=== PATIENT | female | born 1935 | race Caucasian/White ===

== ENCOUNTER → 2017-07-04 13:09 | Outpatient (CLI) | payer MEDICARE, SELFPAY ==
--- NOTE | 2017-07-04 13:13 | MR_ITS ---
MR cervical spine wo con HISTORY: Neck pain with bilateral hand numbness ITS.REASON: CERVICAL NEURALGIA ORDERING PHYSICIAN: Edilberto Montoya MD PATIENT AGE: 82 years COMPARISON: CT scan of the C-spine of 11/01/2016 TECHNIQUE: Standard multiplanar multiecho sequences are performed without contrast. 3-D MIP and myelographic images are also rendered and reviewed FINDINGS: There is normal alignment. The craniocervical junction has an unremarkable appearance. Small cystic area is present along the dorsal aspect of the base of the odontoid measuring approximate 5 mm and may be due to a subarticular cyst of the odontoid. Not significant change from the CT scan. C2-C3: Mild facet hypertrophic change with mild right-sided foraminal narrowing. C3-C4: Degenerative disc disease with bulging disc/broad-based disc osteophyte complex with narrowing of the canal at 10 mm along with bilateral lateral recess narrowing and bilateral foraminal narrowing. C4-C5: Mild anterolisthesis of C4 of 2 mm with minimal bulging disc eccentric to the right and right-sided uncovertebral hypertrophy with moderate right-sided foraminal narrowing and right lateral recess narrowing. C5-C6: Prominent broad-based bulging disc with disc osteophyte complex along with ossification along the deep aspect of the lamina on both sides resulting in severe canal stenosis at 5 mm with compression upon the cord. Increased T2 signal involves the cord at this area and could be due to underlying gliotic change. There is moderate flattening of the cord. In addition, there is degenerative disc disease with facet and uncovertebral hypertrophy with bilateral lateral recess and foraminal narrowing. C6-C7 minimal bulging disc with mild degenerative disc disease. C7-T1: 2 mm anterolisthesis of C7. IMPRESSION: Cervical spondylosis with degenerative disc disease with bulging discs/disc osteophyte complexes and with facet and uncovertebral hypertrophic change resulting in canal stenosis and foraminal and lateral recess narrowing as described above. Please see above for detailed description at each level. Most extensive findings are at C5-C6 with prominent broad-based bulging disc with disc osteophyte complex along with hypertrophic change along the deep aspect of the lamina on both sides resulting in severe canal stenosis at 5 mm with compression upon the cord. Increased T2 signal involves the cord at this area and could be due to underlying gliotic change or edema. There is moderate flattening of the cord. In addition, there is degenerative disc disease with facet and uncovertebral hypertrophy with bilateral lateral recess and foraminal narrowing.. IMPRESSION: . She is this
== END ==
PROVIDERS: PCP Internal Medicine Adolescent Medicine; Visit Provider Internal Medicine Adolescent Medicine
DX: M54.12 Radiculopathy, cervical region (principal)
CPT/HCPCS: 72141; 76376

== ENCOUNTER → 2017-08-02 10:36 | Outpatient (CLI) | payer MEDICARE, SELFPAY ==
--- NOTE | 2017-08-02 10:47 | XR_ITS ---
EXAM: XR cervical spine 4V HISTORY: ITS.REASON: CERVICAL STENOSIS C3-C7 ORDERING PHYSICIAN: Anatoly Mcconnell MD PATIENT AGE: 82 years COMPARISON: MRI of 07/04/2017 FINDINGS: AP and lateral as well as flexion and extension views are obtained of the cervical spine. There is severe degenerative disc disease at C5-6 with moderate degenerative disc disease at C6-C7. Severe facet hypertrophic changes are present from C3 to C7. This is greater on the left E45 and C5-C6. Flexion and extension views are obtained. No abnormal subluxation in flexion or extension. IMPRESSION: 1. Severe cervical spondylosis as described above with degenerative disc disease and facet arthritic change. 2. No abnormal subluxation in flexion or extension
== END ==
PROVIDERS: PCP Internal Medicine Adolescent Medicine; Visit Provider Neurological Surgery
DX: M54.2 Cervicalgia (principal)
CPT/HCPCS: 72050

== ENCOUNTER 2018-04-04 10:00 | Outpatient (RCR) | payer MEDICARE, SELFPAY ==
--- NOTE | 2018-02-22 14:59 | HMH.PTOPWND ---
Rehab Outpt Wound Evaluation Rehab OP Wound Evaluation Start: 02/22/18 13:57 Freq: Status: Active Protocol: Document 02/22/18 14:45 PHOJONO (Rec: 02/22/18 14:59 PHORNE [id number]) Electronically Signed By Ozzy Mckinney, PT 02/22/18 14:45 Subjective/History History History Pt is 82 yowf who presents with ~ 1 yr hx of ky LE edema with insidious onset. She also reports she fell into her [place]oven[place] tub ~ 6-7 wks ago with multiple skin tears to ky lower legs. She reports severe tenderness to palpation throughout ky lower legs and has hx of insidious peripheral neuropathy. SHe has hx of multiple falls, partial hysterectomy, and HTN also. Subjective Subjective Pain in ky lower legs, especially around left post calf wound. Wound Eval Wound Left Posterior Calf Wound Type Stasis Ulcer Wound Length (cm) 1.6 Wound Width (cm) 3.0 Wound Bed Appearance Beefy Red Percentage Granulated (%) 100 Wound Margins Description Well Defined Surrounding Tissue Appearance [employer] Edema Type Pitting Edema Degree 1+ Query Text:1+ Trace, Barely Detectable, Rebound 15-30 seconds 2+ Moderate, Slight Indentation, Rebound 10-20 seconds 3+ Deep, Deeper Indentation, Rebound > 30 seconds 4+ Very Deep, Rebound > 60 seconds Edema Appearance Shiny Open Sores Drainage Description Serous Drainage Amount Moderate Drainage Odor No Odor Primary Dressing Silver Dressing Comment Tegaderm Ag mesh Wound Secondary Dressing Type Gauze Roll/Wrap Adhering Gauze Roll Unna Boot Dressing Change Patient Tolerance Tolerated Well Lymphedema Eval Classification of Lymphedema Secondary Lymphedema Yes: likely CVI Stage of Lymphedema Lymphedema stages Stage 0 (subjective c/o heaviness and aching) Skin Changes Dry Skin Yes Redness Yes Wounds Yes Discoloration of Skin Yes Pain Scale Pain Scale (0-10) 8 Affected Extremities Areas Affected by Lymphedema/Edema Right Lower E
== END 2018-04-04 10:01 | disposition home or self-care (01) ==
LOC: PT 10:00
PROVIDERS: PCP Internal Medicine Adolescent Medicine; Visit Provider Internal Medicine Adolescent Medicine
DX: L03.116 Cellulitis of left lower limb (principal); L03.115 Cellulitis of right lower limb
CPT/HCPCS: 97140; 97162; 97760

== ENCOUNTER 2018-05-11 10:00 | Outpatient (RCR) | payer MEDICARE, SELFPAY ==
--- NOTE | 2018-04-10 14:56 | HMH.PTOPWND ---
Rehab Outpt Wound Evaluation Rehab OP Wound Evaluation Start: 04/10/18 14:43 Freq: Status: Active Protocol: Document 04/10/18 14:43 PHOJONO (Rec: 04/10/18 14:56 PHORNE [id number]) Electronically Signed By Ozzy Mckinney, PT 04/10/18 14:43 Subjective/History History History Pt is 83 yowf who presents with c/o edema in ky breasts and abdomen, I just feel bloated. She has hx od ky mastectomy due to breast cancer ~ 18 yrs ago with muscle flaps. She has had no problems with edema until ~ 3- 4 mos ago when she noticed it gradually increasing. No current c/o pain in either UE, but some discomfort in ky axillary region and abdomen. 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 Subjective Subjective Currently no c/o pain or discomfort. Lymphedema Eval Classification of Lymphedema Secondary Lymphedema Yes Stage of Lymphedema Lymphedema stages Stage I (Pitting edema, reduces w/ elevation, no fibrosis) Skin Changes Dry Skin Yes Redness Yes Other Changes Yes Pain Scale Pain Scale (0-10) 0 Affected Extremities Areas Affected by Lymphedema/Edema Right Upper Extremity Left Upper Extremity Abdomen Right Breast Left Breast Right Axilla Left Axilla Upper Extremity Measurements Left MCP Measurement (cm) 19.6 Web Space Measurement (cm) 21.2 Ulnar Styloid Process Measurement (cm) 17.4 10 cm Proximal to Ulnar Styloid 18.6 Measurement (cm) 20 cm Proximal to Ulnar Styloid 25.3 Measurement (cm) 30 cm Proximal to Ulnar Styloid 27.6 Measurement (cm) 40 cm Proximal to Ulnar Styloid 33.0 Measurement (cm) 50 cm Proximal to Ulnar Styloid 40.0 Measurement (cm) Right MCP Measurement (cm) 20.8 Web Space Measurement (cm) 20.2 Ulnar Styloid Process Measurement (cm) 17.4 10 cm Proximal to Ulnar Styloid 19.7 Measurement (cm) 20 cm Proximal to Ulnar Styloid 25.3 Measurement (cm) 30 cm
--- NOTE | 2018-05-08 11:10 | SW/DCPLANNER ---
I have provided this patient with [employer] information along with my card per [employer] request (Nadja Fuller).
== END 2018-05-11 10:05 | disposition home or self-care (01) ==
LOC: PT 10:00
PROVIDERS: Visit Provider Internal Medicine Adolescent Medicine
DX: I89.0 Lymphedema, not elsewhere classified (principal)
CPT/HCPCS: 97110; 97112; 97140; 97162; 97760

== ENCOUNTER → 2018-12-18 13:07 | Outpatient (POV) | payer MEDICARE, SELFPAY | PROVIDERS: Visit Provider Dermatology | DX: Z00.00 Encounter for general adult medical examination without abnormal findings (principal) ==

== ENCOUNTER → 2018-12-24 11:54 | Outpatient (CLI) | payer MEDICARE, SELFPAY ==
--- NOTE | 2018-12-24 11:59 | XR_ITS ---
XR ankle LT min 3V HISTORY: ITS.REASON: left ankle pain ORDERING PHYSICIAN: Candace Matrin MD PATIENT AGE: 83 years Comparison: None FINDINGS: No fracture or dislocation. No lytic or blastic change. There is normal mineralization.. The joint spaces are well-preserved. No significant degenerative/arthritic changes. No erosive changes evident. There is some mild calcification along the plantar aponeurosis near the calcaneal insertion which may be seen with calcific tendinitis. There is minimal hypertrophic change of the distal tibia and at the talonavicular joint. IMPRESSION: Degenerative changes, no acute finding. Mild plantar calcification which could be seen with plantar fasciitis
== END ==
PROVIDERS: PCP Internal Medicine Adolescent Medicine; Visit Provider Orthopaedic Surgery
DX: M25.572 Pain in left ankle and joints of left foot (principal)
CPT/HCPCS: 73610

== ENCOUNTER → 2019-01-31 12:36 | Observation (INO) ==
[2019-01-30 13:23] LABS: Basophils % 0.3 % (0.1-2.0); Eosinophils % 0.4 % (0.1-12.0); Hematocrit 37.7 % (37.0-47.0); Lymphocytes # 1.2 K/mm3 (0.7-4.5); Lymphocytes % 11.1 % (10-50); Mean Corpuscular HGB Conc 31.9 g/dL (31.8-35.4); Mean Corpuscular Volume 87.4 fl (81-99); Mean Platelet Volume 7.1 fl (7.4-10.4); Monocytes # 0.8 K/mm3 (0.1-1.0); Monocytes % 7.1 % (1.7-9.3); Neutrophils # 8.9 K/mm3 (1.8-7.8); Neutrophils % 81.1 % (37.0-80.0); Platelet Count 335 K/mm3 (142-424); Red Blood Count 4.32 M/mm3 (4.20-5.40); Red Cell Distribution Width 12.5 % (11.5-17.5)
--- NOTE | 2019-01-30 13:34 | History & Physical Report ---
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 Gabapentin has been tried, Lyrica has been tried, with minimal results. She struggles with ataxia and multiple falls at a baseline, but her daughter brought her to the office today with complaints of worsening balance, increasing falls, including a severe fall that required ER attention with shoulder pain and recent fall with head laceration and right wrist laceration. In the office she was found to be significantly unstable, and also complained of generalized weakness. She is admitted for imaging, further metabolic testing, evaluation for infectious etiologies of her problem and decision about possible placement. She lives at home with good assistance of her family but they are unable to provide 24/7 ambulatory assistance and bathroom assistance. [facility] History I have reviewed the patient's past medical history: Yes Medical History: Reports:: Cancer, Gastroesophageal Reflux Disease(GERD), Hypertension *Have you ever received a pneumonia vaccine?: Yes *Have you received a flu vaccine this season?: No Other Medical History: Reports: Arthritis Comment:: Severe sensory neuropathy as noted above. Chronic abdominal lymphedema Amputation: No Comment: Anterior spinal fusion and discectomy, [facility], January 2018 - *Social History Educational Level: Completed College Smoking Status: Never smoker Alcohol Intake: never Alcohol Intake Frequency:: holidays/special occasions only Substance Use Type: denies use *Occupational Status:: other *Travel in the last 8 weeks: None Family Hx:: No significant family history Review of Systems - Review of Systems Review of systems:: pertinent systems reviewed and negative unless documented below - Constitutional Reports fatigue, Denies anorexia, Denies fever(s), Denies headache(s), Denies increased appetite - Eyes Denies blind spots, Denies blurry vision, Denies bulging eyes - ENT Reports poor balance, Reports dizziness, Denies abnormal hearing, Denies dry mouth, Denies nosebleed, Denies facial pain, Denies lip swelling - *Cardiovascular Denies chest pain, Denies excessive sweating, Denies generalized swelling, Denies irregular heart rhythm, Denies shortness of breath when lying down - *Respiratory Denies change in phlegm color, Denies shortness of breath with activity, Denies excessive phlegm production - *Gastrointestinal Denies abdominal pain, Denies change in stools, Denies coffee ground vomit - *Musculoskeletal Reports abnormal walking, Reports joint swelling, Reports limited joint movement, Reports muscle weakness - Integumentary/Breasts Denies acne, Denies change in skin color, Denies excessive hair growth - *Neurologic Reports abnormal walking, Reports dizziness, Reports frequent falls, Reports headache(s), Reports lack of coordination, Reports tingling/numbness/burning sensations, Denies other visual disturbances, Denies seizure-like activity, Denies sensory deficit - Psychiatric Denies abnormal sleep pattern - Endocrine Denies cold intolerance, Denies excessive sweating Meds Home Medications Medication Instructions Recorded Confirmed Type duloxetine 20 mg capsule,delayed 20 mg PO BID 05/31/18 12/24/18 History release gabapentin 800 mg tablet 800 mg PO BID 05/31/18 12/24/18 History lisinopril 10 mg tablet 10 mg PO DAILY 05/31/18 12/24/18 History Meloxicam 15 mg PO DAILY 10/26/18 12/24/18 History Mupirocin [Bactroban 2% Ointment 1 applicatio TP TID 7 Days #1 tube 12/18/18 12/24/18 Rx 22gm tube] cephALEXin [Keflex 500mg Cap] 500 mg PO QID 10 Days #40 cap 12/18/18 12/24/18 Rx Allergies Allergy/AdvReac Type Severity Reaction Status Date / Time hydromorphone [From DILAUDID] Allergy Unknown PARALYSIS Verified 12/24/18 11:22 metronidazole [METRONIDAZOLE] Allergy Unknown NA-NAUSEA/V Verified 12/24/18 11:22 OMITING morphine [MORPHINE] Allergy Unknown Verified 12/24/18 11:22 pentazocine [PENTAZOCINE] Allergy Unknown Verified 12/24/18 11:22 Exam Vital signs and Labs for Last 24 Hours: Temp Pulse Resp BP Pulse Ox 98.6 F 84 17 152/78 H 98 01/30/19 11:39 01/30/19 11:39 01/30/19 11:39 01/30/19 11:39 01/30/19 11:39 Laboratory Results - last 24 hr 01/30/19 13:00: WBC 11.0 H, RBC 4.32, Hgb 12.0 L, Hct 37.7, MCV 87.4, MCH 27.9, MCHC 31.9, RDW 12.5, Plt Count 335, MPV 7.1 L, Neut % (Auto) 81.1 H, Lymph % (Auto) 11.1, [place] % (Auto) 7.1, Eos % (Auto) 0.4, Baso % (Auto) 0.3, Neut # (Auto) 8.9 H, Lymph # (Auto) 1.2, [place] # (Auto) 0.8, Eos # (Auto) 0.0, Baso # (Auto) 0.0 I & O for Last 24 hours: Intake & Output 01/28/19 01/29/19 01/30/19 01/31/19 11:59 11:59 11:59 11:59 Intake Total 360 / 360 Balance 360 / 360 Weight 183 lb 2 oz Narrative: Patient is pleasant, talkative, no memory loss. Alert, oriented x3. Oropharynx clear. No JVD. Left carotid bruit as previously noted. Has well-healing laceration and bruising in the left quaker area from a fall 3 or 4 days ago. Dentures are in good repair. Heart rate regular without murmurs. Lung flores are clear. Abdomen soft, somewhat swollen in the anterior area as previously noted. No organomegaly. No edema or clubbing. 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 Has a laceration of the dorsum of the right hand from a recent fall. Has significant pain in the left hip with any kind of internal or external rotation. Leg length is not shortened or internally rotated. Unable to get up to a stand without maximal assistance. Very ataxic when walking. Significant instability. Neurologic exam shows preserved muscle strength on gross testing, but significant sensory loss up to the knees bilaterally. Assessment and Plan (1) Ataxia Current visit: Yes Status: Acute Category: Medical Code(s): R27.0 - Ataxia, unspecified Significant problem for this patient and significant safety issue. Admit to observation. Imaging, labs, PT evaluation (2) Peripheral neuropathy Current visit: Yes Status: Acute Category: Medical Code(s): G62.9 - Polyneuropathy, unspecified Recheck labs. Significant ongoing problem, previous work-up has been unrevealing about source of neuropathy (3) Frequent falls Current visit: Yes Status: Acute Category: Medical Code(s): R29.6 - Repeated falls (4) Hypertension Current visit: Yes Status: Acute Category: Medical Code(s): I10 - Essent ial (primary) hypertension (5) Dysuria Current visit: Yes Status: Acute Category: Medical Code(s): R30.0 - Dysuria Patient is really unable to give a clean-catch specimen. We will order in and out catheterization
[2019-01-30 13:42] LABS: Albumin Level 3.2 gm/dL (3.4-5.0); Albumin/Globulin Ratio 0.7 (1.1-1.8); Anion Gap 14.2 mEq/L (5-15); Bilirubin,Total 0.4 mg/dL (0.2-1.0); Calcium 10.2 mg/dL (8.5-10.1); Globulin 4.7 gm/dl (1.3-3.2); Total Protein,Serum 7.9 gm/dL (6.4-8.2)
[2019-01-30 13:51] LABS: Thyroid Stimulating Hormone 1.26 uIU/ml (0.358-3.740)
[2019-01-30 14:16] LABS: Microscopic, Urine URINE MICROSCOPIC (MICROSCOPIC)
[2019-01-30 14:17] LABS: Appearance,Urine CLOUDY (Clear); Bilirubin,Urine Negative (Negative); Blood, Urine TRACE-I (Negative); Color,Urine YELLOW (Yellow); Glucose,Urine (UA) Negative (Negative); Ketones,Urine Negative (Negative); Leukocyte Esterase,Urine 1+ (Negative); PH,Urine 5.5 (5.0-8.5); Protein,Urine 1+ (Negative); Specific Gravity, Urine 1.015 (1.005-1.030); Urobilinogen,Urine 0.2 EU/dl (0.2)
[2019-01-30 14:24] LABS: Bacteria,Urine 4+ /lpf; WBC,Urine 20-50 #/hpf (0-3)
--- NOTE | 2019-01-30 14:58 | Pharmacy Consult Notes ---
[facility] Pharmacy VTE Monitoring - Patient Demographics Admission date: 01/30/19 Report Date: 01/30/19 Time: 14:58 Allergies/Adverse Reactions: Patient Allergies hydromorphone [From DILAUDID] Allergy (Unknown, Verified 12/24/18 11:22) PARALYSIS metronidazole [METRONIDAZOLE] Allergy (Unknown, Verified 12/24/18 11:22) NA-NAUSEA/VOMITING morphine [MORPHINE] Allergy (Unknown, Verified 12/24/18 11:22) pentazocine [PENTAZOCINE] Allergy (Unknown, Verified 12/24/18 11:22) Height: 1.65 m Weight: 83.064 kg Patient Problems: Current Active Problems Ataxia (Acute) Peripheral neuropathy (Acute) Frequent falls (Acute) Hypertension (Acute) Dysuria (Acute) - VTE Risk Labs: VTE Related Lab Results Hgb 12.0 g/dL (12.2-16.2) L 01/30/19 13:00 Hct 37.7 % (37.0-47.0) 01/30/19 13:00 Plt Count 335 K/mm3 (142-424) 01/30/19 13:00 BUN 23 mg/dL (7-18) H 01/30/19 13:00 Creatinine 1.31 mg/dL (0.55-1.02) H 01/30/19 13:00 Estimated Creat Clear 44 mL/min (50-200) 01/30/19 13:00 Clinical Trial Participant: No - Prophylaxis VTE Prophylaxis Ordered?: Yes Types of VTE Prophylaxis: TEDS Knee High
--- NOTE | 2019-01-30 17:09 | Consult Report ---
*Admission Date: 01/30/19 *Reason for consult:: Right shoulder pain Review of Systems - Review of Systems Review of systems:: pertinent systems reviewed and negative unless documented below - *Neurologic Reports abnormal walking, Reports unsteadiness, Reports dizziness, Reports frequent falls, Reports headache(s), Reports lack of coordination, Reports tingling/numbness/burning sensations, Denies abnormal hearing, Denies other visual disturbances, Denies seizure-like activity, Denies sensory deficit [facility] History I have reviewed the patient's past medical history: Yes Medical History: Reports:: Cancer, Gastroesophageal Reflux Disease(GERD), Hypertension Denies:: Diabetes Mellitus Type 1, Diabetes Mellitus Type 2, MRSA *Have you ever received a pneumonia vaccine?: Yes *Have you received a flu vaccine this season?: No Other Medical History: Reports: Arthritis, Cataracts Other Surgeries: Yes: Colonoscopy, Dilation and Curettage, Hysterectomy-Partial, Plastic Surgery, Skin Cancer Excision Amputation: No Fractures: No - *Social History Educational Level: Completed College Smoking Status: Former smoker Tobacco Type: cigarettes Alcohol Intake: current Alcohol Intake Frequency:: holidays/special occasions only Substance Use Type: denies use *Occupational Status:: retired Household Members: children *Travel in the last 8 weeks: None Family Hx:: No significant family history Meds Home Medications Medication Instructions Recorded Confirmed Type lisinopril 10 mg tablet 10 mg PO DAILY 05/31/18 01/30/19 History Meloxicam 15 mg PO DAILY 10/26/18 01/30/19 History Duloxetine HCl 30 mg PO BID 01/30/19 01/30/19 History Gabapentin [Gabapentin 300mg Cap] 300 mg PO DIRECTED 01/30/19 01/30/19 History Allergies Allergy/AdvReac Type Severity Reaction Status Date / Time hydromorphone [From DILAUDID] Allergy Intermediate Agitated Verified 01/30/19 15:46 metronidazole [METRONIDAZOLE] Allergy Unknown NA-NAUSEA/V Verified 12/24/18 11:22 OMITING morphine [MORPHINE] Allergy Unknown Agitated Verified 01/30/19 15:46 pentazocine [PENTAZOCINE] Allergy Unknown Agitated Verified 01/30/19 15:46 Exam Vital signs and Labs for Last 24 Hours: Temp Pulse Resp BP Pulse Ox 98.7 F 83 18 165/65 H 97 01/30/19 16:00 01/30/19 16:00 01/30/19 16:00 01/30/19 16:00 01/30/19 16:00 Laboratory Results - last 24 hr 01/30/19 13:00: WBC 11.0 H, RBC 4.32, Hgb 12.0 L, Hct 37.7, MCV 87.4, MCH 27.9, MCHC 31.9, RDW 12.5, Plt Count 335, MPV 7.1 L, Neut % (Auto) 81.1 H, Lymph % (Auto) 11.1, [place] % (Auto) 7.1, Eos % (Auto) 0.4, Baso % (Auto) 0.3, Neut # (Auto) 8.9 H, Lymph # (Auto) 1.2, [place] # (Auto) 0.8, Eos # (Auto) 0.0, Baso # (Auto) 0.0 01/30/19 13:00: Sodium 135 L, Potassium 4.2, Chloride 98, Carbon Dioxide 27, Anion Gap 14.2, BUN 23 H, Creatinine 1.31 H, Estimated Creat Clear 44, Estimated GFR 39 L, Est GFR ( Amer) 47 L, Glucose 210 H, Calcium 10.2 H, Phosphorus 3.0, Magnesium 1.8, Total Bilirubin 0.4, AST 14 L, ALT 40, Alkaline Phosphatase 125 H, Total Protein 7.9, Albumin 3.2 L, Globulin 4.7 H, Albumin/Globulin Ratio 0.7 L 01/30/19 13:00: Hemoglobin A1c 7.3 H 01/30/19 13:00: TSH 1.26, Free T4 Index 4.0 L, Thyroxine (T4) 10.7, T3 Uptake 37 01/30/19 13:28: Ammonia < 10 L 01/30/19 14:02: Urine Color Yellow, Urine Appearance Cloudy, Urine pH 5.5, Ur Specific [place] 1.015, Urine Protein 1+, Urine Glucose (UA) Negative, Urine Ketones Negative, Urine Blood Trace-i, Urine Nitrate Positive, Urine Bilirubin Negative, Urine Urobilinogen 0.2, Ur Leukocyte Esterase 1+ A, Urine WBC 20-50, Ur Squamous Epith Cells 3-5, Urine Bacteria 4+ I & O for Last 24 hours: Intake & Output 01/28/19 01/29/19 01/30/1901/31/19 11:59 11:59 11:59 11:59 Intake Total 360 / 360 Balance 360 / 360 Weight 183 lb 2 oz Results - Labs Result Diagrams: 01/30/19 13:00 01/30/19 13:00 Labs: Abnormal lab results 01/30/19 01/30/19 01/30/19 Range/Units 13:00 13:00 13:00 WBC 11.0 H (4.8-10.8) K/mm3 Hgb 12.0 L (12.2-16.2) g/dL MPV 7.1 L (7.4-10.4) fl Neut % (Auto) 81.1 H (37.0-80.0) % Neut # (Auto) 8.9 H (1.8-7.8) K/mm3 Sodium 135 L (136-145) mmol/L BUN 23 H (7-18) mg/dL Creatinine 1.31 H (0.55-1.02) mg/dL Estimated GFR 39 L (>60) ml/min Est GFR ( Amer) 47 L (>60) ML/MIN Glucose 210 H (74-106) mg/dL Hemoglobin A1c 7.3 H (0.0-7.0) % Calcium 10.2 H (8.5-10.1) mg/dL AST 14 L (15-37) U/L Alkaline Phosphatase 125 H (46-116) U/L Ammonia (19-54) umol/L Albumin 3.2 L (3.4-5.0) gm/dL Globulin 4.7 H (1.3-3.2) gm/dl Albumin/Globulin Ratio 0.7 L (1.1-1.8) Free T4 Index (5.93-13.13) ug/dL Ur Leukocyte Esterase (Negative) 01/30/19 01/30/19 01/30/19 Range/Units 13:00 13:28 14:02 WBC (4.8-10.8) K/mm3 Hgb (12.2-16.2) g/dL MPV (7.4-10.4) fl Neut % (Auto) (37.0-80.0) % Neut # (Auto) (1.8-7.8) K/mm3 Sodium (136-145) mmol/L BUN (7-18) mg/dL Creatinine (0.55-1.02) mg/dL Estimated GFR (>60) ml/min Est GFR ( Amer) (>60) ML/MIN Glucose (74-106) mg/dL Hemoglobin A1c (0.0-7.0) % Calcium (8.5-10.1) mg/dL AST (15-37) U/L Alkaline Phosphatase (46-116) U/L Ammonia < 10 L (19-54) umol/L Albumin (3.4-5.0) gm/dL Globulin (1.3-3.2) gm/dl Albumin/Globulin Ratio (1.1-1.8) Free T4 Index 4.0 L (5.93-13.13) ug/dL Ur Leukocyte Esterase 1+ A (Negative) H & H 01/30/19 Range/Units 13:00 Hgb 12.0 L (12.2-16.2) g/dL Hct 37.7 (37.0-47.0) % All other labs normal. Assessment and Plan (1) Ataxia Current visit: Yes Status: Acute Category: Medical Code(s): R27.0 - Ataxia, unspecified (2) Peripheral neuropathy Current visit: Yes Status: Acute Category: Medical Code(s): G62.9 - Polyneuropathy, unspecified (3) Frequent falls Current visit: Yes Status: Acute Category: Medical Code(s): R29.6 - Repeated falls (4) Hypertension Current visit: Yes Status: Acute Category: Medical Code(s): I10 - Essential (primary) hypertension (5) Dysuria Current visit: Yes Status: Acute Category: Medical Code(s): R30.0 - Dysuria (6) Chronic right shoulder pain Current visit: Yes Status: Chronic Category: Medical Code(s): M25.511 - Pain in right shoulder; G89.29 - Other chronic pain (7) Arthritis of shoulder region, right, degenerative Current visit: Yes Status: Chronic Category: Medical Code(s): M19.011 - Primary osteoarthritis, right shoulder (8) Rotator cuff tear arthropathy of right shoulder Current visit: Yes Status: Chronic Category: Medical Code(s): M75.101 - Unspecified rotator cuff tear or rupture of right shoulder, not specified as traumatic; M12.811 - Other specific arthropathies, not elsewhere classified, right shoulder - Assessment and plan all Dx Assessment and Plan for all problems:: I have reviewed the clinical and imaging findings with the patient and her daughter. I have discussed the diagnosis, natural history and management options in detail including both nonsurgical and surgical. Patient is under care of Dr. Martin for this problem and was seen by her couple of times in the office. Patient had an intra-articular/subacromial injection to her right shoulder couple of months ago with very good some dramatic improvement. I think the effect of the injection is wearing off and she may be due for another injection. However, ideally I would recommend waiting for 3 months from the previous injection before the next steroid injection. Advised patient to call Dr. Martin's office after discharge and make an appointment to be seen in the next 2 to 3 weeks. Given her age, medical comorbidities and history of recurrent falls, surgical intervention in the form of a reverse total shoulder arthroplasty may not be appropriate. I therefore recommend continuation of conservative management including rest, activity modification, simple analgesics and NSAIDs, physical/occupational therapy. All the questions were answered and patient verbalized a good understanding. Follow-up in the office as needed with Dr. Martin.
--- NOTE | 2019-01-31 08:57 | Electrocardiograph Report ---
APPROVED REPORT Exam: Resting ECG HR:81 bpm ECG Measurements Heart Rate 81 AXES [place] 166 P 60 QRSd 66 QRS 53 QT 366 T42 QTc 425 <Conclusion> Normal sinus rhythm Normal ECG Electronically signed by : Edilberto Montoya, 01/31/2019 08:57:12
--- NOTE | 2019-01-31 10:20 | Discharge Summary ---
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 Gabapentin has been tried, Lyrica has been tried, with minimal results. She struggles with ataxia and multiple falls at a baseline, but her daughter brought her to the office today with complaints of worsening balance, increasing falls, including a severe fall that required ER attention with shoulder pain and recent fall with head laceration and right wrist laceration. In the office she was found to be significantly unstable, and also complained of generalized weakness. She is admitted for imaging, further metabolic testing, evaluation for infectious etiologies of her problem and decision about possible placement. She lives at home with good assistance of her family but they are unable to provide 24/7 ambulatory assistance and bathroom assistance. Hospital Course Hospital Course: Patient was admitted. CT scan of head showed no acute changes. X-rays of hips and shoulder showed no fracture. She was found to have a urinary tract [id number] rods so far in the culture, final culture identification pending. Ceftriaxone was started and she did well with this. Physical therapy evaluated her and felt that she would benefit from intensive rehabilitation at intermediate care facility. Family agreed that this would be a reasonable placement for her at this point. In addition, A1c was elevated over her baseline, she will be started on appropriate dose Januvia therapy. Otherwise her medications will remain the same including her gabapentin, which I will prescribe for her at the assisted. She will be transferred there today with short-term follow-up. Please note she will need PT/OT evaluation. Please note she will need BMP in 2 weeks. Objective Vital signs: Temp Pulse Resp BP Pulse Ox 98.2 F 80 18 149/78 H 95 01/31/19 08:00 01/31/19 08:00 01/31/19 08:00 01/31/19 08:00 01/31/19 08:00 Narrative: Pleasant, alert. Previously noted abrasions and laceration on left side of her forehead and right dorsum of the hand. Shoulder AC joints very tender. Mobility is diminished but no guide changer admission exam. No edema or clubbing in her hands or feet. Heart rate regular. Lungs are clear. Abdomen soft and benign. Please see PT notes for detailed gait evaluation. Results Labs on day of discharge: Labs from last 24 hours 01/30/19 01/30/19 01/30/19 14:02 13:28 13:00 WBC RBC Hgb Hct MCV MCH MCHC RDW Plt Count MPV Neut % (Auto) Lymph % (Auto) [place] % (Auto) Eos % (Auto) Baso % (Auto) Neut # (Auto) Lymph # (Auto) [place] # (Auto) Eos # (Auto) Baso # (Auto) Sodium Potassium Chloride Carbon Dioxide Anion Gap BUN Creatinine Estimated Creat Clear Estimated GFR Est GFR ( Amer) Glucose Hemoglobin A1c Calcium Phosphorus Magnesium Total Bilirubin AST ALT Alkaline Phosphatase Ammonia < 10 L Total Protein Albumin Globulin Albumin/Globulin Ratio TSH 1.26 Free T4 Index 4.0 L Thyroxine (T4) 10.7 T3 Uptake 37 Urine Color Yellow Urine Appearance Cloudy Urine pH 5.5 Ur Specific [place] 1.015 Urine Protein 1+ Urine Glucose (UA) Negative Urine Ketones Negative Urine Blood Trace-i Urine Nitrate Positive Urine Bilirubin Negative Urine Urobilinogen 0.2 Ur Leukocyte Esterase 1+ A Urine WBC 20-50 Ur Squamous Epith Cells 3-5 Urine Bacteria 4+ 01/30/19 01/30/19 01/30/19 13:00 13:00 13:00 WBC 11.0 H RBC 4.32 Hgb 12.0 L Hct 37.7 MCV 87.4 MCH 27.9 MCHC 31.9 RDW 12.5 Plt Count 335 MPV 7.1 L Neut % (Auto) 81.1 H Lymph % (Auto) 11.1 [place] % (Auto) 7.1 Eos % (Auto) 0.4 Baso % (Auto) 0.3 Neut # (Auto) 8.9 H Lymph # (Auto) 1.2 [place] # (Auto) 0.8 Eos # (Auto) 0.0 Baso # (Auto) 0.0 Sodium 135 L Potassium 4.2 Chloride 98 Carbon Dioxide 27 Anion Gap 14.2 BUN 23 H Creatinine 1.31 H Estimated Creat Clear 44 Estimated GFR 39 L Est GFR ( Amer) 47 L Glucose 210 H Hemoglobin A1c 7.3 H Calcium 10.2 H Phosphorus 3.0 Magnesium 1.8 Total Bilirubin 0.4 AST 14 L ALT 40 Alkaline Phosphatase 125 H Ammonia Total Protein 7.9 Albumin 3.2 L Globulin 4.7 H Albumin/Globulin Ratio 0.7 L TSH Free T4 Index Thyroxine (T4) T3 Uptake Urine Color Urine Appearance Urine pH Ur Specific [place] Urine Protein Urine Glucose (UA) Urine Ketones Urine Blood Urine Nitrate Urine Bilirubin Urine Urobilinogen Ur Leukocyte Esterase Urine WBC Ur Squamous Epith Cells Urine Bacteria Preliminary micro results at discharge 01/30/19 14:02 Urine Culture - Preliminary Urine,Catheterized Gram Negative Rods DS: Diagnosis - Discharge Diagnosis (1) Ataxia Status: Chronic (2) Peripheral neuropathy Status: Chronic (3) Frequent falls Status: Chronic (4) Hypertension Status: Chronic (5) Dysuria Status: Resolved (6) Chronic right shoulder pain Status: Chronic (7) Arthritis of shoulder region, right, degenerative Status: Chronic (8) 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 (9) UTI (urinary tract infection) Status: Acute Discharge Plan - Patient Discharge Instructions ACTIVITY: Continue current activity DIET: continue same diet Patient Instructions: DI for Urinary Tract Infection (UTI), How to Prevent Falls - Follow up Plan Follow up with: Velia Valencia APRN [Nurse Practitioner] - Disposition: er Intermediate Care Fac Home Medications: Home Medications Medication Instructions Recorded Confirmed Type lisinopril 10 mg tablet 10 mg PO DAILY 05/31/18 01/30/19 History Meloxicam 15 mg PO DAILY 10/26/18 01/30/19 History Duloxetine HCl 30 mg PO BID 01/30/19 01/30/19 History Cefdinir [Omnicef 300mg Capsule] 300 mg PO BID #10 cap 01/31/19 Rx Gabapentin [Gabapentin 300mg Cap] 300 mg PO BID #90 cap 01/31/19 Rx Prescriptions/Medication Reconciliation: New Sitagliptin Phosphate [Januvia 50mg Tablet] 50 mg PO DAILYDM tablet Cefdinir [Omnicef 300mg Capsule] 300 mg PO BID #10 cap Continued lisinopril 10 mg tablet 10 mg PO DAILY Meloxicam 15 mg PO DAILY Duloxetine HCl 30 mg PO BID Changed Gabapentin [Gabapentin 300mg Cap] 300 mg PO BID #90 cap - Problem Reconciliation Problems Reviewed?: Yes
== END ==
LOC: 2ND
PROVIDERS: ADMIT Internal Medicine Adolescent Medicine; ATTEND Internal Medicine Adolescent Medicine
DX: M75.101 Unspecified rotator cuff tear or rupture of right shoulder, not specified as traumatic; R30.0 Dysuria; N39.0 Urinary tract infection, site not specified; Z90.710 Acquired absence of both cervix and uterus; B96.89 Other specified bacterial agents as the cause of diseases classified elsewhere; R73.9 Hyperglycemia, unspecified; M19.011 Primary osteoarthritis, right shoulder; Z87.891 Personal history of nicotine dependence; Z88.5 Allergy status to narcotic agent; G60.9 Hereditary and idiopathic neuropathy, unspecified; I10 Essential (primary) hypertension; Z88.8 Allergy status to other drugs, medicaments and biological substances; R29.6 Repeated falls; Z85.828 Personal history of other malignant neoplasm of skin; R27.0 Ataxia, unspecified; Z79.899 Other long term (current) drug therapy
CPT/HCPCS: 70470; 73030; 73502; 80053; 81001; 82140; 82175; 82607; 82652; 83036; 83655; 83735; 83825; 84100; 84436; 84443; 84479; 85025; 87086; 87088; 87186; 93005; 97162; 97166; G0378; Q9967

== ENCOUNTER → 2019-02-26 07:56 | Outpatient (CLI) | payer MEDICARE, SELFPAY ==
--- NOTE | 2019-02-26 08:03 | CT_ITS ---
PROCEDURE: CT ABDOMEN PELVIS WO CON CLINICAL HISTORY: RECURRING UTI Recurring UTIs COMPARISON: No exams were available for comparison TECHNIQUE: Axial images obtained with sagittal and coronal reformats. All CT scans at the facility use one or more dose reduction, viz: automated exposure control, ma/kV adjustment per patient size (including targeted exams where dose is matched to indication, i.e. head), or iterative reconstruction technique. FINDINGS: No acute finding of the lung bases. There is a small hiatal hernia and there are coronary artery calcifications. The liver, gallbladder, spleen, adrenal glands, and pancreas have an unremarkable unenhanced appearance. No renal or ureteral calculi. There is a small area of decreased attenuation within the posterior aspect of the right kidney at approximately 10 mm which may be due to a renal cyst and could be confirmed with ultrasound if clinically warranted. There are atherosclerotic changes of the aortoiliac vessels. No evidence of appendicitis. There is diverticulosis of the descending and sigmoid colon but no evidence of diverticulitis. The there are degenerative changes in the lumbar spine and the lower thoracic spine. Post hysterectomy changes. No pelvic mass abnormal fluid collection or focal inflammatory change of the pelvis. Urinary bladder has an unremarkable appearance. No bladder stones IMPRESSION: 1. No acute abdominal or pelvic findings. No renal or ureteral calculi. 2. 1 cm hypodensity of the right kidney which may represent a renal cyst and may be confirmed with ultrasound. 3. Colonic diverticulosis. No evidence of diverticulitis Dictated by: Rubén Baker MD 02/27/2019 06:29 Electronically signed by Rubén Baker MD in [facility] 02/27/2019 06:29
== END ==
PROVIDERS: PCP Internal Medicine Adolescent Medicine; Visit Provider Nurse Practitioner Family
DX: N30.00 Acute cystitis without hematuria (principal)
CPT/HCPCS: 74176

== ENCOUNTER → 2019-04-08 14:21 | Outpatient (CLI) | payer MEDICARE, SELFPAY ==
--- NOTE | 2019-04-08 14:23 | US_ITS ---
PROCEDURE: US KIDNEY CLINICAL INDICATION: RENAL CYST The the COMPARISON: CT ABDOMEN PELVIS WO CON from 02/26/2019 FINDINGS: The right kidney is 10 x 6 x 6 cm. Left kidney is 9 x 5 x 4 cm. No hydronephrosis. There is a 15 mm cyst involving the mid aspect of the right kidney corresponding to the CT abnormality. No suspicious solid lesions are evident. The left kidney has an unremarkable appearance. There is some mild cortical thinning on both sides. No perinephric fluid collection. IMPRESSION: 15 mm right renal cyst corresponding to the CT abnormality. No suspicious lesions or hydronephrosis evident Dictated by: Rubén Baker MD 04/08/2019 16:14 Electronically signed by Rubén Baker MD in [facility] 04/08/2019 16:14
== END ==
PROVIDERS: PCP Internal Medicine Adolescent Medicine; Visit Provider Internal Medicine Adolescent Medicine
DX: N28.1 Cyst of kidney, acquired (principal)
CPT/HCPCS: 76770

== ENCOUNTER → 2019-05-13 16:03 | Outpatient (CLI) | payer MEDICARE, SELFPAY ==
[2019-05-13 17:22] LABS: Alanine Aminotransferase 18 U/L (12-78); Albumin Level 3.8 gm/dL (3.4-5.0); Albumin/Globulin Ratio 1.3 (1.1-1.8); Alkaline Phosphatase 97 U/L (46-116); Anion Gap 12.7 mEq/L (5-15); Aspartate Amino Transferase 14 U/L (15-37); Bilirubin,Total 0.3 mg/dL (0.2-1.0); Blood Urea Nitrogen 19 mg/dL (7-18); Calcium 9.1 mg/dL (8.5-10.1); Carbon Dioxide 30 mmol/L (21.0-32.0); Chloride 106 mmol/L (98-107); Creatinine,Serum 1.24 mg/dL (0.55-1.02); Estimated Glomerular Filt Rate 41 ml/min (>60); GFR (African American) 50 ML/MIN (>60); Globulin 2.9 gm/dl (1.3-3.2); Glucose 109 mg/dL (74-106); Potassium 4.7 mmoL/L (3.5-5.1); Sodium 144 mmol/L (136-145); Total Protein,Serum 6.7 gm/dL (6.4-8.2)
[2019-05-13 17:27] LABS: Hemoglobin A1C 6.7 % (0.0-7.0)
== END ==
PROVIDERS: Visit Provider Internal Medicine Adolescent Medicine
DX: G60.9 Hereditary and idiopathic neuropathy, unspecified (principal); E11.9 Type 2 diabetes mellitus without complications
CPT/HCPCS: 36415; 80053; 83036

== ENCOUNTER → 2019-08-05 08:26 | Outpatient (CLI) | payer MEDICARE, SELFPAY ==
[2019-08-05 10:10] LABS: Anion Gap 14.6 mEq/L (5-15); Blood Urea Nitrogen 28 mg/dl (7-17); Calcium 10.6 mg/dl (8.4-10.2); Carbon Dioxide 26 mmol/L (22.0-30.0); Chloride 106 mmol/L (98-107); Estimated Glomerular Filt Rate 48 ml/min (>60); GFR (African American) 58 ML/MIN (>60); Glucose 187 mg/dl (74-100); Potassium 5.6 mmoL/L (3.5-5.1); Sodium 141 mmol/L (136-145)
== END ==
PROVIDERS: Visit Provider Internal Medicine Adolescent Medicine
DX: N18.1 Chronic kidney disease, stage 1 (principal)
CPT/HCPCS: 36415; 80048

== ENCOUNTER → 2019-10-15 08:56 | Outpatient (POV) | payer MEDICARE, SELFPAY | PROVIDERS: PCP Internal Medicine Adolescent Medicine; Visit Provider Physician Assistant | DX: Z00.00 Encounter for general adult medical examination without abnormal findings (principal) ==

== ENCOUNTER 2020-04-02 18:07 | Emergency (ER) | payer MEDICARE, SELFPAY ==
[2020-04-02 18:07] VITALS: BP 132/87; PULSE 62; RESP 17; TEMP 36.7; O2SAT 97; BMI 29.9
--- NOTE | 2020-04-02 18:22 | CT_ITS ---
PROCEDURE: CT HEAD/BRAIN WO CON CLINICAL INDICATION: fall Head injury with headache/pain, contusion, abrasion or hematoma, headache the COMPARISON: CT CT HEAD/BRAIN WO/W CON from 01/30/2019 TECHNIQUE: Axial images obtained. All CT scans at the facility use one or more dose reduction, viz: automated exposure control, ma/kV adjustment per patient size (including targeted exams where dose is matched to indication, i.e. head), or iterative reconstruction technique. FINDINGS: No midline shift, mass effect, intracranial hemorrhage, hydrocephalus, or extra-axial fluid collection is evident. There is generalized atrophy with hypoattenuation of the periventricular white matter consistent with microangiopathic changes.. There is an old small lacunar infarction of the left basal ganglia. This has developed since 01/30/2019. The calvarium has an unremarkable appearance. No mastoid effusion. No sinus air-fluid level. IMPRESSION: No acute intracranial finding Dictated by: Rubén Baker MD 04/03/2020 06:34 Rubén Baker MD in [facility] 04/03/2020 06:34
--- NOTE | 2020-04-02 18:22 | CT_ITS ---
PROCEDURE: CT CERVICAL SPINE WO CON CLINICAL INDICATION: fall Neck injury with pain, contusion/abrasion or hematoma, cervical sprain/strain the COMPARISON: CT CSWO CT CERVICAL SPINE W/O CONT from 11/01/2016 TECHNIQUE: Axial images obtained with sagittal and coronal reformats. All CT scans at the facility use one or more dose reduction, viz: automated exposure control, ma/kV adjustment per patient size (including targeted exams where dose is matched to indication, i.e. head), or iterative reconstruction technique. Axial spiral CT scanning performed of the cervical spine beginning at the base of the skull and continuing to the upper T-spine. 3-D multiplanar reconstruction with 3-D manipulation of volumetric data set in image rendering was completed by the radiologist and/or technologist with the supervision of the radiologist on independent workstation. FINDINGS: There is normal alignment. No acute fracture or dislocation. 5 mm retrolisthesis the right C1 lateral mass on C2. Mild anterolisthesis of C4 on C5 and C6 on C7 of 2 and 3 mm respectively. Prior anterior cervical disc fusion C5-C6. Bilateral C5 laminectomy defects. Subchondral cystic lesion at the base of the odontoid process posteriorly which may be due to arthropathy. C2-C3: Degenerative disc disease with facet hypertrophic change and right foraminal narrowing. C3-C4: Degenerate disc disease with canal stenosis bulging disc and bilateral foraminal narrowing. C4-C5: 2 mm anterolisthesis of C4 with degenerative disc disease and bilateral foraminal narrowing left greater than right from facet arthropathy. C5-C6: Prior C5 laminectomy with inter pedicular screws at C5 and C6 with good alignment. Bilateral foraminal narrowing. Anterior cervical disc fusion at C5-C6. The right pedicular screw at C6 appears to extend partially into the posterior aspect of the C5-C6 neural foramen. C6-C7: Degenerative disc disease with canal stenosis and bilateral foraminal narrowing. C7-T1: Degenerative disc disease. Right lobe of the thyroid gland is enlarged with thyroid nodules noted. 1.5 cm isodense right thyroid nodule. Calcified right thyroid nodule also present at 9 mm There is patchy ground-glass density in the left apex IMPRESSION: 1. No acute fracture. 2. Multilevel cervical spondylosis with postsurgical changes. Please see above for detailed description at each level. 3. 5 mm retrolisthesis of the right lateral arch of C1 on C2 with mild anterolisthesis of C6 on C7 and C4 on C5. 4. Right-sided thyroid nodules. Consider ultrasound for follow-up. 5. Patchy ground-glass density left upper lobe nonspecific Dictated by: Rubén Baker MD 04/03/2020 06:41 Rubén Baker MD in [facility] 04/03/2020 06:41
--- NOTE | 2020-04-02 18:23 | XR_ITS ---
PROCEDURE: XR KNEE LT 3V CLINICAL INDICATION: injury Pain COMPARISON: No exams were available for comparison FINDINGS: Status post medial hemiarthroplasty with good alignment. Mild osteoarthritic changes are present involving the lateral compartment and patellofemoral joint. There is increased density in the suprapatellar region consistent with knee joint effusion. There is question of a fat fluid level. This may be seen with occult fractures. CT may provide further evaluation. Curvilinear calcification is present in the popliteal fossa. There is chondrocalcinosis of the lateral meniscus. Other findings:None. IMPRESSION: Status post medial hemiarthroplasty with osteoarthritic change. There is a knee joint effusion with possible fat fluid level which can be seen with an occult fracture. CT may provide further evaluation if pain persists. Dictated by: Rubén Baker MD 04/02/2020 20:59 Rubén Baker MD in [facility] 04/02/2020 20:59
--- NOTE | 2020-04-02 18:23 | XR_ITS ---
PROCEDURE: XR CHEST AP CLINICAL HISTORY: fall Pain COMPARISON: CR CXR CHEST(2 VIEWS-NOT PORTABLE) from 07/09/2013 CR CXR1 CHEST-PORTABLE from 04/03/2014 CR CXR CHEST(2 VIEWS-NOT PORTABLE) from 07/14/2015 CT CTAC CTA-CHEST from 07/15/2015 FINDINGS: The cardiomediastinal silhouette and pulmonary vascularity are within normal limits. Surgical clips are present over the mid lower chest. The right hilum somewhat prominent which may be vascular and may be confirmed with follow-up. There are chronic changes in the left lung base. No acute bony abnormalities. IMPRESSION: No acute finding. Please see above for detail. Mild prominence of the right suprahilar region. Follow-up may confirm stability Dictated by: Rubén Baker MD 04/02/2020 20:57 Rubén Baker MD in [facility] 04/02/2020 20:57
--- NOTE | 2020-04-02 18:23 | XR_ITS ---
PROCEDURE: XR FOOT LT MIN 3V CLINICAL INDICATION: injury This COMPARISON: No exams were available for comparison FINDINGS: No fracture or dislocation. No lytic or blastic change. There is normal mineralization. Osteoarthritic change 1st interphalangeal joint. Plantar fascia calcification posteriorly Other findings:None. IMPRESSION: As above, no acute finding Dictated by: Rubén Baker MD 04/02/2020 20:56 Rubén Baker MD in [facility] 04/02/2020 20:56
--- NOTE | 2020-04-02 18:23 | XR_ITS ---
PROCEDURE: XR PELVIS 1-2V CLINICAL INDICATION: fall Injury with pain COMPARISON: CR XR HIP RT 2-3V W/PELVIS from 01/30/2019 FINDINGS: No fracture or dislocation. Osteoarthritic changes of the hips with chondrocalcinosis of the labrum. Degenerative changes of the symphysis pubis. Surgical clips are present in the lower pelvis and lower abdominal region. IMPRESSION: Mild osteoarthritis, no acute finding Dictated by: Rubén Baker MD 04/02/2020 20:55 Rubén Baker MD in [facility] 04/02/2020 20:55
--- NOTE | 2020-04-02 18:50 | XR_ITS ---
PROCEDURE: XR KNEE RT 3V CLINICAL INDICATION: trauma Posttraumatic pain COMPARISON: No exams were available for comparison FINDINGS: No fracture or dislocation. Osteoarthritic changes are present at the medial compartment. There is chondrocalcinosis medially and laterally. Popliteal fossa calcification noted which may be due combination of fabella and vascular calcification. IMPRESSION: Osteoarthritis, no acute fracture Chondrocalcinosis Dictated by: Rubén Baker MD 04/02/2020 20:54 Rubén Baker MD in [place] 04/02/2020 20:54
--- NOTE | 2020-04-02 19:05 | HMH.EDFALL ---
ED Disposition Clinical Impression: Accidental fall Qualifiers: Encounter type: initial encounter Qualified Code(s): W19.XXXA - Unspecified fall, initial encounter Concussion without loss of consciousness Qualifiers: Encounter type: initial encounter Qualified Code(s): S06.0X0A - Concussion without loss of consciousness, initial encounter Right knee sprain Qualifiers: Encounter type: initial encounter Involved ligament of knee: unspecified ligament Qualified Code(s): S83.91XA - Sprain of unspecified site of right knee, initial encounter Disposition: Home, Self-Care Condition on Discharge: Good Instructions: How to Prevent Falls Referrals: Edilberto Montoya MD [Primary Care Provider] - - Critical Care Critical Care Time: No Attestation: On 04/02/20, the high probability of a clinically significant, sudden or life threatening deterioration of the following system(s) required my full and direct attention, intervention and personal management. The time I documented below is in addition to time spent performing reported procedures but includes the following listed in this critical care notation. Medical Decision Making - Medical Records Medical records reviewed: Yes: I reviewed the patient's medical records. - Wiley Inquiry Pt receiving controlled substance: Yes Wiley was queried for this patient: No Reason not queried -: Emergent pt cond-no time Risks and benefits of using a controlled substance: were discussed with pt by me Vital Signs: 04/02/20 18:07 Temperature 98.1 F Temperature Source Temporal Artery Scan Pulse Rate [Right] 62 Respiratory Rate 17 Blood Pressure [Right Arm] 132/87 Blood Pressure Mean [Right Arm] 102 02 Sat by Pulse Oximetry 97 Orders (Tests/Meds): ORDERS Category Date Time Status CT cervical spine wo con Stat Cat Scan 04/02/20 18:[address] head/brain wo con Stat Cat Scan 04/02/20 18:22 Taken CXR AP view [XR chest AP] Stat Exams 04/02/20 18:23 Taken Foot XR left minimum 3 views [XR foot LT min 3V] Stat Exams 04/02/20 18:23 Taken Pelvis XR 1-2 views [XR pelvis 1-2V] Stat Exams 04/02/20 18:23 Taken XR knee LT 3V Stat Exams 04/02/20 18:23 Taken XR knee RT 3V Stat Exams 04/02/20 18:50 Taken - Radiology Data #1 Image(s): Chest, Pelvis, Knee, Foot/Toes Image Reviewed: Yes I reviewed the patient's radiology results Patient does not have any acute fracture of the chest, pelvis, knees bilaterally or foot - CT Data CT Scan: Head, C-Spine Time Received: 20:[address] Reviewed: Yes: I have reviewed the patient's CT results, I have viewed the radiologist's interpretation Findings Narrative: CT of the head does not show any acute intracranial hemorrhage or mass-effect. Small chronic lacunar infarct. Small vessel ischemic disease. Moderate stable atrophy. CT of the cervical spine did not show any acute spinal fracture. Patient does have postoperative changes. Retrolisthesis. She has some degenerative changes at multiple cervical levels. Mild patchy nonspecific groundglass opacity in the left upper lobe. Thyroid nodules. Patient was notified of these findings. - Reevaluation(s) Time: 20:28 Reevaluation #1: On reevaluation, patient is feeling better. No acute fracture. I did notify her about the nonspecific findings on her CT of the cervical spine. She will follow up with her PCP. Patient was given strict return precautions. Verbalized understanding. Medical Decision Narrative: This 84-year-old female presented to the emergency department after an accidental fall. Complaining of right knee pain foot pain as well as headache. Patient meets imaging criteria for the head and cervical spine. Imaging will be obtained. Fall HPI - General Chief Complaint: Fall Stated Complaint: AO 04/02/20 1200 Fell, injured r knee Time Seen by Provider: 04/02/20 18:10 Mode of Arrival: Ambulatory Limitations: No Limitations Description of Symptoms (Recalled from ER T
[2020-04-02 20:44] VITALS: BP 184/90; PULSE 63; RESP 16; TEMP 36.8; O2SAT 98
== END 2020-04-02 20:48 | disposition home or self-care (01) ==
PROVIDERS: Emergency Provider Emergency Medicine; PCP Internal Medicine Adolescent Medicine
DX: S06.0X0A Concussion without loss of consciousness, initial encounter (principal); S83.91XA Sprain of unspecified site of right knee, initial encounter; W18.00XA Striking against unspecified object with subsequent fall, initial encounter; Y92.019 Unspecified place in single-family (private) house as the place of occurrence of the external cause; I10 Essential (primary) hypertension; K21.9 Gastro-esophageal reflux disease without esophagitis; Z87.891 Personal history of nicotine dependence; Z88.5 Allergy status to narcotic agent; G62.9 Polyneuropathy, unspecified
CPT/HCPCS: 70450; 71045; 72125; 72170; 73562; 73630; 99282

== ENCOUNTER → 2020-04-06 15:01 | Outpatient (CLI) | payer MEDICARE, SELFPAY ==
[2020-04-06 16:07] LABS: Basophils # 0.1 K/mm3 (0-0.2); Basophils % 0.7 % (0.1-2.0); Eosinophils # 0.1 K/mm3 (0.0-0.4); Hematocrit 42.4 % (37.0-47.0); Hemoglobin 13.8 g/dL (12.2-16.2); Lymphocytes # 1.7 K/mm3 (0.7-4.5); Mean Corpuscular HGB Conc 32.5 g/dL (31.8-35.4); Mean Corpuscular Hemoglobin 28.4 pg (27.0-31.2); Mean Corpuscular Volume 87.4 fl (81-99); Mean Platelet Volume 11.1 fl (7.4-10.4); Monocytes # 0.5 K/mm3 (0.1-1.0); Monocytes % 6.5 % (1.7-9.3); Neutrophils # 5.5 K/mm3 (1.8-7.8); Neutrophils % 69.9 % (37.0-80.0); Platelet Count 215 K/mm3 (142-424); Red Blood Count 4.85 M/mm3 (4.20-5.40); Red Cell Distribution Width 13.1 % (11.5-17.5); White Blood Count 7.8 K/mm3 (4.8-10.8)
[2020-04-06 16:27] LABS: Alanine Aminotransferase 20 U/L (12-78); Albumin Level 4.4 g/dl (3.5-5.0); Albumin/Globulin Ratio 1.7 (1.1-1.8); Alkaline Phosphatase 94 U/L (38-126); Anion Gap 15.1 mEq/L (5-15); Aspartate Amino Transferase 18 U/L (14-36); Bilirubin,Total 0.3 mg/dl (0.2-1.3); Blood Urea Nitrogen 26 mg/dl (7-17); Calcium 10.5 mg/dl (8.4-10.2); Carbon Dioxide 27 mmol/L (22.0-30.0); Chloride 106 mmol/L (98-107); Estimated Glomerular Filt Rate 43 ml/min (>60); GFR (African American) 52 ML/MIN (>60); Globulin 2.6 g/dL (1.3-3.2); Glucose 189 mg/dl (74-100); Potassium 5.1 mmoL/L (3.5-5.1); Sodium 143 mmol/L (136-145)
[2020-04-06 17:16] LABS: Vitamin B12 509 pg/mL (239-931)
[2020-04-06 18:02] LABS: Hemoglobin A1C 6.2 % (4.0-6.0)
== END ==
PROVIDERS: Visit Provider Internal Medicine Adolescent Medicine
DX: E11.9 Type 2 diabetes mellitus without complications (principal); G60.9 Hereditary and idiopathic neuropathy, unspecified
CPT/HCPCS: 36415; 80053; 82607; 83036; 85025

== ENCOUNTER → 2020-05-19 15:15 | Outpatient (CLI) | payer MEDICARE, SELFPAY ==
--- NOTE | 2020-05-19 15:17 | CT_ITS ---
PROCEDURE: CT KNEE RT WO CON CLINICAL HISTORY: RT ANTERIOR KNEE PAIN Persistent right knee pain COMPARISON: CR XR KNEE RT 3V from 04/02/2020 TECHNIQUE: Axial images obtained with sagittal and coronal reformats. All CT scans at the facility use one or more dose reduction, viz: automated exposure control, ma/kV adjustment per patient size (including targeted exams where dose is matched to indication, i.e. head), or iterative reconstruction technique. FINDINGS: There are moderate to severe osteoarthritic changes involving all 3 compartments most severe at the medial compartment. There is a small knee joint effusion present. Chondrocalcinosis is present in both medial and lateral meniscus. It appears that the medial meniscus is somewhat displaced medially with resultant decrease in the medial compartment space and osteosclerosis the articular surface of the medial femoral condyle and medial tibial plateau. No fracture or dislocation. No lytic or blastic change. There is dystrophic calcification within the soft tissues posterior to the medial femoral condyle/pericapsular region. No lytic or blastic change. The ligamentous structures are not well demonstrated by CT and may be better evaluated with MRI. No obvious soft tissue mass. IMPRESSION: Moderate to severe osteoarthritic changes with knee joint effusion and chondrocalcinosis. Irregular dystrophic calcification noted along the posterior aspect of the medial femoral condyle within the soft tissues Dictated by: Rubén Baker MD 05/20/2020 06:05 Rubén Baker MD in [place] 05/20/2020 06:05
== END ==
PROVIDERS: PCP Internal Medicine Adolescent Medicine; Visit Provider Internal Medicine Adolescent Medicine
DX: M25.561 Pain in right knee (principal)
CPT/HCPCS: 73700

== ENCOUNTER → 2020-06-15 14:26 | Outpatient (CLI) | payer MEDICARE, SELFPAY ==
--- NOTE | 2020-06-15 14:30 | XR_ITS ---
PROCEDURE: XR KNEE RT 4V CLINICAL INDICATION: RT knee pain COMPARISON: CR XR KNEE RT 3V from 04/02/2020 CR XR KNEE LT 3V from 04/02/2020 FINDINGS: There are moderate osteoarthritic changes of the medial compartment with mild osteoarthritic changes of the patellofemoral joint. Small knee joint effusion is present. There is chondrocalcinosis the lateral meniscus. Faint calcification is present along the posterior aspect of the knee joint some of which may be due to capsular calcification. Other findings:None. IMPRESSION: No change in the moderate osteoarthritic changes of the medial compartment with chondrocalcinosis and periarticular calcification with knee joint effusion. Dictated by: Rubén Baker MD 06/15/2020 15:04 Rubén Baker MD in [facility] 06/15/2020 15:04
== END ==
PROVIDERS: PCP Internal Medicine Adolescent Medicine; Visit Provider Orthopaedic Surgery
DX: M25.561 Pain in right knee (principal)
CPT/HCPCS: 73564

== ENCOUNTER 2020-09-02 13:33 | Outpatient (RCR) | payer MEDICARE, SELFPAY | END 2020-09-02 14:25 | disposition home or self-care (01) | LOC: PT 13:33 | PROVIDERS: Visit Provider Orthopaedic Surgery | DX: M17.11 Unilateral primary osteoarthritis, right knee (principal); M11.20 Other chondrocalcinosis, unspecified site | CPT/HCPCS: 97760 ==

== ENCOUNTER 2020-10-22 16:00 | Outpatient (RCR) | payer MEDICARE, SELFPAY ==
--- NOTE | 2020-10-05 10:42 | HMH.PTOPWND ---
Rehab Outpt Wound Evaluation Rehab OP Wound Evaluation Start: 10/05/20 09:42 Freq: Status: Active Protocol: Document 10/05/20 10:31 LIZZIE (Rec: 10/05/20 10:41 PHOJONO [id number]) Electronically Signed By Ozzy Mckinney, PT 10/05/20 10:31 Subjective/History History History Pt is 85 yowf who presents with R medial foot wound x ~ 2 wks S/P ground level fall at home with resulting skin tear. 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 She has hx of B mastectomy, AISHWARYA, L Partial knee arthroplasty, DM. Subjective Subjective Pain in the robert-wound skin with palpation ~ 3 cm surrounding the wound borders. Wound Eval Wound Right Medial Foot Wound Type Skin Tear Is This a Chronic Wound No Wound Length (cm) 1.8 Wound Width (cm) 1.7 Wound Bed Appearance Beefy Red Percentage Granulated (%) 95 Wound Margins Description Well Defined Surrounding Tissue Appearance [place],Purple Edema Type Non-Pitting Drainage Description Serous Drainage Amount Small Wound Topical Solution/Irrigant Saline Irrigant Primary Dressing Composite Comment optifoam gentle border lite Wound Secondary Dressing Type Adhering Gauze Roll Wound Debridement Method Sharps,Forceps,Gauze Wound Debridement Amount of Tissue Minimal Removed Dressing Change Patient Tolerance Tolerated Well Wound Problems/Impairments Impairments Problems/Impairmments Palpation Tenderness,Increased Edema,Wound Care Needs, Subjective C/O Pain,Impaired Self Care/Self Management Prognosis Rehab Potential Good Clinical Impression Consistent with Diagnosis Yes Short Term Goals Number of Weeks 4 Decreased Palpation Tenderness Yes: 1/4 Decrease Wound Area Yes: by 50% Retirement Goals Number of Weeks 8 Decreased Palpation Tenderness Yes: 0/4 Decrease Edema Yes Decrease Wound Area Yes: by 100% Patient to be Ind w/ HEP Yes Outpatient Therapy Plan of Care Treatment Plan May Include Therapeutic Exercise Including Home Yes Exercise Program Manual Therapy Techniques Yes Neuromuscular Re-education Yes Ther
== END 2020-10-22 16:05 | disposition home or self-care (01) ==
LOC: PT 16:00
PROVIDERS: PCP Internal Medicine Adolescent Medicine; Visit Provider Internal Medicine Adolescent Medicine
DX: L03.115 Cellulitis of right lower limb (principal)
CPT/HCPCS: 97140; 97162; 97597

== ENCOUNTER 2020-10-25 16:44 | Emergency (ER) | payer MEDICARE, SELFPAY ==
[2020-10-25 16:46] VITALS: BP 177/90; PULSE 64; RESP 16; TEMP 36.7; O2SAT 97; BMI 30.9
--- NOTE | 2020-10-25 17:07 | CT_ITS ---
PROCEDURE INFORMATION: Exam: CT Maxillofacial Without Contrast Exam date and time: 10/25/2020 5:07 PM Age: 85 years old Clinical indication: Injury or trauma; Fall; Bleeding/hemorrhage and blunt trauma (contusions or hematomas); Other: Entire face; Forehead; Patient HX: PT fell through plexiglass door. TECHNIQUE: Imaging protocol: Computed tomography images of the face without contrast. Radiation optimization: All CT scans at this facility use at least one of these dose optimization techniques: automated exposure control; mA and/or kV adjustment per patient size (includes targeted exams where dose is matched to clinical indication); or iterative reconstruction. COMPARISON: CT HEAD/BRAIN WO CON 04/02/2020 6:58 PM FINDINGS: Orbital cavity: Orbits are normal. Globes are unremarkable. Bones/joints: Comminuted bilateral nasal fractures and fracture of the nasal septum. Paranasal sinuses: Normal. No air-fluid levels. Soft tissues: Right frontal soft tissue swelling. IMPRESSION: 1. Right frontal soft tissue swelling. 2. Comminuted bilateral nasal fractures and fracture of the nasal septum.
--- NOTE | 2020-10-25 17:07 | XR_ITS ---
PROCEDURE INFORMATION: Exam: XR Right Shoulder Exam date and time: 10/25/2020 5:07 PM Age: 85 years old Clinical indication: Injury or trauma; Fall; Blunt trauma (contusions or hematomas); Shoulder; Right; Prior surgery; Surgery type: Rotator cuff; Additional info: Fell TECHNIQUE: Imaging protocol: XR Right shoulder. Views: 2 or more views. COMPARISON: CR XR SHOULDER RT MIN 2V 01/30/2019 2:36 PM FINDINGS: Bones/joints: There are severe degenerative changes of the right acromioclavicular joint. Mild superior displacement of the humeral head in relation to the acromion. Partially visualized lower cervical spine fixation hardware. There is no evidence of acutely displaced fractures. There is no evidence of dislocation. No aggressive osseous lesions. Soft tissues: There is no significant soft tissue swelling. Visualized chest is unremarkable. IMPRESSION: 1. Severe degenerative changes of the right acromioclavicular joint. 2. Findings highly concerning for chronic rotator cuff injury. 3. Negative for acute skeletal pathology.
--- NOTE | 2020-10-25 17:07 | CT_ITS ---
PROCEDURE INFORMATION: Exam: CT Head Without Contrast Exam date and time: 10/25/2020 5:07 PM Age: 85 years old Clinical indication: Injury or trauma; Fall; Blunt trauma (contusions or hematomas); Patient HX: PT fell into plexiglass door. TECHNIQUE: Imaging protocol: Computed tomography of the head without contrast. Radiation optimization: All CT scans at this facility use at least one of these dose optimization techniques: automated exposure control; mA and/or kV adjustment per patient size (includes targeted exams where dose is matched to clinical indication); or iterative reconstruction. COMPARISON: CT HEAD/BRAIN WO CON 04/02/2020 6:58 PM FINDINGS: Brain: Prominent sulci. Patchy hypodensity of the cerebral white matter which are nonspecific but likely secondary to microangiopathic changes. Cerebral ventricles: The ventricles are prominent secondary to diffuse volume loss/atrophy. Bones/joints: Comminuted bilateral nasal fractures and fracture of the nasal septum. Paranasal sinuses: Visualized sinuses are unremarkable. No fluid levels. Mastoid air cells: Visualized mastoid air cells are well aerated. Soft tissues: Right frontal soft tissue swelling. IMPRESSION: 1. Right frontal soft tissue swelling and age related changes but no evidence of acute intracranial pathology. 2. Comminuted bilateral nasal fractures and fracture of the nasal septum.
--- NOTE | 2020-10-25 17:11 | CT_ITS ---
PROCEDURE INFORMATION: Exam: CT Cervical Spine Without Contrast Exam date and time: 10/25/2020 5:11 PM Age: 85 years old Clinical indication: Injury or trauma; Fall; Bleeding/hemorrhage and blunt trauma; Injury details: Patient fell into a plexiglass door. TECHNIQUE: Imaging protocol: Computed tomography images of the cervical spine without contrast. Radiation optimization: All CT scans at this facility use at least one of these dose optimization techniques: automated exposure control; mA and/or kV adjustment per patient size (includes targeted exams where dose is matched to clinical indication); or iterative reconstruction. COMPARISON: CT CERVICAL SPINE WO CON 04/02/2020 7:04 PM FINDINGS: Bones/joints: Hypertrophic changes are present involving the dens and anterior arch of C1. Discs/Spinal canal/Neural foramina: Mild bilateral neuroforaminal narrowing C3-C7. Hardware C5-C6. Mild disc space narrowing C3-C4 and-C7. Lungs: Lung apices are normal. Soft tissues: Unremarkable. IMPRESSION: No evidence of cervical spine fracture. No significant change since previous exam. Remainder of findings as described above.
[2020-10-25 17:15] VITALS: BP 184/85; PULSE 62; O2SAT 96
--- NOTE | 2020-10-25 17:34 | PC.NURSE ---
Pt with rad.
[2020-10-25 18:01] VITALS: BP 194/74; PULSE 54; O2SAT 95
--- NOTE | 2020-10-25 18:01 | PC.NURSE ---
Pt returned from rad.
--- NOTE | 2020-10-25 18:09 | HMH.EDGENADL ---
ED Disposition Clinical Impression: Nasal bone fracture Qualifiers: Encounter type: initial encounter Fracture type: open Qualified Code(s): S02.2XXB - Fracture of nasal bones, initial encounter for open fracture Nasal septum fracture Qualifiers: Encounter type: initial encounter Fracture type: open Qualified Code(s): S02.2XXB - Fracture of nasal bones, initial encounter for open fracture Fall Qualifiers: Encounter type: initial encounter Qualified Code(s): W19.XXXA - Unspecified fall, initial encounter Injury of right rotator cuff Qualifiers: Encounter type: initial encounter Qualified Code(s): S46.001A - Unspecified injury of muscle(s) and tendon(s) of the rotator cuff of right shoulder, initial encounter Disposition: Home, Self-Care Condition on Discharge: Fair Instructions: How to Prevent Falls, DI for Nose Fracture, DI for Closed Head Injury, DI for Rotator Cuff Injury Additional Instructions: Keflex as prescribed. Mather as needed for pain. Afrin nasal spray in each nostril twice a day for 3 days for congestion or bleeding. Ice pack to nose to reduce swelling, 20 minutes 4-5 times a day. Sleep with head of bed elevated tonight to reduce swelling. Follow-up with ear nose throat, Dr. Orona, call tomorrow to make appointment, for nasal fracture. Follow-up with Dr. Martin for right rotator cuff injury. Additional instructions for HEAD INJURY: See your physician as soon as possible for further evaluation. Return immediately if severe headache, vomiting, problems with vision or speech, numbness or weakness of the extremities, or severe neck pain. Additional instructions for CONTROLLED SUBSTANCES: You have been prescribed a medication that is a controlled substance. Controlled substances include pain medications known as opiates and sedative nerve medications known as benzodiazepines. Tramadol, fioricet, and gabapentin are also controlled substances. Some common opiates include: Codeine (such as Tylenol #3) Hydrocodone (Vicodin, Lortab, Lorcet, Mather) Oxycodone (Percocet, Percodan, Oxycodone, Oxy IR) Some common benzodiazepines include: Diazepam (Valium) Lorazepam (Ativan) Alprazolam (Xanax) Clonazepam (Klonopin) Oxazepam (Serax) All of these controlled substances are highly addictive and frequently abused. Misuse can and frequently does lead to addiction as well as overdose and . Medication should be stored in a locked cabinet or other secure storage unit. Do not store the medication in a motor vehicle. Short term supplies, 3 days or less, are prescribed because of the highly addictive nature of the medication. Any of the controlled substance medication NOT taken should be disposed of properly and NOT SAVED. The recommended method of disposing of unused medications is: Place the medicines in a sealable plastic bag. If the medicine is a solid, crush it or add water to dissolve it. Add something undesirable (cat litter, coffee grounds, etc.) Dispose of sealed bag in household trash Do not flush or pour unused medicines down a sink or drain. Controlled substances should not be shared, given away or sold. Because of the addictive nature and frequent abuse, these medications are sometimes stolen. These medications should be kept in a safe place where they cannot be stolen. Do not keep them in your car or purse. Lost or stolen prescriptions for controlled substances WILL NOT BE REFILLED in this emergency department, regardless of whether a police report was filed. Prescriptions: Hydrocod/Acet 5/325 mg [Mather 5/325mg tablet] 1 tab PO Q6HP PRN #10 tab PRN Reason: Pain Transmission Status: Sent to [facility] cephALEXin [cephALEXin 500mg capsule*] 500 mg PO Q6H #20 cap Transmission Status: Pending to [facility] Referrals: Edilberto Montoya MD [Primary Care Provider] - Martin Orona MD [Staff Physician] - Candace Martin MD [Physician] - - Critical Care
[2020-10-25 19:07] VITALS: BP 140/82; PULSE 59; RESP 17; TEMP 36.7; O2SAT 99
== END 2020-10-25 19:08 | disposition home or self-care (01) ==
PROVIDERS: Emergency Provider Emergency Medicine; PCP Internal Medicine Adolescent Medicine
DX: S02.2XXB Fracture of nasal bones, initial encounter for open fracture (principal); S01.21XA Laceration without foreign body of nose, initial encounter; S46.001A Unspecified injury of muscle(s) and tendon(s) of the rotator cuff of right shoulder, initial encounter; W01.198A Fall on same level from slipping, tripping and stumbling with subsequent striking against other object, initial encounter; Y92.019 Unspecified place in single-family (private) house as the place of occurrence of the external cause; G60.9 Hereditary and idiopathic neuropathy, unspecified; I10 Essential (primary) hypertension; K21.9 Gastro-esophageal reflux disease without esophagitis; Z88.5 Allergy status to narcotic agent
CPT/HCPCS: 12011; 70450; 70486; 72125; 73030; 99282

== ENCOUNTER → 2020-11-11 12:48 | Outpatient (CLI) | payer MEDICARE, SELFPAY ==
--- NOTE | 2020-11-11 | CA_ITS ---
APPROVED REPORT EXAM: Comprehensive 2D, Doppler, and color-flow Echocardiogram Internet Sales Representative: Medina Travis RT(R) Ht: 5 ft 4 in Wt: 187lbs BSA: 1.90 BP: 123/48 mmHg Indications: HTN, ABN EKG, preop clearance for knee surgery 2D Dimensions LVOT 1.83 cm (M/F) 1.5-2.5 LVEF ([facility]) 58.20 % F: 54 - 74 LV Volume 81.90 mL F: 46 - 106 LV Volume Index 43.10 mL/m2 F: 29 - 61 LA Volume 33.50 mL LA Volume Index 17.63 mL/m2 (M/F) 16-34 M-Mode Dimensions RVDd 2.86 cm (0.9-2.6) LA Diam 3.51 cm (1.9-4.0) LVDd 4.43 cm (3.5-5.7) Ao Diam 3.07 cm (2.0-3.7) LVDs 3.30 cm (3.5-5.7) IVSd 1.05 cm (0.6-1.1) PWd 0.89 cm (0.6-1.1) EF (Teich) 50.50% FS 25.50% EDV (Teich) 89.10 mL TAPSE 1.90 (<1.7) ESV (Teich) 44.10 mL LV Diastology E Decel Time 283.00 (160-240 msec) E/A Ratio 0.7 MED E' 5.70 (< 7 cm/sec) E'/MED E' Ratio 16.05 (>14) LAT E' 6.40 (<10 cm/sec) E/LAT E' Ratio 14.30 (>14) Mitral Valve MV E Max Emanuel. 92.00 (40-130 cm/s) MV A Velocity 136.00 (40-130 cm/s) E/A Ratio 0.67 MV Decel. Time 283.00 (160-240 ms) MV PHT 83.00 ms Tricuspid Valve TR P. Velocity 207.00 cm/s RAP Estimate 10.00 mmHg RVSP 27.10 mmHg Left Ventricle Left atrium is mildly enlarged, left ventricle is normal size, mild concentric left ventricular hypertrophy, visually estimated ejection fraction 55% with no regional wall motion abnormality, grade 1 diastolic dysfunction seen with tissue Doppler evidence of raise left atrial pressure. Right Ventricle Right atrium and right ventricle mildly enlarged with normal contractility. Aortic Valve Aortic valve minimally thickened and calcified, there is no aortic stenosis or aortic insufficiency. Mitral Valve Mitral valve grossly normal, there is trace mitral regurgitation. Tricuspid Valve Tricuspid grossly normal, there is trace tricuspid regurgitation, tricuspid regurgitation jet velocity is inadequate for calculation of the right ventricular systolic pressure. Pulmonic Valve Pulmonic valve is poorly visualized. Great Vessels Aortic root is normal size. Pericardium No significant pericardial effusion noted. Conclusion 1. Mildly enlarged left atrium, normal left ventricular size, mild concentric left ventricular hypertrophy, visually estimated ejection fraction 55% with no regional wall motion abnormality, grade 1 diastolic dysfunction seen with tissue Doppler evidence of raise left atrial pressure. 2. Trace mitral and tricuspid regurgitation. 3. No significant pericardial effusion noted. Electronically signed by : Alphonso Hitchcock, 11/12/2020 15:20:56
[2020-11-11 14:05] LABS: Basophils % 0.6 % (0.1-2.0); Eosinophils # 0.1 K/mm3 (0.0-0.4); Eosinophils % 0.9 % (0.1-12.0); Hematocrit 39.3 % (37.0-47.0); Hemoglobin 12.6 g/dL (12.2-16.2); Lymphocytes # 1.9 K/mm3 (0.7-4.5); Lymphocytes % 28.5 % (10-50); Mean Corpuscular Hemoglobin 28.4 pg (27.0-31.2); Mean Corpuscular Volume 88.6 fl (81-99); Mean Platelet Volume 8.1 fl (7.4-10.4); Monocytes # 0.4 K/mm3 (0.1-1.0); Monocytes % 6.8 % (1.7-9.3); Neutrophils # 4.1 K/mm3 (1.8-7.8); Neutrophils % 63.2 % (37.0-80.0); Platelet Count 259 K/mm3 (142-424); Red Blood Count 4.44 M/mm3 (4.20-5.40); White Blood Count 6.5 K/mm3 (4.8-10.8)
[2020-11-11 15:43] LABS: Alanine Aminotransferase 15 U/L (12-78); Albumin Level 4.4 g/dl (3.5-5.0); Albumin/Globulin Ratio 1.8 (1.1-1.8); Alkaline Phosphatase 75 U/L (38-126); Anion Gap 13.8 mEq/L (5-15); Aspartate Amino Transferase 20 U/L (14-36); Bilirubin,Total 0.4 mg/dl (0.2-1.3); Blood Urea Nitrogen 30 mg/dl (7-17); Calcium 9.9 mg/dl (8.4-10.2); Carbon Dioxide 27 mmol/L (22.0-30.0); Chloride 108 mmol/L (98-107); Estimated Glomerular Filt Rate 60 ml/min (>60); GFR (African American) 72 ML/MIN (>60); Globulin 2.5 g/dL (1.3-3.2); Glucose 81 mg/dl (74-100); Potassium 5.8 mmoL/L (3.5-5.1); Sodium 143 mmol/L (136-145); Total Protein,Serum 6.9 g/dl (6.3-8.2)
== END ==
PROVIDERS: PCP Internal Medicine Adolescent Medicine; Visit Provider Internal Medicine Adolescent Medicine
DX: Z01.810 Encounter for preprocedural cardiovascular examination (principal); R94.31 Abnormal electrocardiogram [ECG] [EKG]
CPT/HCPCS: 36415; 80053; 83735; 85025; 93306

== ENCOUNTER → 2020-12-01 10:41 | Outpatient (CLI) | payer MEDICARE, SELFPAY ==
[2020-12-01 10:45] LABS: Microscopic, Urine URINE MICROSCOPIC (MICROSCOPIC)
--- NOTE | 2020-12-01 10:46 | XR_ITS ---
PROCEDURE: XR CHEST 2V CLINICAL HISTORY: Hypertension; TKA preop COMPARISON: CR CXR1 CHEST-PORTABLE from 04/03/2014 CR CXR CHEST(2 VIEWS-NOT PORTABLE) from 07/14/2015 CT CTAC CTA-CHEST from 07/15/2015 CR XR CHEST AP from 04/02/2020 FINDINGS: The cardiomediastinal silhouette and pulmonary vascularity are within normal limits. Surgical clips overlie the lower emir thoraces on both sides. Chronic changes in the left lung base. Calcified granuloma left lower lobe. No lobar consolidation or collapse. Degenerative changes with endplate sclerosis is present at T8-T9. Mild wedge compression changes are present at T8 and T9 and may be slightly increased at T9. Bone plate is present along the lower cervical spine. Degenerative changes with subacromial stenosis noted in the right shoulder. IMPRESSION: No acute findings. Please see above for detail Dictated by: Rubén Baker MD 12/01/2020 11:40 Rubén Baker MD in [place] 12/01/2020 11:40
[2020-12-01 11:41] LABS: Appearance,Urine CLEAR (Clear); Bilirubin,Urine Negative (Negative); Blood, Urine Negative (Negative); Color,Urine YELLOW (Yellow); Glucose,Urine (UA) Negative (Negative); Ketones,Urine Negative (Negative); Leukocyte Esterase,Urine TRACE (Negative); Nitrate,Urine Negative (Negative); PH,Urine 5.5 (5.0-8.5); Protein,Urine Negative (Negative); Specific Gravity, Urine 1.025 (1.005-1.030); Urobilinogen,Urine 0.2 EU/dl (0.2)
[2020-12-01 12:23] LABS: Squamous Epithelial Cell,Urine Occasional #/hpf (0-5); WBC,Urine Occasional #/hpf (0-3)
== END ==
PROVIDERS: Visit Provider Orthopaedic Surgery
DX: Z01.818 Encounter for other preprocedural examination (principal); M25.561 Pain in right knee
CPT/HCPCS: 71046; 81001

== ENCOUNTER → 2020-12-05 10:26 | Outpatient (CLI) | payer MEDICARE, SELFPAY | PROVIDERS: Visit Provider Orthopaedic Surgery | DX: Z01.818 Encounter for other preprocedural examination (principal); Z20.822 Contact with and (suspected) exposure to COVID-19 | CPT/HCPCS: 36415; 86850; U0003 ==

== ENCOUNTER 2020-12-07 06:13 | Observation (INO) | payer MEDICARE, SELFPAY ==
[2020-11-30 13:49] VITALS: BMI 33.1
--- NOTE | 2020-12-01 13:16 | SW/DCPLANNER ---
CALLED THIS PATIENT AND LEFT A VOICE MESSAGE FOR THIS PATIENTS UPCOMING SURGERY.. TOLD HER I WOULD BE AVAILABLE TO ASSIST WITH ANY NEEDS SHE MAY HAVE.. ALSO TOLD HER THAT THIS IS TYPICALLY AN OUT PATIENT SURGERY AND WILL GO HOME THE NEXT DAY PENDING NO SETBACKS... WAITING TO HEAR BACK TO WHETHER SHE HAS ANY QUESTIONS FOR ME....
[2020-12-07] VITALS (24 sets, daily range): BP systolic 110–181; BP diastolic 54–91; PULSE 53–73; RESP 16–18; TEMP 36.2–42.7; O2SAT 92–100; BMI 33.1
[2020-12-07 06:53] LABS: POC Glucose,Bedside 149 (70-110)
--- NOTE | 2020-12-07 08:18 | HMH.ANESCL ---
[facility] Anesthesia Checklist - Patient Identification Patient Identification: Arm Band - Structural Data Admitted From: Home Planned Operative Procedure/s: Right Total Knee Arthroplasty Consent for Planned Operative Procedure(s) Verified: Yes Verified Documents: Surgical Consent, History and Physical - NPO Status Verified Time NPO: 00:00 - Additional verifications Anesthesia Reactions: No Hx Blood Transfusions: No Blood Transfusion Reaction: No - Airway Assessment C-Spine Mobility Assessed: Yes (mp2) TMJ Mobility Assessed: Yes Dentition: Good Dentition - Neurological Assessment Level of Consciousness: Awake, Alert - Anesthesia Plan Anesthesia Risk discussed: Yes Anesthesia Plan: Verified ASA Class: II Anesthesia Type: MAC w/Spinal [facility] History I have reviewed the patient's past medical history: Yes Medical History: Reports:: Cancer, Diabetes Mellitus Type 2, Gastroesophageal Reflux Disease(GERD), Hypertension Denies:: Diabetes Mellitus Type 1, Internal Pacemaker, MRSA, Seizures *Have you ever received a pneumonia vaccine?: Yes *Have you received a flu vaccine this season?: No Other Medical History: Reports: Arthritis, Cataracts. Denies: Blood Transfusion Reaction Anesthesia experience/problems:: nac Laterality Cases: Right: Arthroscopy Shoulder, Bilateral: Mastectomy Other Surgeries: Yes: Colonoscopy, Dilation and Curettage, Hysterectomy-Partial, Plastic Surgery, Skin Cancer Excision. No: Pacemaker Amputation: No Fractures: No - *Social History Last grade of school completed: Some college Smoking Status: Former smoker Tobacco Type: cigarettes # Packs/Day (cigarettes): 1 #Yrs smoked (if former smoker): 15 Alcohol Intake: current Alcohol Intake Frequency:: holidays/special occasions only Substance Use Type: denies use *Occupational Status:: retired Housing: house Household Members: family *Travel in the last 8 weeks: Inside the [facility] Family Hx:: Coronary Artery Disease, Heart Attack, Hypertension
--- NOTE | 2020-12-07 10:36 | HMH.PHAINT ---
COMPLETED MEDICATION RECONCILIATION ON PATIENT USING EXTERNAL PHARMACY FILL HISTORY AND LIST FROM DOCTOR'S OFFICE.
--- NOTE | 2020-12-07 11:41 | HMH.OPNOTE ---
Date of procedure: 12/07/20 Pre-op Diagnosis:: 1. Degenerative arthritis, right knee 2. Chondrocalcinosis, right knee Post-op Diagnosis:: Same Procedure performed:: Uncemented total knee arthroplasty, right Surgeon:: Sergey Velazquez MD Associate Trainer(s):: Nadja Corcoran RIDE ATTENDANT:: Celso Sargent Anesthesia: regional (Adductor canal block), spinal Estimated blood loss (mL): 30 Clinical Note:: Patient is an 85-year-old female with advanced osteoarthritis and [id number] changes over the medial compartment with chondrocalcinosis of her right knee presented with unremitting severe pain not relieved by conservative management. The arthritic process and pain are advanced to the point that it is interfering with her activities of daily living, sleep and quality of life. It is also becoming a hazard for the patient with risk of falling and injuring herself. A total knee arthroplasty is indicated to relieve the pain, improve function, reduce the risk of falls and improve quality of life. Please refer to my office note for full details. Operative findings:: As noted on the preoperative evaluation, the knee joint has a fixed flexion of 5? with 5 degrees of fixed varus deformity. As seen on the x-rays, the medial and patellofemoral compartments are showing advanced degenerative changes with [id number] appearance. The menisci and cruciate ligaments are degenerate. There is osteophyte formation over all 3 compartments. Bone quality is excellent. Operative note:: On the day of the surgery the patient her daughter seen in the preoperative area. I have again reviewed the clinical and x-ray findings and again discussed the diagnosis, natural history and management options in detail including both nonsurgical and surgical. Patient has e advanced degenerative arthritis of the right knee and has failed to respond satisfactorily to appropriate conservative management so far and has opted for a total knee arthroplasty. The right knee joint is stiff and painful, and is limiting mobility, ADLs and quality of life. Also the knee gives out and patient is at risk of falls resulting in fractures. I have again discussed the details of the procedure, risks and benefits and alternatives in detail. The complications discussed include but are not limited to infection, injury to nerves and blood vessels including injury to popliteal artery, injury to tendons and ligaments, DVT and PE, fat embolism, intraoperative fracture, limb length inequality, patella fracture, patellofemoral instability, patellar clunk syndrome, quadriceps and patellar tendon rupture, implant failure, component loosening, periprosthetic femur and tibia fractures, stiffness /arthrofibrosis, limp, incomplete relief of pain, incomplete functional recovery, likely need for further surgery in future including revision and anesthetic complications including heart attack, stroke and even . We also discussed about the likely need for blood transfusion and transfusion reactions. We discussed how any of these events can be devastating. We have discussed nonsurgical alternatives as well. Patient understands and wishes to proceed with a right total knee arthroplasty as planned and I believe that he is fully informed as to the risks, benefits, and alternatives including nonsurgical alternatives. We also discussed the postoperative course including the rehab and physical therapy required. A physical examination was performed and documented. Patient understood the risks, agreed to proceed with surgery, signed the consent form and no guarantees or assurances were given or implied. The limb was appropriately marked and initialed by me. The patient was then brought to the operating room and a spinal anesthesia was administered by the parish nurse. After the procedure patient also had an adductor canal nerve block administered by the parish nurse. The patient was then positioned supine on the operating table. All the bony prominences we
--- NOTE | 2020-12-07 11:48 | XR_ITS ---
PROCEDURE: XR KNEE RT 3V CLINICAL INDICATION: total knee arthroplasty COMPARISON: CR XR KNEE RT 3V from 04/02/2020 CR XR KNEE LT 3V from 04/02/2020 CR XR KNEE RT 4V from 06/15/2020 FINDINGS: Status post total knee arthroplasty. There is good alignment. Postsurgical gas is noted with air-fluid level in the suprapatellar region.. No obvious orthopedic complication. Other findings:None. IMPRESSION: Good alignment status post total knee arthroplasty Dictated by: Rubén Baker MD 12/07/2020 12:20 Rubén Baker MD in OV 12/07/2020 12:20
--- NOTE | 2020-12-07 11:48 | HMH.ANESI ---
[facility] [place] Anesthesia Record Part I Intake, IV Amount: 1,600 Estimated blood loss (mL): 30 Urine output (mL): 700 Blood Pressure: 148/61 SaO2: 92 Pulse Rate: 53 Respiratory Rate: 16 Temperature: 97.1 F Patient is:: Drowsy, Stable Stable to PACU at:: 11:30
--- NOTE | 2020-12-07 12:49 | HMH.ANESII ---
[facility] [place] Anesthesia Record Part II Discharge Time: 12:30 Destination: Medical Surgical Department PACU nurse assessment reviewed?: Yes Patient Condition:: Good Anesthesia Complications:: None Swallowing reflex intact?: Yes Cyanosis?: No Blood Pressure: 154/70 Pulse Rate: 59 Temperature: 97.1 F Mental Status: Alert & Oriented Pain level:: 6 Nausea and/or vomitting:: None Intake, IV Amount: 0
[2020-12-07 14:32] LABS: Microscopic,Cath URINE MICROSCOPIC (MICROSCOPIC)
[2020-12-07 14:48] LABS: Appearance,Urine/Cath CLEAR (Clear); Bilirubin,Cath Negative (Negative); Blood, Urine/Cath Negative (Negative); Color,Urine/Cath YELLOW (Yellow); Glucose,Urine/Cath (UA) Negative (Negative); Ketones,Urine/Cath Negative (Negative); Leukocyte Esterase,Cath Negative (Negative); Nitrate,Cath Negative (Negative); PH,Urine/Cath 5.5 (5.0-8.5); Protein,Urine/Cath Negative (Negative); Specific Gravity, Urine/Cath 1.025 (1.005-1.030); Urobilinogen,Cath 0.2 EU/dl (0.2)
[2020-12-07 15:11] LABS: Bacteria,Urine/Cath TRACE /lpf; WBC,Urine/Cath Occasional #/hpf (0-3)
--- NOTE | 2020-12-07 16:20 | P.CONPHA_ITS ---
[facility] [place] Pharmacy VTE Monitoring - Patient Demographics Admission date: 12/07/20 Report Date: 12/07/20 Time: 16:20 Allergies/Adverse Reactions: Patient Allergies hydromorphone [From DILAUDID] Allergy (Intermediate, Verified 12/07/20 06:30) Agitated metronidazole [METRONIDAZOLE] Allergy (Unknown, Verified 12/07/20 06:30) NA-NAUSEA/VOMITING morphine [MORPHINE] Allergy (Unknown, Verified 12/07/20 06:30) Agitated pentazocine [PENTAZOCINE] Allergy (Unknown, Verified 12/07/20 06:30) Agitated Height: 1.6 m Weight: 84.822 kg - VTE Risk Was VTE Risk Assessment Performed: Yes VTE Risk Level: Low Risk Clinical Trial Participant: No - Prophylaxis VTE Prophylaxis Ordered?: Yes Types of VTE Prophylaxis: IPCS Knee High, Pharmacological (XARELTO) Location of Applied Device: Bilateral Lower Extremeties Pharmacologic Type: Other (XARELTO)
--- NOTE | 2020-12-07 16:45 | HMH.ORTHHP ---
*Admission Date: 12/07/20 *Reason for consult:: S/p total knee arthroplasty, right *History of present illness: Patient is an 85 year old female admitted to hospital after an uneventful right total knee arthroplasty earlier today. She has had chronic knee pain which has failed to respond satisfactorily to nonsurgical management including ice, NSAIDs, physical therapy and intra-articular steroid injection. Following evaluation in the office, patient elected to proceed with a total knee arthroplasty. X-rays and MRI scan of her knee joint showed significant degenerative changes with superimposed chondrocalcinosis. Patient states that weightbearing, walking, standing and sitting for too long.'s aggravates her pain. She reports intermittent knee swelling and sensation of knee giving out. No history of any systemic symptoms like fevers, chills or rigors. No history of any local redness or increased warmth. Patient says she is finding it difficult to walk any distance without support. She uses a cane or walker for mobilization. She says she is finding it difficult with activities of daily living because of her knee pain. She also reports night pain and sleep disturbance because of the knee pain on a daily basis. No history of any hip pain. No history of any distal tingling or numbness. She is a non smoker and is retired. Her medical history includes hypertension, diabetes mellitus, peripheral neuropathy and arthritis. She had a partial knee replacement on the left side many years ago and reports some occasional knee pain. Total knee arthroplasty is indicated to reduce the risk of falls, improve her pain and mobility and quality of life. The surgical and nonsurgical alternatives were discussed in detail with the patient as well as the risks and benefits of the surgery. [facility] History I have reviewed the patient's past medical history: Yes Medical History: Reports:: Diabetes Mellitus Type 2, Gastroesophageal Reflux Disease(GERD), Hypertension Denies:: Cancer, Diabetes Mellitus Type 1, Internal Pacemaker, MRSA, Seizures *Have you ever received a pneumonia vaccine?: Yes *Have you received a flu vaccine this season?: Yes Other Medical History: Reports: Arthritis, Cataracts. Denies: Blood Transfusion Reaction Anesthesia experience/problems:: nac Laterality Cases: Right: Arthroscopy Shoulder, Bilateral: Mastectomy Other Surgeries: Yes: Colonoscopy, Dilation and Curettage, Hysterectomy-Total, Hysterectomy-Partial, Plastic Surgery, Skin Cancer Excision. No: Pacemaker Amputation: No Fractures: No - *Social History Last grade of school completed: Some college Smoking Status: Former smoker Tobacco Type: cigarettes # Packs/Day (cigarettes): 1 #Yrs smoked (if former smoker): 15 Smoking End Date: 20+ Alcohol Intake: never Alcohol Intake Frequency:: holidays/special occasions only Substance Use Type: denies use *Occupational Status:: retired Housing: house Household Members: family *Travel in the last 8 weeks: None Family Hx:: Coronary Artery Disease, Heart Attack, Hyperlipidemia, Hypertension Review of Systems - Review of Systems Review of systems:: pertinent systems reviewed and negative unless documented below - Constitutional Denies chills, Denies fever(s), Denies malaise - Eyes Denies change in vision - ENT Denies abnormal hearing, Denies difficulty swallowing - *Cardiovascular Denies chest pain, Denies shortness of breath - *Respiratory Denies chest congestion, Denies cough - *Gastrointestinal Denies abdominal pain, Denies change in bowel habits - *Musculoskeletal Reports abnormal walking, Reports joint pain, Reports joint swelling, Reports limited joint movement - *Neurologic Reports abnormal walking, Denies seizure-like activity, Denies tingling/numbness/burning sensations - Endocrine Denies cold intolerance, Denies heat intolerance - Hematologic/Lymphatic Denies easy bleeding, Denies easy bruising Meds Home Medications Me
--- NOTE | 2020-12-07 19:20 | PC.NURSE ---
patient has done okay this shift. some pain noted but stated it felt more muscular at times. ice pack in place. xarelto for vte. incentive spirometer given. some complaints of itching. md gave the okay for benadryl to be given order read back. also asked md about home metformin and he stated okay to order that as well. 500mg po. no other issues noted. on room air. vitals stable
[2020-12-08] VITALS: BP 142/64; PULSE 84; RESP 18; TEMP 36.9; O2SAT 94
[2020-12-08 04:00] VITALS: BP 154/71; PULSE 70; RESP 16; TEMP 36.7; O2SAT 94
--- NOTE | 2020-12-08 04:25 | PC.NURSE ---
pt AxOX4, has rested intermittently t/o shift, has complained of pain one time and was treated per AUG, ice and elevation remain in place, IS at bedside and pt has self administered, remains on room air, romero remains in place with 500 mL of output noted so far
[2020-12-08 07:01] LABS: Basophils % 0.2 % (0.1-2.0); Eosinophils # 0.1 K/mm3 (0.0-0.4); Eosinophils % 0.9 % (0.1-12.0); Hemoglobin 11.4 g/dL (12.2-16.2); Lymphocytes # 1.1 K/mm3 (0.7-4.5); Lymphocytes % 13.5 % (10-50); Mean Corpuscular HGB Conc 32.6 g/dL (31.8-35.4); Mean Corpuscular Hemoglobin 28.4 pg (27.0-31.2); Mean Corpuscular Volume 87.1 fl (81-99); Mean Platelet Volume 11.6 fl (7.4-10.4); Monocytes # 0.7 K/mm3 (0.1-1.0); Monocytes % 8.3 % (1.7-9.3); Neutrophils # 6.4 K/mm3 (1.8-7.8); Neutrophils % 77.1 % (37.0-80.0); Platelet Count 140 K/mm3 (142-424); Red Blood Count 4.01 M/mm3 (4.20-5.40); White Blood Count 8.3 K/mm3 (4.8-10.8)
[2020-12-08 07:05] LABS: Chloride 110 mmol/L (98-107); Sodium 141 mmol/L (136-145)
[2020-12-08 07:06] LABS: Potassium 4.7 mmoL/L (3.5-5.1)
[2020-12-08 07:08] LABS: Anion Gap 13.7 mEq/L (5-15); Blood Urea Nitrogen 24 mg/dl (7-17); Carbon Dioxide 22 mmol/L (22.0-30.0); Creatinine Clearance Estimated 57 mL/min (50-200); Estimated Glomerular Filt Rate 53 ml/min (>60); GFR (African American) 64 ML/MIN (>60)
[2020-12-08 07:09] LABS: Calcium 8.7 mg/dl (8.4-10.2); Glucose 170 mg/dl (74-100)
[2020-12-08 08:00] VITALS: BP 158/61; PULSE 67; RESP 17; TEMP 36.8; O2SAT 92
--- NOTE | 2020-12-08 10:17 | HMH.PTEV ---
Physical Therapy Evaluation Rehab PT IP Evaluation Start: 12/07/20 12:10 Freq: ONCE Status: Active Protocol: Document 12/08/20 10:13 YURIY (Rec: 12/08/20 10:17 YURIY [id number]) Subjective/History History History This is the initial IP PT evaluation for Zoila Pedro. Pt is an 85 y/o female admitted to [facility] for medical management s/p R TKA. Pt lives in single story home w/ family, and has appropriate AD at home. Subjective Subjective Pt rpeorts c/o pain in R knee, posterior and quad Mm Rehab PT IP Eval Objective Appearance Patient Behavior Appropriate,Cooperative Patient Orientation Person,Place,Time,Situation Difficulty following instructions none Speech Pattern Clear,Appropriate Ambulation Patient Able to Ambulate Yes Ambulation Observation IP General Gait Pattern Observation Antalgic Gait Ambulation Distance (feet) 10 Ambulation Assistive Device Rolling Walker Ambulation Ability Supervision/Stand by,Contact Guard/Hand Hold Balance Ability to Arise Able, uses arms to help Sitting Balance Steady, safe Standing Balance Steady, wide stance Dynamic Sitting Balance Ability Good Dynamic Standing Balance Ability Fair Transfers Bed Transfer Ability Supervision/Stand by,Contact Guard/Hand Hold Chair Transfer Ability Supervision/Stand by Sit to Stand Bed Transfer Ability Contact Guard/Hand Hold Sit to Stand Chair Transfer Ability Contact Guard/Hand Hold ROM RLE PT ROM Status ABN Abnormal ROM Comment edith bandage, cryo cuff MMT RLE PT MMT ABN Abnormal MMT Grade 3-/5 Rehab PT IP prob,goals,plan Problems Date of Evaluation: 12/08/20 PT IP Problems Transfers,Gait,Balance Rehab Potential Rehab Potential Fair Equipment Needs Assistive Devices Rolling / Wheeled Walker Plan PT Intervention Plan Transfers,Gait,Self care, Safety,Therapeutic Exercise PT Plan Frequency BID Duration LOS Discharge Goals Bed Transfer Ability Supervision/Stand by,Contact Guard/Hand Hold Sit to Stand Chair Transfer Ability Supervision/Stand by,Contact Guard/Hand Hold Ambulation Assistive Device Rolling Walker Ambulation Distance (feet) 50 Discharge Plan
--- NOTE | 2020-12-08 10:41 | HMH.OTEV ---
OT Inpatient Evaluation Rehab OT IP Evaluation Start: 12/07/20 12:10 Freq: ONCE Status: Complete Protocol: Document 12/08/20 10:36 [facility] (Rec: 12/08/20 10:41 [facility] [id number]) Rehab OT IP Assessment Subjective History Pt oriented x 3 on arrival. Pt agreeable to engage in therapy evaluation. Pt was admitted on 12/07/20 following Right total knee arthroplasty. Pt has a past medical history of DM type 2, GERD, and HTN. Pt reports prior to surgery she lived with her daughter, son in law, and grandchild. Pt claims she was independent with all ADLs. She did use a walker during ambulation. Family completed all IADLs. Subjective I could do more. Objective Patient Orientation Person,Place,Birthday Upper Extremity Gross ROM WFL Transfer Training Sit/Stand Transfer Assist Level Contact Guard/Hand Hold Chair Transfer Ability Contact Guard/Hand Hold Chair Transfer Technique Sit to/from Ambulatory Chair Transfer Assistive Devices Rolling Walker Rehab OT IP prob,goals,plan Problems Date of Evaluation: 12/08/20 OT IP Problems Bed Mobility,Transfers,Gait, Balance,Self care,Safety Rehab Potential Rehab Potential Good Equipment Needs Assistive Devices Rolling / Wheeled Walker Plan OT intervention Plan Bed Mobility,Transfers,Gait, Balance,Self care,Safety, Therapeutic Exercise OT Plan Frequency BID Duration LOS Discharge Goals Bed Mobility Ability Standby Assistance Sit to Stand Chair Transfer Ability Supervision/Stand by Chair Transfer Ability Supervision/Stand by Chair Transfer Technique Sit to/from Ambulatory Chair Transfer Assistive Devices Rolling Walker Feeding Ability Independent Lower Body Dressing Ability Assistance X1 Upper Body Dressing Ability Standby Assistance Bathing Ability Assistance x1 Performing Toilet Hygiene Ability Standby Assistance Overall Commode/Toilet Transfer Ability Standby Assistance Commode/Toilet Transfer Technique Sit to/from Ambulatory Discharge Plan OT Discharge Plan Pt can return home once medically stable with family assist. Pt would benefit from
--- NOTE | 2020-12-08 11:38 | PC.NURSE ---
Lilli card d/c'd @ this time
[2020-12-08 12:00] VITALS: BP 130/60; PULSE 64; RESP 16; TEMP 36.8; O2SAT 91
--- NOTE | 2020-12-08 13:21 | SW/DCPLANNER ---
RECEIVED REFERRAL FOR DISCHARGE PLANNING FOR THIS PATIENT: MS RAMEY WAS ADMITTED TO OBSERVATION FOR A TOTAL KNEE... PATIENT RESIDES AT HOME WITH A GRANDDAUGHTER AND HER DAUGHTER WAS PRESENT DURING MY VISIT ALONG WITH DR CERVANTES...PATIENT HAS ELECTED TO COME BACK TO [facility] OUT PATIENT FOR HER PHYSICAL THERAPY... SHE STATED SHE HAS EVERYTHING AT HOME SHE NEEDS SHE HAS A WALKER AND FEELS SHE WILL BE ABLE TO GET IN AND OUT OF THE CAR TO TRANSPORT FOR HER THERAPY... THE PLAN IS FOR HER TO DISCHARGE HOME [facility]) AND HER THERAPY WILL START THERE AFTER... ANY OTHER NEEDS SHE MAY FEEL IS NECESSARY WILL BE SET UP AT TIME OF DISPOSITION BUT AT THIS TIME SHE DOESN'T FEEL SHE NEEDS ANYTHING...
--- NOTE | 2020-12-08 15:51 | P.PN_ITS ---
Subjective Date: 12/08/20 Time: 12:45 Principal diagnosis: Status post total knee arthroplasty, right Interval history: Patient is status post right total knee arthroplasty, postoperative day 1. Patient is sitting out in a chair and says she is doing very well. She reports very little pain and says is well controlled with as needed pain medication. No history of any nausea or vomiting. No history of any cough, chest pain, shortness of breath or palpitations. Patient says she is eating and drinking well. She started physical therapy and says she is walking well using a walker. PN: Obj Ex Vital signs: Temp Pulse Resp BP Pulse Ox 98.2 F 64 16 130/60 91 L 12/08/20 12:00 12/08/20 12:00 12/08/20 12:00 12/08/20 12:00 12/08/20 12:00 Narrative: Laboratory Results - last 24 hr 12/08/20 05:54: WBC 8.3, RBC 4.01 L, Hgb 11.4 L, Hct 35.0 L, MCV 87.1, MCH 28.4, MCHC 32.6, RDW 13.0, Plt Count 140 L, MPV 11.6 H, Neut % (Auto) 77.1, Lymph % (Auto) 13.5, [place] % (Auto) 8.3, Eos % (Auto) 0.9, Baso % (Auto) 0.2, Neut # (Auto) 6.4, Lymph # (Auto) 1.1, [place] # (Auto) 0.7, Eos # (Auto) 0.1, Baso # (Auto) 0.0 12/08/20 05:54: Sodium 141, Potassium 4.7, Chloride 110 H, Carbon Dioxide 22, Anion Gap 13.7, BUN 24 H, Creatinine 1.00, Estimated Creat Clear 57, Estimated GFR 53 L, Est GFR ( Amer) 64, Glucose 170 H, Calcium 8.7 Intake & Output 12/06/20 12/07/20 12/08/20 12/09/20 11:59 11:59 11:59 11:59 Intake Total 1600 / 1600 1909 / 1909 120 / 120 Output Total 1000 / 1000 Balance 1600 / 1600 909 / 909 120 / 120 Weight 187 lb Exam: General appearance: alert, active, awake Cardiovascular: regular rate & rhythm, normal peripheral pulses Respiratory: No respiratory distress noted, speaks in full sentences ABD: soft and non tender Neuro: alert, awake, oriented x 3 On examination of the lower extremities the limb lengths are equal. On examination of the right knee the dressings are clean, dry and intact. Calf is soft and nontender. Distal pulses are 1+. Capillary refill is brisk. Sensation is intact to light touch throughout. She is actively moving the ankle, foot and the toes. - Urinary Catheter Management Reeder Cath placed during this visit: no Progress Note: A&P (1) Osteoarthritis of right knee Status: Acute (2) S/P total knee arthroplasty Status: Acute (3) Diabetes mellitus Status: Acute (4) Hypertension Status: Chronic (5) Peripheral neuropathy Status: Chronic Assessment and Plan for All Diagnoses:: I have reviewed the clinical findings and progress with the patient. Advised her to avoid placing pillow behind the knee; use knee immobilizer when weightbearing and walking until she regains full quadriceps control and is able to actively straight leg raise. To be seen by PT today and start standard protocol for a primary knee replacement. Continue DVT prophylaxis and as needed pain medication. Care management consult regarding discharge planning.
[2020-12-08 16:00] VITALS: BP 154/55; PULSE 70; RESP 16; TEMP 37.3; O2SAT 91
[2020-12-08 20:00] VITALS: BP 179/79; PULSE 72; RESP 17; TEMP 36.9; O2SAT 96
[2020-12-09 08:00] VITALS: BP 188/92; PULSE 71; RESP 17; TEMP 36.8; O2SAT 91
--- NOTE | 2020-12-09 10:47 | HMH.DCSUM ---
General - General Admission date:: 12/07/20 Discharge date: 12/09/20 HPI HPI: Patient is an 85-year-old female with chondrocalcinosis and fairly advanced degenerative joint disease of the right knee who is admitted to the hospital electively following an uncomplicated primary total knee arthroplasty on 12/08/2019. Prior to surgery patient had long-standing pain, stiffness and disability secondary to advanced degenerative arthritis in her right knee. She has not responded well to conservative management including NSAID, Tylenol, and intra-articular injections in the past. She is using assistive walking devices. Total knee arthroplasty is indicated to reduce the risk of falls, improve her pain and mobility and quality of life. Her walking distance and ADLs are adversely affected; she also has history of night pain and sleep disturbance. The knee feels unstable and patient is at risk of falling and injuring herself. A total knee arthroplasty is indicated to reduce the risk of falls, improve the pain, mobility and quality of life. The surgical and nonsurgical alternatives were discussed in detail with the patient as well as the risks and benefits of the surgery. She is a non smoker and is retired. Her medical history includes hypertension, diabetes mellitus, peripheral neuropathy and arthritis. She had a partial knee replacement on the left side many years ago and reports some occasional knee pain. Refer to my office note for full details. Hospital Course Hospital Course: Patient underwent an uncomplicated straightforward primary right total knee arthroplasty on 12/07/2020. Following surgery patient was admitted to hospital and progressed well without any complications. The postoperative check x-ray was satisfactory with good alignment and fixation of the components. Patient progressed rapidly with physical therapy and was able to mobilize using a walker. After 2 days of hospital stay for observation, patient was discharged to home with self-care on 12/09/2020. Patient is planning to do outpatient physical therapy at [facility]. At the time of discharge patient has regained good quadriceps control and is able to actively straight leg raise. Patient has minimal pain and it is well controlled with as needed oral medication. The incision is healthy and healing well. No signs of any erythema, induration or discharge noted. Patient was started on Xarelto 10 mg daily for DVT prophylaxis after surgery. The neurovascular status in both lower extremities is intact. Pedal pulses 2+ bilaterally and fully sensate distally. No clinical evidence of DVT noted. Patient was cleared for discharge by physical therapy. On the day of discharge, the patient has been stable. Patient's vital signs have been stable throughout and patient is afebrile at the time of discharge. She is being discharged home with family/self-care. She has outpatient physical therapy scheduled. Condition at discharge: improved and stable. Treatments and Procedures: Total knee arthroplasty, right knee; date of surgery 12/07/2020. Objective Vital signs: Temp Pulse Resp BP Pulse Ox 98.3 F 71 17 188/92 H 91 L 12/09/20 08:00 12/09/20 08:00 12/09/20 08:00 12/09/20 08:00 12/09/20 08:00 no acute distress, obese - *Routine HEENT Exam Head: Present: normocephalic Eye: Present: EOMI, PERRL ENT: Present: mucous membranes moist - *Routine Neck Exam Present: supple - *Routine Respiratory Exam Present: CTA bilaterally - *Routine Cardiovascular Exam Present: RRR - *Routine Abdominal Exam Present: soft, normoactive bowel sounds. Absent: tenderness - *Routine Rectal Exam Patient deferred: digital exam - *Routine Extremities Exam Comments: On examination of the lower extremities the limb lengths are equal. On examination of the right knee the incision is clean, dry and healthy. I have changed the dressings today. No signs of infection or ot
== END 2020-12-09 11:42 | disposition home or self-care (01) ==
LOC: 2ND 06:14
PROVIDERS: Admitting Provider Orthopaedic Surgery; PCP Internal Medicine Adolescent Medicine; Visit Provider Orthopaedic Surgery
PROC: (CPT 27447; principal; 2020-12-07 07:30)
DX: M17.11 Unilateral primary osteoarthritis, right knee (principal); I10 Essential (primary) hypertension; K21.9 Gastro-esophageal reflux disease without esophagitis; E11.9 Type 2 diabetes mellitus without complications; Z79.84 Long term (current) use of oral hypoglycemic drugs; Z79.899 Other long term (current) drug therapy; M11.261 Other chondrocalcinosis, right knee
CPT/HCPCS: 27447; 36415; 73562; 80048; 81001; 82962; 85025; 96374; 97116; 97161; 97166; 97535; C1776; G0378; J2405; J2704; J3370

== ENCOUNTER → 2020-12-12 16:47 | Outpatient (CLI) | payer MEDICARE, SELFPAY | PROVIDERS: PCP Nurse Practitioner Family; Visit Provider Nurse Practitioner Family | DX: R35.0 Frequency of micturition (principal) | CPT/HCPCS: 87086; 87088; 87186 ==

== ENCOUNTER → 2020-12-22 13:07 | Outpatient (CLI) | payer MEDICARE, SELFPAY ==
--- NOTE | 2020-12-22 13:11 | XR_ITS ---
PROCEDURE: XR KNEE RT 2V CLINICAL INDICATION: right TKA, sx 12/07/20 COMPARISON: CR XR KNEE RT 3V from 04/02/2020 CR XR KNEE LT 3V from 04/02/2020 CR XR KNEE RT 4V from 06/15/2020 CR XR KNEE RT 3V from 12/07/2020 FINDINGS: Status post total knee arthroplasty. There is good alignment There is some soft tissue swelling in the suprapatellar region. Previously noted soft tissue gas no longer apparent. Other findings:None. IMPRESSION: Good alignment status post total knee arthroplasty Dictated by: Rubén Baker MD 12/22/2020 14:38 Rubén Baker MD in [place] 12/22/2020 14:38
== END ==
PROVIDERS: PCP Internal Medicine Adolescent Medicine; Visit Provider Orthopaedic Surgery
DX: M25.561 Pain in right knee; Z96.651 Presence of right artificial knee joint
CPT/HCPCS: 73560

== ENCOUNTER 2021-02-03 16:30 | Outpatient (RCR) | payer MEDICARE, SELFPAY ==
--- NOTE | 2020-12-10 15:17 | HMH.PTOPEV ---
PT Outpatient Evaluation Rehab PT Outpatient Evaluation Start: 12/10/20 15:08 Freq: Status: Active Protocol: Document 12/10/20 15:09 IMERROMAN (Rec: 12/10/20 15:16 LANIMARSHA [id number]) Electronically Signed By Evans Fernandez PT 12/10/20 15:09 Outpatient Therapy Subjective History Subjective History This is the initial Physical THerapy evaluation for Zoila Pedro. Pt is an 85 y/o female referred to PT for s/p R TKA. Pt had R TKA 12/07/20. Pt now reports to PT for increased ROM, strength and pain control. Chief Complaint Pain,Spasms,Stiff Symptom Type Ache,Throb,Sharp,Stabbing Symptoms Relieved By Rest/Positioning,Prescription Meds Symptoms Aggravated By Sitting,Standing,Physical Activity Prior Functional Limitations None Current Functional Limitations Standing,Squatting,Recreation Activity,Walking,Stairs Symptom Description Constant but Variable Level of pain today (0-10) 8 Pain scale - at its best (0-10) 5 Pain scale - at its worst (0-10) 10 Hip/Knee Eval Gait Observation General Gait Pattern Observation Antalgic Gait Assistive Device Assistive Devices Rolling / Wheeled Walker MMT right Knee Extension Strength Grade 3- Fair- Knee Flexion Strength Grade 3- Fair- ROM left Knee Extension Active Range of Motion ( 0 degrees) Knee Flexion Active Range of Motion ( 115 degrees) right Knee Extension Active Range of Motion ( 10 degrees) Knee Flexion Active Range of Motion ( 90 degrees) Outpatient Therapy Assessment Impairments Problems/Impairmments Impaired Range of Motion, Impaired Strength,Impaired Gait Pattern,Impaired Walking, Impaired Standing,Impaired Household Care,Impaired Stair Climbing,Impaired Stepping on Uneven Surface,Impaired Squatting,Impaired Recreational Activities Prognosis Rehab Potential Fair Clinical Impression Consistent with Diagnosis Yes Short Term Goals Number of Weeks 4 Increase Range of Motion Yes: 5-100 Increase Strength Yes: 4/5 in available ROM Improve Gait Pattern with Assistive Yes: SPC Device Increase Ability to Walk
== END 2021-02-03 17:20 | disposition home or self-care (01) ==
LOC: PT 16:30
PROVIDERS: PCP Internal Medicine Adolescent Medicine; Visit Provider Orthopaedic Surgery
DX: M25.561 Pain in right knee (principal); Z96.651 Presence of right artificial knee joint
CPT/HCPCS: 97110; 97116; 97140; 97163; 97164; 97530

== ENCOUNTER → 2021-03-02 14:44 | Outpatient (CLI) | payer MEDICARE, SELFPAY ==
--- NOTE | 2021-03-02 14:49 | XR_ITS ---
PROCEDURE: XR KNEE RT 2V CLINICAL INDICATION: sp RT TKA, sx 12/07/20 COMPARISON: CR XR KNEE LT 3V from 04/02/2020 CR XR KNEE RT 4V from 06/15/2020 CR XR KNEE RT 3V from 12/07/2020 CR XR KNEE RT 2V from 12/22/2020 FINDINGS: No fracture or dislocation. No lytic or blastic change. There is normal mineralization. Good alignment status post total knee replacement. No evidence of orthopedic complication. No acute fracture or dislocation. No lytic or blastic change. The Other findings:None. IMPRESSION: Good alignment status post total knee replacement. No evidence of orthopedic complication. Dictated by: Rubén Baker MD 03/02/2021 17:08 Rubén Baker MD in [place] 03/02/2021 17:08
== END ==
PROVIDERS: PCP Internal Medicine Adolescent Medicine; Visit Provider Orthopaedic Surgery
DX: Z09 Encounter for follow-up examination after completed treatment for conditions other than malignant neoplasm (principal); M25.561 Pain in right knee; Z96.651 Presence of right artificial knee joint
CPT/HCPCS: 73560

== ENCOUNTER → 2021-06-30 15:40 | Outpatient (CLI) | payer MEDICARE, SELFPAY ==
[2021-06-30 16:18] LABS: Basophils # 0.1 K/mm3 (0-0.2); Basophils % 1.2 % (0.1-2.0); Eosinophils # 0.1 K/mm3 (0.0-0.4); Eosinophils % 1.5 % (0.1-12.0); Hematocrit 40.7 % (37.0-47.0); Hemoglobin 13.3 g/dL (12.2-16.2); Lymphocytes # 2.1 K/mm3 (0.7-4.5); Lymphocytes % 23.5 % (10-50); Mean Corpuscular HGB Conc 32.6 g/dL (31.8-35.4); Mean Corpuscular Hemoglobin 28.9 pg (27.0-31.2); Mean Corpuscular Volume 88.5 fl (81-99); Mean Platelet Volume 8.2 fl (7.4-10.4); Monocytes # 0.5 K/mm3 (0.1-1.0); Monocytes % 5.9 % (1.7-9.3); Neutrophils % 67.9 % (37.0-80.0); Platelet Count 256 K/mm3 (142-424); White Blood Count 8.8 K/mm3 (4.8-10.8)
[2021-06-30 16:44] LABS: Hemoglobin A1C 6.1 % (4.0-6.0)
[2021-06-30 17:00] LABS: Alanine Aminotransferase 15 U/L (12-78); Albumin Level 4.6 g/dl (3.5-5.0); Albumin/Globulin Ratio 1.8 (1.1-1.8); Alkaline Phosphatase 85 U/L (38-126); Anion Gap 12.1 mEq/L (5-15); Aspartate Amino Transferase 22 U/L (14-36); Bilirubin,Total 0.4 mg/dl (0.2-1.3); Blood Urea Nitrogen 30 mg/dl (7-17); Calcium 10.7 mg/dl (8.4-10.2); Carbon Dioxide 30 mmol/L (22.0-30.0); Chloride 101 mmol/L (98-107); Chol/HDL Ratio 4.7 (1-3.5); Cholesterol 231 mg/dl (140-200); Estimated Glomerular Filt Rate 47 ml/min (>60); GFR (African American) 57 ML/MIN (>60); Globulin 2.5 g/dL (1.3-3.2); Glucose 77 mg/dl (74-100); HDL Cholesterol 49 mg/dl (40-60); Potassium 5.1 mmoL/L (3.5-5.1); Sodium 138 mmol/L (136-145); Total Protein,Serum 7.1 g/dl (6.3-8.2); Triglycerides 237 mg/dl (30-150); VLDL Cholesterol 47 mg/dL (0-40)
[2021-06-30 17:11] LABS: Direct LDL Cholesterol 147.16 mg/dL (100-129)
[2021-06-30 20:03] LABS: Free Thyroxine Index 2.5 ug/dL (5.93-13.13); Triiodothryronine (T3) Uptake 31 % (23.5-40.5)
[2021-06-30 20:17] LABS: Thyroid Stimulating Hormone 1.53 uIU/mL (0.465-4.68)
== END ==
PROVIDERS: PCP Internal Medicine Adolescent Medicine; Visit Provider Internal Medicine Adolescent Medicine
DX: E11.9 Type 2 diabetes mellitus without complications (principal); R27.0 Ataxia, unspecified; G60.9 Hereditary and idiopathic neuropathy, unspecified; Z79.84 Long term (current) use of oral hypoglycemic drugs
CPT/HCPCS: 36415; 80053; 80061; 83036; 84436; 84443; 84479; 85025

== ENCOUNTER 2021-12-16 16:34 | Emergency (ER) | payer MEDICARE, SELFPAY ==
[2021-12-16 16:58] VITALS: BP 160/89; PULSE 66; RESP 17; TEMP 36.8; O2SAT 98; BMI 30.2
--- NOTE | 2021-12-16 17:48 | HMH.EDUTC ---
[facility] [place] Clinical Impression: Fall Qualifiers: Encounter type: initial encounter Qualified Code(s): W19.XXXA - Unspecified fall, initial encounter Skin tear of forearm without complication Qualifiers: Encounter type: initial encounter Laterality: left Qualified Code(s): S51.812A - Laceration without foreign body of left forearm, initial encounter Skin tear of elbow without complication Qualifiers: Encounter type: initial encounter Laterality: left Qualified Code(s): S51.012A - Laceration without foreign body of left elbow, initial encounter Disposition: Home, Self-Care Condition on Discharge: Good Instructions: DI for Avulsion Laceration (Not Requiring Sutures) Additional Instructions: Keep the wound clean and dry. Watch the wound for signs of infection, such as redness, swelling, drainage, fever. etc. Take tylenol or ibuprofen for pain. Follow up with your regular doctor. GO TO THE ER FOR ANY WORSENING SYMPTOMS OR CONCERNS. Prescriptions: Mupirocin [Bactroban 2% Ointment 22gm tube] 1 applicatio TP TID 7 Days #1 gm Transmission Status: Received by [facility] cephALEXin [cephALEXin 500mg capsule] 500 mg PO Q6H 10 Days #40 cap Transmission Status: Received by [facility] Referrals: Edilberto Montoya MD [Primary Care Provider] - Time of Disposition: 17:51 Medical Decision Making - Medical Records Medical records reviewed: No: I reviewed the patient's medical records. - Wiley Inquiry Pt receiving controlled substance: No Vital Signs: 12/16/21 16:58 12/16/21 18:08 Temperature 98.3 F 98.3 F Temperature Source Oral Pulse Rate 66 Pulse Rate [Right] 66 Respiratory Rate 17 17 Blood Pressure 160/89 H Blood Pressure [Right Arm] 160/89 H Blood Pressure Mean [Right Arm] 112 Blood Pressure Source [Right Arm] Automatic Cuff Blood Pressure Position [Right Arm] Sitting 02 Sat by Pulse Oximetry 98 Oxygen Delivery Method Room Air [facility] [place] - General Stated complaint: AO 12/16@1500 Fell Lac to L arm Time Seen by Provider: 12/16/21 17:00 Mode of Arrival: Wheelchair Source of Information: Patient Description of Symptoms (Recalled from Triage Doc. by RN): pt reports she fell approximately 3 hours ago and has a laceration to her left arm. She was brought in by family HEENT Symptoms (Recalled from RN notes): No Resp Symptoms (Recalled from RN notes): No Skin Symptoms (Recalled from RN notes): Yes MS Symptoms (Recalled from RN notes): No Functional Status (Recalled from RN notes): NA - History of Present Illness Provider Complaint: She fell at home around 3 hours ago. She states that she just lost her balance and fell. She came down on her left arm. She has 2 skin tears on her left forearm. Her tetanus immunization is up to date. - Related Data Home Medications Medication Instructions Recorded Confirmed lisinopril 10 mg tablet 10 mg PO BID 05/31/18 03/02/21 Duloxetine HCl 30 mg PO BID 01/30/19 03/02/21 carvedilol 6.25 mg tablet 6.25 mg PO BID 11/02/20 12/16/21 Metformin HCl 500 mg PO DAILY 12/07/20 12/16/21 Ferrous Sulfate [Ferrous Sulfate 325 mg PO DAILY 12/16/21 325mg Tab] Rivaroxaban [Xarelto 10mg tablet] 10 mg PO QPMWM 12/16/21 12/16/21 Previous Rx's Medication Instructions Recorded Docusate Sodium [Docusate Sodium 100 mg PO BIDP PRN #20 cap 12/09/20 100mg Cap] Hydrocod/Acet 5/325 mg [[place] 1 - 2 tab PO Q6HP PRN #60 tab 12/09/20 5/325mg tablet] Mupirocin [Bactroban 2% Ointment 1 applicatio TP TID 7 Days #1 gm 12/16/21 22gm tube] cephALEXin [cephALEXin 500mg 500 mg PO Q6H 10 Days #40 cap 12/16/21 capsule] Allergies Allergy/AdvReac Type Severity Reaction Status Date / Time hydromorphone [From DILAUDID] Allergy Intermediate Agitated Verified 03/02/21 16:19 metronidazole [METRONIDAZOLE] Allergy Unknown NA-NAUSEA/V Verified 03/02/21 16:19 OMITING morphine [MORPHINE] Allergy Unknown Agitated Verified 03/02/21 16
[2021-12-16 18:08] VITALS: BP 160/89; PULSE 66; RESP 17; TEMP 36.8
== END 2021-12-16 18:09 | disposition home or self-care (01) ==
PROVIDERS: Emergency Provider Nurse Practitioner Family; PCP Internal Medicine Adolescent Medicine
DX: S51.812A Laceration without foreign body of left forearm, initial encounter (principal); S51.012A Laceration without foreign body of left elbow, initial encounter; W19.XXXA Unspecified fall, initial encounter
CPT/HCPCS: 99212; G0463

== ENCOUNTER 2022-02-18 17:16 | Inpatient (IN) | payer MEDICARE, SELFPAY ==
[2022-02-18] VITALS (17 sets, daily range): BP systolic 133–172; BP diastolic 67–84; PULSE 56–88; RESP 16–24; TEMP 36.6; O2SAT 93–100; BMI 31.6; BMI 30.2
--- NOTE | 2022-02-18 | IR_ITS ---
APPROVED REPORT Patient Location: Emergent Extension Course Coordinator: HALEIGH Jang RT (R) PROCEDURES Left heart catheterization Left ventriculogram Selective coronary angiogram Drug-eluting stent deployment to the ostial proximal and mid dominant right coronary in a contiguous manner Intravascular ultrasound to the dominant right coronary INDICATION Acute inferior ST elevation myocardial infarction, Coronary artery disease Informed consent was obtained prior to the procedure. COMPLICATIONS NONE Estimated Blood Loss: LESS THAN 10 ML TECHNIQUE One percent lidocaine used to anesthetize the right anterior aspect of the wrist. The right radial artery was accessed via the Seldinger technique. A 6 Frisian sheath was placed in the right radial artery. 2.5 mg of verapamil, 800 mcg of nitroglycerin, 1mg Lidocaine and 7500 U Heparin were given through the arterial sheath. The papa catheter was used to perform selective coronary angiography. Therapeutic heparin was administered intra-arterially. The right coronary artery started with YUE II flow and upon engaging the ostium there was a critical ostial stenosis. A Choice PT extra-support wire was placed into the distal vessel. Because of the anterior takeoff of the vessel there was difficulty in maintaining access therefore a guide liner was advanced for better guide support. A 3 mm balloon was used to predilate the stenosis. A 4 mm x 22 mm resolute [place] stent was deployed in the ostium at 20 dewey. There continued to be slow flow. Angiography did demonstrate there was significant wire bias in the proximal segment however there was at least moderate coronary disease within the right coronary artery on the first diagnostic angiogram. Because of the anterior takeoff and the poor access I was unwilling to pull the wire without completely revascularizing the vessel. It was my opinion that there was significant disease in the midportion and the persistent YUE II flow likely stems from ongoing atherosclerotic disease. An additional 3.5 x 30 mm resolute [place] stent was placed distal to the first stent yet still overlapping it and deployed at 20 dewey followed by an additional 3.5 x 38 mm resolute [place] stent. The guide liner was used to assist in stent delivery. Multiple aliquots of nitroglycerin 800 mcg were administered intra-arterially. At the end of the procedure YUE II flow was improved to YUE-3 flow with wide patency of the right coronary artery. An additional 4 mm x 12 mm noncompliant balloon was placed in the ostium of the stent and deployed at 24 dewey further post dilating. During the procedure there was poor visualization of the ostium due to the anterior takeoff. I was concerned the stent did not adequately cover the ostium therefore intravascular ultrasound probe was advanced to make sure the ostial segment of the dominant right coronary artery was appropriately covered with a drug-eluting stent. Intravascular ultrasound did verify the stent was excellently placed did cover the ostium and was appropriately delivered with appropriate sizing. IVUS did demonstrate the stent was slightly under deployed at a heavily calcified area which was addressed at the end of the procedure with a 4 x 12 noncompliant balloon at 24 dewey. At the end of the procedure the apparatus was removed the sheath was removed and hemostasis was achieved using TR banding patient was transferred to the postop putting in stable condition ANGIOGRAPHIC RESULTS The left main artery Normal The left anterior descending artery Has proximal concentric 30 to 40% stenosis. Mid to distal portion of the LAD is small severely diseased and is less than 1 mm in diameter. The vessel is highly t
[2022-02-18 16:17] LABS: Chloride 106 mmol/L (98-107); Potassium 5.6 mmoL/L (3.5-5.1); Sodium 141 mmol/L (136-145)
[2022-02-18 16:19] LABS: Basophils # 0.1 K/mm3 (0-0.2); Basophils % 0.6 % (0.1-2.0); Eosinophils # 0.1 K/mm3 (0.0-0.4); Eosinophils % 1.4 % (0.1-12.0); Hematocrit 39.6 % (37.0-47.0); Hemoglobin 12.3 g/dL (12.2-16.2); Lymphocytes % 26.6 % (10-50); Mean Corpuscular HGB Conc 31.1 g/dL (31.8-35.4); Mean Corpuscular Hemoglobin 27.7 pg (27.0-31.2); Mean Corpuscular Volume 89.1 fl (81-99); Mean Platelet Volume 7.4 fl (7.4-10.4); Monocytes # 0.5 K/mm3 (0.1-1.0); Neutrophils # 4.9 K/mm3 (1.8-7.8); Neutrophils % 64.5 % (37.0-80.0); Platelet Count 251 K/mm3 (142-424); Red Blood Count 4.45 M/mm3 (4.20-5.40); Red Cell Distribution Width 12.8 % (11.5-17.5); White Blood Count 7.5 K/mm3 (4.8-10.8)
[2022-02-18 16:20] LABS: Anion Gap 13.6 mEq/L (5-15); Blood Urea Nitrogen 33 mg/dl (7-17); Carbon Dioxide 27 mmol/L (22.0-30.0); Creatinine Clearance Estimated 40 mL/min (50-200); Estimated Glomerular Filt Rate 39 ml/min (>60); GFR (African American) 47 ML/MIN (>60)
[2022-02-18 16:21] LABS: Calcium 9.4 mg/dl (8.4-10.2); Glucose 90 mg/dl (74-100)
[2022-02-18 16:24] LABS: Coronavirus 19, PCR Not Detected (NotDetected); Influenza A, PCR Not Detected (NotDetected); Influenza B, PCR Not Detected (NotDetected)
[2022-02-18 16:34] LABS: Troponin I 1.57 ng/ml (0.00-0.034)
[2022-02-18 17:22] LABS: CATHL Activated Clotting Time 301 SEC (74-125)
--- NOTE | 2022-02-18 18:36 | PC.NURSE ---
Family MD and Family member aware of patient admission, family present in room at this time.
--- NOTE | 2022-02-18 21:00 | PC.NURSE ---
pt c/o increased chest pressure, increased nitro drip to 20mcg/min (from 10mcg/min)
--- NOTE | 2022-02-18 21:52 | PC.NURSE ---
pt's family giving pt bath and changing pt into hospital gown
[2022-02-19] VITALS (16 sets, daily range): BP systolic 103–172; BP diastolic 59–81; PULSE 55–80; RESP 15–22; TEMP 36–37.1; O2SAT 93–99; BMI 29.9
--- NOTE | 2022-02-19 08:51 | EXP.HP ---
History of Present Illness *Admission Date: 02/18/22 *Reason for visit:: STEMI *History of present illness: 86-year-old female with history of hypertension and severe idiopathic peripheral neuropathy with no prior history of cardiac disease came to the emergency department with STEMI diagnosed in the field by EMS per significantly abnormal EKG. She had been in her normal state of health until a couple of days ago when she began to experience what she thought was epigastric pain and pressure, especially when she was outside working in her yard. She began to have significant diaphoresis yesterday and called EMS and the STEMI was diagnosed. Transition straight to [facility] and has undergone catheterization and mid admitted to the floor. Stents placed. Please see cardiology notes for details of procedure and stent placement. PFSH PFS Medical History Hypertension Shingles Surgical History History of hysterectomy History of knee replacement History of mastectomy Hx of cervical spine surgery Social History Smoking Status: Former smoker pack-years: 15 second hand exposure: No alcohol intake: never substance use type: denies use current occupational status: retired Travel in the last 8 weeks: None adopted: No caregiver/support person: Yes foster care: No household members: family housing: house marital status: education level: college current occupational exposures/hazards: No caffeine: Yes (coffee) tia/holiness: Advent Review of Systems Review of Systems Review of systems:: pertinent systems reviewed and negative unless documented below Meds Home Medications and Allergies Home Medications Medication Instructions Recorded Confirmed Type lisinopril 10 mg tablet 10 mg PO BID Hypertension 05/31/18 03/02/21 History duloxetine 30 mg capsule,delayed 30 mg PO BID Depression 01/30/19 03/02/21 History release carvedilol 6.25 mg tablet 6.25 mg PO BID bp 11/02/20 12/16/21 History metformin 500 mg tablet 500 mg PO DAILY Diabetes 12/07/20 12/16/21 History docusate sodium 100 mg capsule 100 mg PO BIDP PRN Constipation 12/09/20 03/02/21 Rx #20 caps hydrocodone 5 mg-acetaminophen 325 1 - 2 tab PO Q6HP PRN Moderate To 12/09/20 12/16/21 Rx mg tablet Severe Pain #60 tabs cephalexin 500 mg capsule 500 mg PO Q6H 10 days #40 caps 12/16/21 Rx ferrous sulfate 325 mg (65 mg 325 mg PO DAILY anemia 12/16/21 History iron) tablet mupirocin 2 % topical ointment 1 applicatio topical TID 7 days ##1 12/16/21 Rx rivaroxaban 10 mg tablet 10 mg PO QPMWM High blood pressure 12/16/21 12/16/21 History New Prescriptions to Start Prescriptions: Allergies Allergy/AdvReac Type Severity Reaction Status Date / Time hydromorphone [From DILAUDID] Allergy Intermediate Agitated Verified 03/02/21 16:19 metronidazole [METRONIDAZOLE] Allergy Unknown NA-NAUSEA/V Verified 03/02/21 16:19 OMITING morphine [MORPHINE] Allergy Unknown Agitated Verified 03/02/21 16:19 pentazocine [PENTAZOCINE] Allergy Unknown Agitated Verified 03/02/21 16:19 Exam Data for Last 24 hours Vital signs and Labs for Last 24 Hours: Temp Pulse Resp BP Pulse Ox 96.8 F L 57 L 20 155/80 H 97 02/19/22 00:00 02/19/22 08:00 02/19/22 08:00 02/19/22 08:00 02/19/22 08:00 Laboratory Results - last 24 hr 02/18/22 15:45: WBC 7.5, RBC 4.45, Hgb 12.3, Hct 39.6, MCV 89.1, MCH 27.7, MCHC 31.1 L, RDW 12.8, Plt Count 251, MPV 7.4, Neut % (Auto) 64.5, Lymph % (Auto) 26.6, [place] % (Auto) 7.0, Eos % (Auto) 1.4, Baso % (Auto) 0.6, Neut # (Auto) 4.9, Lymph # (Auto) 2.0, [place] # (Auto) 0.5, Eos # (Auto) 0.1, Baso # (Auto) 0.1 02/18/22 15:45: Sodium 141, Potassium 5.6 H, Chloride 106, Carbon Dioxide 27, Anion Gap 13.6, BUN 33 H, Creatinine 1.30 H, Estimated Creat Clear 40, Estimated
--- NOTE | 2022-02-19 09:18 | EXP.PHA.VTE ---
[facility] Pharmacy VTE Monitoring Patient Demographics Admission date: 02/18/22 Report Date: 02/19/22 Time: 09:18 Patient Allergies hydromorphone [From DILAUDID] Allergy (Intermediate, Verified 03/02/21 16:19) Agitated metronidazole [METRONIDAZOLE] Allergy (Unknown, Verified 03/02/21 16:19) NA-NAUSEA/VOMITING morphine [MORPHINE] Allergy (Unknown, Verified 03/02/21 16:19) Agitated pentazocine [PENTAZOCINE] Allergy (Unknown, Verified 03/02/21 16:19) Agitated Height: 1.63 m Weight: 79.577 kg Current Active Problems (Updated 02/19/22 @ 08:54 by Edilberto Montoya MD) Diabetes type 2, controlled (Acute) Hypertension, essential (Acute) Coronary atherosclerosis of [place] coronary artery (Acute) STEMI (ST elevation myocardial infarction) (Acute) Peripheral neuropathy (Chronic) VTE Risk Labs: VTE Related Lab Results Hgb 12.3 g/dL (12.2-16.2) 02/18/22 15:45 Hct 39.6 % (37.0-47.0) 02/18/22 15:45 Plt Count 251 K/mm3 (142-424) 02/18/22 15:45 BUN 33 mg/dl (7-17) H 02/18/22 15:45 Creatinine 1.30 mg/dl (0.52-1.04) H 02/18/22 15:45 Estimated Creat Clear 40 mL/min (50-200) 02/18/22 15:45 Was VTE Risk Assessment Performed: Yes VTE Score: 2 VTE Risk Level: Very Low Risk Prophylaxis VTE Prophylaxis Ordered?: Yes Types of VTE Prophylaxis: TEDS Knee High Location of Applied Device: Bilateral Lower Extremeties
--- NOTE | 2022-02-19 09:18 | HMH.PHAINT1 ---
Pharmacy Intervention Comments: MEDICATION RECONCILIATION COMPLETED ON PATIENT USING EXTERNAL FILL HISTORY FROM PHARMACY. -MARCO GUEVARA, HARINID
--- NOTE | 2022-02-19 10:23 | PC.NURSE ---
Nitro gtt decreased to 10 mcg/min at this time. Pt c/o's of headache. Prn tylenol given.
--- NOTE | 2022-02-19 11:02 | PC.NURSE ---
courtesy tech note: Pt is up to chair and asked for a pt belonging bag. Call light is within reach.
--- NOTE | 2022-02-19 18:29 | PC.NURSE ---
Pt a/o x 4. RR even and unlabored. Pts BP at 1830 was 147/71. Nitro gtt turned off today @ approx 1245. Pt has no c/o at this time. VSS. Has been nsr- sb this shift. Meds given per aug. Lungs cta. NAD.
--- NOTE | 2022-02-19 19:50 | PC.NURSE ---
got pt up to bathroom and then back to chair, call cavazos within reach
[2022-02-20] VITALS (8 sets, daily range): BP systolic 134–163; BP diastolic 54–76; PULSE 55–76; RESP 16–20; TEMP 36.5–37; O2SAT 92–99; BMI 30.1
[2022-02-20 07:51] LABS: Anion Gap 9.9 mEq/L (5-15); Basophils # 0.1 K/mm3 (0-0.2); Basophils % 0.7 % (0.1-2.0); Blood Urea Nitrogen 25 mg/dl (7-17); Calcium 9.3 mg/dl (8.4-10.2); Carbon Dioxide 25 mmol/L (22.0-30.0); Chloride 110 mmol/L (98-107); Creatinine Clearance Estimated 53 mL/min (50-200); Eosinophils # 0.1 K/mm3 (0.0-0.4); Eosinophils % 1.6 % (0.1-12.0); Estimated Glomerular Filt Rate 53 ml/min (>60); GFR (African American) 64 ML/MIN (>60); Glucose 140 mg/dl (74-100); Hematocrit 37.4 % (37.0-47.0); Hemoglobin 11.9 g/dL (12.2-16.2); Lymphocytes # 1.5 K/mm3 (0.7-4.5); Mean Corpuscular HGB Conc 31.8 g/dL (31.8-35.4); Mean Corpuscular Hemoglobin 27.8 pg (27.0-31.2); Mean Corpuscular Volume 87.3 fl (81-99); Mean Platelet Volume 8.1 fl (7.4-10.4); Monocytes # 0.6 K/mm3 (0.1-1.0); Monocytes % 7.1 % (1.7-9.3); Neutrophils # 5.9 K/mm3 (1.8-7.8); Neutrophils % 72.6 % (37.0-80.0); Platelet Count 236 K/mm3 (142-424); Potassium 4.9 mmoL/L (3.5-5.1); Red Blood Count 4.28 M/mm3 (4.20-5.40); Red Cell Distribution Width 13.5 % (11.5-17.5); Sodium 140 mmol/L (136-145); White Blood Count 8.1 K/mm3 (4.8-10.8)
--- NOTE | 2022-02-20 08:39 | EXP.ACUTE.PN ---
Subjective *Date: 02/20/22 *Time: 08:39 Interval history: Overall patient did very well yesterday. Able to be weaned off nitro drip, lisinopril 20 mg started yesterday morning. Blood pressures been in the 130 range systolic. Pulse rates in the mid 60s on low-dose carvedilol. No chest pain or dyspnea or ankle swelling today. Has eating well. Medical Exam Vital signs and Labs for Last 24 Hours: Temp Pulse Resp BP Pulse Ox 97.9 F 65 20 134/54 L 96 02/20/22 04:00 02/20/22 08:00 02/20/22 08:00 02/20/22 08:00 02/20/22 08:00 Laboratory Results - last 24 hr 02/20/22 06:55: WBC 8.1, RBC 4.28, Hgb 11.9 L, Hct 37.4, MCV 87.3, MCH 27.8, MCHC 31.8, RDW 13.5, Plt Count 236, MPV 8.1, Neut % (Auto) 72.6, Lymph % (Auto) 18.0, [place] % (Auto) 7.1, Eos % (Auto) 1.6, Baso % (Auto) 0.7, Neut # (Auto) 5.9, Lymph # (Auto) 1.5, [place] # (Auto) 0.6, Eos # (Auto) 0.1, Baso # (Auto) 0.1 02/20/22 06:55: Sodium 140, Potassium 4.9, Chloride 110 H, Carbon Dioxide 25, Anion Gap 9.9, BUN 25 H, Creatinine 1.00 D, Estimated Creat Clear 53, Estimated GFR 53 L, Est GFR ( Amer) 64 D, Glucose 140 H, Calcium 9.3 I & O for Labs for Last 24 Hours: Intake & Output 02/17/22 02/18/22 02/19/22 02/20/22 11:59 11:59 11:59 11:59 Intake Total 360 / 360 720 / 720 Output Total 0 / 0 400 / 400 Balance 360 / 360 320 / 320 Weight 175 lb 7 oz 176 lb 5.917 oz Comment:: Patient is pleasant, talkative. Heart rate regular. Lungs clear. Abdomen soft, no edema, neurologically intact except for previously noted neuropathy Assessment and Plan *Assessment and plan (1) STEMI (ST elevation myocardial infarction): Status: Acute Category: Medical Code(s): I21.3 - ST elevation (STEMI) myocardial infarction of unspecified site (2) Coronary atherosclerosis of [place] coronary artery: Status: Acute Category: Medical Code(s): I25.10 - Atherosclerotic heart disease of [place] coronary artery without angina pectoris (3) Diabetes type 2, controlled: Status: Acute Category: Medical Code(s): E11.9 - Type 2 diabetes mellitus without complications Assessment and plan all Dx Assessment and Plan All Dx:: Continue current medications. Blood pressure under better control. Probable discharge tomorrow with DAPT, blood pressure control and close follow-up. Check fingersticks today. Continue to hold metformin.
[2022-02-20 11:29] LABS: POC Glucose,Bedside 90 (70-110)
[2022-02-20 16:44] LABS: POC Glucose,Bedside 113 (70-110)
--- NOTE | 2022-02-20 18:30 | PC.NURSE ---
shift summary: Pt has done well this shift. GCS 15. VSS. On RA. Ambulates around room and to bathroom without assistance. Denies CP, diaphoresis, and dyspnea. NSR on tele with occasional PVC. Tolerates a cardiac diet. Blood sugars WNL not requiring SSI.
[2022-02-21] VITALS: BP 141/101; PULSE 50; PULSE 58; RESP 17; TEMP 36.9; O2SAT 96
[2022-02-21 03:57] VITALS: BMI 30.1
[2022-02-21 04:00] VITALS: BP 138/73; PULSE 54; PULSE 59; RESP 16; TEMP 37.1; O2SAT 95
[2022-02-21 06:16] LABS: Basophils # 0.1 K/mm3 (0-0.2); Basophils % 0.9 % (0.1-2.0); Eosinophils # 0.1 K/mm3 (0.0-0.4); Hemoglobin 11.4 g/dL (12.2-16.2); Lymphocytes # 1.6 K/mm3 (0.7-4.5); Lymphocytes % 25.2 % (10-50); Mean Corpuscular HGB Conc 31.7 g/dL (31.8-35.4); Mean Corpuscular Hemoglobin 28.2 pg (27.0-31.2); Mean Platelet Volume 7.9 fl (7.4-10.4); Monocytes # 0.6 K/mm3 (0.1-1.0); Neutrophils # 3.9 K/mm3 (1.8-7.8); Neutrophils % 61.9 % (37.0-80.0); Platelet Count 227 K/mm3 (142-424); Red Blood Count 4.04 M/mm3 (4.20-5.40); Red Cell Distribution Width 13.6 % (11.5-17.5); White Blood Count 6.3 K/mm3 (4.8-10.8)
--- NOTE | 2022-02-21 06:22 | PC.NURSE ---
shift summary: pt rested well this shift, pt's VSS, bp more controlled versus last shift, pt c/o pain once this shift relieved with prn pain medication, pt denied any CP this shift, pt ambulating to and from bathroom, pt getting up to chair throughout the day, pt's family at bedside, call light within reach
[2022-02-21 06:23] LABS: Anion Gap 8.6 mEq/L (5-15); Blood Urea Nitrogen 27 mg/dl (7-17); Calcium 9.2 mg/dl (8.4-10.2); Carbon Dioxide 26 mmol/L (22.0-30.0); Chloride 110 mmol/L (98-107); Creatinine Clearance Estimated 53 mL/min (50-200); Estimated Glomerular Filt Rate 53 ml/min (>60); GFR (African American) 64 ML/MIN (>60); Glucose 134 mg/dl (74-100); Potassium 4.6 mmoL/L (3.5-5.1); Sodium 140 mmol/L (136-145)
[2022-02-21 06:41] LABS: POC Glucose,Bedside 140 (70-110)
[2022-02-21 08:00] VITALS: BP 107/47; PULSE 57; PULSE 58; PULSE 60; RESP 17; TEMP 36.6; O2SAT 98
--- NOTE | 2022-02-21 08:40 | EXP.DC.SUM ---
General Admission date:: 02/18/22 Discharge date: 02/21/22 HPI HPI HPI: 86-year-old female with history of hypertension and severe idiopathic peripheral neuropathy with no prior history of cardiac disease came to the emergency department with STEMI diagnosed in the field by EMS per significantly abnormal EKG. She had been in her normal state of health until a couple of days ago when she began to experience what she thought was epigastric pain and pressure, especially when she was outside working in her yard. She began to have significant diaphoresis yesterday and called EMS and the STEMI was diagnosed. Transition straight to [facility] and has undergone catheterization and mid admitted to the floor. Stents placed. Please see cardiology notes for details of procedure and stent placement. Hospital Course Hospital Course Hospital Course: Patient was admitted with a STEMI. Had been taken directly to [facility] and had successful stenting. Please see cardiology notes for results. She was placed on nitro drip after the procedure because of significant hypertension, this resolved overnight and she was transitioned over to JI inhibitor's which did well. Tolerated this well. Was a bit bradycardic with her regular dose of carvedilol through the next couple of days. She also began to develop dyspnea and pressure but totally different than her anginal presentation. This morning she felt great. Eating and drinking well. No anginal pain. Still with some dyspnea. Plan to be discharged home. We will put her on DAPT therapy with Plavix instead of Brilinta because of the shortness of air. High-dose statin, I will reduce her carvedilol to 3.125 given bradycardia. She went to stay with her daughter in [place], [place] and her daughter has a internal combustion engine inspector whom she is acquainted with name Dr. Seb Santacruz who will be caring for her. We will try to make an appointment before she leaves. I will see her in a couple weeks and she is back in the [facility]. Exam Data for Last 24 hours Vital signs and Labs for Last 24 Hours: Temp Pulse Resp BP Pulse Ox 97.8 F 57 L 17 107/47 L 98 02/21/22 08:00 02/21/22 08:00 02/21/22 08:00 02/21/22 08:00 02/21/22 08:00 Laboratory Results - last 24 hr 02/20/22 11:16: POC Glucose 90 02/20/22 16:37: POC Glucose 113 H 02/21/22 05:41: WBC 6.3, RBC 4.04 L, Hgb 11.4 L, Hct 36.0 L, MCV 89.0, MCH 28.2, MCHC 31.7 L, RDW 13.6, Plt Count 227, MPV 7.9, Neut % (Auto) 61.9, Lymph % (Auto) 25.2, [place] % (Auto) 10.0 H, Eos % (Auto) 2.0, Baso % (Auto) 0.9, Neut # (Auto) 3.9, Lymph # (Auto) 1.6, [place] # (Auto) 0.6, Eos # (Auto) 0.1, Baso # (Auto) 0.1 02/21/22 05:41: Sodium 140, Potassium 4.6, Chloride 110 H, Carbon Dioxide 26, Anion Gap 8.6, BUN 27 H, Creatinine 1.00, Estimated Creat Clear 53, Estimated GFR 53 L, Est GFR ( Amer) 64, Glucose 134 H, Calcium 9.2 02/21/22 06:08: POC Glucose 140 H I & O for Last 24 hours: Intake & Output 02/18/22 02/19/22 02/20/22 02/21/22 11:59 11:59 11:59 11:59 Intake Total 360 / 360 960 / 960 720 / 720 Output Total 0 / 0 400 / 400 0 / 0 Balance 360 / 360 560 / 560 720 / 720 Weight 175 lb 7 oz 176 lb 5.917 oz 176 lb 10.15 oz Constitutional Constitutional: no acute distress *Routine HEENT Exam Head: Present normocephalic Eye: Present EOMI and PERRL ENT: Present mucous membranes moist *Routine Neck Exam Neck: Present supple; Absent lymphadenopathy *Routine Respiratory Exam Respiratory: Present CTA bilaterally *Routine Cardiovascular Exam Cardiovascular: Present RRR and murmur *Routine Abdominal Exam Abdominal: Present soft and normoactive bowel sounds; Absent tenderness *Routine Extremities Exam Extremities: Absent cyanosis, clubbing or edema *Routine Skin Exam Skin: Present warm; Absent rash *Routine Neurological Exam Neurological: Present alert and oriented X3 Comments: Remains afflicted with sensory loss of feet up to the midshin. Results Data Completed and Pe
--- NOTE | 2022-02-21 09:26 | HMH.PHACL ---
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
[2022-02-21 11:27] VITALS: BP 137/61; PULSE 58; RESP 17; TEMP 36.4; O2SAT 94
--- NOTE | 2022-02-21 11:37 | CA_ITS ---
APPROVED REPORT EXAM: Comprehensive 2D, Doppler, and color-flow Echocardiogram Live Out Nanny: Christine Benjamin, RCS, RVS Ht: 5 ft 4 in Wt: 176lbs BSA: 1.85 BP: 107/47 mmHg Indications: STEMI, S?P cardiac cath 02/18/22 with 3 coronary stents, HTN, DM 2D Dimensions Aortic Root 2.74 cm Left Atrium 2.98 cm LVOT 1.81 cm (M/F) 1.5-2.5 M-Mode Dimensions RVDd 2.65 cm (0.9-2.6) LA Diam 3.51 cm (1.9-4.0) LVDd 4.38 cm (3.5-5.7) Ao Diam 2.99 cm (2.0-3.7) LVDs 2.69 cm (3.5-5.7) IVSd 1.00 cm (0.6-1.1) PWd 1.13 cm (0.6-1.1) EF (Teich) 69.10% EPSs 0.40 cm FS 38.60% EDV (Teich) 86.80 mL ESV (Teich) 26.80 mL LV Diastology E Decel Time 357.00 (160-240 msec) E/A Ratio 0.81 MED E' 5.70 (< 7 cm/sec) MED A' 8.90 cm/s E'/MED E' Ratio 14.32 (>14) LAT E' 5.80 (<10 cm/sec) LAT A' 8.20 cm/s E/LAT E' Ratio 14.07 (>14) Aortic Valve LVOT Max 128.00 (70-110 cm/s) LVOT VTI 31.35 cm AoV Peak Emanuel. 146.00 (50-130 cm/s) AO Peak GR. 8.50 mmHg AO Mean GR. 4.40 (<5 mmHg) AO VTI 31.34 (18-25 cm) TORIN (VTI) 2.57 (2.5-4.5 cm2) Mitral Valve MV A Velocity 101.00 (40-130 cm/s) E/A Ratio 0.81 MV Decel. Time 357.00 (160-240 ms) Pulmonary Valve PV Peak Velocity 74.00 (50-150 cm/s) Tricuspid Valve TR P. Velocity 213.00 cm/s Left Ventricle Left atrium is mildly enlarged, left ventricle is normal size mild concentric left ventricular hypertrophy, estimated ejection fraction 55% with no regional wall motion abnormality, grade 1 diastolic dysfunction seen without tissue Doppler evidence of raise left atrial pressure. Right Ventricle Right atrium and right ventricle are normal size and contractility. Aortic Valve Aortic valve is minimally thickened and fibrosed there is no aortic stenosis or aortic insufficiency. Mitral Valve Mitral valve is grossly normal, there is mild mitral regurgitation. Tricuspid Valve Tricuspid valve grossly normal, there is mild tricuspid regurgitation, tricuspid regurgitation jet velocity is inadequate for calculation of the right ventricular systolic pressure. Pulmonic Valve Pulmonic valve is poorly visualized. Great Vessels Aortic root is normal size. Inferior vena cava is poorly visualized. Pericardium No significant pericardial effusion noted. Conclusion 1. Mildly enlarged left atrium, normal left ventricular size, mild concentric left ventricular hypertrophy, estimated ejection fraction 55% with no regional wall motion abnormality, grade 1 diastolic dysfunction seen without tissue Doppler evidence of raise left atrial pressure. 2. Mild mitral and tricuspid regurgitation. 3. No significant pericardial effusion. 4. Inferior vena cava is poorly visualized. Electronically signed by : Alphonso Hitchcock MD 02/21/2022 21:51:06
[2022-02-21 11:47] LABS: Chol/HDL Ratio 4.5 (1-3.5); Cholesterol 183 mg/dl (140-200); HDL Cholesterol 41 mg/dl (40-60); Triglycerides 80 mg/dl (30-150); VLDL Cholesterol 16 mg/dL (0-40)
[2022-02-21 11:57] LABS: Direct LDL Cholesterol 97.83 mg/dL (100-129)
--- NOTE | 2022-02-21 11:58 | EXP.CARD.CON ---
History of Present Illness History of Present Illness Consult date: 02/21/22 Requesting physician: Edilberto Montoya Consult reason: chest pain Chief complaint: chest pain History of present illness: This is an 86-year-old female who presented to the emergency department with chest pain. The patient states that she had been fine until a few days prior to her admission when she started having what she thought was heartburn. The patient states that she had some epigastric burning in her chest. On the day of admission the patient states that she became extremely diaphoretic which is not unusual but she had a heaviness in the substernal aspect of her chest. She states that this was a severe heaviness and then started have the epigastric burning as well. The patient also had shortness of breath with her chest heaviness. She had been working outside in her yard when this happened. She states that she just did not feel well. She called her daughter and her daughter told her that she felt like she was having a heart attack and needed to call EMS. The patient was transported here to [facility] via EMS and was found to have a STEMI. The patient underwent left cardiac catheterization and had 3 stents placed to her right coronary artery for a critical stenosis. Since her left cardiac catheterization the patient states that she has been chest pain-free. She denies any shortness of breath or edema. She denies any fever, chills, nausea, vomiting, diarrhea, PND or orthopnea. [facility] shows: The left main artery Normal The left anterior descending artery Has proximal concentric 30 to 40% stenosis.? Mid to distal portion of the LAD is small severely diseased and is less than 1 mm in diameter.? 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 The first obtuse marginal artery has a proximal concentric 80% stenosis however the vessel is slightly less than 2 mm in diameter The right coronary artery Is a massively large dominant vessel with a anomalous anterior takeoff.? The ostium has a heavily calcified eccentric greater than 90% stenosis followed by poststenotic dilatation.? The midportion has diffuse 40 to 50% stenoses.? Distally a large posterior descending artery and posterior lateral branch are patent yet highly tortuous The SILVA ventriculogram reveals Normal ejection fraction of 65%.? The inferior wall is mildly hypokinetic The left ventricular end-diastolic pressure 20 mm IMPRESSION Critical ostial stenosis involving a large dominant right coronary Successful percutaneous reconstruction of the ostial proximal and mid dominant right coronary critical disease reduced to 0% with 3 contiguous drug-eluting stents Normal ejection fraction with regional wall motion abnormality Mildly elevated LVEDP Persistent severe to malignant hypertension PLAN 1. Dual antiplatelet therapy 2. LDL less than 55 to be achieved with high intensity statin 3. Control of hypertension 4. Nitroglycerin drip will be started due to patient's severe hypertension.? Concerned this may not control her blood pressure therefore night pride may be a more reasonable drug. 5. Start carvedilol 6. Supportive care on telemetry for at least 48 hours [facility] Medical History (Updated 02/21/22 @ 12:04 by Hawa Faustin APRN) Coronary atherosclerosis of [place] coronary artery Diabetes mellitus, type 2 History of heart attack Hyperlipidemia Hypertension Neuropathy Peripheral neuropathy Shingles STEMI (ST elevation myocardial infarction) Surgical History (Updated 02/19/22 @ 14:56 by Rahel Hayes RN) History of cardiac catheterization History of heart artery stent History of hysterectomy History of knee replacement History of mastectomy Hx of cervical spine surgery Social History Smoking Status: For
--- NOTE | 2022-02-21 13:26 | PC.NURSE ---
Preliminary results of echo given to meche sanders at 1305. ok for discharge per cardiology.
--- NOTE | 2022-02-21 13:30 | EXP.DC.SUM ---
General Admission date:: 02/18/22 Discharge date: 02/21/22 HPI HPI HPI: 86-year-old female with history of hypertension and severe idiopathic peripheral neuropathy with no prior history of cardiac disease came to the emergency department with STEMI diagnosed in the field by EMS per significantly abnormal EKG. She had been in her normal state of health until a couple of days ago when she began to experience what she thought was epigastric pain and pressure, especially when she was outside working in her yard. She began to have significant diaphoresis yesterday and called EMS and the STEMI was diagnosed. Transition straight to Consultant and has undergone catheterization and mid admitted to the floor. Stents placed. Please see cardiology notes for details of procedure and stent placement. Exam Data for Last 24 hours Vital signs and Labs for Last 24 Hours: Temp Pulse Resp BP Pulse Ox 97.6 F 58 L 17 137/61 94 L 02/21/22 11:27 02/21/22 11:27 02/21/22 11:27 02/21/22 11:27 02/21/22 11:27 Laboratory Results - last 24 hr 02/20/22 16:37: POC Glucose 113 H 02/21/22 05:41: WBC 6.3, RBC 4.04 L, Hgb 11.4 L, Hct 36.0 L, MCV 89.0, MCH 28.2, MCHC 31.7 L, RDW 13.6, Plt Count 227, MPV 7.9, Neut % (Auto) 61.9, Lymph % (Auto) 25.2, [place] % (Auto) 10.0 H, Eos % (Auto) 2.0, Baso % (Auto) 0.9, Neut # (Auto) 3.9, Lymph # (Auto) 1.6, Bee # (Auto) 0.6, Eos # (Auto) 0.1, Baso # (Auto) 0.1 02/21/22 05:41: Sodium 140, Potassium 4.6, Chloride 110 H, Carbon Dioxide 26, Anion Gap 8.6, BUN 27 H, Creatinine 1.00, Estimated Creat Clear 53, Estimated GFR 53 L, Est GFR ( Amer) 64, Glucose 134 H, Calcium 9.2 02/21/22 05:41: Triglycerides 80, Cholesterol 183, LDL Cholesterol Direct 97.83 L, VLDL Cholesterol 16, HDL Cholesterol 41, Cholesterol/HDL Ratio 4.5 H 02/21/22 06:08: POC Glucose 140 H I & O for Last 24 hours: Intake & Output 02/19/22 02/20/22 02/21/22 02/22/22 11:59 11:59 11:59 11:59 Intake Total 360 / 360 960 / 960 720 / 720 240 / 240 Output Total 0 / 0 400 / 400 0 / 0 Balance 360 / 360 560 / 560 720 / 720 240 / 240 Weight 175 lb 7 oz 176 lb 5.917 oz 176 lb 10.15 oz Results Data Completed and Pending Labs on day of discharge: Labs from last 24 hours 02/21/22 02/21/22 02/21/22 06:08 05:41 05:41 WBC RBC Hgb Hct MCV MCH MCHC RDW Plt Count MPV Neut % (Auto) Lymph % (Auto) Bee % (Auto) Eos % (Auto) Baso % (Auto) Neut # (Auto) Lymph # (Auto) Bee # (Auto) Eos # (Auto) Baso # (Auto) Sodium 140 Potassium 4.6 Chloride 110 H Carbon Dioxide 26 Anion Gap 8.6 BUN 27 H Creatinine 1.00 Estimated Creat Clear 53 Estimated GFR 53 L Est GFR ( Amer) 64 Glucose 134 H POC Glucose 140 H Calcium 9.2 Triglycerides 80 Cholesterol 183 LDL Cholesterol Direct 97.83 L VLDL Cholesterol 16 HDL Cholesterol 41 Cholesterol/HDL Ratio 4.5 H 02/21/22 02/20/22 05:41 16:37 WBC 6.3 RBC 4.04 L Hgb 11.4 L Hct 36.0 L MCV 89.0 MCH 28.2 MCHC 31.7 L RDW 13.6 Plt Count 227 MPV 7.9 Neut % (Auto) 61.9 Lymph % (Auto) 25.2 Bee % (Auto) 10.0 H Eos % (Auto) 2.0 Baso % (Auto) 0.9 Neut # (Auto) 3.9 Lymph # (Auto) 1.6 Bee # (Auto) 0.6 Eos # (Auto) 0.1 Baso # (Auto) 0.1 Sodium Potassium Chloride Carbon Dioxide Anion Gap BUN Creatinine Estimated Creat Clear Estimated GFR Est GFR ( Amer) Glucose POC Glucose 113 H Calcium Triglycerides Cholesterol LDL Cholesterol Direct VLDL Cholesterol HDL Cholesterol Cholesterol/HDL Ratio DS: Diagnosis Discharge Diagnosis (1) STEMI (ST elevation myocardial infarction): Status: Acute (2) Coronary atherosclerosis of [place] coronary artery: Status: Acute (3) Hypertension, essential: Status: Acute (4) Diabetes type 2, controlled: Status: Acute
[2022-02-21 17:01] LABS: POC Glucose,Bedside 81 (70-110)
--- NOTE | 2022-02-22 11:21 | CARE MANAGER ---
Contacted patient's daughter. She states patient is doing well. She is staying with sister in [place]. They deny any questions or concerns at this time. MERY Adkins
== END 2022-02-21 13:18 | disposition home or self-care (01) | DRG 247 ==
LOC: 2ND 17:20
PROVIDERS: Nurse Practitioner Family; Admitting Provider Internal Medicine Adolescent Medicine; Referring Provider Internal Medicine; Visit Provider Internal Medicine Adolescent Medicine
PROC: 027035Z Dilation of Coronary Artery, One Artery with Two Drug-eluting Intraluminal Devices, Percutaneous Approach (ICD-10-PCS; principal; 2022-02-18 15:45)
DX: I21.3 ST elevation (STEMI) myocardial infarction of unspecified site (principal); I10 Essential (primary) hypertension; G60.9 Hereditary and idiopathic neuropathy, unspecified; Z87.891 Personal history of nicotine dependence; E11.42 Type 2 diabetes mellitus with diabetic polyneuropathy; Z79.84 Long term (current) use of oral hypoglycemic drugs; Z66 Do not resuscitate; I25.2 Old myocardial infarction; Z95.5 Presence of coronary angioplasty implant and graft; Z96.659 Presence of unspecified artificial knee joint
CPT/HCPCS: 36415; 80048; 80061; 82962; 84484; 85025; 85347; 92941; 92979; 93306; 93458; 99152; 99153; C1725; C1769; C1876; C9606; C9803; J1644; Q9967; U0003; U0005

== ENCOUNTER → 2022-07-15 09:54 | Outpatient (CLI) | payer MEDICARE, SELFPAY ==
--- NOTE | 2022-07-15 10:14 | CT_ITS ---
FINAL REPORT TECHNIQUE: Postcontrast images of the pelvis and extremities were performed by computed tomography. Extensive 3-D reconstruction images were performed. A CTA was performed. This study was performed with techniques to keep radiation doses as low as reasonably achievable (ALARA). Individualized dose reduction techniques using automated exposure control or adjustment of mA and/or kV according to the patient''s size were employed. CLINICAL HISTORY: CLAUDICATION, PERIPHERAL VASCULAR DISEASE FINDINGS: CTA: The abdominal aorta is normal in caliber. The SMA, celiac axis, and FLACA are patent. There is moderate vascular calcification. There is no evidence of right renal artery stenosis. The left renal artery is suboptimally visualized. There appears to be moderate to high-grade stenosis at its origin. Right lower extremity: The iliac vessels are unremarkable. The femoral vessels are unremarkable. The SFA is without significant stenosis. The popliteal artery is unremarkable. There is poor visualization of the lower leg branches, likely due to timing of contrast bolus. LEFT lower extremity: The iliac vessels are unremarkable. The common femoral artery is unremarkable. There is moderate to high-grade stenosis of the distal SFA up to 50%. The popliteal artery is unremarkable. There is poor visualization of the lower leg branches, likely due to timing of contrast bolus. There is left renal atrophy with cortical thinning. There is decreased contrast opacification of the left kidney. There is diffuse sigmoid diverticulosis without evidence of diverticulitis. IMPRESSION: Significant left renal artery stenosis proximally with decreased perfusion of the left kidney. Moderate stenosis of the distal left superficial femoral artery. Lower leg vessels are not well visualized bilaterally, likely due to timing of contrast bolus. Reviewed, Interpreted and Dictated by Stevie Anderson III, MD Transcribed by Luana Shepherd Authenticated and [facility]
[2022-07-15 10:22] LABS: Blood Urea Nitrogen 40 mg/dl (7-17); Estimated Glomerular Filt Rate 36 ml/min (>60); GFR (African American) 43 ML/MIN (>60)
== END ==
PROVIDERS: PCP Internal Medicine Adolescent Medicine; Visit Provider Internal Medicine Adolescent Medicine
DX: I70.213 Atherosclerosis of native arteries of extremities with intermittent claudication, bilateral legs (principal)
CPT/HCPCS: 36415; 73701; 82565; 84520; Q9967

== ENCOUNTER → 2023-03-07 08:47 | Outpatient (CLI) | payer MEDICARE, SELFPAY ==
--- NOTE | 2023-03-07 08:49 | CA_ITS ---
FINAL REPORT CLINICAL HISTORY: HTN,DM FINDINGS: Aorta velocity: 101 cm/sec Right kidney: 9.0 cm. There is no evidence of hydronephrosis. There is a right renal cyst measuring 3.2 cm. Right intrarenal RI: .75 Right renal artery velocity: 177 cm/sec. Right RAR (Renal artery-Aortic Ratio): 1.80 Left Kidney: 9.0 cm. No evidence of hydronephrosis or mass. Left intrarenal RI: .72 Left renal artery velocity: 182 cm/sec. Left RAR (Renal Artery-Aortic Ratio): 1.8 IMPRESSION: No evidence of renal artery stenosis on the right. Less than 60% renal artery stenosis on the left. Right renal cyst. CT angiogram or postcontrast MR angiogram would be more sensitive for evaluation of possible renal artery stenosis. Reviewed, Interpreted and Dictated by Aysha Cooper MD Transcribed by Luana Shepherd Authenticated and [facility]
== END ==
PROVIDERS: PCP Internal Medicine Adolescent Medicine; Visit Provider Nurse Practitioner Family
DX: I10 Essential (primary) hypertension (principal); I70.1 Atherosclerosis of renal artery
CPT/HCPCS: 93976

== ENCOUNTER 2023-03-26 16:52 | Inpatient (IN) | payer MEDICARE, SELFPAY ==
[2023-03-26 16:53] VITALS: BP 147/68; PULSE 57; RESP 18; TEMP 36.4; O2SAT 94; BMI 27.4
--- NOTE | 2023-03-26 16:55 | ECG_ITS ---
APPROVED REPORT Exam: Resting ECG HR:52 bpm ECG Measurements Heart Rate 52 AXES WA 186 P 54 QRSd 88 QRS 24 QT 445 T 56 QTc 425 Conclusion SINUS BRADYCARDIA WITH SINUS ARRHYTHMIA LOW QRS VOLTAGE IN PRECORDIAL LEADS [QRS DEFLECTION < 1.0 mV IN CHEST LEADS] BORDERLINE ECG UNCONFIRMED REPORT Electronically signed by : Edilberto Montoya MD 03/27/2023 17:23:17
--- NOTE | 2023-03-26 17:06 | XR_ITS ---
PROCEDURE INFORMATION: Exam: XR Chest Exam date and time: 03/26/2023 5:30 PM Age: 87 years old Clinical indication: Pain; Angina pectoris; Additional info: Cp TECHNIQUE: Imaging protocol: Radiologic exam of the chest. Views: 1 view. COMPARISON: CR XR CHEST 2V 12/01/2020 10:59 AM FINDINGS: Limitations: The patient is wearing a bra which minimally limits the study. Lungs: No evidence of acute pulmonary disease or infiltrates; lung flores appear clear. Pleural spaces: No evidence of pleural effusion, pneumothorax, or pleural thickening in the visualized pleural spaces. Heart/Mediastinum: There are surgical clips in the region of the mediastinum. Bones/joints: There is partially visualized cervical spine surgical hardware. IMPRESSION: No dense parenchymal consolidation, pleural effusion, or pneumothorax.
[2023-03-26 17:08] VITALS: PULSE 57
--- NOTE | 2023-03-26 17:09 | HMH.EDGENADL ---
Discharge Plan Disposition Patient Disposition: Admitted Clinical Impressions Clinical Impression: Chest pain Discharge ED Provider: Joshua Craven General Adult HPI General Chief complaint: Chest Pain Stated complaint: Chest pain Time Seen by Provider: 03/26/23 16:58 Mode of Arrival: EMS Source of Information: Patient and EMS Limitations: No Limitations Description of Symptoms (Recalled from ER Triage Doc. by RN): pt was at home doing nothing out of her usual routine and then all of a sudden experienced midsternal chest pressure without radiation, with sweating and weakness. pt denies any n/v or fever. pt is alox4 with family at bedside. per ems fbs was 92 and 20g placed in left ac, pt has hx of SC with one stent 1 year ago. pt has taken all daily meds including 325 mg ASA. History of Present Illness HPI narrative: Patient is a 87-year-old female with past medical history of ACS status post stenting who presents emergency department for evaluation of chest pain. Onset was acute, 1 hour prior to arrival. Patient had an episode of diaphoresis after taking the trash out with substernal chest pain that was moderate to severe in intensity. Aspirin administered prior to arrival. Upon arrival patient is complaining of persistent pain. No other acute complaints at this time. Related Data Home Medications Medication Instructions Recorded Confirmed metformin 500 mg tablet 500 mg PO DAILY Diabetes 12/07/20 03/26/23 duloxetine 60 mg capsule,delayed 60 mg PO BID MOOD 02/19/22 03/26/23 release carvedilol 6.25 mg tablet 6.25 mg PO BID 03/15/23 03/26/23 lisinopril 5 mg tablet 5 mg PO DAILY 03/15/23 03/26/23 Previous Rx's Medication Instructions Recorded aspirin 81 mg tablet,delayed 81 mg PO DAILY #90 tabs 02/21/22 release atorvastatin 40 mg tablet 40 mg PO DAILY #90 tabs 02/21/22 clopidogrel 75 mg tablet 75 mg PO DAILY #90 tabs 02/21/22 Allergies Allergy/AdvReac Type Severity Reaction Status Date / Time hydromorphone [From DILAUDID] Allergy Intermediate Agitated Verified 03/15/23 10:25 metronidazole [METRONIDAZOLE] Allergy Unknown NA-NAUSEA/V Verified 03/15/23 10:25 OMITING morphine [MORPHINE] Allergy Unknown Agitated Verified 03/15/23 10:25 pentazocine [PENTAZOCINE] Allergy Unknown Agitated Verified 03/15/23 10:25 [facility] Disclaimer: The information contained in this section may have been updated after the patient was seen, as this information can be updated by other users. Medical History (Updated 03/26/23 @ 22:18 by Zaina Galindo RN) Coronary atherosclerosis of [place] coronary artery Diabetes mellitus, type 2 History of heart attack Hyperlipidemia Hypertension Neuropathy Peripheral neuropathy Rotator cuff (capsule) sprain Rotator cuff tear, right Shingles STEMI (ST elevation myocardial infarction) Surgical History (Updated 03/26/23 @ 22:18 by Zaina Galindo RN) H/O laminectomy H/O total mastectomy History of cardiac catheterization History of heart artery stent History of hysterectomy History of knee replacement History of mastectomy Hx of cervical spine surgery Family History (Updated 03/26/23 @ 22:19 by Zaina Galindo RN) Mother Dementia Father Family history of myocardial infarction Social History (Updated 03/26/23 @ 22:16 by Zaina Galindo RN) Smoking Status: Former smoker tobacco type: cigarettes packs per day: 1 years smoked: 40 second hand exposure: No alcohol intake: never substance use type: denies use current occupational status: retired Travel in the last 8 weeks: None adopted: No caregiver/support person: Yes foster care: No household members: family housing: house marital status: education level: college current occupational exposures/hazards: No caffeine: Yes (coffee) tia/rastafarian: Faith ROS Obtained: Yes Systems reviewed as appropriate & no additional complaints except as documen
[2023-03-26 17:14] LABS: Basophils # 0.1 K/mm3 (0-0.2); Basophils % 0.6 % (0.1-2.0); Eosinophils # 0.2 K/mm3 (0.0-0.4); Eosinophils % 2.2 % (0.1-12.0); Hematocrit 38.8 % (37.0-47.0); Lymphocytes # 2.2 K/mm3 (0.7-4.5); Mean Corpuscular HGB Conc 33.5 g/dL (31.8-35.4); Mean Corpuscular Hemoglobin 29.8 pg (27.0-31.2); Monocytes # 0.6 K/mm3 (0.1-1.0); Monocytes % 7.6 % (1.7-9.3); Neutrophils # 5.2 K/mm3 (1.8-7.8); Neutrophils % 62.7 % (37.0-80.0); Platelet Count 252 K/mm3 (142-424); Red Blood Count 4.36 M/mm3 (4.20-5.40); Red Cell Distribution Width 13.6 % (11.5-17.5); White Blood Count 8.3 K/mm3 (4.8-10.8)
[2023-03-26 17:19] LABS: Alanine Aminotransferase 28 U/L (12-78); Albumin Level 4.6 g/dl (3.5-5.0); Albumin/Globulin Ratio 1.4 (1.1-1.8); Alkaline Phosphatase 99 U/L (38-126); Anion Gap 13.8 mEq/L (5-15); Aspartate Amino Transferase 31 U/L (14-36); Bilirubin,Total 0.4 mg/dl (0.2-1.3); Blood Urea Nitrogen 28 mg/dl (7-17); Calcium 10.1 mg/dl (8.4-10.2); Carbon Dioxide 28 mmol/L (22.0-30.0); Chloride 103 mmol/L (98-107); Creatinine Clearance Estimated 42 mL/min (50-200); Estimated Glomerular Filt Rate 43 ml/min (>60); GFR (African American) 52 ML/MIN (>60); Globulin 3.2 g/dL (1.3-3.2); Glucose 77 mg/dl (74-100); Potassium 4.8 mmoL/L (3.5-5.1); Sodium 140 mmol/L (136-145); Total Protein,Serum 7.8 g/dl (6.3-8.2)
[2023-03-26 17:32] LABS: Troponin I < 0.01 ng/ml (0.00-0.034)
--- NOTE | 2023-03-26 19:39 | PC.NURSE ---
Dr. Nelson paged for ED doctor
--- NOTE | 2023-03-26 19:51 | PC.NURSE ---
patient being admitted
--- NOTE | 2023-03-26 19:55 | PC.NURSE ---
DTA placed and spoke with warehouse shipping receiving clerk for bed assignment
--- NOTE | 2023-03-26 20:02 | PC.NURSE ---
patient given sandwich, chips and drink before being transferred to floor
--- NOTE | 2023-03-26 20:17 | PC.NURSE ---
PATIENT ADMITTED TO [address] OBSERVATION TO SERVICE OF DR. REA TO DR. DENNIS DX OF CHEST PAIN.
--- NOTE | 2023-03-26 20:29 | PC.NURSE ---
Called report to Kenyatta ORDONEZ, answered all questions
[2023-03-26 20:31] VITALS: BP 160/65; PULSE 86; RESP 18; TEMP 36.7; O2SAT 97
[2023-03-26 21:20] LABS: Troponin I < 0.01 ng/ml (0.00-0.034)
[2023-03-26 21:24] VITALS: PULSE 100
--- NOTE | 2023-03-26 21:38 | PC.NURSE ---
audit clerks supervisor talked to Dr. Nelson who is reservations specialist for Dr. Montoya and received verbal orders for admission and medications- [place] sent orders to pharmacy. Pharmacy inserted medication orders. Morphine was discontinued per pharmacy due to patient having an allergy listed to morphine.
--- NOTE | 2023-03-26 21:47 | PC.NURSE ---
pt arrived to floor via wheelchair @21:05
[2023-03-26 21:48] VITALS: BP 131/61; PULSE 78; RESP 18; TEMP 36.8; O2SAT 95; BMI 28.4
--- NOTE | 2023-03-26 22:00 | PC.NURSE ---
Patient admitted for chest pain. Patient states she was at home this afternoon, had taken the trash out and started having a horrible sweating episode, then she started having some mid-chest pressure. States she has never experienced this before. Stated she had taken her morning medications, and the episode occurred in the afternoon. Daughter states she goes several hours without eating anything but in the morning all she had was toast and jelly . It is uncertain if patients glucose was checked on EMS arrival, on hospital labs glucose was 77. Blood pressures have been elevated in ER.Patient has been NSR on tele. Requested to take a shower at this time. Alert and Oriented, needs stand by assist. Oriented to room.
[2023-03-26 23:48] LABS: Troponin I < 0.01 ng/ml (0.00-0.034)
[2023-03-27] VITALS (25 sets, daily range): BP systolic 116–191; BP diastolic 62–96; PULSE 54–81; RESP 16–18; TEMP 36.5–36.7; O2SAT 94–100; BMI 28.4
[2023-03-27 05:51] LABS: POC Glucose,Bedside 106 (70-110)
--- NOTE | 2023-03-27 06:11 | PC.NURSE ---
Patient has been stable this shift no complaints of chest pressure or any more episodes of diaphoresis. Has been awake most of the night, some complaints of pain with urination and cloudy appearance, has been called for orders for an urinalysis. Vitals have been stable, hypertension has been present but ordered nitropaste has been applied.
[2023-03-27 06:53] LABS: Microscopic, Urine URINE MICROSCOPIC (MICROSCOPIC)
[2023-03-27 06:54] LABS: Appearance,Urine CLOUDY (Clear); Bilirubin,Urine Negative (Negative); Blood, Urine 1+ (Negative); Color,Urine YELLOW (Yellow); Glucose,Urine (UA) Negative (Negative); Ketones,Urine Negative (Negative); Leukocyte Esterase,Urine 3+ (Negative); Nitrate,Urine Negative (Negative); Protein,Urine Negative (Negative); Urobilinogen,Urine 0.2 EU/dl (0.2)
[2023-03-27 07:06] LABS: Bacteria,Urine 3+ /lpf; Squamous Epithelial Cell,Urine Occasional #/hpf (0-5); WBC,Urine TNTC #/hpf (0-3)
--- NOTE | 2023-03-27 07:20 | HMH.PHAINT1 ---
Pharmacy Intervention Comments: MEDICATION RECONCILIATION COMPLETED ON PATIENT USING EXTERNAL FILL HISTORY FROM PHARMACY. -MARCO GUEVARA, HARINID
--- NOTE | 2023-03-27 08:33 | CA_ITS ---
APPROVED REPORT EXAM: Comprehensive 2D, Doppler, and color-flow Echocardiogram Deicer Inspector Electric: Monse Martino RDCS Ht: 5 ft 6 in Wt: 177lbs BSA: 1.90 BP: 160/65 mmHg Indications: CP,CAD,HTN,DM,HLP M-Mode Dimensions RVDd 2.73 cm (0.9-2.6) LA Diam 3.12 cm (1.9-4.0) LVDd 3.98 cm (3.5-5.7) Ao Diam 2.28 cm (2.0-3.7) LVDs 2.30 cm (3.5-5.7) IVSd 1.00 cm (0.6-1.1) PWd 1.18 cm (0.6-1.1) EF (Teich) 73.80% FS 42.20% EDV (Teich) 69.20 mL ESV (Teich) 18.10 mL LV Diastology E Decel Time 430.00 (160-240 msec) E/A Ratio 0.6 MED E' 5.40 (< 7 cm/sec) E'/MED E' Ratio 12.78 (>14) LAT E' 4.70 (<10 cm/sec) E/LAT E' Ratio 14.68 (>14) Mitral Valve MV E Max Emanuel. 69.00 (40-130 cm/s) MV A Velocity 107.00 (40-130 cm/s) E/A Ratio 0.64 MV Decel. Time 430.00 (160-240 ms) MV PHT 126.00 ms Left Ventricle The left ventricle is normal size. The left ventricular systolic function is normal. The left ventricular ejection fraction is within the normal range. There is markedly increased LV wall thickness (IVSd 1.4 cm). Severe concentric LVH is present. There is normal LV segmental wall motion. Diastolic function is indeterminate due to severe LVH. LVEF is 65-70%. Right Ventricle Right ventricle is mildly dilated. The right ventricular systolic function is normal. Atria The left atrium size is normal. There is no Doppler evidence of interatrial shunt. Aortic Valve The aortic valve is mildly thickened. There is no aortic valvular stenosis. Trace aortic regurgitation. Mitral Valve The mitral valve leaflets are mildly thickened. No evidence of mitral valve stenosis. Trace mitral regurgitation. Tricuspid Valve The tricuspid valve leaflets are thin and pliable. Trace tricuspid regurgitation. TR spectral Doppler not evaluated, and therefore RVSP cannot be estimated. Pulmonic Valve The pulmonary valve is normal in structure. Trace pulmonic regurgitation. Great Vessels The aortic root is normal in size. The ascending aorta is not well visualized. IVC is normal in size and collapses >50% with inspiration. Pericardium There is no pericardial effusion. Other Information Study Quality: Fair Conclusion Normal biventricular systolic function. Severe concentric LVH. Mildly dilated RV. No significant valvular stenosis or regurgitation. Electronically signed by : Jennifer Pappas MD 03/28/2023 18:03:03
--- NOTE | 2023-03-27 08:44 | EXP.HP ---
History of Present Illness *Admission Date: 03/26/23 *Reason for visit:: Chest pressure *History of present illness: 87-year-old female with type 2 diabetes, severe peripheral neuropathy and history of peripheral vascular disease and cardiac vascular disease, status post stenting last year, who was watching football yesterday and began to have chest pressure. The pressure was located in her left chest, some arm radiation, some anginal type sweating and dyspnea. Brought to the ER last night. Initial testing was unremarkable but given her history and presentation was admitted for observation and serial enzymes. This morning she feels much better. Does note that she might have a UTI, feels like she has some dysuria and her urine has been cloudy [facility] Disclaimer: The information contained in this section may have been updated after the patient was seen, as this information can be updated by other users. Medical History (Updated 03/26/23 @ 22:18 by Zaina Galindo RN) Coronary atherosclerosis of [place] coronary artery Diabetes mellitus, type 2 History of heart attack Hyperlipidemia Hypertension Neuropathy Peripheral neuropathy Rotator cuff (capsule) sprain Rotator cuff tear, right Shingles STEMI (ST elevation myocardial infarction) Surgical History (Updated 03/26/23 @ 22:18 by Zaina Galindo RN) H/O laminectomy H/O total mastectomy History of cardiac catheterization History of heart artery stent History of hysterectomy History of knee replacement History of mastectomy Hx of cervical spine surgery Family History (Updated 03/26/23 @ 22:19 by Zaina Galindo RN) Dementia Mother Family history of myocardial infarction Father Social History (Updated 03/26/23 @ 22:16 by Zaina Galindo RN) Smoking Status: Former smoker tobacco type: cigarettes packs per day: 1 years smoked: 40 second hand exposure: No alcohol intake: never substance use type: denies use current occupational status: retired Travel in the last 8 weeks: None adopted: No caregiver/support person: Yes foster care: No household members: family housing: house marital status: education level: college current occupational exposures/hazards: No caffeine: Yes (coffee) tia/buddhism: Anabaptism Meds Home Medications and Allergies Home Medications Medication Instructions Recorded Confirmed Type metformin 500 mg tablet 500 mg PO DAILY Diabetes 12/07/20 03/27/23 History duloxetine 60 mg capsule,delayed 60 mg PO BID Mood 02/19/22 03/27/23 History release aspirin 81 mg tablet,delayed 81 mg PO DAILY #90 tabs 02/21/22 03/27/23 Rx release atorvastatin 40 mg tablet 40 mg PO DAILY #90 tabs 02/21/22 03/27/23 Rx clopidogrel 75 mg tablet 75 mg PO DAILY #90 tabs 02/21/22 03/27/23 Rx carvedilol 6.25 mg tablet 6.25 mg PO BID High Blood Pressure 03/15/23 03/27/23 History lisinopril 5 mg tablet 5 mg PO DAILY High Blood Pressure 03/15/23 03/27/23 History New Prescriptions to Start Prescriptions: Allergies Allergy/AdvReac Type Severity Reaction Status Date / Time hydromorphone [From DILAUDID] Allergy Intermediate Agitated Verified 03/15/23 10:25 metronidazole [METRONIDAZOLE] Allergy Unknown NA-NAUSEA/V Verified 03/15/23 10:25 OMITING morphine [MORPHINE] Allergy Unknown Agitated Verified 03/15/23 10:25 pentazocine [PENTAZOCINE] Allergy Unknown Agitated Verified 03/15/23 10:25 Exam Data for Last 24 hours Vital signs and Labs for Last 24 Hours: Temp Pulse Resp BP Pulse Ox O2 Del Method 98.0 F 65 18 141/68 H 97 Room Air 03/27/23 07:23 03/27/23 07:23 03/27/23 07:23 03/27/23 07:23 03/27/23 07:23 03/27/23 07:23 Laboratory Results - last 24 hr 03/26/23 16:57: WBC 8.3, RBC 4.36, Hgb 13.0, Hct 38.8, MCV 89.0, MCH 29.8, MCHC 33.5, RDW 13.6, Plt Count 252, MPV 8.0, Neut % (Auto) 62.7, Lymph % (Auto) 27.0, [place] % (Auto) 7.6, Eos % (Auto) 2.2, Baso % (Auto) 0.6, Neut
--- NOTE | 2023-03-27 10:46 | EXP.CARD.CON ---
History of Present Illness History of Present Illness Consult date: 03/27/23 Requesting physician: Edilberto Montoya Consult reason: chest pain Chief complaint: chest pain History of present illness: This is an 87-year-old white female who presented to the emergency department with complaints of chest pressure. She has a known history of coronary artery disease status post stenting, peripheral arterial disease, renal artery stenosis, and type 2 diabetes. The patient states that she was sitting watching the [place] game yesterday when she had sudden onset of pressure in the left side of her chest. She states that the pain did not radiate. She describes it as a pressure sensation that was associated with shortness of breath, diaphoresis and clamminess. The patient denies any nausea or vomiting. The patient states that the episodes of chest pain would last for approximately 10 to 15 minutes and then resolved. This kept occurring several times and she called her daughter to report that she was having the chest pain and pressure. EMS was sent to her house and the patient was brought here to the hospital. She did rule out for an MS. However the patient is felt to have unstable angina. Her blood pressure remains elevated and is malignantly elevated at times. Of note, she did have a UTI on admission. [facility] Disclaimer: The information contained in this section may have been updated after the patient was seen, as this information can be updated by other users. Medical History (Updated 03/27/23 @ 10:57 by Hawa Faustin APRN) Coronary atherosclerosis of [place] coronary artery Diabetes mellitus, type 2 History of heart attack Hyperlipidemia Hypertension Hypertension Neuropathy Peripheral arterial disease Peripheral neuropathy Renal artery stenosis Rotator cuff (capsule) sprain Rotator cuff tear, right Shingles STEMI (ST elevation myocardial infarction) Unstable angina Surgical History (Updated 03/26/23 @ 22:18 by Zaina Galindo RN) H/O laminectomy H/O total mastectomy History of cardiac catheterization History of heart artery stent History of hysterectomy History of knee replacement History of mastectomy Hx of cervical spine surgery Family History (Updated 03/26/23 @ 22:19 by Zaina Galindo RN) Mother Dementia Father Family history of myocardial infarction Social History (Updated 03/26/23 @ 22:16 by Zaina Galindo RN) Smoking Status: Former smoker tobacco type: cigarettes packs per day: 1 years smoked: 40 second hand exposure: No alcohol intake: never substance use type: denies use current occupational status: retired Travel in the last 8 weeks: None adopted: No caregiver/support person: Yes foster care: No household members: family housing: house marital status: education level: college current occupational exposures/hazards: No caffeine: Yes (coffee) 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 Review of Systems Review of Systems Review of systems:: pertinent systems reviewed and negative unless documented below Constitutional Constitutional: Reports system reviewed and no additional complaints, except as documented Eyes Eyes: Reports system reviewed and no additional complaints, except as documented ENT Ears, Nose, Mouth, and Throat: Reports system reviewed and no additional complaints, except as documented *Cardiovascular Cardiovascular: Reports system reviewed and no additional complaints, except as documented, Reports chest pain, Reports chest pain at rest, Reports chest pain with activity, Reports diaphoresis, Reports dyspnea, Reports dyspnea on exertion and Denies radiating jaw, neck or arm pain *Respiratory Respiratory: Reports system reviewed and no additional complaints, except as documented, Reports dyspnea and Reports dyspnea on exertion *Gastrointestinal Gastrointestinal: Reports system reviewed and no additional complaints, except as documented *Genitourinary
--- NOTE | 2023-03-27 10:52 | PC.NURSE ---
Home Medications Kaleb Pedro Medication Instructions Recorded Confirmed metformin 500 mg tablet 500 mg PO DAILY Diabetes 12/07/20 03/27/23 duloxetine 60 mg capsule,delayed 60 mg PO BID Mood 02/19/22 03/27/23 release carvedilol 6.25 mg tablet 6.25 mg PO BID High Blood Pressure 03/15/23 03/27/23 lisinopril 5 mg tablet 5 mg PO DAILY High Blood Pressure 03/15/23 03/27/23 Previous Rx's Medication Instructions Recorded aspirin 81 mg tablet,delayed 81 mg PO DAILY #90 tabs 02/21/22 release atorvastatin 40 mg tablet 40 mg PO DAILY #90 tabs 02/21/22 clopidogrel 75 mg tablet 75 mg PO DAILY #90 tabs 02/21/22
--- NOTE | 2023-03-27 11:12 | IR_ITS ---
APPROVED REPORT Patient Location: Inpatient PROCEDURES Left heart catheterization Left ventriculogram Selective coronary angiogram Drug-eluting stent deployment to the proximal LAD Bilateral selective renal angiography Bare-metal stent deployment to the left ostial proximal renal artery INDICATION Coronary artery disease, Angina pectoris, Unstable angina, Renovascular hypertension, Renal artery stenosis Informed consent was obtained prior to the procedure. COMPLICATIONS None Estimated Blood Loss: Less than 10 ML TECHNIQUE One percent lidocaine was used to anesthetize the right groin. The right femoral artery was accessed via the Seldinger technique. A 4-Lithuanian sheath was placed in the right femoral artery. The JL-4 and JR-4 catheter was also used to perform left heart catheterization left ventriculogram and selective coronary angiogram. A JR4 guide catheter was used to intubate each renal artery. At the end of the diagnostic angiogram the 4 Lithuanian sheath was exchanged for a 6 Lithuanian sheath and therapeutic heparin was administered given therapeutic ACT. A JL 4 guide catheter was placed in left main artery followed by Choice PT extra-support wire placed down the LAD. A 3 mm x 18 mm Malden frontier stent was deployed at 14 dewey reducing the stenosis. A 3.5 x 12 mm noncompliant balloon was deployed at 20 and then 24 dewey in the ostial proximal segment to further post dilate. YUE-3 flow was present before and after the procedure. At the end of the procedure a short PRIEST guide catheter was placed in the left main artery followed by Choice PT extra-support wire. A 5.5 x 18 mm Herculink bare-metal stent was deployed at 14 dewey reducing the stenosis. The balloon was brought back into the aorta with only half of the balloon inside the proximal portion of the stent and then deployed at 20 dewey to post dilate. Excellent angiograph results were obtained. At the end the procedure the apparatus was removed the groin was reprepped gloves were changed sheath was removed and hemostasis was achieved using Perclose device patient was transferred to the postop holding in stable condition. ANGIOGRAPHIC RESULTS The left main artery Normal The left anterior descending artery Has a proximal calcified concentric 70% stenosis followed by mid vessel 30 to 40% stenoses The circumflex artery Is a large codominant vessel and has proximal 40% stenoses. The right coronary artery Is a large codominant with an anterior takeoff and has a stent in the ostial proximal segment which is widely patent free of in-stent restenosis with excellent proximal distal transitioning. There is an additional 40 to 50% mid right coronary artery stenosis The SILVA ventriculogram reveals Hyperdynamic at 75% The left ventricular end-diastolic pressure 10 mmHg Left kidney has a dual arterial supply. The superior branch which supplies 80% of the kidney has an ostial proximal 70% stenosis while the inferior branch supplying 20% of the left kidney is widely patent Right kidney has a dual arterial supply with both arteries widely patent IMPRESSION Severe proximal LAD disease as described above Successful stenting the proximal LAD severe disease reduced to 0% with 1 drug-eluting stent Severe left renal artery stenosis Successful stenting left renal artery severe disease reduced to 0% with 1 bare-metal balloon mounted stent PLAN 1. Dual antiplatelet therapy 2. LDL less than 55 to be achieved with high intensity statin 3. Avoidance of tobacco products 4. Risk factor modification 5. Cardiac rehabilitation Electronically signed by : Cody Salguero MD 03/27/2023 14:57:53
[2023-03-27 11:47] LABS: POC Glucose,Bedside 120 (70-110)
--- NOTE | 2023-03-27 13:13 | PC.NURSE ---
Pt to vp lab.
--- NOTE | 2023-03-27 14:02 | PC.NURSE ---
Report given to Riky Rhoades. Josue ORDONEZ
[2023-03-27 15:13] LABS: CATHL Activated Clotting Time 379 SEC (74-125)
--- NOTE | 2023-03-27 15:15 | PC.NURSE ---
received report from Nav Mejia RN on L heart cath
[2023-03-27 16:13] LABS: POC Glucose,Bedside 106 (70-110)
--- NOTE | 2023-03-27 17:38 | PC.NURSE ---
A&OX4. PT HAS TOLERATED RA WELL THROUGHOUT SHIFT. RESPIRATIONS REGULAR AND UNLABORED. LUNG SOUNDS BILATERALLY CLEAR. NO COUGH NOTED. ACTIVE BOWEL SOUNDS HEARD IN ALL4 QUADRANTS. SOFT AND NONTENDER ABDOMEN. NO BM THUS FAR. PT HAS VOIDED ON BEDPAN WITH 1 PERSON ASSIST SINCE RECEIVING HEART CATH THIS AFTERNOON. R FEMORAL CATH SITE NOTED. DRESSING CDI. DRESSING NOTED TO R RADIAL WRIST WELL. CDI. URINE IS CLEAR AND YELLOW. NO PAIN REPORTED THUS FAR WHILE UNDER MY CARE. +2 PULSES NOTED THROUGHOUT. NO EDEMA NOTED. 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 FAMILY HAS REMAINED AT BEDSIDE. PLAN TO DISCHARGE PT TOMORROW PER DR DENNIS. FAMILY AWARE. NO QUESTIONS OR CONCERNS VOICED. CALL LIGHT WITHIN REACH. BED IN LOWEST POSITION. VSS.
[2023-03-28] VITALS: BP 155/79; PULSE 64; PULSE 70; RESP 18; TEMP 36.6; O2SAT 96
[2023-03-28 04:00] VITALS: BP 141/69; PULSE 62; PULSE 70; RESP 20; TEMP 36.8; O2SAT 94; BMI 29.5
[2023-03-28 04:42] LABS: POC Glucose,Bedside 166 (70-110)
--- NOTE | 2023-03-28 05:15 | PC.NURSE ---
Patient has had a decent night. Has been up to the bathroom multiple times. She has also had a couple of accidents where she didnt make it to the toilet. Cath site on the right right is clean dry and intact. The dressing on the right groin is outlined with serious drainage to david the outlines. Patient has been somewhat unsteady on her feet tonight. had required assistance to and from bathroom and required a bed alarm. No other issues noted
[2023-03-28 05:49] LABS: POC Glucose,Bedside 129 (70-110)
[2023-03-28 05:59] LABS: Basophils # 0.1 K/mm3 (0-0.2); Basophils % 0.6 % (0.1-2.0); Eosinophils # 0.1 K/mm3 (0.0-0.4); Eosinophils % 1.4 % (0.1-12.0); Hemoglobin 11.9 g/dL (12.2-16.2); Lymphocytes # 1.3 K/mm3 (0.7-4.5); Lymphocytes % 17.5 % (10-50); Mean Corpuscular Hemoglobin 29.7 pg (27.0-31.2); Mean Corpuscular Volume 87.6 fl (81-99); Monocytes # 0.6 K/mm3 (0.1-1.0); Monocytes % 8.6 % (1.7-9.3); Neutrophils # 5.3 K/mm3 (1.8-7.8); Neutrophils % 71.9 % (37.0-80.0); Platelet Count 207 K/mm3 (142-424); Red Cell Distribution Width 13.8 % (11.5-17.5); White Blood Count 7.4 K/mm3 (4.8-10.8)
[2023-03-28 06:02] LABS: Chloride 108 mmol/L (98-107); Sodium 138 mmol/L (136-145)
[2023-03-28 06:03] LABS: Potassium 4.3 mmoL/L (3.5-5.1)
[2023-03-28 06:05] LABS: Blood Urea Nitrogen 20 mg/dl (7-17); Creatinine Clearance Estimated 49 mL/min (50-200); Estimated Glomerular Filt Rate 47 ml/min (>60); GFR (African American) 57 ML/MIN (>60)
[2023-03-28 06:06] LABS: Anion Gap 10.3 mEq/L (5-15); Calcium 9.4 mg/dl (8.4-10.2); Carbon Dioxide 24 mmol/L (22.0-30.0); Chol/HDL Ratio 3.5 (1-3.5); Cholesterol 132 mg/dl (140-200); Glucose 136 mg/dl (74-100); HDL Cholesterol 38 mg/dl (40-60); Triglycerides 106 mg/dl (30-150); VLDL Cholesterol 21 mg/dL (0-40)
[2023-03-28 06:17] LABS: Direct LDL Cholesterol 66.19 mg/dL (100-129)
[2023-03-28 07:54] VITALS: BP 139/59; PULSE 68; RESP 18; TEMP 36.7; O2SAT 96
[2023-03-28 08:00] VITALS: PULSE 70; O2SAT 97
--- NOTE | 2023-03-28 08:17 | EXP.DC.SUM ---
General Admission date:: 03/26/23 Discharge date: 03/28/23 HPI HPI HPI: 87-year-old female with type 2 diabetes, severe peripheral neuropathy and history of peripheral vascular disease and cardiac vascular disease, status post stenting last year, who was watching football yesterday and began to have chest pressure. The pressure was located in her left chest, some arm radiation, some anginal type sweating and dyspnea. Brought to the ER last night. Initial testing was unremarkable but given her history and presentation was admitted for observation and serial enzymes. This morning she feels much better. Does note that she might have a UTI, feels like she has some dysuria and her urine has been cloudy Hospital Course Hospital Course Hospital Course: Patient was admitted, given her angina symptoms and history she was subjected to left heart cath. This revealed lesions as noted and a stent was placed with good outcome. Patient was noted to have dual arterial supplies to both kidneys and had a lesion in one of the arteries and a stent was also placed. Please see cardiology notes for details. Patient tolerated procedure well. Last night she was fairly sleepy on evening rounds and so we kept her overnight to make sure anesthesia was wearing off and she would be more safe this morning. This morning she back to her normal self, no pain, no pressure and wished to be discharged Exam Data for Last 24 hours Vital signs and Labs for Last 24 Hours: Temp Pulse Resp BP Pulse Ox O2 Del Method 98.0 F 68 18 139/59 L 96 Room Air 03/28/23 07:54 03/28/23 07:54 03/28/23 07:54 03/28/23 07:54 03/28/23 07:54 03/28/23 07:54 Laboratory Results - last 24 hr 03/27/23 11:27: POC Glucose 120 H 03/27/23 14:12: Activated Clotting Time 379 H* 03/27/23 16:00: POC Glucose 106 03/27/23 20:14: POC Glucose 166 H 03/28/23 05:20: WBC 7.4, RBC 4.00 L, Hgb 11.9 L, Hct 35.0 L, MCV 87.6, MCH 29.7, MCHC 34.0, RDW 13.8, Plt Count 207, MPV 8.0, Neut % (Auto) 71.9, Lymph % (Auto) 17.5, [place] % (Auto) 8.6, Eos % (Auto) 1.4, Baso % (Auto) 0.6, Neut # (Auto) 5.3, Lymph # (Auto) 1.3, [place] # (Auto) 0.6, Eos # (Auto) 0.1, Baso # (Auto) 0.1, Sodium 138, Potassium 4.3, Chloride 108 H, Carbon Dioxide 24, Anion Gap 10.3, BUN 20 H D, Creatinine 1.10 H, Estimated Creat Clear 49, Estimated GFR 47 L, Est GFR ( Amer) 57 L, Glucose 136 H, Calcium 9.4, Triglycerides 106, Cholesterol 132 L, LDL Cholesterol Direct 66.19 L, VLDL Cholesterol 21, HDL Cholesterol 38 L, Cholesterol/HDL Ratio 3.5 03/28/23 05:36: POC Glucose 129 H I & O for Last 24 hours: Intake & Output 03/25/23 03/26/23 03/27/23 03/28/23 11:59 11:59 11:59 11:59 Intake Total 880 / 880 Output Total 775 / 775 300 / 300 Balance -773 / -773 580 / 580 Weight 177 lb 2.016 oz 183 lb 8 oz Narrative: EKG is sinus rhythm with a rate of 52 bpm and low voltage. Constitutional Constitutional: no acute distress and average body habitus *Routine HEENT Exam Head: Present normocephalic and atraumatic ENT: Present mucous membranes moist *Routine Neck Exam Neck: Present supple, full ROM and normal carotid upstroke; Absent JVD, carotid bruit or lymphadenopathy *Routine Respiratory Exam Respiratory: Present CTA bilaterally, normal respiratory effort, able to speak in complete sentences and symmetric chest movement *Routine Cardiovascular Exam Cardiovascular: Present RRR, Normal S1 and Normal S2; Absent murmur or gallop *Routine Abdominal Exam Abdominal: Present soft and normoactive bowel sounds; Absent tenderness, distended or organomegaly *Routine Extremities Exam Extremities: Present full ROM, pulses intact and normal capillary refill; Absent cyanosis, clubbing or edema *Routine Skin Exam Skin: Present intact and warm; Absent erythema *Routine Neurological Exam Neurological: Present alert, oriented X3 and CN II-XII intact; Absent sensory deficit or motor deficit Routine Psychiatric Exam Psychiatric: Pre
--- NOTE | 2023-03-28 10:39 | EXP.CARD.PN ---
Subjective Subjective Date: 03/28/23 Time: 08:30 Principal diagnosis: CAD, HTN Interval history: This is an 87-year-old female who presented to the emergency department complaints of chest pressure. She underwent left cardiac catheterization yesterday for unstable angina and renal angiogram secondary to malignant hypertension and renal artery stenosis. The patient had 1 stent placed to her proximal LAD and 1 stent placed to her left renal artery. The patient tolerated the procedure well. This morning she denies any chest pain or pressure. She denies any shortness of breath or edema. She denies any fever, chills, nausea, vomiting, diarrhea, PND orthopnea. Left cardiac catheterization and renal angiogram shows: The left main artery Normal The left anterior descending artery Has a proximal calcified concentric 70% stenosis followed by mid vessel 30 to 40% stenoses The circumflex artery Is a large codominant vessel and has proximal 40% stenoses. The right coronary artery Is a large codominant with an anterior takeoff and has a stent in the ostial proximal segment which is widely patent free of in-stent restenosis with excellent proximal distal transitioning. There is an additional 40 to 50% mid right coronary artery stenosis The SILVA ventriculogram reveals Hyperdynamic at 75% The left ventricular end-diastolic pressure 10 mmHg Left kidney has a dual arterial supply. The superior branch which supplies 80% of the kidney has an ostial proximal 70% stenosis while the inferior branch supplying 20% of the left kidney is widely patent Right kidney has a dual arterial supply with both arteries widely patent IMPRESSION Severe proximal LAD disease as described above Successful stenting the proximal LAD severe disease reduced to 0% with 1 drug-eluting stent Severe left renal artery stenosis Successful stenting left renal artery severe disease reduced to 0% with 1 bare-metal balloon mounted stent PLAN 1. Dual antiplatelet therapy 2. LDL less than 55 to be achieved with high intensity statin 3. Avoidance of tobacco products 4. Risk factor modification 5. Cardiac rehabilitation Exam Data for Last 24 hours Vital signs and Labs for Last 24 Hours: Temp Pulse Resp BP Pulse Ox O2 Del Method 98.0 F 70 18 139/59 L 97 Room Air 03/28/23 07:54 03/28/23 08:00 03/28/23 07:54 03/28/23 07:54 03/28/23 08:00 03/28/23 08:41 Laboratory Results - last 24 hr 03/27/23 11:27: POC Glucose 120 H 10/16/23 14:12: Activated Clotting Time 379 H* 03/27/23 16:00: POC Glucose 106 03/27/23 20:14: POC Glucose 166 H 03/28/23 05:20: WBC 7.4, RBC 4.00 L, Hgb 11.9 L, Hct 35.0 L, MCV 87.6, MCH 29.7, MCHC 34.0, RDW 13.8, Plt Count 207, MPV 8.0, Neut % (Auto) 71.9, Lymph % (Auto) 17.5, [place] % (Auto) 8.6, Eos % (Auto) 1.4, Baso % (Auto) 0.6, Neut # (Auto) 5.3, Lymph # (Auto) 1.3, [place] # (Auto) 0.6, Eos # (Auto) 0.1, Baso # (Auto) 0.1, Sodium 138, Potassium 4.3, Chloride 108 H, Carbon Dioxide 24, Anion Gap 10.3, BUN 20 H D, Creatinine 1.10 H, Estimated Creat Clear 49, Estimated GFR 47 L, Est GFR ( Amer) 57 L, Glucose 136 H, Calcium 9.4, Triglycerides 106, Cholesterol 132 L, LDL Cholesterol Direct 66.19 L, VLDL Cholesterol 21, HDL Cholesterol 38 L, Cholesterol/HDL Ratio 3.5 03/28/23 05:36: POC Glucose 129 H I & O for Last 24 hours: Intake & Output 03/25/23 03/26/23 03/27/23 03/28/23 23:59 23:59 23:59 23:59 Intake Total 242 / 342 640 / 640 Output Total 225 / 325 850 / 850 0 / 0 Balance -225 / -325 -608 / -508 640 / 640 Weight 177 lb 2 oz 177 lb 2.016 oz 183 lb 8 oz Narrative: Telemetry strip is sinus rhythm. Constitutional Constitutional: no acute distress and average body habitus *Routine HEENT Exam Head: Present normocephalic and atraumatic ENT: Present mucous membranes moist *Routine Neck Exam Neck: Present supple, full ROM and normal carotid upstroke; Absent JVD, carotid bruit or lymphadenopathy *Routine Respiratory Exam Respiratory:
--- NOTE | 2023-03-30 13:57 | CARE MANAGER ---
Contacted patient related to hospital discharge. She picked up antibiotic. Denies any questions or concerns. MERY Adkins
== END 2023-03-28 10:32 | disposition home or self-care (01) | DRG 322 ==
LOC: ER 16:59 → 2ND 22:25
PROVIDERS: Internal Medicine; Nurse Practitioner Family; Admitting Provider Family Medicine; Emergency Provider Emergency Medicine; PCP Internal Medicine Adolescent Medicine; Visit Provider Internal Medicine Adolescent Medicine
PROC: 027034Z Dilation of Coronary Artery, One Artery with Drug-eluting Intraluminal Device, Percutaneous Approach (ICD-10-PCS; principal; 2023-03-27 13:00)
DX: I25.110 Atherosclerotic heart disease of native coronary artery with unstable angina pectoris (principal); N39.0 Urinary tract infection, site not specified; I70.1 Atherosclerosis of renal artery; I15.0 Renovascular hypertension; I73.9 Peripheral vascular disease, unspecified; E78.2 Mixed hyperlipidemia; E11.51 Type 2 diabetes mellitus with diabetic peripheral angiopathy without gangrene; Z95.5 Presence of coronary angioplasty implant and graft; E11.42 Type 2 diabetes mellitus with diabetic polyneuropathy; I25.2 Old myocardial infarction; Z87.891 Personal history of nicotine dependence; I10 Essential (primary) hypertension
CPT/HCPCS: 36415; 37236; 71045; 80048; 80053; 80061; 81001; 82962; 84484; 85025; 85347; 87086; 92928; 93005; 93306; 93458; 99152; 99153; 99285; C1725; C1760; C1769; C1876; C1887; C9600; J0131; J1644; Q9967

== ENCOUNTER → 2023-04-03 12:46 | Outpatient (CLI) | payer MEDICARE, SELFPAY ==
[2023-04-03 12:55] LABS: MANUAL DIFFERENTIAL MANUAL DIFFERENTIAL (MANUAL DIFF)
[2023-04-03 13:13] LABS: Basophils % 0.5 % (0.1-2.0); Eosinophils # 0.1 K/mm3 (0.0-0.4); Eosinophils % 1.7 % (0.1-12.0); Hematocrit 35.9 % (37.0-47.0); Lymphocytes # 1.5 K/mm3 (0.7-4.5); Lymphocytes % 20.9 % (10-50); Mean Corpuscular HGB Conc 33.4 g/dL (31.8-35.4); Mean Corpuscular Hemoglobin 29.6 pg (27.0-31.2); Mean Corpuscular Volume 88.5 fl (81-99); Mean Platelet Volume 8.8 fl (7.4-10.4); Monocytes # 0.5 K/mm3 (0.1-1.0); Monocytes % 6.3 % (1.7-9.3); Neutrophils # 5.1 K/mm3 (1.8-7.8); Neutrophils % 70.6 % (37.0-80.0); Platelet Count 265 K/mm3 (142-424); Red Blood Count 4.05 M/mm3 (4.20-5.40); Red Cell Distribution Width 13.4 % (11.5-17.5); White Blood Count 7.2 K/mm3 (4.8-10.8)
[2023-04-03 13:31] LABS: Eosinophils % 1 % (0-3); Lymphocytes % 27 % (10-50); Monocytes % 1 % (2-9); Neutrophils % 70 % (42-76); RBC Morphology Normal; Total Cells Counted 100
[2023-04-03 13:32] LABS: Hypochromasia 1+; Platelet Estimate Normal
[2023-04-03 14:04] LABS: Chloride 108 mmol/L (98-107)
[2023-04-03 14:05] LABS: Potassium 5.5 mmoL/L (3.5-5.1); Sodium 141 mmol/L (136-145)
[2023-04-03 14:07] LABS: Alanine Aminotransferase 25 U/L (12-78); Alkaline Phosphatase 95 U/L (38-126); Anion Gap 11.5 mEq/L (5-15); Aspartate Amino Transferase 24 U/L (14-36); Bilirubin,Total 0.3 mg/dl (0.2-1.3); Blood Urea Nitrogen 29 mg/dl (7-17); Carbon Dioxide 27 mmol/L (22.0-30.0); Cholesterol 178 mg/dl (140-200); Estimated Glomerular Filt Rate 43 ml/min (>60); GFR (African American) 52 ML/MIN (>60); Triglycerides 181 mg/dl (30-150); VLDL Cholesterol 36 mg/dL (0-40)
[2023-04-03 14:08] LABS: Albumin Level 4.4 g/dl (3.5-5.0); Albumin/Globulin Ratio 1.8 (1.1-1.8); Calcium 9.9 mg/dl (8.4-10.2); Chol/HDL Ratio 4.1 (1-3.5); Globulin 2.4 g/dL (1.3-3.2); Glucose 119 mg/dl (74-100); HDL Cholesterol 43 mg/dl (40-60); Total Protein,Serum 6.8 g/dl (6.3-8.2)
[2023-04-03 14:19] LABS: Direct LDL Cholesterol 95.61 mg/dL (100-129)
== END ==
PROVIDERS: PCP Internal Medicine Adolescent Medicine; Visit Provider Nurse Practitioner Family
DX: E13.69 Other specified diabetes mellitus with other specified complication (principal); I70.1 Atherosclerosis of renal artery; I73.89 Other specified peripheral vascular diseases; Z79.84 Long term (current) use of oral hypoglycemic drugs
CPT/HCPCS: 36415; 80053; 80061; 85007; 85014; 85018; 85048; 85049

== ENCOUNTER → 2023-05-01 15:50 | Outpatient (CLI) | payer MEDICARE, SELFPAY ==
[2023-05-01 18:22] LABS: Blood Urea Nitrogen 25 mg/dl (7-17); Calcium 9.9 mg/dl (8.4-10.2); Carbon Dioxide 26 mmol/L (22.0-30.0); Chloride 105 mmol/L (98-107); Estimated Glomerular Filt Rate 47 ml/min (>60); GFR (African American) 57 ML/MIN (>60); Glucose 95 mg/dl (74-100); Sodium 140 mmol/L (136-145)
== END ==
PROVIDERS: PCP Internal Medicine Adolescent Medicine; Visit Provider Nurse Practitioner Family
DX: E87.5 Hyperkalemia (principal)
CPT/HCPCS: 80048

== ENCOUNTER 2023-07-05 10:53 | Emergency (ER) | payer MEDICARE, SELFPAY ==
--- NOTE | 2023-07-05 10:56 | XR_ITS ---
FINAL REPORT CLINICAL HISTORY: FALL FINDINGS: Right hip Three views were obtained. There is no acute fracture or dislocation. There is mild right hip joint space narrowing. No soft tissue abnormality is identified. IMPRESSION: No acute process. Reviewed, Interpreted and Dictated by Hi Garcia MD Transcribed by Luana Shepherd Authenticated and [facility][1]
[2023-07-05 11:20] VITALS: BP 124/73; PULSE 73; RESP 18; TEMP 36.6; O2SAT 99; BMI 29.5
--- NOTE | 2023-07-05 11:38 | EXP.UTC ---
Discharge Plan Disposition Patient Disposition: Home, Self-Care Condition: Good Prescriptions Prescriptions: No Action carvedilol 6.25 mg tablet 6.25 mg PO BID lisinopril 10 mg tablet 10 mg PO DAILY Qty: 90 1RF nitroglycerin 0.4 mg tablet, sublingual 0.4 mg sublingual Q5M PRN (Reason: chest pain) Qty: 25 3RF Rx Instructions: do not exceed 3 doses per episode clopidogrel 75 mg tablet 75 mg PO DAILY Qty: 90 3RF atorvastatin 80 mg tablet 80 mg PO DAILY Qty: 90 3RF aspirin 81 mg tablet,delayed release (DR/EC) 81 mg PO DAILY Qty: 90 3RF duloxetine 60 mg capsule,delayed release(DR/EC) 60 mg PO BID Patient Comments: TAKE 1 CAPSULE BY MOUTH TWICE DAILY FOR 90 DAYS metformin 500 MG tablet 500 mg PO DAILY Referrals Follow up/Referrals: Edilberto Montoya MD [Primary Care Provider] - See instructions Activity Restrictions/Add. Instructions Additional Instructions/Restrictions: *weight bearing as tolerated *RICE, Rest the extremity, Ice 15-20 minutes 3-4 times daily, Compress- wear the edith wrap as discussed as much as possible to help reduce swelling and pain, Elevate the extremity when at rest *Ibuprofen as directed on package if you can take it every 6-8 hours as needed for pain an inflammation. If need something more or cannot take Motrin you can take Tylenol in between doses of Ibuprofen to help Immediately follow up with your family doctor for new or worsening of symptoms, or no noticeable improvement over the next 3-5 days Clinical Impressions Clinical Impression: Contusion of hip Qualifiers: Encounter type: initial encounter Laterality: right Qualified Code(s): S70.01XA - Contusion of right hip, initial encounter Instructions Patient Instructions: DI for Contusion, DI for Hip Pain Discharge ED Provider: Marija Arechiga [facility] General Stated complaint: ao 07/02 fell on right hip pain Mode of Arrival: Ambulatory Source of Information: Patient and Relative Limitations: No Limitations Time Seen by Provider: 07/05/23 11:38 Description of Symptoms (Recalled from Triage Doc. by RN): PATIENT C/O RIGHT HIP AND SHOULDER PAIN AFTER FALLING ON MONDAY HEENT Symptoms (Recalled from RN notes): No Resp Symptoms (Recalled from RN notes): No Skin Symptoms (Recalled from RN notes): No MS Symptoms (Recalled from RN notes): Yes Functional Status (Recalled from RN notes): WNL History of Present Illness Provider Complaint: Patient states that she stubbed her toe a few days ago and it made her fall and she landed on her right side states that she has bruising to her right shoulder but that shoulder is bad and not worried about getting it checked but she is still sore in her right hip States that she has been up walking around on it but family wanted her to come in and get it checked and xray of her hip Denies LOC denies hitting her head Related Data Home Medications Medication Instructions Recorded Confirmed metformin 500 mg tablet 500 mg PO DAILY Diabetes 12/07/20 05/01/23 duloxetine 60 mg capsule,delayed 60 mg PO BID Mood 02/19/22 05/01/23 release carvedilol 6.25 mg tablet 6.25 mg PO BID High Blood Pressure 03/15/23 05/01/23 Previous Rx's Medication Instructions Recorded aspirin 81 mg tablet,delayed 81 mg PO DAILY Blood Thinner #90 03/28/23 release tabs atorvastatin 80 mg tablet 80 mg PO DAILY Cholesterol #90 tabs 03/28/23 clopidogrel 75 mg tablet 75 mg PO DAILY Blood Thinner #90 03/28/23 tabs lisinopril 10 mg tablet 10 mg PO DAILY High Blood Pressure 03/28/23 #90 tabs nitroglycerin 0.4 mg sublingual 0.4 mg sublingual Q5M PRN chest 03/28/23 tablet pain #25 tabs Allergies Allergy/AdvReac Type Severity Reaction Status Date / Time hydromorphone [From DILAUDID] Allergy Intermediate Agitated Verified 05/01/23 15:19 metronidazole [METRONIDAZOLE] Allergy Unknown NA-NAUSEA/V Verified 05/01/23 15:19 OMITING morphine [MORPHINE] Allergy Unknown Agitated Verified 05/01/23 15:19 pentazocine [PENTAZOCINE] Allergy Unknown Agitated Verified 05/01/23 15:19 Worker's Comp Is this a Worker's Comp case?: No [facility] Disclaimer: The information contained in this section may have been updated after the patient was seen, as this information can be updated by other users. Medical History Coronary atherosclerosis of [place] coronary artery Diabetes mellitus, type 2 Fatigue History of heart attack Hyperkalemia Hyperlipidemia Hypertension Hypertension Neuropathy Peripheral arterial disease Peripheral neuropathy Renal artery stenosis Rotator cuff (capsule) sprain Rotator cuff tear, right Shingles STEMI (ST elevation myocardial infarction) Unstable angina Surgical History H/O laminectomy H/O total mastectomy History of cardiac catheterization History of heart artery stent History of hysterectomy History of knee replacement History of mastectomy Hx of cervical spine surgery Family History Mother Dementia Father Family history of myocardial infarction Social History Smoking Status: Former smoker tobacco type: cigarettes packs per day: 1 years smoked: 40 second hand exposure: No alcohol intake: never substance use type: denies use current occupational status: retired Travel in the last 8 weeks: None adopted: No caregiver/support person: Yes foster care: No household members: family housing: house marital status: education level: college current occupational exposures/hazards: No caffeine: Yes (coffee) tia/christianity: Tenriism ROS Obtained: Yes All systems reviewed & no additional complaints except as documented and Yes Systems reviewed as appropriate & no additional complaints except as documented Constitutional Constitutional: Reports system reviewed and no additional complaints, except as documented and Reports as per HPI ENT Ears, Nose, Mouth, and Throat: Reports system reviewed and no additional complaints, except as documented and Reports as per HPI Cardiovascular Cardiovascular: Reports system reviewed and no additional complaints, except as documented and Reports as per HPI Respiratory Respiratory: Reports system reviewed and no additional complaints, except as documented and Reports as per HPI Gastrointestinal Gastrointestingal: Reports system reviewed and no additional complaints, except as documented and as per HPI Musculoskeletal Musculoskeletal: Reports system reviewed and no additional complaints, except as documented, Reports as per HPI and Reports other (pain in right hip after falling and bruising to right shoulder/arm) Physical Exam General General appearance: alert and in no apparent distress ENT ENT exam: Present mucous membranes moist Respiratory Respiratory exam: Present normal lung sounds bilaterally; Absent respiratory distress or wheezes Cardiovascular Cardiovascular exam: Present regular rate, normal rhythm and normal heart sounds Expanded Upper Extremity Exam Right: Shoulder exam: Present tenderness and ecchymosis; Absent swelling Arm exam: Present ecchymosis Comment: Reports she has a bad shoulder has some bruising but able to move it per her normal Expanded Lower Extremity Exam Right: Hip/Pelvis exam: Present tenderness, pelvis stable and ecchymosis (small bruise noted); Absent external rotation, internal rotation or shortening of leg Gait: not tested/not observed Neurological Exam Neurological exam: Present alert and oriented X3 Medical Decision Making Wiley Inquiry Pt receiving controlled substance: No Wiley was queried for this patient: No Vital Signs: 07/05/23 11:20 Temperature 97.8 F Temperature Source Oral Pulse Rate [Left Brachial] 73 Respiratory Rate 18 Blood Pressure [Left Arm] 124/73 Blood Pressure Mean [Left Arm] 90 Blood Pressure Source [Left Arm] Automatic Cuff Blood Pressure Position [Left Arm] Sitting 02 Sat by Pulse Oximetry 99 Oxygen Delivery Method Room Air Orders (Tests/Meds): ORDERS Category Date Time Status XR hip RT 2-3V w/pelvis Stat Exams 07/05/23 10:56 Taken Radiology Data #1: Image(s): Hip Image Reviewed: Yes I have reviewed radiologist's interpretation no acute process Medical Decision Narrative: Patien requesting xray of right hip, Has bruising to right shoulder/upper arm but denies pain with movement states that she doesnt want seen for arm just her xray of hip
[2023-07-05 12:47] VITALS: BP 124/73; PULSE 73; RESP 18; TEMP 36.6; O2SAT 99
== END 2023-07-05 12:48 | disposition home or self-care (01) ==
PROVIDERS: Emergency Provider Nurse Practitioner; PCP Internal Medicine Adolescent Medicine
DX: S70.01XA Contusion of right hip, initial encounter (principal); S40.011A Contusion of right shoulder, initial encounter; W18.39XA Other fall on same level, initial encounter; E11.40 Type 2 diabetes mellitus with diabetic neuropathy, unspecified; I11.9 Hypertensive heart disease without heart failure; E78.5 Hyperlipidemia, unspecified; I73.9 Peripheral vascular disease, unspecified; I25.110 Atherosclerotic heart disease of native coronary artery with unstable angina pectoris; Z95.5 Presence of coronary angioplasty implant and graft; Z79.84 Long term (current) use of oral hypoglycemic drugs; Z87.891 Personal history of nicotine dependence
CPT/HCPCS: 73502; 99212; 99214; G0463

== ENCOUNTER 2023-09-11 16:04 | Outpatient (CLI) | payer MEDICARE, SELFPAY ==
--- NOTE | 2023-09-11 16:07 | XR_ITS ---
FINAL REPORT CLINICAL HISTORY: CELLULITIS OF SECOND TOE ON RIGHT FOOT COMPARISON: None FINDINGS: RIGHT FOOT: Three views of the right foot were obtained. There is no acute fracture or dislocation. The joint spaces are intact. There is no soft tissue abnormality. There is a chronic calcification at the base of the fifth metatarsal. IMPRESSION: No acute bony abnormality. Reviewed, Interpreted and Dictated by Stevie Anderson III, MD Transcribed by Tiff Jennings Authenticated and [facility]
== END 2023-09-11 23:59 ==
PROVIDERS: PCP Internal Medicine Adolescent Medicine; Visit Provider Internal Medicine Adolescent Medicine
DX: L03.031 Cellulitis of right toe (principal)
CPT/HCPCS: 73630

== ENCOUNTER 2023-10-11 10:44 | Outpatient (CLI) | payer MEDICARE, SELFPAY ==
--- NOTE | 2023-10-11 10:48 | XR_ITS ---
FINAL REPORT CLINICAL HISTORY: right hip pain COMPARISON: None FINDINGS: 3 images of the right hip were obtained. There is no evidence of fracture or dislocation. Moderate degenerative change is present as well as chondrocalcinosis. There is no soft tissue abnormality identified. IMPRESSION: Moderate degenerative change as described without evidence of acute bony abnormality. Reviewed, Interpreted and Dictated by Debra Alarcon MD Transcribed by Tiff Jennings Authenticated and [facility]
== END 2023-10-11 23:59 | disposition home or self-care (01) ==
LOC: RAD 10:45
PROVIDERS: PCP Internal Medicine Adolescent Medicine; Visit Provider Orthopaedic Surgery
DX: S70.01XA Contusion of right hip, initial encounter (principal); M25.551 Pain in right hip
CPT/HCPCS: 73502

== ENCOUNTER 2023-11-16 10:00 | Outpatient (RCR) | payer MEDICARE, SELFPAY | END 2023-11-16 11:00 | disposition home or self-care (01) | LOC: PT 10:00 | PROVIDERS: Visit Provider Orthopaedic Surgery | DX: M25.551 Pain in right hip (principal) | CPT/HCPCS: 97110; 97112; 97163; 97530 ==

== ENCOUNTER 2023-12-02 11:31 | Emergency (ER) | payer MEDICARE, SELFPAY ==
[2023-12-02 11:32] VITALS: BP 166/72; PULSE 74; RESP 13; TEMP 36.8; O2SAT 98
--- NOTE | 2023-12-02 12:16 | HMH.EDGENADL ---
Discharge Plan Disposition Patient Disposition: Home, Self-Care Chief Complaint: Wound/Laceration Prescriptions Prescriptions: No Action lisinopril 10 mg tablet 10 mg PO DAILY Qty: 90 3RF carvedilol 6.25 mg tablet 6.25 mg PO BID Qty: 180 3RF clopidogrel 75 mg tablet 75 mg PO DAILY Qty: 90 3RF atorvastatin 80 mg tablet 80 mg PO DAILY Qty: 90 3RF aspirin 81 mg tablet,delayed release (DR/EC) 81 mg PO DAILY Qty: 90 3RF nitroglycerin 0.4 mg tablet, sublingual 0.4 mg sublingual Q5M PRN (Reason: chest pain) Qty: 25 3RF Rx Instructions: do not exceed 3 doses per episode duloxetine 60 mg capsule,delayed release(DR/EC) 60 mg PO BID Patient Comments: TAKE 1 CAPSULE BY MOUTH TWICE DAILY FOR 90 DAYS metformin 500 MG tablet 500 mg PO DAILY Referrals Follow up/Referrals: Edilberto Montoya MD [Primary Care Provider] - See instructions Activity Restrictions/Add. Instructions Additional Instructions/Restrictions: At this time it was felt you are safe to be discharged home. If new or worsening symptoms please do not hesitate to return the emergency department. Please apply bacitracin to the with dressing changes. Please change dressing twice daily over the next 48 hours then once daily as discussed at bedside. Fortunately you have a nurse who will take good care of it. Clinical Impressions Clinical Impression: Skin tear Instructions Patient Instructions: DI for Laceration Repair Discharge ED Provider: Joshua Craven General Adult HPI General Chief complaint: Wound/Laceration Stated complaint: AO fall 12/01, left leg lac Time Seen by Provider: 12/02/23 11:39 Mode of Arrival: Wheelchair Source of Information: Patient Limitations: No Limitations Description of Symptoms (Recalled from ER Triage Doc. by RN): pt presents to ED with laceration to left ragland. pt reports she tripped and slipped over her rollator and has a skin tear. pt did not have LOC, pt does take blood thinners for stents. History of Present Illness HPI narrative: Patient is a 88-year-old female who presents emergency department for evaluation of traumatic injury sustained in a fall. Patient was walking on her rollator when she fell causing a wound over her left ragland. She has had multiple skin tears before from similar mechanism. Denies other trauma, specifically did not hit her head. She is on anticoagulation. Tdap is not up-to-date. Related Data Home Medications Medication Instructions Recorded Confirmed metformin 500 mg tablet 500 mg PO DAILY Diabetes 12/07/20 10/16/23 duloxetine 60 mg capsule,delayed 60 mg PO BID Mood 02/19/22 10/16/23 release Previous Rx's Medication Instructions Recorded nitroglycerin 0.4 mg sublingual 0.4 mg sublingual Q5M PRN chest 03/28/23 tablet pain #25 tabs aspirin 81 mg tablet,delayed 81 mg PO DAILY Blood Thinner #90 10/16/23 release tabs atorvastatin 80 mg tablet 80 mg PO DAILY Cholesterol #90 tabs 10/16/23 carvedilol 6.25 mg tablet 6.25 mg PO BID High Blood Pressure 10/16/23 #180 tabs clopidogrel 75 mg tablet 75 mg PO DAILY Blood Thinner #90 10/16/23 tabs lisinopril 10 mg tablet 10 mg PO DAILY High Blood Pressure 10/16/23 #90 tabs Allergies Allergy/AdvReac Type Severity Reaction Status Date / Time hydromorphone [From DILAUDID] Allergy Intermediate Agitated Verified 10/16/23 09:58 metronidazole [METRONIDAZOLE] Allergy Unknown NA-NAUSEA/V Verified 10/16/23 09:58 OMITING morphine [MORPHINE] Allergy Unknown Agitated Verified 10/16/23 09:58 pentazocine [PENTAZOCINE] Allergy Unknown Agitated Verified 10/16/23 09:58 [facility] Disclaimer: The information contained in this section may have been updated after the patient was seen, as this information can be updated by other users. Medical History Fatigue Hyperkalemia Unstable angina Rotator cuff tear, right Rotator cuff (capsule) sprain Peripheral arterial disease Renal artery stenosis Peripheral neuropathy Hyperlipidemia Neuropathy History of heart attack Diabetes mellitus, type 2 Coronary atherosclerosis of [place] coronary artery STEMI (ST elevation myocardial infarction) Shingles Hypertension Hypertension Surgical History H/O laminectomy H/O total mastectomy History of heart artery stent History of cardiac catheterization History of mastectomy Hx of cervical spine surgery History of knee replacement History of hysterectomy Family History Mother Dementia Father Family history of myocardial infarction Social History Smoking Status: Former smoker tobacco type: cigarettes packs per day: 1 years smoked: 40 second hand exposure: No alcohol intake: never substance use type: denies use current occupational status: retired Travel in the last 8 weeks: None adopted: No caregiver/support person: Yes foster care: No household members: family housing: house marital status: education level: college current occupational exposures/hazards: No caffeine: Yes (coffee) 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: [employer] ROS Obtained: Yes Systems reviewed as appropriate & no additional complaints except as documented Physical Exam General General appearance: alert and in no apparent distress Head Head exam: atraumatic and normocephalic Eye Eye exam: Present PERRL and EOMI ENT ENT exam: Present mucous membranes moist Neck Neck exam: Present normal inspection Chest Chest inspection: Present normal inspection and symmetric chest wall rise Respiratory Respiratory exam: Absent respiratory distress Cardiovascular Cardiovascular exam: Present regular rate and normal rhythm Abdominal Exam Abdominal exam: Present soft Extremities Exam Extremities exam: Present other (Complex skin tear approximately 6 cm x 20 cm with devitalized flap along the lateral aspect of the wound oozing blood, no arterial hemorrhage.) Neurological Exam Neurological exam: Present alert Psychiatric Psychiatric exam: Present normal affect Skin Skin exam: Present warm and dry Medical Decision Making Wiley Inquiry Pt receiving controlled substance: No Vital Signs: 12/02/23 11:32 Temperature 98.3 F Temperature Source Oral Pulse Rate [Left Radial] 74 Respiratory Rate 13 Blood Pressure [Right Arm] 166/72 H Blood Pressure Mean [Right Arm] 103 02 Sat by Pulse Oximetry 98 Orders (Tests/Meds): ED MEDICATIONS Discontinued Medications Generic Name Dose Route Start Last Admin Trade Name Freq PRN Reason Stop Dose Admin Bacitracin/Polymyxin B Sulfate 3 gm 12/02/23 12:09 Bacitracin-Polymyxin B Oint 30gm Tube TP 12/02/23 12:10 ONCE ONE Tetanus/Reduced Diphtheria/Acell Pertussis 0.5 ml 12/02/23 12:07 Tet/Diphth/Pert-Adult 0.5ml Syringe IM 12/02/23 12:08 .ONCE ONE Medical Decision Narrative: In summary patient is an 88-year-old female with past medical history described above who presents emergency department for evaluation of traumatic injury sustained in a fall. Patient has an obvious complex skin tear with devitalized tissue upon arrival. No concern for fracture given no tenderness and 5 out of 5 strength, no concern for intracranial hemorrhage given no other trauma reported and did not strike her head. Tdap is not up-to-date and will be updated. Wound underwent revising and was wrapped with bacitracin. Patient is appropriate for discharge at this time Procedure: Procedure was wound revision. Procedure performed by Joshua Craven. Free flap along the wound on the left ragland 6 cm x 20 cm was cut using sterile iris scissors, no hemorrhage, wound was irrigated with 1 L of sterile water and Hibiclens, clot removed. Bacitracin applied and wrapped with nonadhesive dressing and [place]. Patient tolerated the procedure well. There were no immediate complications. Critical Care Critical Care Time Critical Care Time: No
[2023-12-02] MEDS: TET/DIPHTH/PERT-ADULT 0.5ML SYRINGE 0.5 ML IM (12:17)
[2023-12-02] MEDS: BACITRACIN ZINC OINT 30GM TUBE TP (12:20)
[2023-12-02 12:25] VITALS: BP 166/72; PULSE 74; RESP 13; TEMP 36.7
== END 2023-12-02 12:26 | disposition home or self-care (01) ==
PROVIDERS: Emergency Provider Emergency Medicine; PCP Internal Medicine Adolescent Medicine
DX: S81.802A Unspecified open wound, left lower leg, initial encounter (principal); Z23 Encounter for immunization; W22.8XXA Striking against or struck by other objects, initial encounter
CPT/HCPCS: 90471; 90715; 99283

== ENCOUNTER 2024-01-13 16:39 | Observation (INO) | payer MEDICARE, SELFPAY ==
[2024-01-13] VITALS (10 sets, daily range): BP systolic 108–163; BP diastolic 44–124; PULSE 53–68; RESP 16–18; TEMP 36.8–36.9; O2SAT 92–99; BMI 30.4; BMI 30.9
--- NOTE | 2024-01-13 16:57 | CT_ITS ---
PROCEDURE INFORMATION: Exam: CT Left Lower Extremity With Contrast; Lower Leg Exam date and time: 01/13/2024 5:32 PM Age: 88 years old Clinical indication: Swelling, leg or foot; Additional info: Purulent infection L ragland TECHNIQUE: Imaging protocol: CT of the left lower extremity with intravenous contrast was performed. Exam focused on the lower leg. Radiation optimization: All CT scans at this facility use at least one of these dose optimization techniques: automated exposure control; mA and/or kV adjustment per patient size (includes targeted exams where dose is matched to clinical indication); or iterative reconstruction. Contrast material: ISOVUE; Contrast volume: 100 ml; Contrast route: IV; COMPARISON: CR XR FOOT LT MIN 3V 04/02/2020 7:25 PM FINDINGS: Bones/joints: See Soft tissues finding. Soft tissues: Mild to moderate skin thickening over the anterior mid left lower leg region with mild underlying subcutaneous fat stranding. No evident abscess or soft tissue air. No underlying bony abnormality. Superficial soft tissue thickening and skin thickening anterior to the patellar tendon region. IMPRESSION: 1. Soft tissue thickening anterior to the tibia region in the mid lower leg presumably related to the infection. No evident abscess or bony abnormality. 2. Superficial soft tissue and skin thickening anterior to the patellar tendon also noted that is presumably inflammatory.
--- NOTE | 2024-01-13 17:05 | HMH.EDGENADL ---
Discharge Plan Disposition Patient Disposition: Admitted Chief Complaint: Wound/Laceration Prescriptions Prescriptions: No Action lisinopril 10 mg tablet 10 mg PO DAILY Qty: 90 3RF carvedilol 6.25 mg tablet 6.25 mg PO BID Qty: 180 3RF clopidogrel 75 mg tablet 75 mg PO DAILY Qty: 90 3RF atorvastatin 80 mg tablet 80 mg PO DAILY Qty: 90 3RF aspirin 81 mg tablet,delayed release (DR/EC) 81 mg PO DAILY Qty: 90 3RF nitroglycerin 0.4 mg tablet, sublingual 0.4 mg sublingual Q5M PRN (Reason: chest pain) Qty: 25 3RF Rx Instructions: do not exceed 3 doses per episode duloxetine 60 mg capsule,delayed release(DR/EC) 60 mg PO BID Patient Comments: TAKE 1 CAPSULE BY MOUTH TWICE DAILY FOR 90 DAYS metformin 500 MG tablet 500 mg PO DAILY Referrals Follow up/Referrals: Edilberto Montoya MD [Primary Care Provider] - See instructions Clinical Impressions Clinical Impression: Infected wound, Cellulitis Instructions Patient Instructions: DI for Laceration Repair Print Language Print Language: Prydeinig Discharge ED Provider: Joshua Craven General Adult HPI General Chief complaint: Wound/Laceration Stated complaint: Possible infected leg Time Seen by Provider: 01/13/24 16:45 Mode of Arrival: Ambulatory Source of Information: Patient Limitations: No Limitations Description of Symptoms (Recalled from ER Triage Doc. by RN): pt presents to ED with c/o left lower leg wound. pt had fall and skin repair on december 01. pt has been having wound care 1x a week with cindi from PT here at [facility]. pt reports last night she began to notice a foul smelling odor and redness appear on wound. History of Present Illness HPI narrative: Patient is a 88-year-old female with past medical history of [id number] diabetes, peripheral artery disease, peripheral neuropathy, hypertension, coronary artery disease who presents emergency department for evaluation of a suspected infected wound. I remember this patient well, she suffered a ground-level fall while walking on her rollator causing a significant skin tear over her left ragland. The skin tear was nonviable and was debrided at bedside and wound was left to heal by secondary intention after cleaning, bacitracin applied with nonadhesive dressing. Since then she has been following up with wound care with success and they were actually quite pleased with its progress with healthy granulation tissue up until the last 24 to 48 hours there is been noticing a foul smell with purulent discharge about the wound. Denies new trauma, no other acute complaints at this time. Related Data Home Medications ?Medication ?Instructions ?Recorded ?Confirmed metformin 500 mg tablet 500 mg PO DAILY Diabetes 12/07/20 12/07/23 duloxetine 60 mg capsule,delayed 60 mg PO BID Mood 02/19/22 12/07/23 release Previous Rx's ?Medication ?Instructions ?Recorded nitroglycerin 0.4 mg sublingual 0.4 mg sublingual Q5M PRN chest 03/28/23 tablet pain #25 tabs aspirin 81 mg tablet,delayed 81 mg PO DAILY Blood Thinner #90 10/16/23 release tabs atorvastatin 80 mg tablet 80 mg PO DAILY Cholesterol #90 tabs 10/16/23 carvedilol 6.25 mg tablet 6.25 mg PO BID High Blood Pressure 10/16/23 #180 tabs clopidogrel 75 mg tablet 75 mg PO DAILY Blood Thinner #90 10/16/23 tabs lisinopril 10 mg tablet 10 mg PO DAILY High Blood Pressure 10/16/23 #90 tabs Allergies Allergy/AdvReac Type Severity Reaction Status Date / Time hydromorphone [From DILAUDID] Allergy Intermediate Agitated Verified 12/07/23 13:52 metronidazole [METRONIDAZOLE] Allergy Unknown NA-NAUSEA/V Verified 12/07/23 13:52 OMITING morphine [MORPHINE] Allergy Unknown Agitated Verified 12/07/23 13:52 pentazocine [PENTAZOCINE] Allergy Unknown Agitated Verified 12/07/23 13:52 [facility] Disclaimer: The information contained in this section may have been updated after the patient was seen, as this information can be updated by other users. Medical History Fatigue Hyperkalemia Unstable angina Rotator cuff tear, right Rotator cuff (capsule) sprain Peripheral arterial disease Renal artery stenosis Peripheral neuropathy Hyperlipidemia Neuropathy History of heart attack Diabetes mellitus, type 2 Coronary atherosclerosis of [place] coronary artery STEMI (ST elevation myocardial infarction) Shingles Hypertension Hypertension Surgical History H/O laminectomy H/O total mastectomy History of heart artery stent History of cardiac catheterization History of mastectomy Hx of cervical spine surgery History of knee replacement History of hysterectomy Family History Mother Dementia Father Family history of myocardial infarction Social History Smoking Status: Never smoker years smoked: 40 second hand exposure: No alcohol intake: never substance use type: denies use current occupational status: retired Travel in the last 8 weeks: None adopted: No caregiver/support person: Yes foster care: No household members: family housing: house marital status: education level: college current occupational exposures/hazards: No caffeine: Yes (coffee) tia/synagogue: Zoroastrian ROS Obtained: Yes Systems reviewed as appropriate & no additional complaints except as documented Physical Exam General General appearance: alert and in no apparent distress Head Head exam: atraumatic and normocephalic Eye Eye exam: Present PERRL ENT ENT exam: Present mucous membranes moist Neck Neck exam: Present normal inspection Chest Chest inspection: Present normal inspection and symmetric chest wall rise Respiratory Respiratory exam: Present normal lung sounds bilaterally; Absent respiratory distress Cardiovascular Cardiovascular exam: Present regular rate and normal rhythm Abdominal Exam Abdominal exam: Present soft; Absent tenderness Extremities Exam Extremities exam: Present other (Large wound over the left ragland with areas of granulation tissue with scattered purulent discharge, satellite purulent lesion over the distal left ragland. Mild ankle swelling. No crepitus.) Neurological Exam Neurological exam: Present alert Psychiatric Psychiatric exam: Present normal affect Skin Skin exam: Present warm and dry Medical Decision Making Wiley Inquiry Pt receiving controlled substance: No Vital Signs: 01/13/24 16:41 01/13/24 16:47 01/13/24 16:49 Temperature 98.5 F Temperature Source Oral Pulse Rate 65 64 Pulse Rate [Left Radial] 68 Respiratory Rate 18 Blood Pressure 163/124 H 137/52 L Blood Pressure [Right Arm] 137/52 L Blood Pressure Mean Blood Pressure Mean [Right Arm] 80 02 Sat by Pulse Oximetry 96 96 94 L Oxygen Delivery Method Room Air 01/13/24 17:02 01/13/24 17:02 01/13/24 18:01 Temperature Temperature Source Pulse Rate 59 L 53 L Pulse Rate [Left Radial] Respiratory Rate Blood Pressure 110/44 L 110/44 L 127/50 L Blood Pressure [Right Arm] Blood Pressure Mean 66 Blood Pressure Mean [Right Arm] 02 Sat by Pulse Oximetry 97 97 Oxygen Delivery Method Room Air 01/13/24 18:32 01/13/24 19:01 Temperature Temperature Source Pulse Rate 55 L 54 L Pulse Rate [Left Radial] Respiratory Rate Blood Pressure 108/76 L 153/58 H Blood Pressure [Right Arm] Blood Pressure Mean Blood Pressure Mean [Right Arm] 02 Sat by Pulse Oximetry 99 94 L Oxygen Delivery Method Room Air Room Air Lab Data Lab Results 01/13/24 16:59: WBC 7.9, RBC 4.20, Hgb 11.9 L, Hct 38.5, MCV 91.6, MCH 28.3, MCHC 30.9 L, RDW 14.3, Plt Count 357, MPV 8.4, Neut % (Auto) 67.7, Lymph % (Auto) 22.5, [place] % (Auto) 7.7, Eos % (Auto) 1.3, Baso % (Auto) 0.9, Neut # (Auto) 5.3, Lymph # (Auto) 1.8, [place] # (Auto) 0.6, Eos # (Auto) 0.1, Baso # (Auto) 0.1, Sodium 142, Potassium 5.3 H, Chloride 108 H, Carbon Dioxide 28, Anion Gap 11.3, BUN 30 H, Creatinine 1.40 H, Estimated Creat Clear 36, Estimated GFR 36 L, Est GFR ( Amer) 43 L, Glucose 84, Calcium 10.0, Total Bilirubin 0.4, AST 21, ALT 22, Alkaline Phosphatase 103, C-Reactive Protein 1.5, Total Protein 7.3, Albumin 4.4, Globulin 2.9, Albumin/Globulin Ratio 1.5 01/13/24 16:59 01/13/24 16:59 Orders (Tests/Meds): ED MEDICATIONS Generic Name Dose Route Start Last Admin Trade Name Freq PRN Reason Stop Dose Admin Vancomycin/PEG/NADA/Lysine/Water 1.25 gm in 250 mls @ 125 mls/hr 01/13/24 17:30 01/13/24 18:19 Vancomycin 1.25gm/250ml (Peg) Premix IV 01/13/24 19:29 125 mls/hr ONCE ONE Administration Miscellaneous 1 each 01/13/24 17:00 01/13/24 17:24 Vancomycin Consult Request NOTAPPLIC 02/12/24 16:59 1 each CONSULT PHARMACY [facility] Administration Discontinued Medications Generic Name Dose Route Start Last Admin Trade Name Og PRN Reason Stop Dose Admin Acetaminophen 1,000 mg 01/13/24 17:00 01/13/24 17:07 Acetaminophen 1,000mg/100ml Vial IV 01/13/24 17:01 1,000 mg ONCE ONE Administration Piperacillin Sod/Tazobactam 50 mls @ 100 mls/hr 01/13/24 16:59 01/13/24 17:51 Sod 3.375 gm/ Sodium Chloride IV 01/13/24 17:28 100 mls/hr ONCE ONE Administration Lactated Ringer's 1,000 mls @ 999 mls/hr 01/13/24 16:57 01/13/24 17:07 Lactated Ringer's 1000 Ml Bag IV 01/13/24 17:57 999 mls/hr .Q1H1M ONE Administration Iopamidol 75 ml 01/13/24 17:31 01/13/24 17:33 Iopamidol-370 (76%);100ml Bottle IV 01/13/24 17:32 75 ml ONCE ONE Administration Sodium Chloride 10 ml 01/13/24 17:31 01/13/24 17:33 Sodium Chloride 0.9% 10ml Syr (Rad Only) IV 01/13/24 17:32 10 ml ONCE ONE Administration ORDERS Category Date Time Status CT lower leg LT w con Stat Cat Scan 01/13/24 16:57 Completed CBC w/Auto Diff [Complete Blood Count Auto Diff] Stat Lab 01/13/24 16:59 Completed CMP [Comprehensive Metabolic Panel] Stat Lab 01/13/24 16:59 Completed CRP [C-Reactive Protein] Stat Lab 01/13/24 16:59 Completed Blood Culture Stat Micro 01/13/24 17:01 Received Wound Culture and Gram Stain Stat Micro 01/13/24 17:05 Results Medical Decision Narrative: In summary patient is 88-year-old female with past medical history described above presents emergency department for evaluation of an infected wound. Patient is hemodynamically stable nontoxic-appearing upon arrival, afebrile. She is tender and does have purulence over the significant wound over her left ragland which is now chronic and being tended to by wound therapy. I suspect patient was having successful granulation tissue with healing and it has become acutely superinfected within the last 24 to 48 hours. Patient is a diabetic and is at high risk for serious bacterial illness. Workup will be conducted with hematologic labs, CT of the left lower extremity IV contrast will be obtained screening for deep tunneling infection. Wound will likely need debridement at some point. Clinically patient is well-appearing and does not appear significantly systemically ill. Broad-spectrum antibiotics will be initiated after blood cultures obtained with vancomycin and Zosyn. Patient appears largely euvolemic so crystalloid bolus 1 L will be administered however full sepsis fluids will be deferred. Initial workup reviewed by me, hematologic labs have no significant leukocytosis, no LYDIA or critical electrolyte abnormality although creatinine is mildly bumped, potassium 5.3 which does not require acute intervention at this time. Imaging of the lower extremity has soft tissue thickening along the anterior tibia region, no evidence of abscess or bony abnormality, superficial soft tissue and skin thickening anterior to the patella tendon. Given this patient does not have a deep space infection currently. The case was discussed with hospital medicine who graciously admitted patient to their service for continued evaluation at this time. Critical Care Critical Care Time Critical Care Time: No
[2024-01-13] MEDS: LACTATED RINGERS 1000ML 1,000 ML 999 ML IV (17:07)
[2024-01-13] MEDS: ACETAMINOPHEN 1,000MG/100ML VIAL 1000 MG IV (17:07)
[2024-01-13 17:15] LABS: Albumin Level 4.4 g/dl (3.5-5.0); Basophils # 0.1 K/mm3 (0-0.2); Basophils % 0.9 % (0.1-2.0); Chloride 108 mmol/L (98-107); Eosinophils # 0.1 K/mm3 (0.0-0.4); Eosinophils % 1.3 % (0.1-12.0); Hematocrit 38.5 % (37.0-47.0); Hemoglobin 11.9 g/dL (12.2-16.2); Lymphocytes # 1.8 K/mm3 (0.7-4.5); Lymphocytes % 22.5 % (10-50); Mean Corpuscular HGB Conc 30.9 g/dL (31.8-35.4); Mean Corpuscular Hemoglobin 28.3 pg (27.0-31.2); Mean Corpuscular Volume 91.6 fl (81-99); Mean Platelet Volume 8.4 fl (7.4-10.4); Monocytes # 0.6 K/mm3 (0.1-1.0); Monocytes % 7.7 % (1.7-9.3); Neutrophils # 5.3 K/mm3 (1.8-7.8); Neutrophils % 67.7 % (37.0-80.0); Platelet Count 357 K/mm3 (142-424); Red Cell Distribution Width 14.3 % (11.5-17.5); Sodium 142 mmol/L (136-145); White Blood Count 7.9 K/mm3 (4.8-10.8)
[2024-01-13 17:16] LABS: Potassium 5.3 mmoL/L (3.5-5.1)
[2024-01-13 17:18] LABS: Alanine Aminotransferase 22 U/L (12-78); Albumin/Globulin Ratio 1.5 (1.1-1.8); Alkaline Phosphatase 103 U/L (38-126); Anion Gap 11.3 mEq/L (5-15); Aspartate Amino Transferase 21 U/L (14-36); Bilirubin,Total 0.4 mg/dl (0.2-1.3); Blood Urea Nitrogen 30 mg/dl (7-17); Carbon Dioxide 28 mmol/L (22.0-30.0); Creatinine Clearance Estimated 36 mL/min (50-200); Estimated Glomerular Filt Rate 36 ml/min (>60); GFR (African American) 43 ML/MIN (>60); Globulin 2.9 g/dL (1.3-3.2); Glucose 84 mg/dl (74-100); Total Protein,Serum 7.3 g/dl (6.3-8.2)
[2024-01-13 17:24] LABS: C-Reactive Protein 1.5 mg/L (0-4)
[2024-01-13] MEDS: VANCOMYCIN CONSULT REQUEST 1 EACH NOTAPPLIC (17:24)
[2024-01-13] MEDS: IOPAMIDOL-370 (76%);100ML BOTTLE 75 ML IV (17:33)
[2024-01-13] MEDS: SODIUM CHLORIDE 0.9% 10ML SYR (RAD ONLY) 10 ML IV (17:33)
[2024-01-13] MEDS: PIPERACILLIN/TAZO 3.375 GM in 0.9 % SODIUM CHLORIDE 50 ML IV (17:51)
[2024-01-13] MEDS: VANCOMYCIN/WATER FOR INJ (PEG) 1.25 GM/250 ML PIGGYBACK IV (18:19)
--- NOTE | 2024-01-13 19:24 | PC.NURSE ---
house notified for admission
--- NOTE | 2024-01-13 19:39 | PC.NURSE ---
Report called to MERY Kauffman
--- NOTE | 2024-01-13 20:02 | PC.NURSE ---
Patient arrived to floor via stretcher from ED at 20:00.
--- NOTE | 2024-01-13 20:49 | EXP.HP ---
History of Present Illness *Admission Date: 01/13/24 *Reason for visit:: Cellulitis with abscess left lower extremity *History of present illness: This elderly lady that uses a walker to ambulate fell in November. Caused a skin tear to the anterior left lower extremity, this was debrided by the ER physician. She was doing well with wound care and things seem to be improving until the last 48 hours. [facility] Disclaimer: The information contained in this section may have been updated after the patient was seen, as this information can be updated by other users. Medical History Urinary tract infection Osteoarthritis Breast cancer Fatigue Hyperkalemia Unstable angina Rotator cuff tear, right Rotator cuff (capsule) sprain Peripheral arterial disease Renal artery stenosis Peripheral neuropathy Hyperlipidemia Neuropathy History of heart attack Diabetes mellitus, type 2 Coronary atherosclerosis of [place] coronary artery STEMI (ST elevation myocardial infarction) Shingles Hypertension Hypertension Surgical History H/O cervical discectomy H/O laminectomy H/O total mastectomy History of heart artery stent History of cardiac catheterization History of mastectomy Hx of cervical spine surgery History of knee replacement History of hysterectomy Family History Mother Dementia Father Family history of myocardial infarction Social History Smoking Status: Former smoker tobacco type: cigarettes packs per day: 1 years smoked: 40 second hand exposure: No alcohol intake: never substance use type: denies use current occupational status: retired Travel in the last 8 weeks: None adopted: No caregiver/support person: Yes foster care: No household members: family housing: house marital status: education level: college current occupational exposures/hazards: No caffeine: Yes (coffee) tia/yarsani: Protestant Review of Systems Review of Systems Review of systems:: pertinent systems reviewed and negative unless documented below Constitutional Constitutional: Reports weakness Eyes Eyes: Reports system reviewed and no additional complaints, except as documented ENT Ears, Nose, Mouth, and Throat: Reports system reviewed and no additional complaints, except as documented and Reports disequilibrium *Cardiovascular Cardiovascular: Reports system reviewed and no additional complaints, except as documented *Respiratory Respiratory: Reports system reviewed and no additional complaints, except as documented *Gastrointestinal Gastrointestinal: Reports system reviewed and no additional complaints, except as documented *Genitourinary Genitourinary: Reports system reviewed and no additional complaints, except as documented *Musculoskeletal Musculoskeletal: Reports as per HPI and Reports muscle weakness Integumentary/Breasts Skin/Breast: Reports system reviewed and no additional complaints, except as documented *Neurologic Neurologic: Reports system reviewed and no additional complaints, except as documented, Reports as per HPI, Reports disequilibrium and Reports weakness Psychiatric Psychiatric: Reports system reviewed and no additional complaints, except as documented Endocrine Endocrine: Reports system reviewed and no additional complaints, except as documented Hematologic/Lymphatic Hematologic/Lymphatic: Reports system reviewed and no additional complaints, except as documented Allergic/Immunologic Allergic/Immunologic: Reports system reviewed and no additional complaints, except as documented Meds Home Medications and Allergies Home Medications ?Medication ?Instructions ?Recorded ?Confirmed ?Type metformin 500 mg tablet 500 mg PO DAILY Diabetes 12/07/20 01/13/24 History duloxetine 60 mg capsule,delayed 60 mg PO BID Mood 02/19/22 01/13/24 History release nitroglycerin 0.4 mg sublingual 0.4 mg sublingual Q5M PRN chest 03/28/23 01/13/24 Rx tablet pain #25 tabs aspirin 81 mg tablet,delayed 81 mg PO DAILY Blood Thinner #90 10/16/23 01/13/24 Rx release tabs atorvastatin 80 mg tablet 80 mg PO DAILY Cholesterol #90 tabs 10/16/23 01/13/24 Rx carvedilol 6.25 mg tablet 6.25 mg PO BID High Blood Pressure 10/16/23 01/13/24 Rx #180 tabs clopidogrel 75 mg tablet 75 mg PO DAILY Blood Thinner #90 10/16/23 01/13/24 Rx tabs lisinopril 10 mg tablet 10 mg PO DAILY High Blood Pressure 10/16/23 01/13/24 Rx #90 tabs cholecalciferol (vitamin D3) 125 125 mcg PO DAILY 01/13/24 01/13/24 History mcg (5,000 unit) tablet (Vitamin D3) gabapentin 300 mg capsule 300 mg PO BID 01/13/24 01/13/24 History vit C 250 mg-vit E 90 mg-zinc 40 1 tab PO BID 01/13/24 01/13/24 History mg-copper 1 [id number] capsule (PreserVision AREDS-2) New Prescriptions to Start Prescriptions: Allergies Allergy/AdvReac Type Severity Reaction Status Date / Time hydromorphone [From DILAUDID] Allergy Intermediate Agitated Verified 12/07/23 13:52 metronidazole [METRONIDAZOLE] Allergy Unknown NA-NAUSEA/V Verified 12/07/23 13:52 OMITING morphine [MORPHINE] Allergy Unknown Agitated Verified 12/07/23 13:52 pentazocine [PENTAZOCINE] Allergy Unknown Agitated Verified 12/07/23 13:52 Exam Data for Last 24 hours Vital signs and Labs for Last 24 Hours: Temp Pulse Resp BP Pulse Ox O2 Del Method 98.5 F 65 18 143/86 H 98 Room Air 01/13/24 19:45 01/13/24 19:45 01/13/24 19:45 01/13/24 19:45 01/13/24 19:30 01/13/24 19:45 Laboratory Results - last 24 hr 01/13/24 16:59: WBC 7.9, RBC 4.20, Hgb 11.9 L, Hct 38.5, MCV 91.6, MCH 28.3, MCHC 30.9 L, RDW 14.3, Plt Count 357, MPV 8.4, Neut % (Auto) 67.7, Lymph % (Auto) 22.5, [place] % (Auto) 7.7, Eos % (Auto) 1.3, Baso % (Auto) 0.9, Neut # (Auto) 5.3, Lymph # (Auto) 1.8, [place] # (Auto) 0.6, Eos # (Auto) 0.1, Baso # (Auto) 0.1, Sodium 142, Potassium 5.3 H, Chloride 108 H, Carbon Dioxide 28, Anion Gap 11.3, BUN 30 H, Creatinine 1.40 H, Estimated Creat Clear 36, Estimated GFR 36 L, Est GFR ( Amer) 43 L, Glucose 84, Calcium 10.0, Total Bilirubin 0.4, AST 21, ALT 22, Alkaline Phosphatase 103, C-Reactive Protein 1.5, Total Protein 7.3, Albumin 4.4, Globulin 2.9, Albumin/Globulin Ratio 1.5 I & O for Last 24 hours: Intake & Output 01/10/24 01/11/24 01/12/24 01/13/24 23:59 23:59 23:59 23:59 Weight 78.018 kg Microbiology Reports for the Last 24 Hours: Microbiology 01/13/24 17:05 Leg,Left Gram Stain - Final Radiology Reports for the Last 24 Hours: CT of the lower extremity reviewed by myself. Showing there is thickening of the skin with some tendinitis to the patellar tendon Constitutional Constitutional: no acute distress *Routine HEENT Exam Head: Present normocephalic and atraumatic Eye: Present EOMI and PERRL ENT: Present mucous membranes moist *Routine Respiratory Exam Respiratory: Present normal respiratory effort Comments: Respiratory exam normal good equal expansion both sides no abnormal breath sounds *Routine Cardiovascular Exam Cardiovascular: Present Normal S1 and Normal S2 Comments: Lower extremity shows some peripheral vascular disease but brisk capillary refill pulses were palpable in the foot foot was warm to the touch *Routine Abdominal Exam Abdominal: Present soft *Routine Rectal Exam Rectal:: deferred *Routine Genitalia Exam Genitalia:: deferred *Routine Skin Exam Skin: Present dry, lesions (Approximately 10 cm x 5 cm area of previous injury now with several pustules noted, rest of the skin showing signs of peripheral vascular disease with some skin is slightly shiny) and normal turgor Comments: Infection still appears to be superficial in the dermis and limited to the anterior portion of the left [place] *Routine Neurological Exam Neurological: Present alert, oriented X3, CN II-XII intact and hearing grossly intact H&P: Result Impressions Lower extremity skin contusion from November, had to have a flap of skin removed after falling thinking she landed on part of her walker, had been in wound care and was improving until 48 hours ago now the area has swelling to the tissue with several areas that appear to have a significant amount of purulent material beneath the skin approximately 10 cm x 5 cm in shape to the anterior left lower extremity Assessment and Plan *Assessment and plan (1) Cellulitis: Status: Acute Category: Medical Code(s): L03.90 - Cellulitis, unspecified (2) Infected wound: Status: Acute Category: Medical Code(s): T14.8XXA - Other injury of unspecified body region, initial encounter; L08.9 - Local infection of the skin and subcutaneous tissue, unspecified (3) Skin tear: Status: Acute Category: Medical Plan 88-year-old female who presented with worsening wound left lower leg that occurred within the past week after falling and injuring her leg on her walker. Seen in the ER, concern for failure of outpatient therapy and progressive cellulitis. Discussed case with ER physician, request admission for management. Medicine agreed to admit for IV antibiotics and surgical eval for possible debridement. Continue IV antibiotics. Surgery to see her in the morning. Problems addressed as follows: Cellulitis/infected wound - Continue IV vancomycin and Zosyn 3.375 g every 8 hours for cellulitis. Continue topical mupirocin. Dressing changes daily. - Surgery consulted for evaluation. - White count normal at 7.9, CBC, CMP, magnesium ordered for the morning - Kidney function appears to be at patient's baseline with BUN 30, creatinine 1.4 Diabetes: A1c pending. Will resume metformin 500 mg daily. Sliding scale insulin with fingersticks ACHS. Morning glucose 101. Hypertension CAD Hyperlipidemia -Appears stable at this time. Continue aspirin 81 mg daily, Lipitor 80 mg daily, carvedilol 6.25 mg twice daily, lisinopril 10 mg daily, Plavix 75 mg daily. Neuropathy: Continue gabapentin 300 mg twice daily Mood and neuropathy: Continue Cymbalta 60 mg twice daily History of falling at home, gets around with a walker. Will have therapy evaluate. DNR Regular diet Extremities Extremities Right upper extremity: normal to inspection Left upper extremity: normal to inspection Right lower extremity: normal capillary refill Left lower extremity: full ROM, normal capillary refill, edema (Area of lesion swollen with 3 or 4 areas of pustules) Details: pitting and lower leg Details: non-pitting edema, penetrating wound and warmth
--- NOTE | 2024-01-13 20:52 | PC.NURSE ---
Talked with pharmacy juan will, stated vanc consult would be completed by local pharmacy in morning.
[2024-01-13] MEDS: MUPIROCIN 2% OINTMENT 22GM TUBE TP (21:17)
[2024-01-14] MEDS: PIPERACILLIN/TAZO 3.375 GM in 0.9 % SODIUM CHLORIDE 50 ML IV ×3 (01:18→17:31)
[2024-01-14] MEDS: ACETAMINOPHEN 325MG TAB 650 MG PO ×2 (01:24→15:59)
--- NOTE | 2024-01-14 02:21 | P.PN_ITS ---
Subjective *Date: 01/14/24 *Time: 11:01 Interval history: Reporting that she is having leg pain, she noted that there is different allergies to hydromorphone and morphine., She has received Tylenol is not time to be alert overnight caregiver another 1000 mg.. Have checked with the patient that she states she is able to take hydrocodone. That this does not bother her in the p.o. form Exam Data for Last 24 hours Vital signs and Labs for Last 24 Hours: Temp Pulse Resp BP Pulse Ox O2 Del Method 98.3 F 65 16 143/86 H 92 L Room Air 01/13/24 20:03 01/13/24 20:03 01/13/24 20:01/13/24 20:01/13/24 20:01/14/24 01:00 Laboratory Results - last 24 hr 01/13/24 16:59: WBC 7.9, RBC 4.20, Hgb 11.9 L, Hct 38.5, MCV 91.6, MCH 28.3, MCHC 30.9 L, RDW 14.3, Plt Count 357, MPV 8.4, Neut % (Auto) 67.7, Lymph % (Auto) 22.5, [place] % (Auto) 7.7, Eos % (Auto) 1.3, Baso % (Auto) 0.9, Neut # (Auto) 5.3, Lymph # (Auto) 1.8, [place] # (Auto) 0.6, Eos # (Auto) 0.1, Baso # (Auto) 0.1, Sodium 142, Potassium 5.3 H, Chloride 108 H, Carbon Dioxide 28, Anion Gap 11.3, BUN 30 H, Creatinine 1.40 H, Estimated Creat Clear 36, Estimated GFR 36 L, Est GFR ( Amer) 43 L, Glucose 84, Calcium 10.0, Total Bilirubin 0.4, AST 21, ALT 22, Alkaline Phosphatase 103, C-Reactive Protein 1.5, Total Protein 7.3, Albumin 4.4, Globulin 2.9, Albumin/Globulin Ratio 1.5 I & O for Last 24 hours: Intake & Output 01/11/24 01/12/24 01/13/24 01/14/24 23:59 23:59 23:59 23:59 Output Total 0 / 0 0 / 0 Balance 0 / 0 0 / 0 Weight 79.061 kg Microbiology Reports for the Last 24 Hours: Microbiology 01/13/24 17:05 Leg,Left Gram Stain - Final Constitutional Constitutional: moderate distress Comments: Having pain at wound site. *Routine Neurological Exam Neurological: Present alert and oriented X3 Assessment and Plan *Assessment and plan (1) Pain associated with wound: Status: Acute Category: Medical Code(s): T14.8XXA - Other injury of unspecified body region, initial encounter; R52 - Pain, unspecified Plan 1. Pain at wound site, patient states that she is able to take hydrocodone. It is listed that she has allergies to Dilaudid and morphine that they make her agitated. So more of a side effect to those medicine. She had received the IV Tylenol in the ER but then also got 650 on the floor approximately an hour ago by p.o.. Will try 1 hydrocodone with 325 of Tylenol so we do not exceed 1000 mg since the last doses so close. Will monitor the results and I have ordered it as a every 6 hours medication if needed. Have conferred with the floor nurse and she is aware of all of this. She will let me know if there is any adverse side effects to the hydrocodone
[2024-01-14] MEDS: HYDROCODONE/APAP 5/325 MG TABLET 1 TAB PO ×2 (02:23→21:39)
[2024-01-14 04:00] VITALS: BMI 31.4
[2024-01-14 05:04] VITALS: BP 131/60; PULSE 52; RESP 16; TEMP 36.7; O2SAT 98
--- NOTE | 2024-01-14 05:31 | PC.NURSE ---
Alert and oriented. Wound to Left chin, red, oozing drainage, ointment applied, ABD pad, kerlix on top. Pt ambulates with rolling walker, standby assist to the restroom. Medications locked in housing management representative room. Pt has complained of pain, unrelieved by tylenol, DATA CONTROL ASSISTANT notified, new PRN order given, pt has rested since and states her pain level has decreased. No other complaints from patient. Multiple falls at home. Bed alarm on. Call light in reach.
[2024-01-14 08:03] LABS: Basophils % 0.6 % (0.1-2.0); Eosinophils # 0.2 K/mm3 (0.0-0.4); Hematocrit 34.4 % (37.0-47.0); Hemoglobin 10.8 g/dL (12.2-16.2); Lymphocytes % 27.6 % (10-50); Mean Corpuscular HGB Conc 31.4 g/dL (31.8-35.4); Mean Corpuscular Hemoglobin 28.4 pg (27.0-31.2); Mean Corpuscular Volume 90.4 fl (81-99); Mean Platelet Volume 7.7 fl (7.4-10.4); Monocytes # 0.6 K/mm3 (0.1-1.0); Monocytes % 8.5 % (1.7-9.3); Neutrophils # 4.4 K/mm3 (1.8-7.8); Neutrophils % 61.3 % (37.0-80.0); Platelet Count 277 K/mm3 (142-424); Red Blood Count 3.81 M/mm3 (4.20-5.40); Red Cell Distribution Width 14.4 % (11.5-17.5); White Blood Count 7.3 K/mm3 (4.8-10.8)
[2024-01-14 08:14] LABS: Alanine Aminotransferase 18 U/L (12-78); Albumin Level 3.5 g/dl (3.5-5.0); Albumin/Globulin Ratio 1.3 (1.1-1.8); Alkaline Phosphatase 94 U/L (38-126); Anion Gap 11.2 mEq/L (5-15); Aspartate Amino Transferase 19 U/L (14-36); Bilirubin,Total 0.4 mg/dl (0.2-1.3); Blood Urea Nitrogen 30 mg/dl (7-17); Calcium 9.7 mg/dl (8.4-10.2); Carbon Dioxide 26 mmol/L (22.0-30.0); Chloride 110 mmol/L (98-107); Creatinine Clearance Estimated 43 mL/min (50-200); Estimated Glomerular Filt Rate 43 ml/min (>60); GFR (African American) 52 ML/MIN (>60); Globulin 2.6 g/dL (1.3-3.2); Glucose 101 mg/dl (74-100); Potassium 5.2 mmoL/L (3.5-5.1); Sodium 142 mmol/L (136-145); Total Protein,Serum 6.1 g/dl (6.3-8.2)
--- NOTE | 2024-01-14 08:45 | EXP.PHA.CONS ---
Pharmacy Consult Date: 01/14/24 Time: 08:45 Referring provider: DR. COUGHLIN Reason for Consult:: VANCOMYCIN DOSING Allergies Allergy/AdvReac Type Severity Reaction Status Date / Time hydromorphone [From DILAUDID] Allergy Intermediate Agitated Verified 12/07/23 13:52 metronidazole [METRONIDAZOLE] Allergy Unknown NA-NAUSEA/V Verified 12/07/23 13:52 OMITING morphine [MORPHINE] Allergy Unknown Agitated Verified 12/07/23 13:52 pentazocine [PENTAZOCINE] Allergy Unknown Agitated Verified 12/07/23 13:52 Home Medications ?Medication ?Instructions ?Recorded ?Confirmed ?Type metformin 500 mg tablet 500 mg PO DAILY Diabetes 12/07/20 01/13/24 History duloxetine 60 mg capsule,delayed 60 mg PO BID Mood 02/19/22 01/13/24 History release nitroglycerin 0.4 mg sublingual 0.4 mg sublingual Q5M PRN chest 03/28/23 01/13/24 Rx tablet pain #25 tabs aspirin 81 mg tablet,delayed 81 mg PO DAILY Blood Thinner #90 10/16/23 01/13/24 Rx release tabs atorvastatin 80 mg tablet 80 mg PO DAILY Cholesterol #90 tabs 10/16/23 01/13/24 Rx carvedilol 6.25 mg tablet 6.25 mg PO BID High Blood Pressure 10/16/23 01/13/24 Rx #180 tabs clopidogrel 75 mg tablet 75 mg PO DAILY Blood Thinner #90 10/16/23 01/13/24 Rx tabs lisinopril 10 mg tablet 10 mg PO DAILY High Blood Pressure 10/16/23 01/13/24 Rx #90 tabs cholecalciferol (vitamin D3) 125 125 mcg PO DAILY 01/13/24 01/13/24 History mcg (5,000 unit) tablet (Vitamin D3) gabapentin 300 mg capsule 300 mg PO BID 01/13/24 01/13/24 History vit C 250 mg-vit E 90 mg-zinc 40 1 tab PO BID 01/13/24 01/13/24 History mg-copper 1 [id number] capsule (PreserVision AREDS-2) New Prescriptions to Start Prescriptions: Height: 1.6 m Weight: 80.513 kg Laboratory Results:: Laboratory Results - last 24 hr 01/13/24 16:59: WBC 7.9, RBC 4.20, Hgb 11.9 L, Hct 38.5, MCV 91.6, MCH 28.3, MCHC 30.9 L, RDW 14.3, Plt Count 357, MPV 8.4, Neut % (Auto) 67.7, Lymph % (Auto) 22.5, [place] % (Auto) 7.7, Eos % (Auto) 1.3, Baso % (Auto) 0.9, Neut # (Auto) 5.3, Lymph # (Auto) 1.8, [place] # (Auto) 0.6, Eos # (Auto) 0.1, Baso # (Auto) 0.1, Sodium 142, Potassium 5.3 H, Chloride 108 H, Carbon Dioxide 28, Anion Gap 11.3, BUN 30 H, Creatinine 1.40 H, Estimated Creat Clear 36, Estimated GFR 36 L, Est GFR ( Amer) 43 L, Glucose 84, Calcium 10.0, Total Bilirubin 0.4, AST 21, ALT 22, Alkaline Phosphatase 103, C-Reactive Protein 1.5, Total Protein 7.3, Albumin 4.4, Globulin 2.9, Albumin/Globulin Ratio 1.5 01/14/24 06:29: WBC 7.3, RBC 3.81 L, Hgb 10.8 L, Hct 34.4 L, MCV 90.4, MCH 28.4, MCHC 31.4 L, RDW 14.4, Plt Count 277, MPV 7.7, Neut % (Auto) 61.3, Lymph % (Auto) 27.6, [place] % (Auto) 8.5, Eos % (Auto) 2.0, Baso % (Auto) 0.6, Neut # (Auto) 4.4, Lymph # (Auto) 2.0, [place] # (Auto) 0.6, Eos # (Auto) 0.2, Baso # (Auto) 0.0, Sodium 142, Potassium 5.2 H, Chloride 110 H, Carbon Dioxide 26, Anion Gap 11.2, BUN 30 H, Creatinine 1.20 H, Estimated Creat Clear 43, Estimated GFR 43 L, Est GFR ( Amer) 52 L D, Glucose 101 H D, Calcium 9.7, Total Bilirubin 0.4, AST 19, ALT 18, Alkaline Phosphatase 94, Total Protein 6.1 L, Albumin 3.5 D, Globulin 2.6, Albumin/Globulin Ratio 1.3 Medical History: Medical History (Updated 01/14/24 @ 02:22 by Alex Clark APRN) Urinary tract infection Osteoarthritis Breast cancer Fatigue Hyperkalemia Unstable angina Rotator cuff tear, right Rotator cuff (capsule) sprain Peripheral arterial disease Renal artery stenosis Peripheral neuropathy Hyperlipidemia Neuropathy History of heart attack Diabetes mellitus, type 2 Coronary atherosclerosis of [place] coronary artery STEMI (ST elevation myocardial infarction) Shingles Hypertension Hypertension Assessment and Plan Assessment and plan all Dx Assessment and Plan for all problems:: Pharmacokinetic dosing service Objective: Patient: Floor: Age: 88 yo Serum creatinine: 1.2 mg/dL Height: 63.0 Inches Weight (kg): 80.5 Assessment: IBW (kg): 52.40 Dosing wt(kg): 80.5 Estimated Creatinine clearance (ml/min): 27.8 CRCL method: Cockcroft and Gault using ibw(default). Drug selected: Vancomycin Loading dose (mg): 0 Vd (liters): 64.4 (factor used: 0.8 L/kg) Hubert (hr-1): 0.027 Half life (hrs): 25.67 Recommended dose: 1500 mg Interval: 36 hrs Infusion time (hrs): 2.0 Predicted peak (mcg/mL): 36.5 Predicted trough (mcg/mL): 14.58 Total body weight is being used for vancomycin dosing. Recommendations: Give Vancomycin 1500 mg q 36 hrs with an expected Cpeak of 36.5 mcg/ml and an expected Ctrough of 14.58 mcg/ml ----Vanco only - ignore for aminoglycosides----- CLvanco= 1.74 L/hr AUC 0-24 /BON Data: BON 0.5 mcg/mL: AUC/BON: 1149.4 BON 1.0 mcg/mL: AUC/BON: 574.7 --------- BON 1.5 mcg/mL: AUC/BON: 383.1 BON 2.0 mcg/mL: AUC/BON: 287.4
--- NOTE | 2024-01-14 08:57 | EXP.SURG.CON ---
History of Present Illness *Admission Date: 01/13/24 *Reason for visit:: Left lower extremity wound *History of present illness: This is an 88-year-old female seen in consultation from the primary service for evaluation regarding left lower extremity wound. She suffered soft tissue injury in November and underwent treatment in emergency department with subsequent wound care. She was progressing well until 2-3 days ago at which time she developed increased redness and purulent drainage. She has been started on antibiotics and states that it looks much better right now . Forwarded from admission H&P: This elderly lady that uses a walker to ambulate fell in November. Caused a skin tear to the anterior left lower extremity, this was debrided by the ER physician. She was doing well with wound care and things seem to be improving until the last 48 hours. [facility] Disclaimer: The information contained in this section may have been updated after the patient was seen, as this information can be updated by other users. Medical History Urinary tract infection Osteoarthritis Breast cancer Fatigue Hyperkalemia Unstable angina Rotator cuff tear, right Rotator cuff (capsule) sprain Peripheral arterial disease Renal artery stenosis Peripheral neuropathy Hyperlipidemia Neuropathy History of heart attack Diabetes mellitus, type 2 Coronary atherosclerosis of [place] coronary artery STEMI (ST elevation myocardial infarction) Shingles Hypertension Hypertension Surgical History H/O cervical discectomy H/O laminectomy H/O total mastectomy History of heart artery stent History of cardiac catheterization History of mastectomy Hx of cervical spine surgery History of knee replacement History of hysterectomy Family History Mother Dementia Father Family history of myocardial infarction Social History Smoking Status: Former smoker tobacco type: cigarettes packs per day: 1 years smoked: 40 second hand exposure: No alcohol intake: never substance use type: denies use current occupational status: retired Travel in the last 8 weeks: None adopted: No caregiver/support person: Yes foster care: No household members: family housing: house marital status: education level: college current occupational exposures/hazards: No caffeine: Yes (coffee) tia/quaker: Evangelical Review of Systems Constitutional Constitutional: Reports weakness ENT Ears, Nose, Mouth, and Throat: Reports disequilibrium *Neurologic Neurologic: Reports system reviewed and no additional complaints, except as documented, Reports as per HPI, Reports disequilibrium and Reports weakness Meds Home Medications and Allergies Home Medications ?Medication ?Instructions ?Recorded ?Confirmed ?Type metformin 500 mg tablet 500 mg PO DAILY Diabetes 12/07/20 01/13/24 History duloxetine 60 mg capsule,delayed 60 mg PO BID Mood 02/19/22 01/13/24 History release nitroglycerin 0.4 mg sublingual 0.4 mg sublingual Q5M PRN chest 03/28/23 01/13/24 Rx tablet pain #25 tabs aspirin 81 mg tablet,delayed 81 mg PO DAILY Blood Thinner #90 10/16/23 01/13/24 Rx release tabs atorvastatin 80 mg tablet 80 mg PO DAILY Cholesterol #90 tabs 10/16/23 01/13/24 Rx carvedilol 6.25 mg tablet 6.25 mg PO BID High Blood Pressure 10/16/23 01/13/24 Rx #180 tabs clopidogrel 75 mg tablet 75 mg PO DAILY Blood Thinner #90 10/16/23 01/13/24 Rx tabs lisinopril 10 mg tablet 10 mg PO DAILY High Blood Pressure 10/16/23 01/13/24 Rx #90 tabs cholecalciferol (vitamin D3) 125 125 mcg PO DAILY 01/13/24 01/13/24 History mcg (5,000 unit) tablet (Vitamin D3) gabapentin 300 mg capsule 300 mg PO BID 01/13/24 01/13/24 History vit C 250 mg-vit E 90 mg-zinc 40 1 tab PO BID 01/13/24 01/13/24 History mg-copper 1 [id number] capsule (PreserVision AREDS-2) New Prescriptions to Start Prescriptions: Allergies Allergy/AdvReac Type Severity Reaction Status Date / Time hydromorphone [From DILAUDID] Allergy Intermediate Agitated Verified 12/07/23 13:52 metronidazole [METRONIDAZOLE] Allergy Unknown NA-NAUSEA/V Verified 12/07/23 13:52 OMITING morphine [MORPHINE] Allergy Unknown Agitated Verified 12/07/23 13:52 pentazocine [PENTAZOCINE] Allergy Unknown Agitated Verified 12/07/23 13:52 Exam (Inpt) Vital signs and Labs for Last 24 Hours: Temp Pulse Resp BP Pulse Ox O2 Del Method 98.0 F 52 L 16 131/60 98 Room Air 01/14/24 05:04 01/14/24 05:04 01/14/24 05:04 01/14/24 05:04 01/14/24 05:04 01/14/24 07:00 Laboratory Results - last 24 hr 01/13/24 16:59: WBC 7.9, RBC 4.20, Hgb 11.9 L, Hct 38.5, MCV 91.6, MCH 28.3, MCHC 30.9 L, RDW 14.3, Plt Count 357, MPV 8.4, Neut % (Auto) 67.7, Lymph % (Auto) 22.5, Glenn % (Auto) 7.7, Eos % (Auto) 1.3, Baso % (Auto) 0.9, Neut # (Auto) 5.3, Lymph # (Auto) 1.8, Glenn # (Auto) 0.6, Eos # (Auto) 0.1, Baso # (Auto) 0.1, Sodium 142, Potassium 5.3 H, Chloride 108 H, Carbon Dioxide 28, Anion Gap 11.3, BUN 30 H, Creatinine 1.40 H, Estimated Creat Clear 36, Estimated GFR 36 L, Est GFR ( Amer) 43 L, Glucose 84, Calcium 10.0, Total Bilirubin 0.4, AST 21, ALT 22, Alkaline Phosphatase 103, C-Reactive Protein 1.5, Total Protein 7.3, Albumin 4.4, Globulin 2.9, Albumin/Globulin Ratio 1.5 01/14/24 06:29: WBC 7.3, RBC 3.81 L, Hgb 10.8 L, Hct 34.4 L, MCV 90.4, MCH 28.4, MCHC 31.4 L, RDW 14.4, Plt Count 277, MPV 7.7, Neut % (Auto) 61.3, Lymph % (Auto) 27.6, Glenn % (Auto) 8.5, Eos % (Auto) 2.0, Baso % (Auto) 0.6, Neut # (Auto) 4.4, Lymph # (Auto) 2.0, Glenn # (Auto) 0.6, Eos # (Auto) 0.2, Baso # (Auto) 0.0, Sodium 142, Potassium 5.2 H, Chloride 110 H, Carbon Dioxide 26, Anion Gap 11.2, BUN 30 H, Creatinine 1.20 H, Estimated Creat Clear 43, Estimated GFR 43 L, Est GFR ( Amer) 52 L D, Glucose 101 H D, Calcium 9.7, Total Bilirubin 0.4, AST 19, ALT 18, Alkaline Phosphatase 94, Total Protein 6.1 L, Albumin 3.5 D, Globulin 2.6, Albumin/Globulin Ratio 1.3 I & O for Labs for Last 24 Hours: Intake & Output 01/11/24 01/12/24 01/13/24 01/14/24 11:59 11:59 11:59 11:59 Intake Total 500 / 500 Output Total 0 / 0 Balance 500 / 500 Weight 177 lb 8 oz Microbiology Reports for the Last 24 Hours: Microbiology 01/13/24 17:05 Leg,Left Gram Stain - Final Constitutional: no acute distress Respiratory: Absent respiratory distress Cardiac: Absent Tachycardia Comment:: Left lower extremity wound with significant granulation tissue and patchy areas of serous weeping . Currently without definitive purulent drainage. Erythematous blush but no spreading cellulitis noted currently. Results Labs 01/14/24 06:29 01/14/24 06:29 Labs: Laboratory Results - last 24 hr 01/13/24 16:59: WBC 7.9, RBC 4.20, Hgb 11.9 L, Hct 38.5, MCV 91.6, MCH 28.3, MCHC 30.9 L, RDW 14.3, Plt Count 357, MPV 8.4, Neut % (Auto) 67.7, Lymph % (Auto) 22.5, Glenn % (Auto) 7.7, Eos % (Auto) 1.3, Baso % (Auto) 0.9, Neut # (Auto) 5.3, Lymph # (Auto) 1.8, Glenn # (Auto) 0.6, Eos # (Auto) 0.1, Baso # (Auto) 0.1, Sodium 142, Potassium 5.3 H, Chloride 108 H, Carbon Dioxide 28, Anion Gap 11.3, BUN 30 H, Creatinine 1.40 H, Estimated Creat Clear 36, Estimated GFR 36 L, Est GFR ( Amer) 43 L, Glucose 84, Calcium 10.0, Total Bilirubin 0.4, AST 21, ALT 22, Alkaline Phosphatase 103, C-Reactive Protein 1.5, Total Protein 7.3, Albumin 4.4, Globulin 2.9, Albumin/Globulin Ratio 1.5 01/14/24 06:29: WBC 7.3, RBC 3.81 L, Hgb 10.8 L, Hct 34.4 L, MCV 90.4, MCH 28.4, MCHC 31.4 L, RDW 14.4, Plt Count 277, MPV 7.7, Neut % (Auto) 61.3, Lymph % (Auto) 27.6, Glenn % (Auto) 8.5, Eos % (Auto) 2.0, Baso % (Auto) 0.6, Neut # (Auto) 4.4, Lymph # (Auto) 2.0, Glenn # (Auto) 0.6, Eos # (Auto) 0.2, Baso # (Auto) 0.0, Sodium 142, Potassium 5.2 H, Chloride 110 H, Carbon Dioxide 26, Anion Gap 11.2, BUN 30 H, Creatinine 1.20 H, Estimated Creat Clear 43, Estimated GFR 43 L, Est GFR ( Amer) 52 L D, Glucose 101 H D, Calcium 9.7, Total Bilirubin 0.4, AST 19, ALT 18, Alkaline Phosphatase 94, Total Protein 6.1 L, Albumin 3.5 D, Globulin 2.6, Albumin/Globulin Ratio 1.3 Assessment and Plan *Assessment and plan (1) Infected wound: Status: Acute Category: Medical Code(s): T14.8XXA - Other injury of unspecified body region, initial encounter; L08.9 - Local infection of the skin and subcutaneous tissue, unspecified Plan: Significant improvement noted with antibiotic therapy (2) Cellulitis: Status: Acute Qualifiers: Site of cellulitis: extremity Site of cellulitis of extremity: lower extremity Laterality: left Qualified Code(s): L03.116 - Cellulitis of left lower limb Category: Medical Code(s): L03.90 - Cellulitis, unspecified Plan: Erythematous blush remains; however, spreading cellulitis essentially resolved. Plan No need for additional debridement at this time Continue local wound care (keep area clean and dry to the degree possible) Complete course of antibiotics as per primary service
[2024-01-14] MEDS: PANTOPRAZOLE 40MG TABLET 40 MG PO (09:23)
[2024-01-14] MEDS: MUPIROCIN 2% OINTMENT 22GM TUBE TP ×3 (09:23→21:17)
--- NOTE | 2024-01-14 11:01 | P.PN_ITS ---
Subjective *Date: 01/14/24 *Time: 11:08 Interval history: Patient feeling better this morning with her wound. Stable on room air. No chest pain or shortness of breath. No nausea or vomiting. Wound looking better after removal of bandage. Denies any fever. Medical Exam Vital signs and Labs for Last 24 Hours: Vital Signs Temp Pulse Pulse Resp BP BP Pulse Ox 01/14/24 08:58 01/14/24 08:00 01/14/24 07:00 01/14/24 05:04 98.0 F 52 L 16 131/60 98 01/14/24 05:00 01/14/24 03:00 01/14/24 01:00 01/13/24 23:00 01/13/24 21:00 01/13/24 20:03 98.3 F 65 16 143/86 H 92 L 01/13/24 20:00 01/13/24 19:45 98.5 F 65 18 143/86 H 01/13/24 19:30 56 L 143/86 H 98 01/13/24 19:01 54 L 153/58 H 94 L 01/13/24 18:32 55 L 108/76 L 99 01/13/24 18:01 53 L 127/50 L 97 01/13/24 17:02 59 L 110/44 L 97 01/13/24 17:02 110/44 L 01/13/24 16:49 64 137/52 L 94 L 01/13/24 16:47 65 163/124 H 96 01/13/24 16:41 98.5 F 68 18 137/52 L 96 O2 Del Method 01/14/24 08:58 Room Air 01/14/24 08:00 Room Air 01/14/24 07:00 Room Air 01/14/24 05:04 Room Air 01/14/24 05:00 Room Air 01/14/24 03:00 Room Air 01/14/24 01:00 Room Air 01/13/24 23:00 Room Air 01/13/24 21:00 Room Air 01/13/24 20:03 Room Air 01/13/24 20:00 Room Air 01/13/24 19:45 Room Air 01/13/24 19:30 01/13/24 19:01 Room Air 01/13/24 18:32 Room Air 01/13/24 18:01 Room Air 01/13/24 17:02 01/13/24 17:02 01/13/24 16:49 01/13/24 16:47 01/13/24 16:41 Room Air Intake and Output 01/13/24 01/14/24 01/14/24 23:59 07:59 15:59 Intake Total 500 / 500 Output Total 0 / 0 0 / 0 0 / 0 Balance 0 / 0 0 / 500 500 / 500 Intake: Intake, Oral Amount 500 / 500 Output: Output, Urine Amount 0 / 0 0 / 0 0 / 0 Other: Number of Unmeasured Voids 1 1 Weight 79.061 kg 80.513 kg 80.513 kg Patient Weight 01/14/24 23:59 Weight 80.513 kg Laboratory Results - last 24 hr 01/13/24 16:59: WBC 7.9, RBC 4.20, Hgb 11.9 L, Hct 38.5, MCV 91.6, MCH 28.3, MCHC 30.9 L, RDW 14.3, Plt Count 357, MPV 8.4, Neut % (Auto) 67.7, Lymph % (Auto) 22.5, Dickson % (Auto) 7.7, Eos % (Auto) 1.3, Baso % (Auto) 0.9, Neut # (Auto) 5.3, Lymph # (Auto) 1.8, Dickson # (Auto) 0.6, Eos # (Auto) 0.1, Baso # (Auto) 0.1, Sodium 142, Potassium 5.3 H, Chloride 108 H, Carbon Dioxide 28, Anion Gap 11.3, BUN 30 H, Creatinine 1.40 H, Estimated Creat Clear 36, Estimated GFR 36 L, Est GFR ( Amer) 43 L, Glucose 84, Calcium 10.0, Total Bilirubin 0.4, AST 21, ALT 22, Alkaline Phosphatase 103, C-Reactive Protein 1.5, Total Protein 7.3, Albumin 4.4, Globulin 2.9, Albumin/Globulin Ratio 1.5 01/14/24 06:29: WBC 7.3, RBC 3.81 L, Hgb 10.8 L, Hct 34.4 L, MCV 90.4, MCH 28.4, MCHC 31.4 L, RDW 14.4, Plt Count 277, MPV 7.7, Neut % (Auto) 61.3, Lymph % (Auto) 27.6, Dickson % (Auto) 8.5, Eos % (Auto) 2.0, Baso % (Auto) 0.6, Neut # (Auto) 4.4, Lymph # (Auto) 2.0, Dickson # (Auto) 0.6, Eos # (Auto) 0.2, Baso # (Auto) 0.0, Sodium 142, Potassium 5.2 H, Chloride 110 H, Carbon Dioxide 26, Anion Gap 11.2, BUN 30 H, Creatinine 1.20 H, Estimated Creat Clear 43, Estimated GFR 43 L, Est GFR ( Amer) 52 L D, Glucose 101 H D, Calcium 9.7, Total Bilirubin 0.4, AST 19, ALT 18, Alkaline Phosphatase 94, Total Protein 6.1 L, Albumin 3.5 D, Globulin 2.6, Albumin/Globulin Ratio 1.3 I & O for Labs for Last 24 Hours: Intake & Output 01/11/24 01/12/24 01/13/24 01/14/24 23:59 23:59 23:59 23:59 Intake Total 500 / 500 Output Total 0 / 0 0 / 0 Balance 0 / 0 500 / 500 Weight 79.061 kg 80.513 kg Microbiology Reports for the Last 24 Hours: Microbiology 01/13/24 17:05 Leg,Left Gram Stain - Final Constitutional: Present no acute distress, obese, chronically ill appearing and cooperative Head: Present atraumatic and normocephalic ENT: Present normal exam Respiratory: Present normal respiratory effort; Absent rhonchi, wheezes or crackles Cardiac: Present Reg Rate and Rhythm GI: Present soft and normal bowel sounds; Absent distention or tenderness Extremities: Present full ROM; Absent tenderness Comment:: Wound left ragland, healthy granulation tissue. No active purulent drainage Skin: Present intact and wounds (Left lower ragland, minimal drainage on bandage serosanguineous. No robin purulence. No foul smell after removal of bandage.); Absent erythema Neuro: Present Grossly Intact and moves all extremities Assessment and Plan *Assessment and plan (1) Cellulitis: Status: Acute Qualifiers: Laterality: left Site of cellulitis: extremity Site of cellulitis of extremity: lower extremity Qualified Code(s): L03.116 - Cellulitis of left lower limb Category: Medical Code(s): L03.90 - Cellulitis, unspecified (2) Infected wound: Status: Acute Category: Medical Code(s): T14.8XXA - Other injury of unspecified body region, initial encounter; L08.9 - Local infection of the skin and subcutaneous tissue, unspecified (3) Skin tear: Status: Acute Category: Medical (4) Diabetes type 2, controlled: Status: Acute Qualifiers: Diabetes mellitus ground transportation operator insulin use: without ground transportation operator use Diabetes mellitus complication status: with circulatory complication Diabetes mellitus complication detail: with peripheral angiopathy without gangrene Qualified Code(s): E11.51 - Type 2 diabetes mellitus with diabetic peripheral angiopathy without gangrene Category: Medical Code(s): E11.9 - Type 2 diabetes mellitus without complications (5) Hypertension, essential: Status: Acute Category: Medical Code(s): I10 - Essential (primary) hypertension (6) Peripheral neuropathy: Status: Chronic Qualifiers: Peripheral neuropathy type: polyneuropathy, unspecified Qualified Code(s): G62.9 - Polyneuropathy, unspecified Category: Medical Code(s): G62.9 - Polyneuropathy, unspecified (7) Hyperlipidemia: Status: Acute Qualifiers: Hyperlipidemia type: mixed hyperlipidemia Qualified Code(s): E78.2 - Mixed hyperlipidemia Category: Medical Code(s): E78.5 - Hyperlipidemia, unspecified Plan 88-year-old female who presented with worsening wound left lower leg that occurred within the past week after falling and injuring her leg on her walker. Seen in the ER, concern for failure of outpatient therapy and progressive cellulitis. Discussed case with ER physician, request admission for management. Medicine agreed to admit for IV antibiotics and surgical eval for possible debridement. Tolerating IV antibiotics. Showing improvement by this morning. Continuing IV antibiotics. Needs wound care eval in the morning. Problems addressed as follows: Cellulitis/infected wound - Continue IV vancomycin and Zosyn 3.375 g every 8 hours for cellulitis. Continue topical mupirocin. Dressing changes daily. Wound care evaluation in the morning. - Surgery evaluated today, discussed case with surgeon, no plan for debridement, seems to be responding to IV antibiotics. Diabetes: A1c pending. Appears to be controlled from previous A1c's, last 1 however 2 years ago at 6.1. Will resume metformin 500 mg daily. Sliding scale insulin with fingersticks ACHS. Morning glucose 101. Hypertension CAD Hyperlipidemia -Appears stable at this time, blood pressure 131/60 on morning rounds. Continue aspirin 81 mg daily, Lipitor 80 mg daily, carvedilol 6.25 mg twice daily, lisinopril 10 mg daily, Plavix 75 mg daily. Neuropathy: Continue gabapentin 300 mg twice daily Mood and neuropathy: Continue Cymbalta 60 mg twice daily History of falling at home, gets around with a walker. Will have therapy evaluate. DNR Regular diet
[2024-01-14 11:52] LABS: Hemoglobin A1C 6.1 % (4.0-6.0)
[2024-01-14 15:50] LABS: POC Glucose,Bedside 173 (70-110)
[2024-01-14] MEDS: humaLOG 100 UNITS/ML 10ML VIAL (SSI) SQ ×2 (16:00→21:16)
--- NOTE | 2024-01-14 16:33 | PC.NURSE ---
A&Ox4. Pt has wound on left ragland that is red and blistered, absent of purulent drainage and odor. Dressing changed once this shift. Pt c/o pain once this shift but was relieved with Tylenol. Pt up to bedside chair for meals with assistance x1 and has napped in between meals in the bed. Daughter is now at bedside. Bed alarm on, pt resting in bed comfortably with no complaints at this time.
[2024-01-14 20:00] VITALS: BP 161/58; PULSE 54; RESP 16; TEMP 36.7; O2SAT 97
[2024-01-14 20:25] LABS: POC Glucose,Bedside 166 (70-110)
[2024-01-14] MEDS: ATORVASTATIN 40MG TABLET 80 MG PO (21:15)
[2024-01-14] MEDS: GABAPENTIN 300MG CAPSULE 300 MG PO (21:16)
[2024-01-14] MEDS: CARVEDILOL 6.25MG TABLET 6.25 MG PO (21:16)
[2024-01-14] MEDS: DULOXETINE 30MG CAPSULE.DR 60 MG PO (21:16)
[2024-01-14] MEDS: VANCOMYCIN/WATER FOR INJ (PEG) 1.5 GM/300 ML PIGGYBACK IV (21:17)
[2024-01-15] MEDS: PIPERACILLIN/TAZO 3.375 GM in 0.9 % SODIUM CHLORIDE 50 ML IV ×2 (02:08→10:12)
[2024-01-15 04:00] VITALS: BP 175/81; PULSE 64; RESP 17; TEMP 36.6; O2SAT 95; BMI 31.6
--- NOTE | 2024-01-15 05:19 | PC.NURSE ---
Pt is A&OX4 and tolerating room air. Lung sounds clear throughout and bowel sounds active in all quadrants. Seropurulent drainage noted on wound to left lower extremity. Wound cleaned and bactroban and new dressing applied. Pt did complain of pain in left leg once this shift and was treated per MAR. No complaints at this time, call light within reach.
[2024-01-15 05:52] LABS: POC Glucose,Bedside 141 (70-110)
[2024-01-15 08:00] VITALS: BP 144/64; PULSE 62; RESP 18; TEMP 36; O2SAT 97
--- NOTE | 2024-01-15 08:18 | EXP.SURG.PN ---
Subjective Patient reports: no new complaints Exam Data for Last 24 hours Vital signs and Labs for Last 24 Hours: Temp Pulse Resp BP Pulse Ox O2 Del Method 97.8 F 64 17 175/81 H 95 Room Air 01/15/24 04:00 01/15/24 04:00 01/15/24 04:00 01/15/24 04:00 01/15/24 04:00 01/15/24 06:59 Laboratory Results - last 24 hr 01/14/24 06:29: Sodium 142, Potassium 5.2 H, Chloride 110 H, Carbon Dioxide 26, Anion Gap 11.2, BUN 30 H, Creatinine 1.20 H, Estimated Creat Clear 43, Estimated GFR 43 L, Est GFR ( Amer) 52 L D, Glucose 101 H D, Calcium 9.7, Total Bilirubin 0.4, AST 19, ALT 18, Alkaline Phosphatase 94, Total Protein 6.1 L, Albumin 3.5 D, Globulin 2.6, Albumin/Globulin Ratio 1.3 01/14/24 06:30: Hemoglobin A1c 6.1 H 01/14/24 15:35: POC Glucose 173 H 01/14/24 20:11: POC Glucose 166 H 01/15/24 05:45: POC Glucose 141 H I & O for Last 24 hours: Intake & Output 01/12/24 01/13/24 01/14/24 01/15/24 11:59 11:59 11:59 11:59 Intake Total 500 / 500 1240 / 1240 Output Total 0 / 0 0 / 0 Balance 500 / 500 1240 / 1240 Weight 177 lb 8 oz 178 lb 6.4 oz Microbiology Reports for the Last 24 Hours: Microbiology 01/13/24 17:05 Leg,Left Gram Stain - Final 01/13/24 17:05 Leg,Left Wound Culture - Preliminary 01/13/24 17:01 Blood Blood Culture - Preliminary NO GROWTH AFTER 24 HOURS 01/13/24 17:01 Blood Blood Culture - Preliminary NO GROWTH AFTER 24 HOURS Constitutional Constitutional: no acute distress *Routine Skin Exam Comments: LLE wound unchanged Progress Note: A&P Assessment and plan (1) Infected wound: Status: Acute Assessment and plan: Overall, the area is stable and has shown generalized improvement over the past 48 hours. No need for additional debridement at this time. Keep area clean and dry Continue antibiotics as per primary service
[2024-01-15 08:35] LABS: Basophils # 0.1 K/mm3 (0-0.2); Basophils % 0.8 % (0.1-2.0); Eosinophils # 0.1 K/mm3 (0.0-0.4); Eosinophils % 2.2 % (0.1-12.0); Hematocrit 37.3 % (37.0-47.0); Hemoglobin 11.3 g/dL (12.2-16.2); Lymphocytes # 1.6 K/mm3 (0.7-4.5); Lymphocytes % 25.9 % (10-50); Mean Corpuscular HGB Conc 30.3 g/dL (31.8-35.4); Mean Corpuscular Volume 92.3 fl (81-99); Mean Platelet Volume 8.5 fl (7.4-10.4); Monocytes # 0.5 K/mm3 (0.1-1.0); Monocytes % 8.6 % (1.7-9.3); Neutrophils # 3.9 K/mm3 (1.8-7.8); Neutrophils % 62.4 % (37.0-80.0); Platelet Count 303 K/mm3 (142-424); Red Blood Count 4.04 M/mm3 (4.20-5.40); Red Cell Distribution Width 14.4 % (11.5-17.5); White Blood Count 6.2 K/mm3 (4.8-10.8)
[2024-01-15 08:47] LABS: Alanine Aminotransferase 20 U/L (12-78); Albumin Level 3.7 g/dl (3.5-5.0); Albumin/Globulin Ratio 1.3 (1.1-1.8); Alkaline Phosphatase 79 U/L (38-126); Anion Gap 10.5 mEq/L (5-15); Aspartate Amino Transferase 20 U/L (14-36); Bilirubin,Total 0.4 mg/dl (0.2-1.3); Blood Urea Nitrogen 28 mg/dl (7-17); Calcium 9.4 mg/dl (8.4-10.2); Carbon Dioxide 27 mmol/L (22.0-30.0); Chloride 110 mmol/L (98-107); Creatinine Clearance Estimated 47 mL/min (50-200); Estimated Glomerular Filt Rate 47 ml/min (>60); GFR (African American) 57 ML/MIN (>60); Globulin 2.9 g/dL (1.3-3.2); Glucose 168 mg/dl (74-100); Potassium 4.5 mmoL/L (3.5-5.1); Sodium 143 mmol/L (136-145); Total Protein,Serum 6.6 g/dl (6.3-8.2)
[2024-01-15] MEDS: CARVEDILOL 6.25MG TABLET 6.25 MG PO (09:01)
[2024-01-15] MEDS: LISINOPRIL 10MG TABLET 10 MG PO (09:01)
[2024-01-15] MEDS: METFORMIN 500MG TABLET 500 MG PO (09:01)
[2024-01-15] MEDS: GABAPENTIN 300MG CAPSULE 300 MG PO (09:02)
[2024-01-15] MEDS: MUPIROCIN 2% OINTMENT 22GM TUBE TP (09:02)
[2024-01-15] MEDS: ASPIRIN EC 81MG TABLET 81 MG PO (09:02)
[2024-01-15] MEDS: CLOPIDOGREL 75MG TAB 75 MG PO (09:02)
[2024-01-15] MEDS: DULOXETINE 30MG CAPSULE.DR 60 MG PO (09:02)
[2024-01-15] MEDS: PANTOPRAZOLE 40MG TABLET 40 MG PO (09:02)
--- NOTE | 2024-01-15 09:51 | HMH.PTEV ---
Physical Therapy Evaluation Rehab PT IP Evaluation Start: 01/15/24 07:54 Freq: ONCE Status: Active Protocol: Document 01/15/24 09:42 DAMIAN (Rec: 01/15/24 09:51 DAMIAN [id number]) Subjective/History History History Per H&P: This elderly lady that uses a walker to ambulate fell in November. Caused a skin tear to the anterior left lower extremity, this was debrided by the ER physician. She was doing well with wound care and things seem to be improving until the last 48 hours. Subjective Subjective Pt reports she lives alone at the [facility] (no KAYLA). Pt normally uses rollator for IND household and community ambulation. Reports history of bad balance and falls. New diagnosis of cancer in past 12 No months? Rehab PT IP Eval Objective Appearance Patient Behavior Appropriate Patient Orientation Person Difficulty following instructions none Speech Pattern Clear Ambulation Patient Able to Ambulate Yes Ambulation Observation IP General Gait Pattern Observation No Deviations/Normal Ambulation Distance (feet) 30 Ambulation Assistive Device Rolling Walker Ambulation Ability Contact Guard/Hand Hold Balance Ability to Arise Able, uses arms to help Sitting Balance Steady, safe Standing Balance Steady, wide stance Transfers Bed Transfer Ability Supervision/Stand by Sit to Stand Bed Transfer Ability Contact Guard/Hand Hold Rehab PT IP prob,goals,plan Problems Date of Evaluation: 01/15/24 PT IP Problems Gait,Balance,Safety Rehab Potential Rehab Potential Good Equipment Needs Assistive Devices Rolling / Wheeled Walker Plan PT Intervention Plan Transfers,Gait,Balance,Safety, Therapeutic Exercise Other Intervention Plan 1-2 times PT Plan Frequency Daily Duration LOS Discharge Goals Bed Transfer Ability Independent Sit to Stand Chair Transfer Ability Independent Ambulation Assistive Device Rolling Walker Ambulation Distance (feet) 35 Discharge Plan PT Discharge Plan Initial physical therapy evaluation performed. Patient presents below baseline at this time in functional mobility, transfers, gait, and strength. Pt would benefit from skilled PT while at [facility] to prevent further functional decline and maximize safety with mobility. Pt safe to d/c home when deemed medically necessary d/t current level of mobility and home set-up. PT recommending home health PT services to address deficits. Eval Complexity Eval Charge Codes 68695 - Moderate Complexity PHYSICIAN CERTIFICATION: I certify the specified therapy services for Zoila Mahajancock are required, authorized, and reviewed every 30 days.
--- NOTE | 2024-01-15 10:35 | HMH.PTWOUND ---
Rehab Inpt Wound Evaluation Rehab IP Wound Evaluation Start: 01/14/24 11:07 Freq: ONCE Status: Active Protocol: Document 01/15/24 10:10 LIZZIE (Rec: 01/15/24 10:34 LIZZIE [id number]) Rehab PT Wound Assessment Subjective Subjective 88 yowf adm to [facility] with possibly infected L LE wound. Pt has been seen in outpatient wound clinic for this wound over the past 3-4 weeks. Wound initially due to fall with skin tear. Pt has hx of DM with neuropathy, CAD, STEMI, breast cancer with mastectomy. Wound Left Anterior [place] Wound Type Skin Tear Is This a Chronic Wound Yes Wound Length (cm) 4.9 Wound Width (cm) 1.3 Wound Depth (cm) 0.1 Wound Bed Appearance Beefy Red Percentage Granulated (%) 100 Wound Margins Description Well Defined Surrounding Tissue Appearance [place] Wound Drainage Description Serous Drainage Amount Small Drainage Odor No Odor Wound Topical Solution/Irrigant Saline Irrigant Primary Dressing Composite Comment bordered foam Wound Debridement Method Gauze,Mechanical Wound Debridement Amount of Tissue None Removed Dressing Change Patient Tolerance Tolerated Well Plan/Recommendation Comment Pt currently has no need for sharp, excisional debridement. No further need for inpatient PT wound care at this time. Nsg to change dressing every 1 -2 days as need. Recommend continued outpatient wound care once pt is d/c to home. Eval Complexity Eval Charge Codes 65206 - High Complexity PHYSICIAN CERTIFICATION: I certify the specified therapy services for Zoila Pedro are required, authorized, and reviewed every 30 days.
--- NOTE | 2024-01-15 11:07 | HMH.OTEV ---
OT Inpatient Evaluation Rehab OT IP Evaluation Start: 01/15/24 07:54 Freq: ONCE Status: Active Protocol: Document 01/15/24 11:00 CRISTINA (Rec: 01/15/24 11:07 [email or web address] [id number]) Rehab OT IP Assessment Subjective History 88-year-old female who presented with worsening wound left lower leg that occurred within the past week after falling and injuring her leg on her walker. Seen in the ER , concern for failure of outpatient therapy and progressive cellulitis. Discussed case with ER physician, request admission for management. Medicine agreed to admit for IV antibiotics and surgical eval for possible debridement. Continue IV antibiotics. Surgery to see her in the morning. Problems addressed as follows: Cellulitis/infected wound - Continue IV vancomycin and Zosyn 3.375 g every 8 hours for cellulitis. Continue topical mupirocin. Dressing changes daily. - Surgery consulted for evaluation. - White count normal at 7.9, CBC, CMP, magnesium ordered for the morning - Kidney function appears to be at patient's baseline with BUN 30, creatinine 1.4 Diabetes: A1c pending. Will resume metformin 500 mg daily. Sliding scale insulin with fingersticks ACHS. Morning glucose 101. Hypertension CAD Hyperlipidemia -Appears stable at this time. Continue aspirin 81 mg daily, Lipitor 80 mg daily, carvedilol 6.25 mg twice daily , lisinopril 10 mg daily, Plavix 75 mg daily. Neuropathy: Continue gabapentin 300 mg twice daily Mood and neuropathy: Continue Cymbalta 60 mg twice daily History of falling at home, gets around with a walker. Will have therapy evaluate. DNR Regular diet Subjective I can get up. Analysis Patient's ability to complete bed mobility supine-> sit @ EOB->stand with usage of rollator. Patient ambulated within facility ~25ft with CGA . No LOB noted. Objective Patient Orientation Person,Name,Age,Birthday,Year Right Upper Extremity Gross ROM WFL Left Upper Extremity Gross ROM WFL Bed Mobility bed mobility - supine/sit Assist Level Supervision/Stand by Transfer Training Sit/Stand/Pivot Transfer Assist Level Supervision/Stand by Chair Transfer Ability Supervision/Stand by Chair Transfer Technique Sit to/from Ambulatory Chair Transfer Assistive Devices Rolling Walker Rehab OT IP prob,goals,plan Problems Date of Evaluation: 01/15/24 OT IP Problems Bed Mobility,Transfers,Balance ,Self care,Safety Rehab Potential Rehab Potential Good Equipment Needs Assistive Devices Rolling / Wheeled Walker Plan OT intervention Plan Bed Mobility,Transfers,Balance ,Self care,Safety,Therapeutic Exercise OT Plan Frequency Daily Duration LOS Discharge Goals Bed Mobility Ability Independent Sit to Stand Chair Transfer Ability Independent Chair Transfer Ability Independent Chair Transfer Technique Sit to/from Ambulatory Chair Transfer Assistive Devices Rolling Walker Discharge Plan OT Discharge Plan Recommend patient to return home with services. Patient to continue skilled OT services while here at [facility]. Eval Complexity Eval Charge Codes 93888 - Low Complexity PHYSICIAN CERTIFICATION: I certify the specified therapy services for Zoila Pedro are required, authorized, and reviewed every 30 days.
[2024-01-15 11:43] LABS: POC Glucose,Bedside 107 (70-110)
--- NOTE | 2024-01-15 12:12 | P.DS_ITS ---
General Admission date:: 01/13/24 Discharge date: 01/15/24 HPI HPI HPI: This is an 88-year-old female seen in consultation from the primary service for evaluation regarding left lower extremity wound. She suffered soft tissue injury in November and underwent treatment in emergency department with subsequent wound care. She was progressing well until 2-3 days ago at which time she developed increased redness and purulent drainage. She has been started on antibiotics and states that it looks much better right now . Forwarded from admission H&P: This elderly lady that uses a walker to ambulate fell in November. Caused a skin tear to the anterior left lower extremity, this was debrided by the ER physician. She was doing well with wound care and things seem to be improving until the last 48 hours. Hospital Course Hospital Course Hospital Course: 88-year-old female who presented with worsening wound left lower leg that occurred within the past week after falling and injuring her leg on her walker. Seen in the ER, concern for failure of outpatient therapy and progressive cellulitis. Discussed case with ER physician, request admission for management. Medicine agreed to admit for IV antibiotics and surgical eval for possible debridement. Tolerating IV antibiotics. Showing improvement with treatment with antibiotics and dressing changes. Wound evaluated Monday by wound care who had been seeing her prior to admission, report that wound appears better than last week. Will transition to oral antibiotics and schedule close outpatient follow-up with wound care for further management. Problems addressed as follows: Cellulitis/infected wound -Initiated on IV vancomycin and Zosyn. Surgery consulted for possible debridement. Wound appearing better by the following morning after admission. Wound care consulted, recommend daily dressing changes. Will follow patient in the outpatient setting. Transitioned to oral Keflex to complete 5 days of therapy. No further debridement during admission. Wound appearing better. Continue oral and topical antibiotics. Dressing changes daily. Stable to discharge home with no further debridement at this time. Diabetes: A1c 6.1, Appears to be controlled from previous A1c's. Resume metformin 500 mg daily. Morning glucoses 100-170. Hypertension CAD Hyperlipidemia -Appears stable at this time, blood pressure controlled during admission. Continue aspirin 81 mg daily, Lipitor 80 mg daily, carvedilol 6.25 mg twice daily, lisinopril 10 mg daily, Plavix 75 mg daily. Neuropathy: Continue gabapentin 300 mg twice daily Mood and neuropathy: Continue Cymbalta 60 mg twice daily History of falling at home, gets around with a walker. At baseline function. Continue outpatient wound care. Exam Data for Last 24 hours Vital signs and Labs for Last 24 Hours: Temp Pulse Resp BP Pulse Ox O2 Del Method 96.8 F L 62 18 144/64 H 97 Room Air 01/15/24 08:00 01/15/24 08:00 01/15/24 08:00 01/15/24 08:00 01/15/24 08:00 01/15/24 09:00 Laboratory Results - last 24 hr 01/14/24 15:35: POC Glucose 173 H 01/14/24 20:11: POC Glucose 166 H 01/15/24 05:45: POC Glucose 141 H 01/15/24 07:04: WBC 6.2, RBC 4.04 L, Hgb 11.3 L, Hct 37.3, MCV 92.3, MCH 28.0, MCHC 30.3 L, RDW 14.4, Plt Count 303, MPV 8.5, Neut % (Auto) 62.4, Lymph % (Auto) 25.9, [place] % (Auto) 8.6, Eos % (Auto) 2.2, Baso % (Auto) 0.8, Neut # (Auto) 3.9, Lymph # (Auto) 1.6, [place] # (Auto) 0.5, Eos # (Auto) 0.1, Baso # (Auto) 0.1, Sodium 143, Potassium 4.5, Chloride 110 H, Carbon Dioxide 27, Anion Gap 10.5, BUN 28 H, Creatinine 1.10 H, Estimated Creat Clear 47, Estimated GFR 47 L, Est GFR ( Amer) 57 L, Glucose 168 H, Calcium 9.4, Magnesium 2.0, Total Bilirubin 0.4, AST 20, ALT 20, Alkaline Phosphatase 79, Total Protein 6.6, Albumin 3.7, Globulin 2.9, Albumin/Globulin Ratio 1.3 01/15/24 11:36: POC Glucose 107 I & O for Last 24 hours: Intake & Output 01/12/24 01/13/24 01/14/24 01/15/24 23:59 23:59 23:59 23:59 Intake Total 1290 / 1740 950 / 950 Output Total 0 / 0 0 / 0 0 / 0 Balance 0 / 0 1290 / 1740 950 / 950 Weight 79.061 kg 80.513 kg 80.921 kg Microbiology Reports for the Last 24 Hours: Microbiology 01/13/24 17:05 Leg,Left Gram Stain - Final 01/13/24 17:05 Leg,Left Wound Culture - Preliminary 01/13/24 17:01 Blood Blood Culture - Preliminary NO GROWTH AFTER 24 HOURS 01/13/24 17:01 Blood Blood Culture - Preliminary NO GROWTH AFTER 24 HOURS Constitutional Constitutional: no acute distress, obese and chronically ill appearing *Routine HEENT Exam Head: Present normocephalic and atraumatic Eye: Present EOMI and PERRL ENT: Present mucous membranes moist *Routine Neck Exam Neck: Present supple; Absent lymphadenopathy *Routine Respiratory Exam Respiratory: Present CTA bilaterally and respiratory distress; Absent rhonchi, wheezes or crackles *Routine Cardiovascular Exam Cardiovascular: Present RRR *Routine Abdominal Exam Abdominal: Present soft and normoactive bowel sounds; Absent tenderness *Routine Rectal Exam Patient deferred: visual exam *Routine Exam Patient deferred: external exam *Routine Extremities Exam Extremities: Absent cyanosis, clubbing or edema Comments: Left lower ragland with abrasion, has granulation tissue and signs of healing, minimal slough, beefy. improved erythema. *Routine Skin Exam Skin: Present intact and warm; Absent rash *Routine Neurological Exam Neurological: Present alert, oriented X3, sensory deficit (Bilateral LE) and moving all extremities; Absent altered mental status Results Data Completed and Pending Labs on day of discharge: Labs from last 24 hours 01/15/24 01/15/24 01/15/24 11:36 07:04 05:45 WBC 6.2 RBC 4.04 L Hgb 11.3 L Hct 37.3 MCV 92.3 MCH 28.0 MCHC 30.3 L RDW 14.4 Plt Count 303 MPV 8.5 Neut % (Auto) 62.4 Lymph % (Auto) 25.9 [place] % (Auto) 8.6 Eos % (Auto) 2.2 Baso % (Auto) 0.8 Neut # (Auto) 3.9 Lymph # (Auto) 1.6 [place] # (Auto) 0.5 Eos # (Auto) 0.1 Baso # (Auto) 0.1 Sodium 143 Potassium 4.5 Chloride 110 H Carbon Dioxide 27 Anion Gap 10.5 BUN 28 H Creatinine 1.10 H Estimated Creat Clear 47 Estimated GFR 47 L Est GFR ( Amer) 57 L Glucose 168 H POC Glucose 107 141 H Calcium 9.4 Magnesium 2.0 Total Bilirubin 0.4 AST 20 ALT 20 Alkaline Phosphatase 79 Total Protein 6.6 Albumin 3.7 Globulin 2.9 Albumin/Globulin Ratio 1.3 01/14/24 01/14/24 20:11 15:35 WBC RBC Hgb Hct MCV MCH MCHC RDW Plt Count MPV Neut % (Auto) Lymph % (Auto) [place] % (Auto) Eos % (Auto) Baso % (Auto) Neut # (Auto) Lymph # (Auto) [place] # (Auto) Eos # (Auto) Baso # (Auto) Sodium Potassium Chloride Carbon Dioxide Anion Gap BUN Creatinine Estimated Creat Clear Estimated GFR Est GFR ( Amer) Glucose POC Glucose 166 H 173 H Calcium Magnesium Total Bilirubin AST ALT Alkaline Phosphatase Total Protein Albumin Globulin Albumin/Globulin Ratio Preliminary micro results at discharge 01/13/24 17:05 Wound Culture - Preliminary Leg,Left 01/13/24 17:01 Blood Culture - Preliminary Blood NO GROWTH AFTER 24 HOURS 01/13/24 17:01 Blood Culture - Preliminary Blood NO GROWTH AFTER 24 HOURS DS: Diagnosis Discharge Diagnosis (1) Infected wound: Status: Acute Code(s): T14.8XXA - Other injury of unspecified body region, initial encounter; L08.9 - Local infection of the skin and subcutaneous tissue, unspecified Meds Home Medications and Allergies Home Medications ?Medication ?Instructions ?Recorded ?Confirmed ?Type metformin 500 mg tablet 500 mg PO DAILY Diabetes 12/07/20 01/13/24 History duloxetine 60 mg capsule,delayed 60 mg PO BID Mood 02/19/22 01/13/24 History release nitroglycerin 0.4 mg sublingual 0.4 mg sublingual Q5M PRN chest 03/28/23 01/13/24 Rx tablet pain #25 tabs aspirin 81 mg tablet,delayed 81 mg PO DAILY Blood Thinner #90 10/16/23 01/13/24 Rx release tabs carvedilol 6.25 mg tablet 6.25 mg PO BID High Blood Pressure 10/16/23 01/13/24 Rx #180 tabs clopidogrel 75 mg tablet 75 mg PO DAILY Blood Thinner #90 10/16/23 01/13/24 Rx tabs lisinopril 10 mg tablet 10 mg PO DAILY High Blood Pressure 10/16/23 01/13/24 Rx #90 tabs cholecalciferol (vitamin D3) 125 125 mcg PO DAILY 01/13/24 01/13/24 History mcg (5,000 unit) tablet (Vitamin D3) vit C 250 mg-vit E 90 mg-zinc 40 1 tab PO BID 01/13/24 01/13/24 History mg-copper 1 ex-tqoozf-dwtyub capsule (PreserVision AREDS-2) atorvastatin 80 mg tablet 80 mg PO HS 01/14/24 01/14/24 History gabapentin 300 mg capsule 300 mg PO TIDP PRN SEVERE LEG PAIN 01/14/24 01/14/24 History cephalexin 500 mg capsule 500 mg PO BID 5 days #10 caps 01/15/24 Rx mupirocin 2 % topical ointment 1 applic topical TID 7 days #0 01/15/24 Rx grams New Prescriptions to Start Prescriptions: cephalDillon Land Allergies Allergy/AdvReac Type Severity Reaction Status Date / Time hydromorphone [From DILAUDID] Allergy Intermediate Agitated Verified 12/07/23 13:52 metronidazole [METRONIDAZOLE] Allergy Unknown NA-NAUSEA/V Verified 12/07/23 13:52 OMITING morphine [MORPHINE] Allergy Unknown Agitated Verified 12/07/23 13:52 pentazocine [PENTAZOCINE] Allergy Unknown Agitated Verified 12/07/23 13:52 Discharge Plan Disposition Patient Disposition: Home, Self-Care Condition: Fair Follow up Plan Follow up with: Edilberto Montoya MD [Primary Care Provider] - 01/22/24 12:15 pm Prescriptions/Medication Reconciliation: New mupirocin 2 % Ointment 1 applic topical TID 7 Days Qty: 0 0RF Rx Instructions: send tube home with patient cephalexin 500 mg capsule 500 mg PO BID 5 Days Qty: 10 0RF Continued lisinopril 10 mg tablet 10 mg PO DAILY Qty: 90 3RF carvedilol 6.25 mg tablet 6.25 mg PO BID Qty: 180 3RF clopidogrel 75 mg tablet 75 mg PO DAILY Qty: 90 3RF aspirin 81 mg tablet,delayed release (DR/EC) 81 mg PO DAILY Qty: 90 3RF nitroglycerin 0.4 mg tablet, sublingual 0.4 mg sublingual Q5M PRN (Reason: chest pain) Qty: 25 3RF Rx Instructions: do not exceed 3 doses per episode duloxetine 60 mg capsule,delayed release(DR/EC) 60 mg PO BID Patient Comments: TAKE 1 CAPSULE BY MOUTH TWICE DAILY FOR 90 DAYS cholecalciferol (vitamin D3) [Vitamin D3] 125 mcg (5,000 unit) Tablet 125 mcg PO DAILY PreserVision AREDS-2 250-90-40-1 mg Capsule 1 tab PO BID atorvastatin 80 mg tablet 80 mg PO HS Patient Comments: TAKE ONE TABLET BY MOUTH EVERY DAY FOR cholesterol gabapentin 300 mg capsule 300 mg PO TIDP PRN (Reason: SEVERE LEG PAIN) Patient Comments: TAKE ONE CAPSULE BY MOUTH THREE TIMES DAILY NEEDED FOR SEVERE LEG PAIN MAY CAUSE DROWSINESS metformin 500 MG tablet 500 mg PO DAILY Other Ambulatory Orders: Rehab Eval, OP (Routine) Timeframe: 2 Days Facility: [facility] - Location: Physical Therapy Ordered By: Dillon Goodson Problem Reconciliation Problems Reviewed?: Yes Patient Discharge Instructions ACTIVITY: Continue current activity DIET: continue same diet Patient Instructions: DI for Cellulitis -- Adult Print Language: Nepali Providers Primary Care Provider: Edilberto Montoya Admit Provider: Dillon Goodson Attending Provider: Dillon Goodson
--- NOTE | 2024-01-17 12:33 | SW/DCPLANNER ---
Follow up phone call: patient stated that she is doing well at home and does not have any needs at this time. Patient is aware of scheduled follow up appointment w/ PCP.
== END 2024-01-15 13:25 | disposition home or self-care (01) ==
LOC: ER 19:26 → 2ND 20:15
PROVIDERS: Nurse Practitioner Family; Admitting Provider Internal Medicine Adolescent Medicine; Emergency Provider Emergency Medicine; PCP Internal Medicine Adolescent Medicine; Visit Provider Internal Medicine Adolescent Medicine
DX: S89.92XA Unspecified injury of left lower leg, initial encounter (principal); L08.9 Local infection of the skin and subcutaneous tissue, unspecified; L03.116 Cellulitis of left lower limb; R52 Pain, unspecified; E11.51 Type 2 diabetes mellitus with diabetic peripheral angiopathy without gangrene; I10 Essential (primary) hypertension; G62.9 Polyneuropathy, unspecified; E78.2 Mixed hyperlipidemia; I25.10 Atherosclerotic heart disease of native coronary artery without angina pectoris; Z79.899 Other long term (current) drug therapy; Z79.84 Long term (current) use of oral hypoglycemic drugs
CPT/HCPCS: 36415; 73701; 80053; 82962; 83036; 83735; 85025; 86140; 87040; 87070; 87077; 87186; 87205; 97162; 97165; 99285; G0378; J0131; J2543; J7120; Q9967

== ENCOUNTER 2024-01-23 13:00 | Outpatient (RCR) | payer MEDICARE, SELFPAY ==
--- NOTE | 2023-12-21 16:57 | HMH.PTOPWND ---
Rehab Outpt Wound Evaluation Rehab OP Wound Evaluation Start: 12/21/23 16:41 Freq: Status: Active Protocol: Document 12/21/23 16:41 LIZZIE (Rec: 12/21/23 16:55 PHORTHEODORE [id number]) E-signed By Ozzy Mckinney, PT Subjective/History History History This is the initial PT wound care evaluation for Zoila Watters, 88 yowf who presents with L anterior kennedy wound present x ~ 2 wks after suffering a skin tear when she fell onto her walker. She has severe B LE diabetic neuropathy resulting in decreased balance with hx of multiple falls. She reports increased pain in the L kennedy, currently 4/10. She has PMH of HTN, DM, MO x 2 with 4 cardiac stents and 1 renal artery stent. Subjective Subjective Currently pain is 4/10 in the L lower leg. Minimal robert- wound erythema noted. Serous drainage and healthy wound bed noted. New diagnosis of cancer in past 12 No months? Wound Eval Wound Left Anterior Kennedy Wound Type Skin Tear Is This a Chronic Wound Yes Wound Length (cm) 8.3 Wound Width (cm) 4.5 Wound Depth (cm) 0.1 Wound Bed Appearance Beefy Red,Yellow Percentage Granulated (%) 90 Percentage of Slough (%) 10 Wound Margins Description Well Defined Surrounding Tissue Appearance [place] Edema Type Pitting Edema Degree 2+ Query Text:1+ Trace, Barely Detectable, Rebound 15-30 seconds 2+ Moderate, Slight Indentation, Rebound 10-20 seconds 3+ Deep, Deeper Indentation, Rebound > 30 seconds 4+ Very Deep, Rebound > 60 seconds Drainage Description Serous Drainage Amount Moderate Drainage Odor No Odor Packing Type Collagen Comment puracol Primary Dressing Composite Comment optifoam gentle SA Wound Secondary Dressing Type Gauze Roll/Wrap,Adhering Gauze Roll Comment coflex 2-layer comp system Wound Debridement Method Sharps,Forceps,Gauze, Mechanical Wound Debridement Amount of Tissue Moderate Removed Dressing Change Patient Tolerance Tolerated Well Crews-Dominguez Wound Assessment Tool Assessment Wound size 4=Length x Width 36.1--<80 sq cm Wound depth 2=Partial thickness skin loss involving epidermis &/or dermis Wound edges 2=Distinct, outline clearly visible, attached, even with wound base Wound undermining 1=None present Necrotic tissue type 2=White/presley non-viable tissue &/or non-adherent yellow slough Necrotic tissue amount 3=25% to 50% of wound covered Exudate type 4=Serous: thin, watery, clear Exudate amount 4=Moderate Skin color surrounding wound 1=[place] or normal for ethnic group Peripheral tissue edema 4=Pitting edema extends <4 cm around wound Peripheral tissue induration 1=None present Granulation tissue 3=Bright, beefy red; <75% & > 25% of wound filled Epithelialization 5= < 25% wound covered Wound assessment total score 36 Wound Problems/Impairments Impairments Problems/Impairmments Palpation Tenderness,Increased Edema,Lymphedema Present, Wound Care Needs,Subjective C/ O Pain,Impaired Self Care/Self Management Prognosis Rehab Potential Good Comment Skilled therapy is necessary to reduce overall wound size and aid pt return to prior level of function. Clinical Impression Consistent with Diagnosis Yes Short Term Goals Number of Weeks 4 Decreased Palpation Tenderness Yes: 1/4 L kennedy Decrease Wound Area Yes: by 25% Decrease Subjective C/O Pain Yes: 3/10 L LE Search Marketing Specialist Goals Number of Weeks 8 Decreased Palpation Tenderness Yes: 0/4 L kennedy Improve Ability For Household Care Yes: without pain Decrease Wound Area Yes: by 75% Decrease Subjective C/O Pain Yes: 1/10 L LE Patient to be Ind w/ Home Wound Care/ Yes Dressing Changes Outpatient Therapy Plan of Care Treatment Plan May Include Therapeutic Exercise Including Home Yes Exercise Program Manual Therapy Techniques Yes Neuromuscular Re-education Yes Therapeutic Activities to Return to Yes Previous Functional/Work Level ADL/Self Care Education Yes Orthotics/Bracing/Splinting Yes Manual Lymphatic Drainage Yes Wound Care Yes Eval/Re-Eval Yes Frequency Times per week 2 Duration Number of Weeks 8 Addendums This patient is a candidate for social No or vocational rehab? Patient/Guardian verbally acknowledges Yes understanding of treatment program and consents to further treatment? Patient/Guardian verbally acknowledges Yes understanding of diagnosis, prognosis and goals for treatment? Eval Complexity PT Charges 65882 - High Complexity PHYSICIAN CERTIFICATION: I certify the specified therapy services for Zoila Pedro are required, authorized, and reviewed every 30 days.
== END 2024-01-23 13:05 | disposition home or self-care (01) ==
LOC: PT 13:00
PROVIDERS: Visit Provider Internal Medicine Adolescent Medicine
DX: M79.662 Pain in left lower leg (principal); S81.802A Unspecified open wound, left lower leg, initial encounter
CPT/HCPCS: 97597; 97140; 97163; 97598

== ENCOUNTER 2024-03-30 12:15 | Emergency (ER) | payer MEDICARE, SELFPAY ==
--- NOTE | 2024-03-30 12:21 | XR_ITS ---
PROCEDURE INFORMATION: Exam: XR Right Foot Exam date and time: 03/30/2024 12:16 PM Age: 88 years old Clinical indication: Injury or trauma; Fall; Blunt trauma; Foot; Right TECHNIQUE: Imaging protocol: Radiologic exam of the right foot. Views: 3 or more views. COMPARISON: CR XR FOOT RT MIN 3V 09/11/2023 4:11 PM FINDINGS: Bones/joints: Lucency in the proximal aspect of the 5th metatarsal may represent nondisplaced fracture . Degenerative changes in the tarsal bones Soft tissues: Soft tissue swelling adjacent to the fracture IMPRESSION: Lucency in the proximal aspect of the 5th metatarsal may represent nondisplaced fracture .
--- NOTE | 2024-03-30 12:21 | XR_ITS ---
PROCEDURE INFORMATION: Exam: XR Right Ankle Exam date and time: 03/30/2024 12:18 PM Age: 88 years old Clinical indication: Injury or trauma; Fall; Blunt trauma; Ankle; Right TECHNIQUE: Imaging protocol: Radiologic exam of the right ankle. Views: 3 or more views. COMPARISON: CR XR FOOT RT MIN 3V 03/30/2024 12:16 PM FINDINGS: Bones/joints: Sliver of bone adjacent to the medial malleolus may represent acute or chronic avulsion fracture.. Soft tissues: Minimal soft tissue swelling of the ankle IMPRESSION: Sliver of bone adjacent to the medial malleolus may represent acute or chronic avulsion fracture..
[2024-03-30 12:43] VITALS: BP 174/59; PULSE 62; RESP 20; TEMP 36.6; O2SAT 97; BMI 28.3
--- NOTE | 2024-03-30 12:50 | EXP.UTC ---
Discharge Plan Disposition Patient Disposition: Home, Self-Care Condition: Good Prescriptions Prescriptions: No Action lisinopril 10 mg tablet 10 mg PO DAILY Qty: 90 3RF carvedilol 6.25 mg tablet 6.25 mg PO BID Qty: 180 3RF clopidogrel 75 mg tablet 75 mg PO DAILY Qty: 90 3RF aspirin 81 mg tablet,delayed release (DR/EC) 81 mg PO DAILY Qty: 90 3RF levofloxacin 500 mg tablet PO Patient Comments: TAKE ONE TABLET BY MOUTH EVERY DAY FOR 7 DAYS -- FINISH ALL MEDICINE -- nitroglycerin 0.4 mg tablet, sublingual 0.4 mg sublingual Q5M PRN (Reason: chest pain) Qty: 25 3RF Rx Instructions: do not exceed 3 doses per episode duloxetine 60 mg capsule,delayed release(DR/EC) 60 mg PO BID Patient Comments: TAKE 1 CAPSULE BY MOUTH TWICE DAILY FOR 90 DAYS cholecalciferol (vitamin D3) [Vitamin D3] 125 mcg (5,000 unit) Tablet 125 mcg PO DAILY PreserVision AREDS-2 250-90-40-1 mg Capsule 1 tab PO BID atorvastatin 80 mg tablet 80 mg PO HS Patient Comments: TAKE ONE TABLET BY MOUTH EVERY DAY FOR cholesterol gabapentin 300 mg capsule 300 mg PO TIDP PRN (Reason: SEVERE LEG PAIN) Patient Comments: TAKE ONE CAPSULE BY MOUTH THREE TIMES DAILY NEEDED FOR SEVERE LEG PAIN MAY CAUSE DROWSINESS mupirocin 2 % Ointment 1 applic topical TID 7 Days Qty: 0 0RF Rx Instructions: send tube home with patient cephalexin 500 mg capsule 500 mg PO BID 5 Days Qty: 10 0RF metformin 500 MG tablet 500 mg PO DAILY Referrals Follow up/Referrals: Edilberto Montoya MD [Primary Care Provider] - See instructions Activity Restrictions/Add. Instructions Additional Instructions/Restrictions: Follow-up with podiatry call Monday for an appointment Walking boot rest Ice with cold pack for 20 minutes remove may repeat for comfort every hour walking boot for support and swelling.Be sure not too tight but not to lose either Elevate with ankle above your heart as much as possible to help reduce swelling and therefore pain Ibuprofen every 6 hours as needed for pain or inflammation. If needs something more you can take Tylenol every 4 hours as needed as long as her primary care has told he was okayed for you to take both. Follow-up immediately if new or worsening symptoms or no noticeable improvement over the next 3-5 days. Clinical Impressions Clinical Impression: Metatarsal fracture, Avulsion fracture of medial malleolus Instructions Patient Instructions: DI for Toe Fracture, DI for Avulsion Fracture Print Language Print Language: Mohawk Discharge ED Provider: Usha ([facility])Azul [facility] HPI General Stated complaint: Ao-03/29/241999-Fall, pain in R foot Mode of Arrival: Ambulatory Source of Information: Patient Time Seen by Provider: 03/30/24 12:50 Description of Symptoms (Recalled from Triage Doc. by RN): FELL AND TWISTED ANKLE HEENT Symptoms (Recalled from RN notes): No Resp Symptoms (Recalled from RN notes): No Skin Symptoms (Recalled from RN notes): No MS Symptoms (Recalled from RN notes): Yes Functional Status (Recalled from RN notes): WNL History of Present Illness Provider Complaint: 88-year-old female presents for right foot pain. Patient states she fell over the mop bucket last night now having pain and swelling in the ankle and the lateral side of the foot. Patient states painful for walking Related Data Home Medications ?Medication ?Instructions ?Recorded ?Confirmed metformin 500 mg tablet 500 mg PO DAILY Diabetes 12/07/20 03/07/24 duloxetine 60 mg capsule,delayed 60 mg PO BID Mood 02/19/22 03/07/24 release cholecalciferol (vitamin D3) 125 125 mcg PO DAILY 01/13/24 03/07/24 mcg (5,000 unit) tablet (Vitamin D3) vit C 250 mg-vit E 90 mg-zinc 40 1 tab PO BID 01/13/24 03/07/24 mg-copper 1 fl-jwyowk-mnoizy capsule (PreserVision AREDS-2) atorvastatin 80 mg tablet 80 mg PO HS 01/14/24 03/07/24 gabapentin 300 mg capsule 300 mg PO TIDP PRN SEVERE LEG PAIN 01/14/24 03/07/24 levofloxacin 500 mg tablet mg PO 03/07/24 03/07/24 Previous Rx's ?Medication ?Instructions ?Recorded nitroglycerin 0.4 mg sublingual 0.4 mg sublingual Q5M PRN chest 03/28/23 tablet pain #25 tabs aspirin 81 mg tablet,delayed 81 mg PO DAILY Blood Thinner #90 10/16/23 release tabs carvedilol 6.25 mg tablet 6.25 mg PO BID High Blood Pressure 10/16/23 #180 tabs clopidogrel 75 mg tablet 75 mg PO DAILY Blood Thinner #90 10/16/23 tabs lisinopril 10 mg tablet 10 mg PO DAILY High Blood Pressure 10/16/23 #90 tabs cephalexin 500 mg capsule 500 mg PO BID 5 days #10 caps 01/15/24 mupirocin 2 % topical ointment 1 applic topical TID 7 days #0 01/15/24 grams Allergies Allergy/AdvReac Type Severity Reaction Status Date / Time hydromorphone [From DILAUDID] Allergy Intermediate Agitated Verified 03/07/24 14:06 metronidazole [METRONIDAZOLE] Allergy Unknown NA-NAUSEA/V Verified 03/07/24 14:06 OMITING morphine [MORPHINE] Allergy Unknown Agitated Verified 03/07/24 14:06 pentazocine [PENTAZOCINE] Allergy Unknown Agitated Verified 03/07/24 14:06 Worker's Comp Is this a Worker's Comp case?: No [facility] Disclaimer: The information contained in this section may have been updated after the patient was seen, as this information can be updated by other users. 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) Urinary tract infection Osteoarthritis Breast cancer Fatigue Hyperkalemia Unstable angina Rotator cuff tear, right Rotator cuff (capsule) sprain Peripheral arterial disease Renal artery stenosis Peripheral neuropathy Hyperlipidemia Neuropathy History of heart attack Diabetes mellitus, type 2 Coronary atherosclerosis of [place] coronary artery STEMI (ST elevation myocardial infarction) Shingles Hypertension Hypertension Surgical History , EQUIPMENT DETAILER) H/O cervical discectomy H/O laminectomy H/O total mastectomy History of heart artery stent History of cardiac catheterization History of mastectomy Hx of cervical spine surgery History of knee replacement History of hysterectomy Family History , EQUIPMENT DETAILER) Dementia Mother Family history of myocardial infarction Father Social History , EQUIPMENT DETAILER) Smoking Status: Former smoker tobacco type: cigarettes packs per day: 1 years smoked: 40 second hand exposure: No alcohol intake: never substance use type: denies use current occupational status: retired Travel in the last 8 weeks: None adopted: No caregiver/support person: Yes foster care: No household members: family housing: house marital status: education level: college current occupational exposures/hazards: No caffeine: Yes (coffee) tia/mormon: Restoration ROS Obtained: Yes Systems reviewed as appropriate & no additional complaints except as documented Musculoskeletal Musculoskeletal: Reports system reviewed and no additional complaints, except as documented, Reports as per HPI, Reports arthralgias, Reports joint swelling and Reports limited range of motion Physical Exam General General appearance: alert and in no apparent distress Respiratory Respiratory exam: Present normal lung sounds bilaterally Cardiovascular Cardiovascular exam: Present regular rate and normal rhythm Expanded Lower Extremity Exam Right: Ankle image: 1. Tender and swelling 2. Tender and swelling Neurological Exam Neurological exam: Present alert and oriented X3 Medical Decision Making Medical Records Medical records reviewed: Yes I reviewed the patient's medical records. Screening: Per USPSTF and CDC recommendations, given the prevalence of disease in our region, it is our hospital?s policy to screen for HIV and viral Hepatitis for all patients aged 18 and over and those with ongoing risk factors. Wiley Inquiry Pt receiving controlled substance: No Wiley was queried for this patient: No Vital Signs: 03/30/24 12:43 Temperature 97.9 F Temperature Source Oral Pulse Rate [Left Brachial] 62 Respiratory Rate 20 Blood Pressure [Left Arm] 174/59 H Blood Pressure Mean [Left Arm] 97 02 Sat by Pulse Oximetry 97 Orders (Tests/Meds): ORDERS Category Date Time Status Ankle XR -Right minimum 3 Views [XR ankle RT min 3V] Exams 03/30/24 12:21 Taken Stat XR foot RT min 3V Stat Exams 03/30/24 12:21 Taken
[2024-03-30 13:42] VITALS: BP 174/59; PULSE 62; RESP 20; TEMP 36.6
== END 2024-03-30 13:48 | disposition home or self-care (01) ==
PROVIDERS: Emergency Provider Nurse Practitioner Family; PCP Internal Medicine Adolescent Medicine
DX: S92.314A Nondisplaced fracture of first metatarsal bone, right foot, initial encounter for closed fracture (principal); W01.0XXA Fall on same level from slipping, tripping and stumbling without subsequent striking against object, initial encounter
CPT/HCPCS: 73610; 73630; 99213; G0381

== ENCOUNTER 2024-04-15 19:36 | Emergency (ER) | payer MEDICARE, SELFPAY ==
[2024-04-15 19:37] VITALS: BP 168/82; PULSE 63; RESP 20; TEMP 36.6; O2SAT 98; BMI 28.3
--- NOTE | 2024-04-15 20:12 | PC.NURSE ---
Dr. Ackerman at bedside
--- NOTE | 2024-04-15 20:43 | ED_ITS ---
Discharge Plan Disposition Patient Disposition: Home, Self-Care Chief Complaint: Wound/Laceration Prescriptions Prescriptions: No Action lisinopril 10 mg tablet 10 mg PO DAILY Qty: 90 3RF carvedilol 6.25 mg tablet 6.25 mg PO BID Qty: 180 3RF clopidogrel 75 mg tablet 75 mg PO DAILY Qty: 90 3RF levofloxacin 500 mg tablet PO Patient Comments: TAKE ONE TABLET BY MOUTH EVERY DAY FOR 7 DAYS -- FINISH ALL MEDICINE -- nitroglycerin 0.4 mg tablet, sublingual 0.4 mg sublingual Q5M PRN (Reason: chest pain) Qty: 25 3RF Rx Instructions: do not exceed 3 doses per episode aspirin 81 mg tablet,delayed release (DR/EC) 81 mg PO DAILY Qty: 90 3RF duloxetine 60 mg capsule,delayed release(DR/EC) 60 mg PO BID Patient Comments: TAKE 1 CAPSULE BY MOUTH TWICE DAILY FOR 90 DAYS cholecalciferol (vitamin D3) [Vitamin D3] 125 mcg (5,000 unit) Tablet 125 mcg PO DAILY PreserVision AREDS-2 250-90-40-1 mg Capsule 1 tab PO BID atorvastatin 80 mg tablet 80 mg PO HS Patient Comments: TAKE ONE TABLET BY MOUTH EVERY DAY FOR cholesterol gabapentin 300 mg capsule 300 mg PO TIDP PRN (Reason: SEVERE LEG PAIN) Patient Comments: TAKE ONE CAPSULE BY MOUTH THREE TIMES DAILY NEEDED FOR SEVERE LEG PAIN MAY CAUSE DROWSINESS mupirocin 2 % Ointment 1 applic topical TID 7 Days Qty: 0 0RF Rx Instructions: send tube home with patient cephalexin 500 mg capsule 500 mg PO BID 5 Days Qty: 10 0RF metformin 500 MG tablet 500 mg PO DAILY Referrals Follow up/Referrals: Edilberto Montoya MD [Primary Care Provider] - See instructions Activity Restrictions/Add. Instructions Additional Instructions/Restrictions: As discussed please keep triple antibiotic ointment on your wound and keep it covered with an occlusive dressing changing dressings twice a day after cleaning with soap and water. Return with any spreading redness pus coming from the wound high fevers or other concerns. Clinical Impressions Clinical Impression: Avulsion of skin of left lower leg Instructions Patient Instructions: DI for Laceration Repair Print Language Print Language: Kazakh Discharge ED Provider: Stephie Ackerman General Adult HPI General Chief complaint: Wound/Laceration Stated complaint: AO fall 04/15 @1800, left leg lac Time Seen by Provider: 04/15/24 19:42 Mode of Arrival: Family Vehicle Source of Information: Patient, Relative and Medical Record Limitations: No Limitations Description of Symptoms (Recalled from ER Triage Doc. by RN): Pt presents to ER after falling @ 1900 today. She has a walking boot to her RLE d/t a fx in this foot she sustained 1 wk ago, and states while walking to bed she tripped and during her fall the toe of the walking boot cut into her RLE medial RLE. She is on Eliquis. She has frequent falls d/t severe neuropathy her feet. History of Present Illness HPI narrative: Patient is an 89-year-old who presents today with a tissue avulsion on the left lower extremity. She was recently diagnosed with a base of the fifth metatarsal fracture and a medial malleolar fracture and placed in a walking boot. She states that she tripped and that her walking boot actually caused a tissue avulsion on the contralateral leg. Related Data Home Medications ?Medication ?Instructions ?Recorded ?Confirmed metformin 500 mg tablet 500 mg PO DAILY Diabetes 12/07/20 04/04/24 duloxetine 60 mg capsule,delayed 60 mg PO BID Mood 02/19/22 04/04/24 release cholecalciferol (vitamin D3) 125 125 mcg PO DAILY 01/13/24 04/04/24 mcg (5,000 unit) tablet (Vitamin D3) vit C 250 mg-vit E 90 mg-zinc 40 1 tab PO BID 01/13/24 04/04/24 mg-copper 1 [id number] capsule (PreserVision AREDS-2) atorvastatin 80 mg tablet 80 mg PO HS 01/14/24 04/04/24 gabapentin 300 mg capsule 300 mg PO TIDP PRN SEVERE LEG PAIN 01/14/24 04/04/24 levofloxacin 500 mg tablet mg PO 03/07/24 04/04/24 Previous Rx's ?Medication ?Instructions ?Recorded nitroglycerin 0.4 mg sublingual 0.4 mg sublingual Q5M PRN chest 03/28/23 tablet pain #25 tabs carvedilol 6.25 mg tablet 6.25 mg PO BID High Blood Pressure 10/16/23 #180 tabs clopidogrel 75 mg tablet 75 mg PO DAILY Blood Thinner #90 10/16/23 tabs lisinopril 10 mg tablet 10 mg PO DAILY High Blood Pressure 10/16/23 #90 tabs cephalexin 500 mg capsule 500 mg PO BID 5 days #10 caps 01/15/24 mupirocin 2 % topical ointment 1 applic topical TID 7 days #0 01/15/24 grams aspirin 81 mg tablet,delayed 81 mg PO DAILY Blood Thinner #90 04/01/24 release tabs Allergies Allergy/AdvReac Type Severity Reaction Status Date / Time hydromorphone [From DILAUDID] Allergy Intermediate Agitated Verified 04/04/24 14:52 metronidazole [METRONIDAZOLE] Allergy Unknown NA-NAUSEA/V Verified 04/04/24 14:52 OMITING morphine [MORPHINE] Allergy Unknown Agitated Verified 04/04/24 14:52 pentazocine [PENTAZOCINE] Allergy Unknown Agitated Verified 04/04/24 14:52 [facility] Disclaimer: The information contained in this section may have been updated after the patient was seen, as this information can be updated by other users. Medical History (Updated 04/15/24 @ 20:41 by Stephie Ackerman MD) Ankle fracture, right Urinary tract infection Osteoarthritis Breast cancer Fatigue Hyperkalemia Unstable angina Rotator cuff tear, right Rotator cuff (capsule) sprain Peripheral arterial disease Renal artery stenosis Peripheral neuropathy Hyperlipidemia Neuropathy History of heart attack Diabetes mellitus, type 2 Coronary atherosclerosis of hoh coronary artery STEMI (ST elevation myocardial infarction) Shingles Hypertension Hypertension Surgical History H/O cervical discectomy H/O laminectomy H/O total mastectomy History of heart artery stent History of cardiac catheterization History of mastectomy Hx of cervical spine surgery History of knee replacement History of hysterectomy Family History Mother Dementia Father Family history of myocardial infarction Social History Smoking Status: Former smoker tobacco type: cigarettes packs per day: 1 years smoked: 40 second hand exposure: No alcohol intake: never substance use type: denies use current occupational status: retired Travel in the last 8 weeks: None adopted: No caregiver/support person: Yes foster care: No household members: family housing: house marital status: education level: college current occupational exposures/hazards: No caffeine: Yes (coffee) tia/moravian: Quaker Other Medical History Have you received the Flu Vaccine for this season: No Have you received the Pneumonia Vaccine: Yes ROS Obtained: Yes All systems reviewed & no additional complaints except as documented Physical Exam General General appearance: alert and in no apparent distress Respiratory Respiratory exam: Present normal lung sounds bilaterally Cardiovascular Cardiovascular exam: Present regular rate Extremities Exam Extremities exam: Present other (Base of the fifth right metatarsal tender also medial malleolar tenderness there is a 5 x 5 cm area of tissue avulsion on the anterior left lower extremity with very superficial friable thin tissue associated with this that appears to be a vascular) Neurological Exam Neurological exam: Present alert and oriented X3 Medical Decision Making Medical Records Screening: Per USPSTF and CDC recommendations, given the prevalence of disease in our region, it is our hospital?s policy to screen for HIV and viral Hepatitis for all patients aged 18 and over and those with ongoing risk factors. Wiley Inquiry Pt receiving controlled substance: No Vital Signs: 04/15/24 19:37 Temperature 97.9 F Temperature Source Oral Pulse Rate [Right] 63 Respiratory Rate 20 Blood Pressure [Right Arm] 168/82 H Blood Pressure Mean [Right Arm] 110 Blood Pressure Source [Right Arm] Automatic Cuff 02 Sat by Pulse Oximetry 98 Oxygen Delivery Method Room Air Orders (Tests/Meds): ED MEDICATIONS Discontinued Medications Generic Name Dose Route Start Last Admin Trade Name Og PRN Reason Stop Dose Admin Lidocaine/Epinephrine 10 ml 04/15/24 20:12 Lidocaine 2% W/Epi 1:100,000 20ml Vial IJ 04/15/24 20:13 ONCE ONE Medical Decision Narrative: 89-year-old with above history and physical. Her tissue avulsion was largely avascular and the tissue was so thin that it would not be able to be able to hold sutures and therefore the decision was made with shared decision making with the patient to go ahead and debride this tissue and to let the wound heal by secondary intention. Please see procedure note. Occlusive dressing was placed I advised that she keep triple antibiotic ointment on this and Kerlix on top of this. Additionally her right lower extremity boot was improperly fitting which was somewhat the cause of today's injury and we replaced this with a better fitting boot. Wound preparation discussed and return precautions emphasized patient discharged in stable condition. Procedures Miscellaneous Procedure Procedure Performed: Debridement of avascular tissue from a tissue avulsion Indication superficial tissue avulsion in the lower extremity Patient was numbed with 1% lidocaine with epinephrine 8 cc the avascular tissue was subsequently debrided and cleaned and Xeroform dressing and Kerlix were placed on top of this. Critical Care Critical Care Time Critical Care Time: No
[2024-04-15 20:49] VITALS: BP 156/63; PULSE 63; RESP 16; TEMP 36.6; O2SAT 96
== END 2024-04-15 20:50 | disposition home or self-care (01) ==
PROVIDERS: Emergency Provider Student in an Organized Health Care Education/Training Program; PCP Internal Medicine Adolescent Medicine
DX: S81.802A Unspecified open wound, left lower leg, initial encounter (principal); M79.662 Pain in left lower leg; W01.0XXA Fall on same level from slipping, tripping and stumbling without subsequent striking against object, initial encounter; Z91.81 History of falling; Y93.89 Activity, other specified; Y92.003 Bedroom of unspecified non-institutional (private) residence as the place of occurrence of the external cause
CPT/HCPCS: 99283

== ENCOUNTER 2024-04-24 15:19 | Outpatient (CLI) | payer MEDICARE, SELFPAY ==
--- NOTE | 2024-04-24 15:25 | XR_ITS ---
FINAL REPORT CLINICAL HISTORY: .fx f/u FINDINGS: RIGHT ANKLE 3 views were obtained. There is no acute fracture or dislocation. There are mild degenerative changes. There are multiple small calcifications inferior to the medial and lateral malleolar line. There is no soft tissue abnormality. IMPRESSION: No acute bony abnormality. Reviewed, Interpreted and Dictated by Stevie Anderson III, MD Transcribed by Wanda Burger Authenticated and [facility]
--- NOTE | 2024-04-24 15:25 | XR_ITS ---
FINAL REPORT CLINICAL HISTORY: fx of the toe f/u COMPARISON: 09/11/2023 FINDINGS: RIGHT FOOT 3 views were obtained. There is a transverse, nondisplaced fracture of the proximal fifth metatarsal with mild distraction. There are mild degenerative changes. There is no soft tissue abnormality. IMPRESSION: Transverse fracture of the proximal fifth metatarsal. Reviewed, Interpreted and Dictated by Stevie Anderson III, MD Transcribed by Wanda Burger Authenticated and [facility]
== END 2024-04-24 23:59 | disposition home or self-care (01) ==
LOC: RAD 15:22
PROVIDERS: PCP Internal Medicine Adolescent Medicine; Visit Provider Internal Medicine Adolescent Medicine
DX: S82.891A Other fracture of right lower leg, initial encounter for closed fracture (principal)
CPT/HCPCS: 73610; 73630

== ENCOUNTER 2024-04-30 12:02 | Outpatient (CLI) | payer MEDICARE, SELFPAY ==
--- NOTE | 2024-04-30 12:31 | CA_ITS ---
FINAL REPORT TECHNIQUE: Ultrasound images of the deep venous system were obtained from the left groin to the calf veins. CLINICAL HISTORY: LT CALF PAIN,PT FELL MONTHS AGO HAS WOUNDS TO LEFT LOWER LEG THAT ARE NON-HEALING,EDEMA FINDINGS: The deep venous system is normally compressible. Normal flow is identified. IMPRESSION: No evidence of left lower extremity DVT. Reviewed, Interpreted and Dictated by Hi Garcia MD Transcribed by Luana Shepherd Authenticated and [facility]
== END 2024-04-30 23:59 | disposition home or self-care (01) ==
PROVIDERS: PCP Internal Medicine Adolescent Medicine; Visit Provider Physician Assistant Surgical
DX: M79.662 Pain in left lower leg (principal)
CPT/HCPCS: 93971

== ENCOUNTER 2024-05-21 09:09 | Outpatient (CLI) | payer MEDICARE, SELFPAY ==
--- NOTE | 2024-05-21 09:14 | XR_ITS ---
FINAL REPORT CLINICAL HISTORY: right foot fx, fall last night COMPARISON: 04/24/2024 FINDINGS: RIGHT FOOT 3 views of the right foot were obtained. There is a transverse fracture of the proximal fifth metatarsal which appears stable. No new fractures identified. Visualized joint spaces are normally aligned. Soft tissues are unremarkable. IMPRESSION: Stable fracture of the proximal fifth metatarsal. No acute bony abnormality. Reviewed, Interpreted and Dictated by Stevie Anderson III, MD Transcribed by Wanda Burger Authenticated and [facility]
== END 2024-05-21 23:59 | disposition home or self-care (01) ==
LOC: RAD 09:11
PROVIDERS: PCP Internal Medicine Adolescent Medicine; Visit Provider Physician Assistant Surgical
DX: S82.891A Other fracture of right lower leg, initial encounter for closed fracture (principal)
CPT/HCPCS: 73630

== ENCOUNTER 2024-06-07 12:36 | Outpatient (CLI) | payer MEDICARE, SELFPAY ==
--- NOTE | 2024-06-07 12:53 | US_ITS ---
FINAL REPORT CLINICAL HISTORY: Decreased Pedal Pulses, previous smoker, HTN, DM, hyperlipidemia, CAD, hx NH, previous angioplasty, bilateral rest pain, bilateral claudication, left foot discoloration with purple toes noted, recent right foot fracture. FINDINGS: ANKLE-BRACHIAL PRESSURE INDICES Pressure indices are as follows: RIGHT LOWER EXTREMITY: Ankle-brachial pressure index: 0.75 Comments: Moderately depressed LEFT LOWER EXTREMITY: Ankle-brachial pressure index: 0.87 Comments: Moderately depressed IMPRESSION: Moderately depressed indices, probably due to moderate arterial occlusive disease. Reviewed, Interpreted and Dictated by Hi Garcia MD Transcribed by Sharda Justice Authenticated and [facility] [place] [place]
== END 2024-06-07 23:59 | disposition home or self-care (01) ==
LOC: RT 12:37
PROVIDERS: PCP Internal Medicine Adolescent Medicine; Visit Provider Nurse Practitioner
DX: R09.89 Other specified symptoms and signs involving the circulatory and respiratory systems (principal)
CPT/HCPCS: 93923

== ENCOUNTER 2024-06-13 16:12 | Emergency (ER) | payer MEDICARE, SELFPAY ==
[2024-06-13 16:15] VITALS: BP 178/70; PULSE 56; RESP 18; TEMP 36.6; O2SAT 99; BMI 29.2
--- NOTE | 2024-06-13 16:20 | ED_ITS ---
Discharge Plan Disposition Patient Disposition: Home, Self-Care Condition: Good Prescriptions Prescriptions: New lidocaine 5 % adhesive patch,medicated 1 patch topical DAILY Qty: 30 0RF Rx Instructions: leave on most painful area for up to 12 hrs methocarbamol 750 mg tablet 750 mg PO Q6H PRN (Reason: muscle spasm) Qty: 20 0RF No Action lisinopril 10 mg tablet 10 mg PO DAILY Qty: 90 3RF carvedilol 6.25 mg tablet 6.25 mg PO BID Qty: 180 3RF clopidogrel 75 mg tablet 75 mg PO DAILY Qty: 90 3RF levofloxacin 500 mg tablet PO Patient Comments: TAKE ONE TABLET BY MOUTH EVERY DAY FOR 7 DAYS -- FINISH ALL MEDICINE -- nitroglycerin 0.4 mg tablet, sublingual 0.4 mg sublingual Q5M PRN (Reason: chest pain) Qty: 25 3RF Rx Instructions: do not exceed 3 doses per episode aspirin 81 mg tablet,delayed release (DR/EC) 81 mg PO DAILY Qty: 90 3RF duloxetine 60 mg capsule,delayed release(DR/EC) 60 mg PO BID Patient Comments: TAKE 1 CAPSULE BY MOUTH TWICE DAILY FOR 90 DAYS cholecalciferol (vitamin D3) [Vitamin D3] 125 mcg (5,000 unit) Tablet 125 mcg PO DAILY PreserVision AREDS-2 250-90-40-1 mg Capsule 1 tab PO BID atorvastatin 80 mg tablet 80 mg PO HS Patient Comments: TAKE ONE TABLET BY MOUTH EVERY DAY FOR cholesterol gabapentin 300 mg capsule 300 mg PO TIDP PRN (Reason: SEVERE LEG PAIN) Patient Comments: TAKE ONE CAPSULE BY MOUTH THREE TIMES DAILY NEEDED FOR SEVERE LEG PAIN MAY CAUSE DROWSINESS mupirocin 2 % Ointment 1 applic topical TID 7 Days Qty: 0 0RF Rx Instructions: send tube home with patient cephalexin 500 mg capsule 500 mg PO BID 5 Days Qty: 10 0RF metformin 500 MG tablet 500 mg PO DAILY Referrals Follow up/Referrals: Edilberto Montoya MD [Primary Care Provider] - See instructions Activity Restrictions/Add. Instructions Additional Instructions/Restrictions: As we discussed if you have continued symptoms or worsening signs or symptoms follow-up with your PCP for referral for further imaging. You also may return to the ER as needed for any worsening signs or symptoms. Clinical Impressions Clinical Impression: Low back pain Qualifiers: Chronicity: acute Back pain laterality: right Sciatica presence: with sciatica Sciatica laterality: sciatica of right side Qualified Code(s): M54.41 - Lumbago with sciatica, right side Print Language Print Language: Barbadian Discharge ED Provider: Lionel Covarrubias General Adult HPI <JONATHAN Oliveros - Last Filed: 06/13/24 20:52> General Chief complaint: PAIN Stated complaint: AO 2 weeks ago injury back,right hip,leg Time Seen by Provider: 06/13/24 16:20 History of Present Illness HPI narrative: Patient presents for evaluation of low back pain. Patient states that she slipped off of the toilet about a week and a half ago. She landed on her bottom and suffered initially no apparent injury. However since then it has gotten progressively more painful and over the last 24 hours she has had exquisite right sided and midline low back pain that radiates down her right leg. She denies any numbness tingling loss of motor or sensory bladder incontinence or bowel incontinence. It has not responded to any conservative treatment. She has not been evaluated for her injury yet. Related Data Home Medications ?Medication ?Instructions ?Recorded ?Confirmed metformin 500 mg tablet 500 mg PO DAILY Diabetes 12/07/20 05/29/24 duloxetine 60 mg capsule,delayed 60 mg PO BID Mood 02/19/22 05/29/24 release cholecalciferol (vitamin D3) 125 125 mcg PO DAILY 01/13/24 05/29/24 mcg (5,000 unit) tablet (Vitamin D3) vit C 250 mg-vit E 90 mg-zinc 40 1 tab PO BID 01/13/24 05/29/24 mg-copper 1 [id number] capsule (PreserVision AREDS-2) atorvastatin 80 mg tablet 80 mg PO HS 01/14/24 05/29/24 gabapentin 300 mg capsule 300 mg PO TIDP PRN SEVERE LEG PAIN 01/14/24 05/29/24 levofloxacin 500 mg tablet mg PO 03/07/24 05/29/24 Previous Rx's ?Medication ?Instructions ?Recorded nitroglycerin 0.4 mg sublingual 0.4 mg sublingual Q5M PRN chest 03/28/23 tablet pain #25 tabs carvedilol 6.25 mg tablet 6.25 mg PO BID High Blood Pressure 10/16/23 #180 tabs clopidogrel 75 mg tablet 75 mg PO DAILY Blood Thinner #90 10/16/23 tabs lisinopril 10 mg tablet 10 mg PO DAILY High Blood Pressure 10/16/23 #90 tabs cephalexin 500 mg capsule 500 mg PO BID 5 days #10 caps 01/15/24 mupirocin 2 % topical ointment 1 applic topical TID 7 days #0 01/15/24 grams aspirin 81 mg tablet,delayed 81 mg PO DAILY Blood Thinner #90 04/01/24 release tabs lidocaine 5 % topical patch 1 patch topical DAILY #30 ea 06/13/24 methocarbamol 750 mg tablet 750 mg PO Q6H PRN muscle spasm #20 06/13/24 tabs Allergies Allergy/AdvReac Type Severity Reaction Status Date / Time hydromorphone (From DILAUDID) Allergy Intermediate Agitated Verified 05/29/24 14:51 metronidazole (METRONIDAZOLE) Allergy Unknown NA-NAUSEA/V Verified 05/29/24 14:51 OMITING morphine (MORPHINE) Allergy Unknown Agitated Verified 05/29/24 14:51 pentazocine (PENTAZOCINE) Allergy Unknown Agitated Verified 05/29/24 14:51 PFSH <JONATHAN Oliveros - Last Filed: 06/13/24 20:52> [facility] Disclaimer: The information contained in this section may have been updated after the patient was seen, as this information can be updated by other users. Medical History Ankle fracture, right Urinary tract infection Osteoarthritis Breast cancer Fatigue Hyperkalemia Unstable angina Rotator cuff tear, right Rotator cuff (capsule) sprain Peripheral arterial disease Renal artery stenosis Peripheral neuropathy Hyperlipidemia Neuropathy History of heart attack Diabetes mellitus, type 2 Coronary atherosclerosis of [place] coronary artery STEMI (ST elevation myocardial infarction) Shingles Hypertension Hypertension Surgical History H/O cervical discectomy H/O laminectomy H/O total mastectomy History of heart artery stent History of cardiac catheterization History of mastectomy Hx of cervical spine surgery History of knee replacement History of hysterectomy Family History Mother Dementia Father Family history of myocardial infarction Social History (Reviewed 05/29/24 @ 14:41 by DENNIS Rodriguez Smoking Status: Never smoker years smoked: 40 second hand exposure: No alcohol intake: never substance use type: denies use current occupational status: retired Travel in the last 8 weeks: None adopted: No caregiver/support person: Yes foster care: No household members: family housing: house marital status: education level: college current occupational exposures/hazards: No caffeine: Yes (coffee) tia/restoration: Mandaeism Have you lived/traveled outside US in past 30 days?: No Contact w/someone who lives/traveled outside US past 30 days?: No Exposure to someone with infectious disease in past 14 days?: No Do you have a fever (greater than 100.4 F or 38 C)?: No Have you tested positive for COVID-19: No Exposed to someone with COVID-19 in past 14 days?: No Do you have a sore throat?: No Do you have a cough?: No Do you have any weakness?: No Do you have any diarrhea?: No Are you experiencing any unusual bleeding?: No Do you have any muscle aches/pain?: No Do you have any abdominal pain?: No Are you experiencing loss of taste or smell?: No Other Medical History Have you received the Flu Vaccine for this season: No Have you received the Pneumonia Vaccine: Yes <JONATHAN Oliveros - Last Filed: 06/13/24 20:52> ROS Obtained: Yes Systems reviewed as appropriate & no additional complaints except as documented Physical Exam <JONATHAN Oliveros - Last Filed: 06/13/24 20:52> General General appearance: alert and in distress (From low back pain) Respiratory Respiratory exam: Present normal lung sounds bilaterally Cardiovascular Cardiovascular exam: Present regular rate Neurological Exam Neurological exam: Present alert and oriented X3 Medical Decision Making <JONATHAN Oliveros - Last Filed: 06/13/24 20:52> Medical Records Medical records reviewed: Yes I reviewed the patient's medical records. Screening: Per USPSTF and CDC recommendations, given the prevalence of disease in our region, it is our hospital?s policy to screen for HIV and viral Hepatitis for all patients aged 18 and over and those with ongoing risk factors. Wiley Inquiry Pt receiving controlled substance: No Vital Signs: 06/13/24 16:15 06/13/24 17:02 06/13/24 17:30 Temperature 97.9 F Temperature Source Oral Pulse Rate 58 L 52 L Pulse Rate [Right] 56 L Respiratory Rate 18 Blood Pressure 170/75 H 178/97 H Blood Pressure [Right Arm] 178/70 H Blood Pressure Mean [Right Arm] 106 02 Sat by Pulse Oximetry 99 98 98 Oxygen Delivery Method Room Air 06/13/24 18:00 06/13/24 18:27 06/13/24 18:29 Temperature 97.8 F Temperature Source Pulse Rate 54 L 80 56 L Pulse Rate [Right] Respiratory Rate 20 Blood Pressure 193/90 H 170/80 H 171/80 H Blood Pressure [Right Arm] Blood Pressure Mean [Right Arm] 02 Sat by Pulse Oximetry 99 99 Oxygen Delivery Method Room Air Orders (Tests/Meds): ED MEDICATIONS Discontinued Medications Generic Name Dose Route Start Last Admin Trade Name Freq PRN Reason Stop Dose Admin Acetaminophen 1,000 mg 06/13/24 16:31 06/13/24 16:46 Acetaminophen 500mg Tab PO 06/13/24 16:32 1,000 mg ONCE ONE Administration Ibuprofen 800 mg 06/13/24 16:31 06/13/24 16:46 Ibuprofen 400 Mg Tablet PO 06/13/24 16:32 800 mg ONCE ONE Administration Methocarbamol 500 mg 06/13/24 16:31 06/13/24 16:46 Methocarbamol 500mg Tablet PO 06/13/24 16:32 500 mg ONCE ONE Administration Oxycodone HCl 5 mg 06/13/24 16:31 06/13/24 16:46 Oxycodone 5mg Immediate Release Tablet PO 06/13/24 16:32 5 mg ONCE ONE Administration ORDERS Category Date Time Status CT bony pelvis Stat Cat Scan 06/13/24 16:[address] lumbar spine wo con Stat Cat Scan 06/13/24 16:30 Completed Femur XR right 2 views [XR femur RT 2V] Stat Exams 06/13/24 16:30 Completed Medical Decision Narrative: In summary patient is a 89-year-old female who presents to the emergency department for evaluation of low back pain. Patient is hypertensive on arrival at 178/70 with a heart rate of 56 breathing 18 times a minute satting at 99% room air upon arrival, afebrile at 97.9. Physical exam is remarkable for paraspinous and midline right sided lumbar and sciatic tenderness. No palpable bony deformities. There is no contusions abrasions edema noted. Patient is neurovascularly intact in her bilateral lower extremities although she does have painful range of motion and range of motion testing the right lower extremity is limited due to this. Patient has no focal neurologic deficits.. Differential diagnosis includes muscle spasm versus fracture versus soft tissue injury etc. Initial workup will be conducted with CT scan of the lumbar spine and pelvis with plain films of the femur. Initial interventions include Tylenol Lidoderm Decadron Robaxin Toradol. Initial workup reviewed by me which in my informal interpretation of her imaging shows no evidence of acute fracture or obvious soft tissue injury although she does have lumbar early signs of disc disease. Upon repeat evaluation patient had significant improvement in her pain and prior to discharge was able to ambulate in the ER without assistance.. Given this patient is appropriate for discharge with close follow-up with her PCP for further outpatient workup for no improvement or worsening signs or symptoms or return to the ER as needed. She will also be provided with a prescription for Lidoderm patch and Robaxin. <Lionel Covarrubias MD - Last Filed: 06/14/24 15:08> Vital Signs: 06/13/24 16:15 06/13/24 17:02 06/13/24 17:30 Temperature 97.9 F Temperature Source Oral Pulse Rate 58 L 52 L Pulse Rate [Right] 56 L Respiratory Rate 18 Blood Pressure 170/75 H 178/97 H Blood Pressure [Right Arm] 178/70 H Blood Pressure Mean [Right Arm] 106 02 Sat by Pulse Oximetry 99 98 98 Oxygen Delivery Method Room Air 06/13/24 18:00 06/13/24 18:27 06/13/24 18:29 Temperature 97.8 F Temperature Source Pulse Rate 54 L 80 56 L Pulse Rate [Right] Respiratory Rate 20 Blood Pressure 193/90 H 170/80 H 171/80 H Blood Pressure [Right Arm] Blood Pressure Mean [Right Arm] 02 Sat by Pulse Oximetry 99 99 Oxygen Delivery Method Room Air Orders (Tests/Meds): ED MEDICATIONS Discontinued Medications Generic Name Dose Route Start Last Admin Trade Name Freq PRN Reason Stop Dose Admin Acetaminophen 1,000 mg 06/13/24 16:31 06/13/24 16:46 Acetaminophen 500mg Tab PO 06/13/24 16:32 1,000 mg ONCE ONE Administration Ibuprofen 800 mg 06/13/24 16:31 06/13/24 16:46 Ibuprofen 400 Mg Tablet PO 06/13/24 16:32 800 mg ONCE ONE Administration Methocarbamol 500 mg 06/13/24 16:31 06/13/24 16:46 Methocarbamol 500mg Tablet PO 06/13/24 16:32 500 mg ONCE ONE Administration Oxycodone HCl 5 mg 06/13/24 16:31 06/13/24 16:46 Oxycodone 5mg Immediate Release Tablet PO 06/13/24 16:32 5 mg ONCE ONE Administration ORDERS Category Date Time Status CT bony pelvis Stat Cat Scan 06/13/24 16:[address] lumbar spine wo con Stat Cat Scan 06/13/24 16:30 Completed Femur XR right 2 views [XR femur RT 2V] Stat Exams 06/13/24 16:30 Completed Medical Decision Narrative: In summary patient is a 89-year-old female who presents to the emergency department for evaluation of low back pain. Patient is hypertensive on arrival at 178/70 with a heart rate of 56 breathing 18 times a minute satting at 99% room air upon arrival, afebrile at 97.9. Physical exam is remarkable for paraspinous and midline right sided lumbar and sciatic tenderness. No palpable bony deformities. There is no contusions abrasions edema noted. Patient is neurovascularly intact in her bilateral lower extremities although she does have painful range of motion and range of motion testing the right lower extremity is limited due to this. Patient has no focal neurologic deficits.. Differential diagnosis includes muscle spasm versus fracture versus soft tissue injury etc. Initial workup will be conducted with CT scan of the lumbar spine and pelvis with plain films of the femur. Initial interventions include Tylenol Lidoderm Decadron Robaxin Toradol. Initial workup reviewed by me which in my informal interpretation of her imaging shows no evidence of acute fracture or obvious soft tissue injury although she does have lumbar early signs of disc disease. Upon repeat evaluation patient had significant improvement in her pain and prior to discharge was able to ambulate in the ER without assistance.. Given this patient is appropriate for discharge with close follow-up with her PCP for further outpatient workup for no improvement or worsening signs or symptoms or return to the ER as needed. She will also be provided with a prescription for Lidoderm patch and Robaxin. I was consulted by the LING, and we discussed the complexity of the problems being addressed. I approved the treatment and management plan for this patient's care in the Emergency Department, thus performing a substantive portion of the medical decision making. Lionel Covarrubias MD Critical Care <JONATHAN Oliveros - Last Filed: 06/13/24 20:52> Critical Care Time Critical Care Time: No
--- NOTE | 2024-06-13 16:30 | XR_ITS ---
PROCEDURE INFORMATION: Exam: XR Right Femur Exam date and time: 06/13/2024 5:07 PM Age: 89 years old Clinical indication: Injury or trauma; Fall; Blunt trauma; Thigh or upper leg; Right; Additional info: Fall, right hip pain TECHNIQUE: Imaging protocol: Radiologic exam of the right femur. Views: 2 views. COMPARISON: US ARTERIAL LOWER EXT REST 06/07/2024 12:54 PM FINDINGS: Bones/joints: Right total knee arthroplasty. Osteoarthritic change in the right hip. No acute fracture of the shaft of the femur. Soft tissues: Unremarkable. IMPRESSION: No acute fracture of the shaft of the femur.
--- NOTE | 2024-06-13 16:30 | CT_ITS ---
PROCEDURE INFORMATION: Exam: CT Lumbar Spine Without Contrast Exam date and time: 06/13/2024 5:09 PM Age: 89 years old Clinical indication: Injury or trauma; Fall; Blunt trauma (contusions or hematomas); Additional info: Fall, midline back pain TECHNIQUE: Imaging protocol: Computed tomography of the lumbar spine without contrast. Radiation optimization: All CT scans at this facility use at least one of these dose optimization techniques: automated exposure control; mA and/or kV adjustment per patient size (includes targeted exams where dose is matched to clinical indication); or iterative reconstruction. COMPARISON: CT LUMBAR SPINE WO CON 06/13/2024 5:09 PM FINDINGS: Bones/joints: Facet degenerative changes. L1-L2: No significant disc bulge or herniation. No severe spinal canal stenosis. No significant neural foraminal narrowing. L2-L3: No significant disc bulge or herniation. No severe spinal canal stenosis. No significant neural foraminal narrowing. L3-L4: Vacuum disc L3-L4, L4-L5, and L5-S1. L4-L5: See L3-L4 finding. L5-S1: See L3-L4 finding. Soft tissues: Unremarkable. IMPRESSION: 1. Vacuum disc L3-L4, L4-L5, and L5-S1. 2. Facet degenerative changes.
--- NOTE | 2024-06-13 16:30 | CT_ITS ---
PROCEDURE INFORMATION: Exam: CT Pelvis Without Contrast, Skeleton Exam date and time: 06/13/2024 5:12 PM Age: 89 years old Clinical indication: Injury or trauma; Fall; Blunt trauma (contusions or hematomas); Right; Hip; Additional info: Fall right hip pain TECHNIQUE: Imaging protocol: Computed tomography of the pelvis without contrast. Exam focused on the skeleton. Radiation optimization: All CT scans at this facility use at least one of these dose optimization techniques: automated exposure control; mA and/or kV adjustment per patient size (includes targeted exams where dose is matched to clinical indication); or iterative reconstruction. COMPARISON: CT BONY PELVIS 06/13/2024 5:12 PM FINDINGS: Intestine: Diverticulosis without diverticulitis. Bones/joints: Degenerative changes. No acute fracture. No dislocation. Soft tissues: Unremarkable. IMPRESSION: 1. No acute fracture. 2. Degenerative changes.
[2024-06-13] MEDS: METHOCARBAMOL 500MG TABLET 500 MG PO (16:46)
[2024-06-13] MEDS: ACETAMINOPHEN 500MG TAB 1000 MG PO (16:46)
[2024-06-13] MEDS: OXYCODONE 5MG IMMEDIATE RELEASE TABLET 5 MG PO (16:46)
[2024-06-13] MEDS: IBUPROFEN 400 MG TABLET 800 MG PO (16:46)
[2024-06-13 17:02] VITALS: BP 170/75; PULSE 58; O2SAT 98
[2024-06-13 17:30] VITALS: BP 178/97; PULSE 52; O2SAT 98
[2024-06-13 18:00] VITALS: BP 193/90; PULSE 54; O2SAT 99
[2024-06-13 18:27] VITALS: BP 170/80; PULSE 80; RESP 20; TEMP 36.6; O2SAT 95
[2024-06-13 18:29] VITALS: BP 171/80; PULSE 56; O2SAT 99
== END 2024-06-13 18:37 | disposition home or self-care (01) ==
PROVIDERS: Emergency Provider Emergency Medicine; PCP Internal Medicine Adolescent Medicine
DX: M54.50 Low back pain, unspecified (principal); M79.604 Pain in right leg
CPT/HCPCS: 72131; 72192; 73552; 99284

== ENCOUNTER 2024-06-25 13:17 | Outpatient (CLI) | payer MEDICARE, SELFPAY ==
--- NOTE | 2024-06-25 13:21 | XR_ITS ---
FINAL REPORT CLINICAL HISTORY: Right ankle pain COMPARISON: 04/24/2024 FINDINGS: RIGHT ANKLE 3 views of the right ankle were obtained. There is no acute fracture or dislocation. The mortise is intact. Visualized joint spaces are normally aligned. Soft tissues are unremarkable. IMPRESSION: No acute bony abnormality. Reviewed, Interpreted and Dictated by Debra Alarcon MD Transcribed by Sharda Justice Authenticated and [facility]
== END 2024-06-25 23:59 | disposition home or self-care (01) ==
LOC: RAD 13:19
PROVIDERS: PCP Internal Medicine Adolescent Medicine; Visit Provider Physician Assistant Surgical
DX: S82.891A Other fracture of right lower leg, initial encounter for closed fracture (principal)
CPT/HCPCS: 73610

== ENCOUNTER 2024-08-29 09:05 | Outpatient (CLI) | payer MEDICARE, SELFPAY ==
--- NOTE | 2024-08-29 09:12 | XR_ITS ---
FINAL REPORT CLINICAL HISTORY: right ankle fx last summer COMPARISON: 06/25/2024 FINDINGS: Three views of the right ankle show tiny chronic avulsion fractures along the tip of the lateral malleolus. There are mild degenerative changes. No acute fracture identified. IMPRESSION: Mild degenerative changes without acute process. Reviewed, Interpreted and Dictated by Debra Alarcon MD Transcribed by Sharda Justice Authenticated and [facility]
== END 2024-08-29 23:59 | disposition home or self-care (01) ==
LOC: RAD 09:09
PROVIDERS: PCP Internal Medicine Adolescent Medicine; Visit Provider Physician Assistant Surgical
DX: M25.571 Pain in right ankle and joints of right foot (principal); S82.891A Other fracture of right lower leg, initial encounter for closed fracture
CPT/HCPCS: 73610

== ENCOUNTER 2024-11-02 19:27 | Emergency (ER) | payer MEDICARE, SELFPAY ==
[2024-11-02 19:32] VITALS: BP 184/56; PULSE 70; RESP 16; TEMP 36.7; O2SAT 97; BMI 28.3
--- NOTE | 2024-11-02 19:47 | XR_ITS ---
PROCEDURE INFORMATION: Exam: XR Left Forearm Exam date and time: 11/02/2024 8:39 PM Age: 89 years old Clinical indication: Injury or trauma; Fall; Blunt trauma (contusions or hematomas); Elbow; Left; Additional info: Fall on to arm TECHNIQUE: Imaging protocol: Radiologic exam of the left forearm. Views: 2 views. COMPARISON: CR XR ELBOW LT MIN 3V 11/02/2024 8:39 PM FINDINGS: Bones/joints: No acute fracture or malalignment. Soft tissues: Marked posterior elbow/proximal forearm soft tissue prominence. IMPRESSION: 1. No acute osseous findings. 2. Marked posterior elbow/proximal forearm soft tissue prominence, likely representing swelling and/or olecranon bursitis.
--- NOTE | 2024-11-02 19:47 | XR_ITS ---
PROCEDURE INFORMATION: Exam: XR Left Elbow Exam date and time: 11/02/2024 8:39 PM Age: 89 years old Clinical indication: Injury or trauma; Fall; Blunt trauma (contusions or hematomas); Elbow; Left; Additional info: Fall on elbow TECHNIQUE: Imaging protocol: Radiologic exam of the left elbow. Views: 3 or more views. COMPARISON: CR XR FOREARM LT 2V 11/02/2024 8:39 PM FINDINGS: Bones/joints: No acute fracture or malalignment. No elbow joint effusion. Soft tissues: Marked posterior elbow/proximal forearm soft tissue prominence. IMPRESSION: 1. No acute osseous findings. 2. Marked posterior elbow/proximal forearm soft tissue prominence, likely representing swelling and/or olecranon bursitis.
[2024-11-02] MEDS: ACETAMINOPHEN 500MG TAB 1000 MG PO (19:53)
--- NOTE | 2024-11-02 20:52 | PC.NURSE ---
Pt aox4, nad noted, RR even and non labored, skin pwd. Xray's complete and waiting for results.
[2024-11-02 21:14] VITALS: BP 176/74; PULSE 78; RESP 16; O2SAT 98
--- NOTE | 2024-11-02 21:22 | ED_ITS ---
Discharge Plan Disposition Patient Disposition: Home, Self-Care Prescriptions Prescriptions: No Action methocarbamol 750 mg tablet 750 mg PO HS PRN (Reason: muscle spasm) Qty: 30 1RF ammonium lactate 12 % cream 1 applic topical BID 30 Days Qty: 385 2RF levofloxacin 500 mg tablet PO Patient Comments: TAKE ONE TABLET BY MOUTH EVERY DAY FOR 7 DAYS -- FINISH ALL MEDICINE -- nitroglycerin 0.4 mg tablet, sublingual 0.4 mg sublingual Q5M PRN (Reason: chest pain) Qty: 25 3RF Rx Instructions: do not exceed 3 doses per episode aspirin 81 mg tablet,delayed release (DR/EC) 81 mg PO DAILY Qty: 90 3RF clopidogrel 75 mg tablet 75 mg PO DAILY Qty: 30 0RF lisinopril 10 mg tablet 10 mg PO DAILY Qty: 30 0RF atorvastatin 80 mg tablet 80 mg PO HS Qty: 30 0RF carvedilol 6.25 mg tablet 6.25 mg PO BID Qty: 60 0RF duloxetine 60 mg capsule,delayed release(DR/EC) 60 mg PO BID Patient Comments: TAKE 1 CAPSULE BY MOUTH TWICE DAILY FOR 90 DAYS cholecalciferol (vitamin D3) [Vitamin D3] 125 mcg (5,000 unit) Tablet 125 mcg PO DAILY PreserVision AREDS-2 250-90-40-1 mg Capsule 1 tab PO BID gabapentin 300 mg capsule 300 mg PO TIDP PRN (Reason: SEVERE LEG PAIN) Patient Comments: TAKE ONE CAPSULE BY MOUTH THREE TIMES DAILY NEEDED FOR SEVERE LEG PAIN MAY CAUSE DROWSINESS mupirocin 2 % Ointment 1 applic topical TID 7 Days Qty: 0 0RF Rx Instructions: send tube home with patient cephalexin 500 mg capsule 500 mg PO BID 5 Days Qty: 10 0RF metformin 500 MG tablet 500 mg PO DAILY lidocaine 5 % adhesive patch,medicated 1 patch topical DAILY Qty: 30 0RF Rx Instructions: leave on most painful area for up to 12 hrs methocarbamol 750 mg tablet 750 mg PO Q6H PRN (Reason: muscle spasm) Qty: 20 0RF Referrals Follow up/Referrals: Edilberto Montoya MD [Primary Care Provider] - See instructions Activity Restrictions/Add. Instructions Additional Instructions/Restrictions: Today you were evaluated in the emergency department, your x-rays were negative for any fracture. You have a large hematoma on your left elbow. Please wear the Son wrap for 2 to 3 days. You may ice the area as directed. Please follow- up with your PCP. Return to the ED for worsening of condition. Clinical Impressions Clinical Impression: Hematoma of left elbow Fall Qualifiers: Encounter type: initial encounter Qualified Code(s): W19.XXXA - Unspecified fall, initial encounter Instructions Patient Instructions: DI for Hematoma (Bruise) Print Language Print Language: Romanian Discharge ED Provider: Duane Hopson General Adult HPI <Gabby Bourne APRN - Last Filed: 11/02/24 21:54> General Chief complaint: Extremity Injury, Upper Stated complaint: Fall 11/02/2024 10:30am L elbow Swelling Time Seen by Provider: 11/02/24 19:43 Mode of Arrival: Ambulatory Source of Information: Patient Description of Symptoms (Recalled from ER Triage Doc. by RN): Patient reports fall with left elbow showing swelling. Patient denies hitting her head. Reports taking blood thinners, Eliquis. History of Present Illness HPI narrative: pt is a 89 year old female who presents to the ED for left elbow pain after a fa ll this morning. Patient states she fell on her hardwood, landing on her left elbow. She currently has large area of edema over her left elbow. Denies hitting her head, denies losing consciousness, did not try to catch herself. Related Data Home Medications ?Medication ?Instructions ?Recorded ?Confirmed metformin 500 mg tablet 500 mg PO DAILY Diabetes 12/07/20 08/29/24 duloxetine 60 mg capsule,delayed 60 mg PO BID Mood 02/19/22 08/29/24 release cholecalciferol (vitamin D3) 125 125 mcg PO DAILY 01/13/24 08/29/24 mcg (5,000 unit) tablet (Vitamin D3) vit C 250 mg-vit E 90 mg-zinc 40 1 tab PO BID 01/13/24 08/29/24 mg-copper 1 [id number] capsule (PreserVision AREDS-2) gabapentin 300 mg capsule 300 mg PO TIDP PRN SEVERE LEG PAIN 01/14/24 08/29/24 levofloxacin 500 mg tablet mg PO 03/07/24 08/29/24 Previous Rx's ?Medication ?Instructions ?Recorded nitroglycerin 0.4 mg sublingual 0.4 mg sublingual Q5M PRN chest 03/28/23 tablet pain #25 tabs cephalexin 500 mg capsule 500 mg PO BID 5 days #10 caps 01/15/24 mupirocin 2 % topical ointment 1 applic topical TID 7 days #0 01/15/24 grams aspirin 81 mg tablet,delayed 81 mg PO DAILY Blood Thinner #90 04/01/24 release tabs lidocaine 5 % topical patch 1 patch topical DAILY #30 ea 06/13/24 methocarbamol 750 mg tablet 750 mg PO Q6H PRN muscle spasm #20 06/13/24 tabs methocarbamol 750 mg tablet 750 mg PO HS PRN muscle spasm #30 06/25/24 tabs ammonium lactate 12 % topical cream 1 applic topical BID dry skin, 08/29/24 callus care 30 days #385 grams atorvastatin 80 mg tablet 80 mg PO HS #30 tabs 10/31/24 carvedilol 6.25 mg tablet 6.25 mg PO BID High Blood Pressure 10/31/24 #60 tabs clopidogrel 75 mg tablet 75 mg PO DAILY Blood Thinner #30 10/31/24 tabs lisinopril 10 mg tablet 10 mg PO DAILY High Blood Pressure 10/31/24 #30 tabs Allergies Allergy/AdvReac Type Severity Reaction Status Date / Time hydromorphone (From DILAUDID) Allergy Intermediate Agitated Verified 08/29/24 13:58 metronidazole (METRONIDAZOLE) Allergy Unknown NA-NAUSEA/V Verified 08/29/24 13:58 OMITING morphine (MORPHINE) Allergy Unknown Agitated Verified 08/29/24 13:58 pentazocine (PENTAZOCINE) Allergy Unknown Agitated Verified 08/29/24 13:58 [facility] <Gabby Bourne APRN - Last Filed: 11/02/24 21:54> [facility] Disclaimer: The information contained in this section may have been updated after the patient was seen, as this information can be updated by other users. Medical History Ankle fracture, right Urinary tract infection Osteoarthritis Breast cancer Fatigue Hyperkalemia Unstable angina Rotator cuff tear, right Rotator cuff (capsule) sprain Peripheral arterial disease Renal artery stenosis Peripheral neuropathy Hyperlipidemia Neuropathy History of heart attack Diabetes mellitus, type 2 Coronary atherosclerosis of [place] coronary artery STEMI (ST elevation myocardial infarction) Shingles Hypertension Hypertension Surgical History H/O cervical discectomy H/O laminectomy H/O total mastectomy History of heart artery stent History of cardiac catheterization History of mastectomy Hx of cervical spine surgery History of knee replacement History of hysterectomy Family History Mother Dementia Father Family history of myocardial infarction Social History Smoking Status: Never smoker years smoked: 40 second hand exposure: No alcohol intake: never substance use type: denies use current occupational status: retired Travel in the last 8 weeks?: None adopted: No caregiver/support person: Yes foster care: No household members: family housing: house marital status: education level: college current occupational exposures/hazards: No caffeine: Yes (coffee) tia/temple: [place] Have you lived/traveled outside [place] in past 30 days?: No Contact w/someone who lives/traveled outside US past 30 days?: No Exposure to someone with infectious disease in past 14 days?: No Do you have a fever (greater than 100.4 F or 38 C)?: No Have you tested positive for COVID-19?: No Exposed to someone with COVID-19 in past 14 days?: No Do you have a sore throat?: No Do you have a cough?: No Do you have any weakness?: No Do you have any diarrhea?: No Are you experiencing any unusual bleeding?: No Do you have any muscle aches/pain?: No Do you have any abdominal pain?: No Are you experiencing loss of taste or smell?: No Other Medical History Have you received the Flu Vaccine for this season: No Have you received the Pneumonia Vaccine: Yes <Gabby Bourne APRN - Last Filed: 11/02/24 21:54> ROS Obtained: Yes Systems reviewed as appropriate & no additional complaints except as documented Physical Exam <Gabby Bourne APRN - Last Filed: 11/02/24 21:54> General General appearance: alert and in no apparent distress Head Head exam: atraumatic and normocephalic Eye Eye exam: Present normal appearance and PERRL ENT ENT exam: Present normal exam Neck Neck exam: Present normal inspection Chest Chest inspection: Present normal inspection and symmetric chest wall rise; Absent tenderness Respiratory Respiratory exam: Present normal lung sounds bilaterally Cardiovascular Cardiovascular exam: Present regular rate Abdominal Exam Abdominal exam: Present soft and normal bowel sounds; Absent tenderness Extremities Exam Extremities exam: Present full ROM and other (left elbow edema, tenderness ) Back Exam Back exam: Present normal inspection and full ROM Neurological Exam Neurological exam: Present alert and oriented X3 Psychiatric Psychiatric exam: Present normal affect and normal mood Skin Skin exam: Present warm and dry Medical Decision Making <Gabby Bourne APRN - Last Filed: 11/02/24 21:54> Medical Records Screening: Per USPSTF and CDC recommendations, given the prevalence of disease in our region, it is our hospital?s policy to screen for HIV and viral Hepatitis for all patients aged 18 and over and those with ongoing risk factors. Wiley Inquiry Pt receiving controlled substance: No Vital Signs: 11/02/24 19:32 11/02/24 21:14 11/02/24 21:34 Temperature 98.1 F 98.9 F Temperature Source Temporal Artery Scan Oral Pulse Rate 78 71 Pulse Rate [Right] 70 Respiratory Rate 16 16 16 Blood Pressure 176/74 H 158/68 H Blood Pressure [Right Arm] 184/56 H Blood Pressure Mean [Right Arm] 98 Blood Pressure Position Sitting Sitting 02 Sat by Pulse Oximetry 97 98 Oxygen Delivery Method Room Air Room Air Room Air Orders (Tests/Meds): ED MEDICATIONS Discontinued Medications Generic Name Dose Route Start Last Admin Trade Name Colinq PRN Reason Stop Dose Admin Acetaminophen 1,000 mg 11/02/24 19:48 11/02/24 19:53 Acetaminophen 500mg Tab PO 11/02/24 19:49 1,000 mg ONCE ONE Administration ORDERS Category Date Time Status Elbow XR left mininum 3 views [XR elbow LT min 3V] Stat Exams 11/02/24 19:47 Completed Forearm XR left 2 views [XR forearm LT 2V] Stat Exams 11/02/24 19:47 Completed Medical Decision Narrative: In summary, pt is a 89 year old female who presents to the ED for left elbow pain after a fall this morning. Patient states she fell on her hardwood, landing on her left elbow. She currently has large area of edema over her left elbow. Denies hitting her head, denies losing consciousness, did not try to catch herself. Denies additional injuries. Has full ROM. Neurovascular status intact. Differential diagnosis include contusion, fracture, malalignment, hematoma, among others. Imaging obtained of the left elbow and left forearm, no acute fracture noted. Is most likely that this is traumatic hematoma overlying left elbow. Given this, feel that patient is safe to be discharged home. We placed an Son wrap over the area, advised patient to wear this for 2 to 3 days. We discussed icing the area. Discussed following up with PCP. Discussed return precautions to the ED and patient verbalized understanding. <Duane Hopson MD - Last Filed: 11/03/24 23:35> Vital Signs: 11/02/24 19:32 11/02/24 21:14 11/02/24 21:34 Temperature 98.1 F 98.9 F Temperature Source Temporal Artery Scan Oral Pulse Rate 78 71 Pulse Rate [Right] 70 Respiratory Rate 16 16 16 Blood Pressure 176/74 H 158/68 H Blood Pressure [Right Arm] 184/56 H Blood Pressure Mean [Right Arm] 98 Blood Pressure Position Sitting Sitting 02 Sat by Pulse Oximetry 97 98 Oxygen Delivery Method Room Air Room Air Room Air Orders (Tests/Meds): ED MEDICATIONS Discontinued Medications Generic Name Dose Route Start Last Admin Trade Name Freq PRN Reason Stop Dose Admin Acetaminophen 1,000 mg 11/02/24 19:48 11/02/24 19:53 Acetaminophen 500mg Tab PO 11/02/24 19:49 1,000 mg ONCE ONE Administration ORDERS Category Date Time Status Elbow XR left mininum 3 views [XR elbow LT min 3V] Stat Exams 11/02/24 19:47 Completed Forearm XR left 2 views [XR forearm LT 2V] Stat Exams 11/02/24 19:47 Completed Medical Decision Narrative: In summary, pt is a 89 year old female who presents to the ED for left elbow pain after a fall this morning. Patient states she fell on her hardwood, landing on her left elbow. She currently has large area of edema over her left elbow. Denies hitting her head, denies losing consciousness, did not try to catch herself. Denies additional injuries. Has full ROM. Neurovascular status intact. Differential diagnosis include contusion, fracture, malalignment, hematoma, among others. Imaging obtained of the left elbow and left forearm, no acute fracture noted. Is most likely that this is traumatic hematoma overlying left elbow. Given this, feel that patient is safe to be discharged home. We placed an Son wrap over the area, advised patient to wear this for 2 to 3 days. We discussed icing the area. Discussed following up with PCP. Discussed return precautions to the ED and patient verbalized understanding. I was consulted by the LING, and we discussed the complexity of the problems being addressed.I approved the treatment and management plan for this patient?s care in the Emergency Department, thus performing a substantive portion of the medical decision making.Signed, Duane Hopson MD [facility] Critical [facility] <Gabby Bourne APRN - Last Filed: 11/02/24 21:54> Critical Care Time Critical Care Time: No
[2024-11-02 21:34] VITALS: BP 158/68; PULSE 71; RESP 16; TEMP 37.2; O2SAT 100
== END 2024-11-02 21:36 | disposition home or self-care (01) ==
PROVIDERS: Emergency Provider Emergency Medicine; PCP Internal Medicine Adolescent Medicine
DX: S50.02XA Contusion of left elbow, initial encounter (principal); W19.XXXA Unspecified fall, initial encounter
CPT/HCPCS: 73080; 73090; 99283

== ENCOUNTER 2024-11-12 14:42 | Outpatient (CLI) | payer MEDICARE, SELFPAY ==
[2024-11-12 15:13] LABS: Basophils % 0.6 % (0.1-2.0); Eosinophils # 0.2 Kmm3 (0.0-0.4); Eosinophils % 2.2 % (0.1-12.0); Hematocrit 36.8 % (37.0-47.0); Hemoglobin 11.8 g/dL (12.2-16.2); Immature Granulocytes # 0.01 10^3uL; Immature Granulocytes % 0.1 %; Lymphocytes # 1.6 K/mm3 (0.7-4.5); Lymphocytes % 23.7 % (10-50); Mean Corpuscular HGB Conc 32.1 g/dL (31.8-35.4); Mean Corpuscular Hemoglobin 28.3 pg (27.0-31.2); Mean Corpuscular Volume 88.2 fl (81-99); Mean Platelet Volume 9.9 fl (7.4-10.4); Monocytes # 0.8 K/mm3 (0.1-1.0); Neutrophils # 4.3 K/mm3 (1.8-7.8); Neutrophils % 62.4 % (37.0-80.0); Nucleated Red Blood Cells # 0 10^3/uL; Nucleated Red Blood Cells % 0 %; Platelet Count 255 K/mm3 (142-424); Red Blood Count 4.17 M/mm3 (4.20-5.40); Red Cell Distribution Width 13.7 % (11.5-17.5); White Blood Count 6.9 K/mm3 (4.8-10.8)
[2024-11-12 15:54] LABS: Alanine Aminotransferase 16 U/L (12-78); Albumin Level 4.4 g/dl (3.5-5.0); Alkaline Phosphatase 83 U/L (38-126); Anion Gap 12.4 mEq/L (5-15); Aspartate Amino Transferase 16 U/L (14-36); Bilirubin,Direct 0.2 mg/dl (0.0-0.4); Bilirubin,Indirect 0.3 mg/dL (0.0-0.9); Bilirubin,Total 0.5 mg/dl (0.2-1.3); Bilirubin,Unconjugated 0.3 mg/dL (0.0-1.1); Blood Urea Nitrogen 26 mg/dl (7-17); Calcium 10.2 mg/dl (8.4-10.2); Carbon Dioxide 28 mmol/L (22.0-30.0); Chloride 107 mmol/L (98-107); Cholesterol 130 mg/dl (140-200); Estimated Glomerular Filt Rate 36 ml/min (>60); GFR (African American) 43 ML/MIN (>60); Glucose 81 mg/dl (74-100); HDL Cholesterol 43 mg/dl (40-60); Magnesium 1.7 mg/dl (1.6-2.3); Potassium 5.4 mmoL/L (3.5-5.1); Sodium 142 mmol/L (136-145); Total Protein,Serum 6.5 g/dl (6.3-8.2); Triglycerides 194 mg/dl (30-150); VLDL Cholesterol 39 mg/dL (0-40)
[2024-11-12 16:05] LABS: Direct LDL Cholesterol 50.81 mg/dL (100-129)
[2024-11-12 16:10] LABS: Free T4 (Free Thyroxine) 1.07 ng/dl (0.78-2.19)
[2024-11-12 16:26] LABS: Thyroid Stimulating Hormone 0.81 uIU/mL (0.465-4.68)
== END 2024-11-12 23:59 | disposition home or self-care (01) ==
LOC: LAB 14:43
PROVIDERS: PCP Internal Medicine Adolescent Medicine; Visit Provider Nurse Practitioner Family
DX: I10 Essential (primary) hypertension (principal)
CPT/HCPCS: 36415; 80048; 80061; 80076; 83735; 84439; 84443; 85025

== ENCOUNTER 2024-11-21 12:17 | Outpatient (CLI) | payer MEDICARE, SELFPAY ==
--- OUTSIDE RECORDS SUMMARY | 2024-10-24 07:45 | XMS_ITS | Encounter Summary ---
Author Organization Healthcare Address [address] [place] [address] Care Team Providers Care Manager Simulation Name Role Phone Edilberto Montoya MD Primary Care Provider [phone] Encounter Details Date Type Department Care Team (Late st Contact Info) Description 10/24/2024 7:45 AM EDT Ancillary Procedure [facility] [address] [place] [address] Social History Tobacco Use Types Packs/Day Years Used Date Smoking Tobacco: Former Cigarettes Passive Smoke Exposure: Past Smokeless Tobacco: Never Comments Unknown Sex and Gender Information Value Date Recorded Sex Assigned at Not on file Legal Sex Female 8:10 PM EDT Gender Identity Not on file Sexual Orientation Not on file documented as of this encounter Plan of Treatment Upcoming Encounters Date Type Department Care Team (Late st Contact Info) Description 01/03/2025 12:45 PM EDT Procedure Visit [facility] [address] [place] [address] Kenton Goins MD [address] [address] 05/22/2025 2:15 PM EST Office Visit [facility] [address] [place] [address] Koko Robles, OD [address] [facility] [address] [place] [phone] documented as of this encounter Procedures Procedure Name Priority Date/Time Associated Diagnosis Comments OCT, RETINA - OU - BOTH EYES Routine 10/24/2024 11:52 AM EDT Exudative age-related macular degeneration of both eyes with active choroidal neovascularization (CMS/HCC) documented in this encounter Results * OCT, Retina - OU - Both Eyes (10/24/2024 11:52 AM EDT) Anatomical Region Laterality Modality Head Optical Coherenc e Tomography Narrative 10/24/2024 11:52 AM EDT Right Eye Quality was good. Scan locations included subfoveal. Progression has been stable. Left Eye Quality was good. Scan locations included subfoveal. Progression has worsened. Notes Right eye (OD) Choroidal Neovascular Membrane with no subretinal fluid (SRF) and trace Intraretinal fluid, no change. Left eye (OS) Choroidal Neovascular Membrane with Subretinal Hyper Reflective material, Intraretinal fluid worsened today Kenton Goins MD OPHTH TOMOGRAPHY Edited Result - Final documented in this encounter Visit Diagnoses Not on filedocumented in this encounter Additional Health Concerns Assessment Noted Time A fall risk assessment has been complete d for the patient 08/12/2024 1:36 PM EST A Body Mass Index follow-up plan has been documented for the patient 10/24/2024 12:11 PM EDT documented as of this encounter Care Teams Manager Simulation Relationship Specialty Start Date End Date Edilberto Montoya MD [address] [place] [id number] PCP - General 10/23/20 documented as of this encounter
--- OUTSIDE RECORDS SUMMARY | 2024-10-24 10:00 | XMS_ITS | Encounter Summary ---
Author Organization [facility] Address [address] [place] [address] Care Team Providers Care Client Services Director Name Role Phone Edilberto Montoya MD Primary Care Provider [phone] Reason for Referral * Clinic-Administered Medication (Routine) - Authorized Specialty Diagnoses / Procedures Referred By Johnnie galeas Referred To Contact Diagnoses Exudative age-related macular degeneration of both eyes with active choroidal neovascularization (CMS/HCC) Procedures IA AFLIBERCEPT INJECTION Kenton Goins MD [address] [address] Phone: tel: fax: Referral ID Status Reason Start Date Expiration Date V isits Requested Visits Authorized [id number] Authorized 10/24/2024 04/25/2026 1 1 Encounter Details Date Type Department Care Team (Latest Contact Info) Description 10/24/2024 10:00 AM EDT Procedure Visit [facility] [address] [place] [address] Kenton Goins MD [address] [address] Exudative age-related macular degeneration of [...] encounter Miscellaneous Notes * Progress Notes - Kenton Goins MD - 10/24/2024 10:00 AM EDT [...] involving Retina / Ocular Oncology services at [facility] in the care. Electronically signed by: [...] Description 01/03/2025 12:45 PM EDT Procedure Visit [facility] [address] [place] [phone] Kenton Goins MD 110 [facility] [address] [place] [phone] 05/22/2025 2:15 PM EST Office Visit [facility] [address] [place] [address] Koko Robles, OD 110 [facility] [address] [place] [address] documented as of this encounter [...] 2 MG/0.05ML Route: Intravitreal, Site: Right Eye [facility]: [id number], Lot: [id number], Expiration date: 10/09/2025 Post-op Post injection exam [...] documented as of this encounter Care Teams Client Services Director Relationship Specialty Start Date End Date Edilberto Montoya MD [address] [place] [id number] PCP - General 10/23/20 documented as of this encounter
--- NOTE | 2024-11-21 | CA_ITS ---
APPROVED REPORT Exam: Pharmacologic Technologist: Olivia Goldberg Ht: 5 ft 5 in Wt: 178 lbs BSA: 1.88 m2 Medical History Medications: atorvastatin, carvedilol, vitamin D3, clopidogrel, duloxetine, lisinopril, metformin, nitroglycerin, preser vision AREDS-2 Stress Test Details Test: Lexiscan Reason for pharmacologic stress test: physical limitation. HR Resting HR: 50 bpm Max Heart Rate (APMHR): 133 bpm Max HR Achieved: 71 bpm Target HR (85% APMHR): 113 bpm % of APMHR: 53 Recovery HR: 59 bpm BP Resting BP: 143.0/59.0 mmHg Max BP: 151.0/65.0 mmHg Recovery BP: 144.0/68.0 mmHg ECG Resting ECG: SR. No isch. ectopy Stress ECG Conclusion Symptoms: None. Arrhythmias/Ectopy: None. ST-T Changes: None. Electronically signed by : Jennifer Pappas MD 11/21/2024 14:21:57
--- NOTE | 2024-11-21 12:30 | NM_ITS ---
APPROVED REPORT Exam: Nuclear Stress Test Indication: Fatigue, HTN, DM, High cholesterol, Family history, Hx of SC Patient Location: Outpatient Stress Tech: Olivia Christensen MS Tech:Nadja Arreguin ALECElijah RT(R)(N) Ht: 5 ft 5 in Wt: 170 lbs Bra Size: 44D HR: 47 bpm BP: 143/59 mmHg BSA: 1.85 m2 TID: 1.02 BMI: 28.2 History: Fatigue, HTN, DM, High cholesterol, Family history, Hx of SC Procedure: Patient received 0.4 mg of intravenous Lexiscan, resting heart rate 47 bpm, resting blood pressure 143/59 mmHg, with Lexiscan maximum heart rate achieved was 71 bpm which is % of the maximum predicted heart rate and blood pressure was 164/68 mmHg. With Lexiscan, patient denied any complaint of chest pain. Cardiac Stress and Resting SPECT Images: Cardiac Stress and Resting SPECT images were obtained using technetium 99m Myoview 32.0 mCi stress and 10.21 mCi at rest. Resting and stress imaging in supine and prone positions demonstrate no evidence of fixed or reversible perfusion defects. Gated imaging demonstrates normal global and regional LV systolic function. LVEF is calculated at 71%. Conclusion: No evidence of fixed or reversible perfusion defects. Gated imaging demonstrates normal global and regional LV systolic function. LVEF is calculated at 71%. Electronically signed by : Jennifer Pappas MD 11/25/2024 12:00:09
--- OUTSIDE RECORDS SUMMARY | 2024-11-21 13:31 | XMS_ITS | Encounter Summary ---
Author Organization Healthcare Address [address] [place] [address] Care Team Providers Care Jointer Machine Name Role Phone Edilberto Montoya MD Primary Care Provider [phone] Encounter Details Date Type Department Care Team (Late st Contact Info) Description [email or web address] [address] [place] [address] Kenton Goins MD [address] [address] Social History Tobacco Use Types Packs/Day Years Used Date Smoking Tobacco: Former Cigarettes Passive Smoke Exposure: Past Smokeless Tobacco: Never Comments Unknown Sex and Gender Information Value Date Recorded Sex Assigned at Not on file Legal Sex Female 8:10 PM EDT Gender Identity Not on file Sexual Orientation Not on file documented as of this encounter Miscellaneous Notes * Telephone Encounter - Jessica Vail Mack - 09/17/2024 4:42 PM EDT Clinical Concern/Question Reason for Call: patient daughter Melvi calling she in [facility] and patient will be staying a couple weeks with her starting MondayOctober 25 she has rescheduled for the for injection but if she cannot make it she would like to see if she can have the same injection done with a provider there that she has seen before. The provider is a retina vitreous associate Duane Montague M.D. Best contact number: Other: [phone] Optimal time of day to reach caller: ANYTIME Additional comments/information from caller: None Note: Please do not reply to this message. Follow-up communication and further actions as a result of this message need to be communicated with the patient directly, if the patient is not active onMyChart. If the patient is active on MyChart, they will receive notification of the communication/outcome via MyChart. documented in this encounter Plan of Treatment Upcoming Encounters Date Type Department Care Team (Late st Contact Info) Description 01/03/2025 12:45 PM EDT Procedure Visit [facility] [address] [place] [address] Kenton Goins MD [address] [facility] [address] [place] [address] 05/22/2025 2:15 PM EST Office Visit [facility] [address] [place] [address] Koko Robles, OD [address] [place] [address] documented as of this encounter Visit Diagnoses Not on filedocumented in this encounter Additional Health Concerns Assessment Noted Time A fall risk assessment has been complete d for the patient 08/12/2024 1:36 PM EST A Body Mass Index follow-up plan has been documented for the patient 08/12/2024 2:29 PM EST documented as of this encounter Care Teams Jointer Machine Relationship Specialty Start Date End Date Edilberto Montoya MD [address] [place] [id number] PCP - General 10/23/20 documented as of this encounter
--- OUTSIDE RECORDS SUMMARY | 2024-11-21 13:31 | XMS_ITS | Encounter Summary ---
Author Organization Healthcare Address [address] [place] [address] Care Team Providers Care Laborer Mine Name Role Phone Edilberto Montoya MD Primary Care Provider [phone] Encounter Details Date Type Department Care Team (Latest Contact Info) Description 10/24/2024 Travel Social History Tobacco Use Types Packs/Day Years [...] Description 01/03/2025 12:45 PM EDT Procedure Visit [facility] [address] [place] [address] Kenton Goins MD [address] [address] 05/22/2025 2:15 PM EST Office Visit [facility] [address] [place] [address] Koko Robles, SEFERINO [address] [address] documented as of this encounter Visit Diagnoses Not on filedocumented in this encounter Additional Health Concerns Assessment Noted Time A fall risk assessment has been complete d for the patient 08/12/2024 1:36 PM EST A Body Mass Index follow-up plan has been documented for the patient 10/24/2024 12:11 PM EDT documented as of this encounter Care Teams Laborer Mine Relationship Specialty Start Date End Date Edilberto Montoya MD [address] [place] [id number] PCP - General 10/23/20 documented as of this encounter
--- OUTSIDE RECORDS SUMMARY | 2024-11-21 13:31 | XMS_ITS | Clinical Summary ---
Author Organization [facility] Address [facility] [place] [address] Care Team Providers Care Supervisor Contingents Name Role Phone Edilberto Montoya MD Primary Care Provider [phone] Source Comments This information has been disclosed to you from confidential records protectedfrom disclosure by state law. You shall make no further disclosure of thisinformation without the specific, written, and informed release of theindividual to whom it pertains, or as otherwise permitted by law. A generalauthorization for the release of medical or other information is not sufficientfor the purposes of therelease of HIV test results or diagnoses. [id number] Allergies No known active allergies Medications lisinopril (PRINIVIL,ZESTRI L) 10 MG tablet 01/23/2014 Act renuka metoprolol tartrate (LOPRESSOR) 50 MG tablet 11/28/2013 Active CRESTOR 10 mg tablet 01/23/2014 Active LACTOBAC CMB #3/FOS/PANTETHIN E (PROBIOTIC & ACIDOPHILUS ORAL) Take by mouth. Active omeprazole (PRILOSEC) 20 MG capsule Take 20 mg by mouth every morning before breakfast. Active Active Problems Problem Noted Date Diagnosed Date Neuropathic pain of upper extremity 02/12/2014 Neuropathic pain of chest 02/12/2014 History of breast cancer 01/30/2014 Acquired absence of breast and absent nipple Family History Medical History Relation Comments Crohn's disease Daughter 1 Diabetes Daughter 2 Hypertension Daughter 2 Endometriosis Daughter 3 Thyroid Cancer Daughter 3 Heart disease Father Dementia Maternal Aunt Breast Cancer Maternal Grandmother Dementia Maternal Grandmother Dementia Mother Dementia Paternal Aunt Colon Cancer Paternal Grandfather Dementia Paternal Grandmother Heart disease Paternal Uncle Relation Status Comments Brother Daughter 1 Alive Daughter 2 Alive Daughter 3 Alive Father Maternal Aunt Maternal Grandfather Maternal Grandmother Mother Paternal Aunt Paternal Grandfather Paternal Grandmother Paternal Uncle Son Alive Social History Tobacco Use Types Packs/Day Years Used Date Smoking Tobacco: Former Cigarettes 1 20 Smokeless Tobacco: Never Tobacco Cessation:Counseling Given: No Alcohol Use Standard Drinks/Week Comments No 0 (1 standard drink = 0.6 oz pur e alcohol) Comments No Sex and Gender Information Value Date Recorded Sex Assigned at Not on file Legal Sex Female 4:54 PM EDT Gender Identity Not on file Sexual Orientation Not on file Last Filed Vital Signs Vital Sign Reading Time Taken Comments Blood Pressure 150/62 02/12/2014 1:20 PM EDT Pulse 65 02/12/2014 1:20 PM EDT Temperature 36.6 C (97.8 F) 01/30/2014 3:53 PM EDT Respiratory Rate 18 02/12/2014 1:20 PM EDT Oxygen Saturation 97% 02/12/2014 1:20 PM EDT Inhaled Oxygen Concentration 97% 02/12/2014 1 :20 PM EDT Weight 81.2 kg (179 lb) 02/12/2014 1:20 PM EDT Height 167.6 cm (5' 6 ) 02/12/2014 1:20 PM EDT Body Mass Index 28.89 02/12/2014 1:20 PM EDT Plan of Treatment Not on file Insurance [facility] Member Subscriber Plan / Payer (Ef fective 2017-Present) Name:Zoila ePdro Member ID:[id number] Relation to Subscriber:Self Name:Zoila Pedro Subscriber ID:[id number] Payer ID:[id number] Group ID:Not on file Type:Not on file Address: [address] [place] [address] Care Teams Supervisor Contingents Relationship Specialty Start Date End Date Edilberto Montoya MD PCP - General Internal Medicine 01/28/14
--- OUTSIDE RECORDS SUMMARY | 2024-11-21 13:33 | XMS_ITS | Clinical Summary ---
Author Organization [facility] Address [address] [facility] [place] [address] Phone Care Team Providers Care Side Laster Tack Name Role Phone Unavailable Primary Care Provider Unavailabl e Allergies No known active allergies Medications lisinopril (PRINIVIL;ZESTR IL) 10 mg Oral Tablet Take 10 mg by mouth daily. Active Cholecalciferol , Vitamin D3, (VITAMIN D3) 1,000 unit Oral Capsule Take by mouth daily. Active multivitamin, stress formula (ALLBEE VIT WITH C & B COMPLEX) Oral Tablet Take 1 Tab by mouth daily. Active azithromycin (ZITHROMAX) 250 mg Oral Tablet Take 250 mg by mouth every 24 hours. Last dose will be today, 08-28-17 for sinus infection Active predniSONE (DELTASONE) 10 mg Oral Tablets, Dose Pack Take by mouth daily. Last dose will be today, 08-28-17 for sinus infection Active gabapentin (NEURONTIN) 300 mg Oral Capsule Take 300 mg by mouth 2 times daily. 4 tablets Active DULoxetine (CYMBALTA) 30 mg Oral Capsule, Delayed Release(E.C.) Take 30 mg by mouth daily. Active aspirin 81 mg Oral Tablet, Chewable Take by mouth daily. Active cyclobenzaprine (FLEXERIL) 10 mg Oral Tablet Take 1 Tab by mouth 3 times daily as needed for Muscle spasms. 60 Tab 8 Active oxyCODONE-aceta minophen (PERCOCET) 5-325 mg Oral Tablet Take 1-2 Tabs by mouth every 4 hours as needed for Pain. 40 Tab 8 Active Active Problems No known active problems Surgical History Surgery Date Site/Laterality Comments BREAST SURGERY 06/12/1999 - 06/11/2000 Bilateral mastectomy with tram flap reconstruction HYSTERECTOMY 06/12/1973 - 06/11/1974 KNEE SURGERY Left partail knee replacement SHOULDER SURGERY Right rotator cuff repair EYE SURGERY Bilateral cats with IOL HAND SURGERY Bilateral multiple procedures for dequervain's COLONOSCOPY SECTION 06/12/1968 - 06/11/1969 CERVICAL FUSION 09/01/2017 N/A ANTERIOR CERVICAL DISCECTOMY FUSION C5/6 LOCAL BONE MARROW ASPIRATION CERVICAL LAMINECTOMY C5/6 FUSION LATERAL MASS SCREWS ; Surgeon: Anatoly Mcconnell MD; Location: [facility]; Service: Neurosurgery Medical devices from this surgery are in the Medical Devices section. Medical History Medical History Date Comments Hypertension Heartburn Arthritis Neuromuscular disorder (HCC) claudette yneuropathy Cancer (HCC) 1999 bilateral breast cancer Family History Medical History Relation Name Comments Dementia Mother Relation Name Status Comments Father (Age 87) coronary e vent Mother (Age 92) pneumaonia , dementia Social History Tobacco Use Types Packs/Day Years Used Date Smoking Tobacco: Former Cigarettes 1 36 0 08/29/1955 - 08/29/1991 Smokeless Tobacco: Never Alcohol Use Standard Drinks/Week Comments No 0 (1 standard drink = 0.6 oz pur e alcohol) Comments No Sex and Gender Information Value Date Recorded Sex Assigned at Not on file Legal Sex Female 3:59 PM EDT Gender Identity Not on file Sexual Orientation Not on file Obstetrics History Para Term AB IAB SAB Ectopic Multiple Livin g Live Births 5 5 4 1 5 Date Outcome GA Total Labor Labor/2nd/3rd Weight Sex Type Anes PTL Alix A1 A5 Name Clin Term Term Term Term Last Filed Vital Signs Vital Sign Reading Time Taken Comments Blood Pressure 110/92 09/07/2017 10:16 AM EDT Pulse 98 09/07/2017 10:16 AM EDT Temperature 36.5 C (97.7 F) 09/07/2017 10:16 AM EDT Respiratory Rate 18 09/07/2017 10:16 AM EDT Oxygen Saturation 96% 09/07/2017 10:16 AM EDT Inhaled Oxygen Concentration - - Weight 83.5 kg (184 lb) 09/01/2017 6:46 AM EDT Height 167.6 cm (5' 6 ) 09/01/2017 6:46 AM EDT Body Mass Index 29.7 09/01/2017 6:46 AM EDT Plan of Treatment Health Maintenance Due Date Last Done Comments Wellness Exam Medicare 1938 DTaP/TDaP/Td (1 - Tdap) 1956 Pneumococcal Vaccine 50+ (1 of 1 - PCV) 1987 Zoster (1 of 2) 1987 Bone Density Screening 2002 RSV or 60+ (1 - 1-d ose 75+ series) 2012 COVID-19 Vaccine ( - 2023-2 5 season) 2024 Influenza Vaccine (Season Ended) 2025 Hepatitis B Vaccine Aged Out No longe r eligible based on patient's age to complete this topic Meningococcal B Vaccine Aged Out No l onger eligible based on patient's age to complete this topic Medical Devices Implanted Type Area Cable Assembler And Swager Device Identifier Shelf Expiration Date Model / Serial / Lot Bilateral Breast Markers/Clips Bilateral Intraocular Lenses Partial Left Knee Replacement Moore Dbf 1cc - [id number] Implanted:Qty: 1 on 09/01/2017 by Anatoly Mcconnell MD at [facility] N/A: Spine Cervical [employer]:SOFAMO R DANEK 04/24/2019 [id number] / [id number] / Cage Peek 6mm X 16mm X 14mm - [id number] Implanted:Qty: 1 on 09/01/2017 by Anatoly Mcconnell MD at [facility] N/A: Spine Cervical [employer]:SOFAMO R DANEK 10/21/2024 [id number] / / [id number] Screw Axial Multi Vertex 3.5mm X 16mm - [id number] Implanted:Qty: 4 on 09/01/2017 by Anatoly Mcconnell MD at [facility] N/A: Spine Cervical [employer]:SOFAMO R DANEK [id number] / / Inocencio 3.5mm X 30mm - [id number] Implanted:Qty: 1 on 09/01/2017 by Anatoly Mcconnell MD at [facility] N/A: Spine Cervical [employer]:SOFAMO R DANEK [id number] / / Screw Set Vertex - [id number] Implanted:Qty: 4 on 09/01/2017 by Anatoly Mcconnell MD at [facility] N/A: Spine Cervical [employer]:SOFAMO R DANEK [id number] / / Inocencio 3.5mm X 25mm - [id number] Implanted:Qty: 1 on 09/01/2017 by Anatoly Mcconnell MD at [facility] N/A: Spine Cervical [employer] [id number] / / Insurance MEDICARE [place] PART A AND B SUPPLEMENTAL Advance Directives For more information, please contact: [phone] * Full Code (Latest Code Status on File) Date Activated Date Inactivated Comments 09/01/2017 2:28 PM 09/07/2017 8:13 PM
--- OUTSIDE RECORDS SUMMARY | 2024-11-21 13:33 | XMS_ITS | Clinical Summary ---
Author Organization Healthcare Address [address] [place] [address] Care Team Providers Care Balloon Tester Name Role Phone Edilberto Montoya MD Primary Care Provider [phone] Allergies Active Allergy Reactions Criticality Noted Date Comments Hydromorphone Other - please docum ent in the comment field High 03/15/2023 Metronidazole Nausea 03/15/2023 Morphine Other - please docum ent in the comment field Low 03/15/2023 Pentazocine Other - please docum ent in the comment field Low 03/15/2023 Medications nitroglycerin (Nitrostat) 0.4 MG SL tablet 03/28/2023 Active metFORMIN (Glucophage) 500 MG tablet 03/26/2023 Activ e lisinopril 10 MG tablet 03/28/2023 Active DULoxetine (Cymbalta) [address] capsule 03/26/2023 Activ e clopidogrel (Plavix) 75 MG tablet 03/28/2023 Active carvedilol (Coreg) 6.25 MG tablet 03/06/2023 Active atorvastatin (Lipitor) 80 MG tablet 03/28/2023 Active Aspirin Low Dose 81 MG EC tablet TAKE 1 TABLET BY MOUTH ONCE DAILY FOR BLOOD THINNER 06/26/2023 Active gabapentin (Neurontin) 300 MG capsule Take 1 capsule (300 mg) by mouth. Active Active Problems Problem Noted Date Diagnosed Date Pseudophakia of both eyes 07/07/2023 Accidental fall 05/15/2023 05/15/2023 Ataxia 05/15/2023 05/15/2023 Biceps strain 05/15/2023 05/15/2023 Chest pain 05/15/2023 05/15/2023 Chronic right shoulder pain 05/15/2023/0 09/2022 Concussion without loss of consciousness 023 05/15/2023 Coronary atherosclerosis of [place] coronary malcom ry 05/15/2023 05/15/2023 Diabetes type 2, controlled 05/15/2023 12/0 09/2022 Dysuria 05/15/2023 05/15/2023 Frequent falls 05/15/2023 05/15/2023 Hyperlipidemia 05/15/2023 05/15/2023 Hypertension, essential 05/15/2023 05/15/20 Injury of right rotator cuff 05/15/202309/2022 Incurved toenail 05/15/2023 05/15/2023 Keratosis 05/15/2023 05/15/2023 Laceration 05/15/2023 05/15/2023 Nasal septum fracture 05/15/2023 05/15/2023 Osteoarthritis of right knee 05/15/202309/2022 Peripheral neuropathy 05/15/2023 05/15/2023 Puncture wound 05/15/2023 05/15/2023 Peripheral arterial disease 05/15/2023 12/0 09/2022 Renal artery stenosis 05/15/2023 05/15/2023 Right knee sprain 05/15/2023 05/15/2023 Rotator cuff tear arthropathy of right shoulder 05/15/2023 05/15/2023 S/P total knee arthroplasty 05/15/2023 120 09/2022 Shoulder pain 05/15/2023 05/15/2023 Skin tear 05/15/2023 05/15/2023 STEMI (ST elevation myocardial infarction) 05/1505/15/2023 Unstable angina 05/15/2023 05/15/2023 UTI (urinary tract infection) 05/15/2023 Exudative age-related macular degeneration 04/17 Neuropathic pain of chest 02/12/20142022 Acquired absence of breast and absent nipple 05/15/2023 Encounters Date Type Department Care Team Description 10/24/2024 10:00 AM EDT Procedure Visit [facility] [address] [place] [phone] Kenton Goins MD Exudative age-related macular degeneration of both eyes with active choroidal neovascularization (CMS/HCC) (Primary Dx); Pseudophakia of both eyes; 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 10/24/2024 7:45 AM EDT Ancillary Procedure [facility] [address] [place] [address] 10/24/2024 Travel 09/17/2024 Telephone [facility] [address] [place] [address] Kenton Goins MD from Last 3 Months Immunizations Immunization Administration Dates Next Due Influenza, high-dose, quadrivalent 03/23/2022,,04/03/2017 Influenza, injectable, quadrivalent 02/19/2018 Pneumococcal 20-aby Conj Vaccine 05/23/2022 Rsvpref, Recombinant, Protei n Subunit, Adjuvent 04/03/2023 Tdap 12/18/2018 Family History Medical History Relation Name Comments Cataracts Father Heart disease Father Cataracts Mother Glaucoma Mother Relation Name Status Comments Father Mother Social History Tobacco Use Types Packs/Day Years Used Date Smoking Tobacco: Former Cigarettes Passive Smoke Exposure: Past Smokeless Tobacco: Never Tobacco Cessation:Counseling Given: Not Answered Comments Unknown Sex and Gender Information Value Date Recorded Sex Assigned at Not on file Legal Sex Female 8:10 PM EDT Gender Identity Not on file Sexual Orientation Not on file Plan of Treatment Upcoming Encounters Date Type Department Care Team (Late st Contact Info) Description 01/03/2025 12:45 PM EDT Procedure Visit [facility] [address] [place] [address] Kenton Goins MD [address] [address] 05/22/2025 2:15 PM EST Office Visit [facility] [address] [place] [address] Kkoo Robles, OD [address] [address] Health Maintenance Due Date Last Done Comments [facility]-Bone Density Scan 1937 [facility]-Depression Screening 1937 [facility]-Diabetes: Hemoglobin A1C 1937 [facility]-Medicare Annual Wellness (AWV) 1937 [facility]-Infant/Child/Adol SDOH Screenings 1937 Diabetes: Dental Exam 1947 [facility]- SDOH Screenings 1955 [facility]-Adult SDOH Screenings 1955 [facility]-Zoster Vaccines (1 of 2) 1987 [id number] Vaccine ( season) 2024 03/28/2022, 03/15/2021, 08/04/2020, Additional history exists [facility]-DTaP,Tdap,and Td Vaccines (3 - Td or Tdap) 12/01/2033 12/02/2023, 12/18/2018 [facility]-Pneumococcal Vaccine: 50+ Years Completed 05/23/2022 [facility]-RSV Vaccine: 60+ Years or Completed 04/03/2023 [facility]-Influenza Vaccine Completed 03/20/2024 , 04/03/2023, 03/23/2022, Additional history exists HPV Vaccines Aged Out No longer eligi ble based on patient's age to complete this topic [facility]-HIB Vaccines Aged Out No longer e ligible based on patient's age to complete this topic [facility]-Hepatitis A Vaccines Aged Out No longer eligible based on patient's age to complete this topic [facility]-IPV Vaccines Aged Out No longer e ligible based on patient's age to complete this topic [facility]-Rotavirus Vaccines Aged Out No lo nger eligible based on patient's age to complete this topic Procedures Procedure Name Priority Date/Time Associated Diagnosis Comments INTRAVITREAL INJECTION, PHARMACOLOGIC AGENT - OD - RIGHT EYE Routine 10/24/2024 12:01 PM EDT Exudative age-related macular degeneration of both eyes with active choroidal neovascularization (CMS/HCC) OCT, RETINA - OU - BOTH EYES Routine 10/24/2024 11:52 AM EDT Exudative age-related macular degeneration of both eyes with active choroidal neovascularization (CMS/HCC) from Last 3 Months Results * Intravitreal Injection, Pharmacologic Agent - [...] 2 MG/0.05ML Route: Intravitreal, Site: Right Eye [facility]: 73289-726-50, Lot: [id number], Expiration date: 10/09/2025 Post-op Post injection exam [...] MD OPHTH TOMOGRAPHY Edited Result - Final from Last 3 Months Insurance MEDICARE AAR Care Teams Balloon Tester Relationship Specialty Start Date End Date Edilberto Montoya MD [address] [place] [id number] PCP - General 10/23/20
[2024-11-21] MEDS: REGADENOSON 0.4MG/5ML SYRINGE 0.4 MG IV (13:55)
[2024-11-21] MEDS: SODIUM CHLORIDE 0.9% 10ML SYR (RAD ONLY) 10 ML IV ×2 (13:55)
[2024-11-21] MEDS: ISOTOPE MYOVIEW (PER STUDY) 1 DOSE IV (13:55)
--- NOTE | 2024-11-21 15:15 | CA_ITS ---
APPROVED REPORT EXAM: Comprehensive 2D, Doppler, and color-flow Echocardiogram Media Law Faculty Member: Medina Travis RT(R) Ht: 5 ft 5 in Wt: 178lbs BSA: 1.88 BP: 122/46 mmHg Indications: left ventricular hypertrophy 2D Dimensions Left Atrium 2.82 cm F: 2.7 - 3.8 LVEF (Messina's) 65.60 % F: 54 - 74 LVOT 1.96 cm (M/F) 1.5-2.5 LV Volume 87.50 mL F: 46 - 106 LV Volume Index 46.5 mL/m2 F: 29 - 61 LA Volume 36.60 mL LA Volume Index 19.47 mL/m2 (M/F) 16-34 EF AP4 68.00 % EF AP2 63.3 % EF BP 65.6 % GL Strain -21.6 % M-Mode Dimensions RVDd 2.58 cm (0.9-2.6) LVDd 4.86 cm (3.5-5.7) Ao Diam 2.29 cm (2.0-3.7) LVDs 3.38 cm (3.5-5.7) IVSd 1.06 cm (0.6-1.1) PWd 0.99 cm (0.6-1.1) EF (Teich) 57.70% FS 30.50% EDV (Teich) 110.70 mL ESV (Teich) 46.80 mL LV Diastology E Decel Time 347 (160-240 msec) E/A Ratio 0.7 MED E' 7.0 (>= 7 cm/sec) E'/MED E' Ratio 10.73 (<= 14) LAT E' 5.7 (>= 10 cm/sec) E/LAT E' Ratio 13.18 (<= 14) Mitral Valve MV E Max Emanuel. 75.0 (40-130 cm/s) MV A Velocity 112.0 (40-130 cm/s) E/A Ratio 0.67 MV Decel. Time 347 (160-240 ms) Left Ventricle The left ventricle is normal size. The left ventricular systolic function is normal. The left ventricular ejection fraction is within the normal range. There is marked increase in LV wall thickness. IVSD is 1.5 cm. There is normal LV segmental wall motion. Transmitral Doppler flow pattern suggests impaired LV relaxation. LVEF is 60%. Right Ventricle The right ventricle is normal size. The right ventricular systolic function is normal. Atria The left atrium size is normal. The right atrium size is normal. There is no Doppler evidence of interatrial shunt. Aortic Valve Aortic valve is mildly thickened. There is no aortic valvular stenosis. Trace aortic regurgitation. Mitral Valve The mitral valve is normal in structure. No evidence of mitral valve stenosis. Trace mitral regurgitation. Tricuspid Valve Tricuspid valve is grossly normal in structure and function. Trace tricuspid regurgitation. There is insufficient TR jet to estimate RVSP. Pulmonic Valve The pulmonary valve is normal in structure. Trace pulmonic regurgitation. Great Vessels The aortic root is normal in size. IVC is normal in size and collapses >50% with inspiration. Pericardium There is no pericardial effusion. Other Information Study Quality: Fair Conclusion Normal biventricular systolic function. There is marked increase in LV wall thickness. IVSD is 1.5 cm. No significant valvular stenosis or regurgitation. In the setting of marked increased LV wall thickness, further evaluation with cardiac MRI (amyloidosis + HCM protocol) may be suggested. Electronically signed by : Jennifer Pappas MD 11/30/2024 21:28:49
== END 2024-11-21 23:59 | disposition home or self-care (01) ==
LOC: RAD 12:19
PROVIDERS: PCP Internal Medicine Adolescent Medicine; Visit Provider Nurse Practitioner Family
DX: I11.9 Hypertensive heart disease without heart failure (principal); I25.10 Atherosclerotic heart disease of native coronary artery without angina pectoris; E78.00 Pure hypercholesterolemia, unspecified; E11.9 Type 2 diabetes mellitus without complications; I25.2 Old myocardial infarction
CPT/HCPCS: 78452; 93017; 93018; 93306; A9502; J2785

== ENCOUNTER 2024-12-20 10:25 | Outpatient (CLI) | payer MEDICARE, SELFPAY ==
--- OUTSIDE RECORDS SUMMARY | 2024-10-24 07:45 | XMS_ITS | Encounter Summary ---
Author Organization Healthcare Address [address] [place] [address] Care Team Providers Care Violin Repairer Name Role Phone Edilberto Montoya MD Primary Care Provider [phone] Encounter Details Date Type Department Care Team (Late st Contact Info) Description 10/24/2024 7:45 AM EDT Ancillary Procedure [facility] [address] [place] [address] Social History Tobacco Use Types [...] Description 01/03/2025 12:45 PM EDT Procedure Visit [facility] [address] [place] [address] Kenton Goins MD [address] [phone] 05/22/2025 2:15 PM EST Office Visit [facility] [address] [place] [address] Koko Robles, OD 110 [facility] [address] [place] [phone] documented as of this encounter Procedures [...] documented as of this encounter Care Teams Violin Repairer Relationship Specialty Start Date End Date Edilberto Montoya MD [address] [place] [id number] PCP - General 10/23/20 documented as of this encounter
--- OUTSIDE RECORDS SUMMARY | 2024-10-24 10:00 | XMS_ITS | Encounter Summary ---
Author Organization [facility] Address [address] [place] [address] Care Team Providers Care Conditioner Tender Name Role Phone Edilberto Montoya MD Primary Care Provider [phone] Reason for Referral * Clinic-Administered Medication (Routine) - Authorized Specialty Diagnoses / Procedures Referred By Johnnie galeas Referred To Contact Diagnoses Exudative age-related macular degeneration of both eyes with active choroidal neovascularization (CMS/HCC) Procedures IA AFLIBERCEPT INJECTION Kenton Goins MD [address] [address] Phone: tel: fax: Referral ID Status Reason Start Date Expiration Date V isits Requested Visits Authorized [id number] Authorized 10/24/2024 04/25/2026 1 1 Encounter Details Date Type Department Care Team (Latest Contact Info) Description 10/24/2024 10:00 AM EDT Procedure Visit [facility] [address] [place] [address] Kenton Goins MD [address] [address] Exudative age-related macular degeneration of both eyes with active choroidal neovascularization (CMS/HCC) (Primary Dx); Pseudophakia of both eyes; 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 Exudative age-related macular degeneration of both eyes with active choroidal neovascularization(CMS/HCC) OCT, Retina - OU - Both Eyes, Intravitreal Injection, Pharmacologic Agent - OD - Right Eye, Aflibercept (Eylea) prefilled syringe solution prefilled syringe 2 mg 2. Pseudophakia of both eyes 3. 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 female who presents to the clinic today for the follow up of Both eyes (OU) Choroidal Neovascular Membrane (age-related macular degeneration (AMD) - both eyes (OU) status post (s/p) multiple Intravitreal Eylea Right eye (OD) last 08/12/24 Left eye (OS) last Intravitreal Eylea 03/18/24 - visual acuity (VA) right eye (OD) subtle drop 20/40 (last time 20/30-1), left eye (OS) CF stable - right eye (OD) no subretinal hemorrhage (SRH), left eye (OS) speck of heme - OCT right eye (OD) no subretinal fluid (SRF), trace Intraretinal fluid, stable; left eye (OS) worsening of Intraretinal fluid - right eye (OD) Intravitreal Eylea done today at 10 weeks - To keep 10 weeks interval - left eye (OS) Observe - Monocular precautions explained to patient. - Use lubricating eye drops Follow up in about 2 months (around 01/03/2025) for Dilated Exam OD, OCT, Injection, OK to OB. Patient expressed understanding of the diagnoses, plan, and follow up. Thanks for involving Retina / Ocular Oncology services at [facility] in the care. Electronically signed by: Kenton Goins MD 10/24/2024 12:03 PM Tobacco Cessation Initiative: Tobacco Use: Medium Risk (10/24/2024) Patient History Smoking Tobacco Use: Former Smokeless Tobacco Use: Never Passive Exposure: Past The patient has been counseled on tobacco cessation: Not Applicable documented in this encounter Plan of Treatment Upcoming Encounters Date Type Department Care Team (Late st Contact Info) Description 01/03/2025 12:45 PM EDT Procedure Visit [facility] [address] [place] [phone] Kenton Goins MD [address] [facility] [address] [place] [phone] 05/22/2025 2:15 PM EST Office Visit [facility] [address] [place] [address] Koko Robles, OD [address] [facility] [address] [place] [address] documented as of this encounter Procedures Procedure Name Priority Date/Time Associated Diagnosis Comments INTRAVITREAL INJECTION, PHARMACOLOGIC AGENT - OD - RIGHT EYE Routine 10/24/2024 12:01 PM EDT Exudative age-related macular degeneration of both eyes with active choroidal neovascularization (CMS/HCC) OCT, RETINA - OU - BOTH EYES Routine 10/24/2024 11:52 AM EDT Exudative age-related macular degeneration of both eyes with active choroidal neovascularization (CMS/HCC) documented in this encounter Results * Intravitreal Injection, Pharmacologic Agent - OD - Right Eye (10/24/2024 12:01 PM EDT) Anatomical Region Laterality Modality Head Other Narrative 10/24/2024 12:01 PM EDT Time Out 10/24/2024. 12:00 PM. Confirmed correct patient, procedure, site, and patient consented. Anesthesia Topical anesthesia was used. Anesthetic medications included Proparacaine 0.5%. Procedure Preparation included 5% betadine to ocular surface. A 30 gauge needle was used. Injection: 2 mg Aflibercept 2 MG/0.05ML Route: Intravitreal, Site: Right Eye [facility]: 35371-148-49, Lot: [id number], Expiration date: 10/09/2025 Post-op Post injection exam found visual acuity of at least counting fingers. The patient tolerated the procedure well. There were no complications. The patient received written and verbal post procedure care education. Post injection medications were not given. 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 documented in this encounter Administered Medications Inactive Administered Medications - up to 3 most recent administrations Medication Order MAR Action Action Date Dose Rate Site Aflibercept (Eylea) prefilled syringe solution prefilled syringe 2 mg 2 mg, Intravitreal, Once PRN Procedure, 1 dose, Starting on Amparo 10/24/24 at 1201, Until Amparo 10/24/24 at 1201, RoutineIndications:Exudative age-related macular degeneration of both eyes with active choroidal neovascularization (CMS/HCC) Given 10/24/2024 12:01 PM EDT 2 mg Right Eye documented in this encounter Additional Health Concerns Assessment Noted Time A fall risk assessment has been complete d for the patient 08/12/2024 1:36 PM EST A Body Mass Index follow-up plan has been documented for the patient 10/24/2024 12:11 PM EDT documented as of this encounter Care Teams Conditioner Tender Relationship Specialty Start Date End Date Edilberto Montoya MD [address] [place] [id number] PCP - General 10/23/20 documented as of this encounter
--- OUTSIDE RECORDS SUMMARY | 2024-12-20 10:28 | XMS_ITS | Clinical Summary ---
Author Organization Healthcare Address [address] 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 05/15/2023 05/15/2023 Diabetes type [...] Description 10/24/2024 10:00 AM EDT Procedure Visit [facility] [address] [place] [phone] Kenton Goins MD Exudative age-related macular degeneration of both eyes with active choroidal neovascularization (CMS/HCC) (Primary Dx); Pseudophakia of both eyes; 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 10/24/2024 7:45 AM EDT Ancillary Procedure [facility] [address] [place] [address] 10/24/2024 Travel from Last 3 Months Immunizations Immunization Administration [...] Description 01/03/2025 12:45 PM EDT Procedure Visit [facility] [address] [place] [address] Kenton Goins MD [address] [address] 05/22/2025 2:15 PM EST Office Visit [facility] [address] [place] [address] Koko Robles, OD [address] [address] Health Maintenance Due Date Last Done Comments [facility]-Bone Density Scan 1937 [facility]-Depression Screening 1937 [facility]-Diabetes: Hemoglobin A1C 1937 [facility]-Medicare Annual Wellness (AWV) 1937 [facility]-/Child/Adol SDOH Screenings 1937 Diabetes: Dental Exam 1947 [facility]- SDOH Screenings 1955 [facility]-Adult SDOH Screenings 1955 [facility]-Zoster Vaccines (1 of 2) 1987 [id number] Vaccine (5 - season) 2024 03/28/2022, 03/15/2021, 08/04/2020, Additional history exists [facility]-Influenza Vaccine (#1) 02/10/202503/20, 04/03/2023, 03/23/2022, Additional history exists [facility]-DTaP,Tdap,and Td Vaccines (3 - Td or Tdap) 12/01/2033 12/02/2023, 12/18/2018 [facility]-Pneumococcal Vaccine: 50+ Years Completed 05/23/2022 [facility]-RSV Vaccine: 60+ Years or Completed 04/03/2023 HPV Vaccines Aged Out No longer eligi [...] MG/0.05ML Route: Intravitreal, Site: Right Eye [facility]: 05067-059-59, Lot: [id number], Expiration date: 10/09/2025 Post-op Post injection exam [...] - Final from Last 3 Months Insurance [place] [id number] [place] [address] [facility] Care Teams Software Test Developer Relationship Specialty Start Date End Date Edilberto Montoya MD [address] [place] [id number] PCP - General 10/23/20
--- OUTSIDE RECORDS SUMMARY | 2024-12-20 10:28 | XMS_ITS | Encounter Summary ---
Author Organization Healthcare Address [address] [place] [address] Care Team Providers Care Air Transport Professionals Name Role Phone Edilberto Montoya MD Primary Care Provider [phone] Encounter Details Date Type Department Care Team [...] Description 01/03/2025 12:45 PM EDT Procedure Visit [facility] [address] [place] [address] Kenton Goins MD [address] [address] 05/22/2025 2:15 PM EST Office Visit [facility] [address] [place] [address] Koko Robles, SEFERINO [address] [address] documented as of this encounter Visit Diagnoses Not on filedocumented in this encounter Additional Health Concerns Assessment Noted Time A fall risk assessment has been complete d for the patient 08/12/2024 1:36 PM EST A Body Mass Index follow-up plan has been documented for the patient 10/24/2024 12:11 PM EDT documented as of this encounter Care Teams Air Transport Professionals Relationship Specialty Start Date End Date Edilberto Montoya MD [address] [place] [id number] PCP - General 10/23/20 documented as of this encounter
--- OUTSIDE RECORDS SUMMARY | 2024-12-20 10:28 | XMS_ITS | Clinical Summary ---
Author Organization [facility] [place] [facility] Address [facility] [place] [address] Care Team Providers Care Vehicle Return Associate Name Role Phone Edilberto Montoya MD Primary Care Provider + [phone] Source Comments This information has been disclosed [...] therelease of HIV test results or diagnoses. [id number] Health Allergies No known active allergies Medications [...] Plan of Treatment Not on file Insurance [facility] Member Subscriber Plan / Payer (Ef fective 2017-Present) Name:Zoila Pedro Member ID:[id number] Relation to Subscriber:Self Name:Zoila Pedro Subscriber ID:HEALTHSOSYLVIA Payer ID:[id number] Group ID:Not on file Type:Not on file Address: [address] [place] [address] Care Teams Vehicle Return Associate Relationship Specialty Start Date End Date Edilberto Montoya MD PCP - General Internal Medicine 01/28/14
--- OUTSIDE RECORDS SUMMARY | 2024-12-20 10:28 | XMS_ITS | Clinical Summary ---
Author Organization Candi OROPEZA OSIEL OD Address [facility] [place] [address] Phone Care Team Providers Care Hypercil Core Transformer Assembler Name Role Phone Unavailable Primary Care Provider [...] - 2023-2 5 season) 2024 Influenza Vaccine (#1) 2025 Hepatitis B Vaccine Aged Out No longe r eligible based on patient's age to complete this topic Meningococcal B Vaccine Aged Out No l onger eligible based on patient's age to complete this topic Medical Devices Implanted Type Area Light Armored Vehicle Officer Device Identifier Shelf Expiration Date Model / Serial / Lot Bilateral Breast Markers/Clips Bilateral Intraocular Lenses Partial Left Knee Replacement Anthony Dbf 1cc - [id number] Implanted:Qty: 1 on 09/01/2017 by Anatoly Mcconnell MD at [facility] N/A: Spine Cervical [employer]:SOFAMO R DANEK 04/24/2019 [id number] / [id number] / Cage Peek 6mm X 16mm X 14mm - [id number] Implanted:Qty: 1 on 09/01/2017 by Anatoly Mcconnell MD at [facility] N/A: Spine Cervical [employer]:SOFAMO R DANEK 10/21/2024 [id number] / / [id number] Screw Axial Multi Vertex 3.5mm X 16mm - [id number] Implanted:Qty: 4 on 09/01/2017 by Anatoly Mcconnell MD at [facility] N/A: Spine Cervical [employer]:SOFAMO R DANEK [id number] / / Inocencio 3.5mm X 30mm - [id number] Implanted:Qty: 1 on 09/01/2017 by Anatoly Mcconnell MD at [facility] N/A: Spine Cervical [employer]:SOFAMO R DANEK [id number] / / Screw Set Vertex - [id number] Implanted:Qty: 4 on 09/01/2017 by Anatoly Mcconnell MD at [facility] N/A: Spine Cervical [employer]:SOFAMO R DANEK [id number] / / Inocencio 3.5mm X 25mm - [id number] Implanted:Qty: 1 on 09/01/2017 by Anatoly Mcconnell MD at [facility] N/A: Spine Cervical [employer] [id number] / / Insurance MEDICARE [place] PART A AND B SUPPLEMENTAL Advance Directives For more information, please contact: [phone] * Full Code (Latest Code Status on File) Date Activated Date Inactivated Comments 09/01/2017 2:28 PM 09/07/2017 8:13 PM
--- NOTE | 2024-12-20 10:30 | MR_ITS ---
APPROVED REPORT Freight Brake Operator: CLINICAL INDICATION Increased LV wall thickness on TTE, evaluation for infiltrative cardiomyopathy. TECHNIQUE Image Acquisition: Cardiac magnetic resonance (CMR) was performed on Siemens Espree MRI 1.5T scanner. Software platform sequences were performed using the Siemens Pharmapod MR B19 platform. A set of three-plane, low-resolution, large jysly-ww-knaa localizers were initially acquired. Then axial, coronal, sagittal TrueFISP, as well as axial HASTE images, were obtained. These were followed by gated TrueFISP breathold cinematic sequences obtained in the short axis with 8 mm slices and 2 mm gaps, 2-chamber (vertical long axis), 3-chamber, 4-chamber (horizontal long axis). A bolus of contrast was injected intravenously with first-pass sequences obtained in the short axis and four-chamber planes. After approximately 10 minutes, a TI weight control engineer sequence was performed to determine the optimal TI time. Using the optimized TI time, delayed contrast enhancement segmented inversion???recovery TurboFLASH sequences were obtained in the short axis, 2-chamber, 3-chamber, and 4-chamber projections. 2D-velocity phase mapping was performed. Functional parameters were calculated by offline analysis on an independent workstation ([employer] Imaging Platform, [employer]). Contrast: ProHance??? (Gadoteridol) FINDINGS MORPHOLOGY AND FUNCTION Left ventricle: The left ventricle is normal in size. The indexed left ventricular end-diastolic volume (LVEDVi) is 57 ml/m2 (reference range 57-105 ml/m2 in males, 56-96 ml/m2 in females). Normal left ventricular systolic function is present. There is mild increase in left ventricular wall thickness (maximum 11.5 mm). There are no regional wall motion abnormalities noted. LVEF is calculated at 69.0% (reference range 57-77%). Right ventricle: The right ventricle is normal in size. The indexed right ventricular end-diastolic volume (RVEDVi) is 62 ml/m2 (reference range 61-121 ml/m2 in males, 48-112 ml/m2 in females). Normal right ventricular systolic function is present. RVEF is calculated at 57.9% (reference range 52-72% in males, 51-71% in females). Atria: The left atrium is normal in size. The maximum indexed left atrial volume is 32 ml/m2 (reference range 26-52 ml/m2 in males, 27-53 ml/m2 in females). The right atrium is normal in size. The maximum indexed right atrial volume is 31 ml/m2 (reference range 18-90 ml/m2). Aorta: The diameter of the aortic annulus is normal, measuring 23 mm (coronal view reference range 21-30 mm in males, 19-27 mm in females). The diameter of the aortic sinus is normal, measuring 29 mm (coronal view reference range 25-42 mm in males, 24-36 mm in females). The diameter of the sinotubular junction is normal, measuring 27 mm (coronal view reference range 18-32 mm in males, 18-28 mm in females). The diameters of the ascending and descending thoracic aorta are normal. Main pulmonary artery: The main pulmonary artery diameter is normal. Pericardium: The pericardial thickness is normal. The pericardial thickness measures 1.0 mm (normal < 4.0 mm). Trivial circumferential pericardial effusion is present. VALVES Mild aortic regurgitation is present. Systolic anterior motion of the mitral valve is not visualized. Ratio of pulmonary to systemic flow, Qp:Qs ratio = 1.0 (normal < or = 1.2, hemodynamically significant shunt > 1.5), demonstrating no evidence of hemodynamically significant shunt. TISSUE CHARACTERIZATION Resting Perfusion: Normal myocardial blood flow at rest. No evidence of resting hypoperfusion. Myocardial Fibrosis and/or edema: There is faint, patchy late gadolinium enhnacement (LGE) noted in the mid inferior LV wall, as well as the LV apical wall. These LGE findings are overall non-specific. OTHER No other significant findings are noted. However, this exam is focused on the cardiac structure and function. IMPRESSION Normal LV size with normal LV systolic function. LVEDVi= 57 ml/m2 and LVEF= 69.0%. Mild increase in LV wall thickness (maximum 11.5 mm). Normal RV size with normal RV systolic function. RVEDVi= 62 ml/m2 and RVEF= 57.9%. No atrial enlargement. Mild AI present. Faint, patchy late gadolinium enhnacement (LGE) noted in the mid inferior LV wall, as well as the LV apical wall. These LGE findings are overall non-specific in the contenxt of the above CMR findings. Perfusion analysis demonstrates normal blood flow at rest with no evidence of resting hypoperfusion. Ratio of pulmonary to systemic flow, Qp:Qs ratio = 1.0 (normal < or = 1.2, hemodynamically significant shunt > 1.5), demonstrating no evidence of hemodynamically significant shunt. This CMR demonstrates normal biventricular systolic function. The findings do not meet CMR criteria for either infiltrative cardiomyopathy or HCM. The mild increase in LV wall thickness is likely due to hypertensive heart disease. COMPARISON None CRITICAL RESULT None COMMUNICATION The above findings were relayed to the patient at the time of the routine outpatient cardiology follow-up visit, prior to dictation of this report. The findings of this cardiac MR were reviewed, reported, and signed by Juve Pappas MD (Cell Lead). Conclusion Electronically signed by : Jennifer Pappas MD 01/07/2025 10:05:32
[2024-12-20 10:52] LABS: Anion Gap 16.0 mEq/L (5-15); Blood Urea Nitrogen 27 mg/dl (7-17); Calcium 9.9 mg/dl (8.4-10.2); Carbon Dioxide 26 mmol/L (22.0-30.0); Chloride 105 mmol/L (98-107); Creatinine,Serum 1.10 mg/dl (0.52-1.04); Estimated Glomerular Filt Rate 47 ml/min (>60); GFR (African American) 57 ML/MIN (>60); Glucose 111 mg/dl (74-100); Potassium 5.0 mmoL/L (3.5-5.1); Sodium 142 mmol/L (136-145)
[2024-12-20] MEDS: 0.9 % SODIUM CHLORIDE 50 ML VIAL 10 ML IV (12:57)
[2024-12-20] MEDS: GADOTERIDOL INJ 20ML SYRINGE 18 ML IV (12:57)
[2024-12-20] MEDS: SODIUM CHLORIDE 0.9% 10ML SYR (RAD ONLY) 10 ML IV (12:58)
== END 2024-12-20 23:59 | disposition home or self-care (01) ==
LOC: RAD 10:26
PROVIDERS: PCP Internal Medicine Adolescent Medicine; Visit Provider Nurse Practitioner Family
DX: I35.0 Nonrheumatic aortic (valve) stenosis (principal); I11.9 Hypertensive heart disease without heart failure; R93.1 Abnormal findings on diagnostic imaging of heart and coronary circulation; I25.10 Atherosclerotic heart disease of native coronary artery without angina pectoris; I70.1 Atherosclerosis of renal artery
CPT/HCPCS: 36415; 75561; 80048; A9576

== ENCOUNTER 2024-12-24 09:46 | Emergency (ER) | payer MEDICARE, SELFPAY ==
--- OUTSIDE RECORDS SUMMARY | 2024-12-24 09:57 | XMS_ITS | Clinical Summary ---
Author Organization [facility] Address [facility] [place] [address] Care Team Providers Care Cash Office Worker Name Role Phone Edilberto Montoya MD Primary Care Provider [phone] Source Comments This information has been disclosed [...] therelease of HIV test results or diagnoses. [id number] Health Allergies No known active allergies Medications [...] Plan of Treatment Not on file Insurance [facility] Member Subscriber Plan / Payer (Ef fective 2017-Present) Name:Zoila Pedro Member ID:[id number] Relation to Subscriber:Self Name:Zoila Pedro Subscriber ID:HEALTHSOSYLVIA Payer ID:[id number] Group ID:Not on file Type:Not on file Address: [address] [place] [address] Care Teams Cash Office Worker Relationship Specialty Start Date End Date Edilberto Montoya MD PCP - General Internal Medicine 01/28/14
--- OUTSIDE RECORDS SUMMARY | 2024-12-24 09:57 | XMS_ITS | Clinical Summary ---
Author Organization Candi OROPEZA OSIEL OD Address [facility] [address] Phone Care Team Providers Care Manager Intensive Care Unit Name Role Phone Unavailable Primary Care Provider [...] this topic Medical Devices Implanted Type Area Dress Shoe Inspector Device Identifier Shelf Expiration Date Model / Serial / Lot Bilateral Breast Markers/Clips Bilateral Intraocular Lenses Partial Left Knee Replacement Anthony Dbf 1cc - [id number] Implanted:Qty: 1 on 09/01/2017 by Anatoly Mcconnell MD at [facility] N/A: Spine Cervical [employer]:SOFAMO R DANEK 04/24/2019 [id number] / [id number] / Cage Peek 6mm X 16mm X 14mm - [id number] Implanted:Qty: 1 on 09/01/2017 by Anatoly Mcconnell MD at [facility] N/A: Spine Cervical [employer]:SOFAMO R DANEK 10/21/2024 [id number] / / [id number] Screw Axial Multi Vertex 3.5mm X 16mm - [id number] Implanted:Qty: 4 on 09/01/2017 by Anatoly Mcconnell MD at [facility] N/A: Spine Cervical [employer]:SOFAMO R DANEK [id number] / / Inocencio 3.5mm X 30mm - [id number] Implanted:Qty: 1 on 09/01/2017 by Anatoly Mcconnell MD at [facility] N/A: Spine Cervical [employer]:SOFAMO R DANEK [id number] / / Screw Set Vertex - [id number] Implanted:Qty: 4 on 09/01/2017 by Anatoly Mcconnell MD at [facility] N/A: Spine Cervical [employer]:SOFAMO R DANEK [id number] / / Inocencio 3.5mm X 25mm - [id number] Implanted:Qty: 1 on 09/01/2017 by Anatoly Mcconnell MD at [facility] N/A: Spine Cervical [employer] [id number] / / Insurance MEDICARE [place] PART A AND B SUPPLEMENTAL Advance Directives For more information, please contact: [phone] * Full Code (Latest Code Status on File) Date Activated Date Inactivated Comments 09/01/2017 2:28 PM 09/07/2017 8:13 PM
--- OUTSIDE RECORDS SUMMARY | 2024-12-24 09:57 | XMS_ITS | Clinical Summary ---
Author Organization Healthcare Address [address] [place] [address] Care Team Providers Care Bobbin Washer Name Role Phone Edilberto Montoya MD Primary Care Provider [phone] Allergies Active Allergy Reactions Criticality Noted Date [...] of consciousness 023 05/15/2023 Coronary atherosclerosis of [place] coronary malcom ry 05/15/2023 05/15/2023 Diabetes type [...] 10/24/2024 10:00 AM EDT Procedure Visit [facility] [address] [place] [phone] Kenton Goins MD Exudative age-related macular degeneration of both eyes with active choroidal neovascularization (CMS/HCC) (Primary Dx); Pseudophakia of both eyes; 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 10/24/2024 7:45 AM EDT Ancillary Procedure [facility] [address] [place] [address] 10/24/2024 Travel from Last 3 [...] Description 01/03/2025 12:45 PM EDT Procedure Visit [facility] [address] [place] [address] Kenton Goins MD [address] [address] 05/22/2025 2:15 PM EST Office Visit [facility] [address] [place] [address] Koko Robles, OD [address] [address] Health Maintenance Due Date Last Done Comments [facility]-Bone Density Scan 1937 [facility]-Depression Screening 1937 [facility]-Diabetes: Hemoglobin A1C 1937 [facility]-Medicare Annual Wellness (AWV) 1937 [facility]-/Child/Adol SDOH Screenings 1937 Diabetes: Dental Exam 1947 [facility]- SDOH Screenings 1955 [facility]-Adult SDOH Screenings 1955 [facility]-Zoster Vaccines (1 of 2) 1987 [id number] Vaccine (5 - season) 2024 03/28/2022, 03/15/2021, [...] 2 MG/0.05ML Route: Intravitreal, Site: Right Eye [facility]: 07044-663-47, Lot: [id number], Expiration date: 10/09/2025 Post-op Post injection exam [...] from Last 3 Months Insurance [place] [id number] [place] [address] [facility] Care Teams Bobbin Washer Relationship Specialty Start Date End Date Edilberto Montoya MD [address] [place] [id number] PCP - General 10/23/20
[2024-12-24 09:59] VITALS: BP 154/48; PULSE 52; RESP 16; TEMP 36.9; O2SAT 97; BMI 28.3
[2024-12-24 10:01] VITALS: BP 153/72; PULSE 47; O2SAT 95
--- NOTE | 2024-12-24 10:11 | XR_ITS ---
FINAL REPORT CLINICAL HISTORY: tenderness s/p fall COMPARISON: None FINDINGS: LEFT KNEE 3 views of the left knee were obtained. There is no acute fracture or dislocation. Post arthroplasty changes in the medial compartment. Moderate degenerative changes in the lateral compartment. There is chondrocalcinosis. A calcified joint body is seen in the suprapatellar bursa. Soft tissues are unremarkable. IMPRESSION: Chronic changes without acute bony abnormality. Reviewed, Interpreted and Dictated by Debra Alarcon MD Transcribed by Sharda Justice Authenticated and [facility]
--- NOTE | 2024-12-24 10:11 | XR_ITS ---
FINAL REPORT CLINICAL HISTORY: tenderness s/p fall COMPARISON: None FINDINGS: Two views of the left tibia/fibula were obtained. There is no acute fracture or dislocation. Chronic degenerative and postoperative changes in the knee. There is no soft tissue abnormality. IMPRESSION: No acute process. Reviewed, Interpreted and Dictated by Debra Alarcon MD Transcribed by Sharda Justice Authenticated and [facility]
[2024-12-24 10:32] VITALS: BP 172/71; PULSE 48; O2SAT 96
--- NOTE | 2024-12-24 10:45 | PC.NURSE ---
would cleaned with hibiclens and sterile water
[2024-12-24 11:00] VITALS: BP 152/130; PULSE 49
[2024-12-24 11:31] VITALS: BP 158/70
--- NOTE | 2024-12-24 12:04 | HMH.EDGENADL ---
Discharge Plan Disposition Patient Disposition: Home, Self-Care Condition: Good Prescriptions Prescriptions: No Action ammonium lactate 12 % cream 1 applic topical BID 30 Days Qty: 385 2RF nitroglycerin 0.4 mg tablet, sublingual 0.4 mg sublingual Q5M PRN (Reason: chest pain) Qty: 25 3RF Rx Instructions: do not exceed 3 doses per episode clopidogrel 75 mg tablet 75 mg PO DAILY Qty: 30 0RF carvedilol 6.25 mg tablet 6.25 mg PO BID Qty: 60 0RF atorvastatin 80 mg tablet 80 mg PO HS Qty: 30 0RF lisinopril 10 mg tablet 10 mg PO DAILY Qty: 30 0RF duloxetine 60 mg capsule,delayed release(DR/EC) 60 mg PO BID Patient Comments: TAKE 1 CAPSULE BY MOUTH TWICE DAILY FOR 90 DAYS cholecalciferol (vitamin D3) [Vitamin D3] 125 mcg (5,000 unit) Tablet 125 mcg PO DAILY PreserVision AREDS-2 250-90-40-1 mg Capsule 1 tab PO BID metformin 500 MG tablet 500 mg PO DAILY Referrals Follow up/Referrals: Edilberto Montoya MD [Primary Care Provider, Internal Medicine] - See instructions Activity Restrictions/Add. Instructions Additional Instructions/Restrictions: The stitches in your left lower extremity will dissolve on their own. The skin will likely fall off. Keep the dressing on for 24 hours, and then you can wash the wound. Use soap and water. Return to the emergency department for any signs of infection including significant drainage, inability to stop the bleeding or if you have any other acute concerns. We will send you with extra supplies to dress your wound at home. Clinical Impressions Clinical Impression: Leg wound, left Print Language Print Language: Yoruba Discharge ED Provider: Michelle Gardner General Adult HPI General Chief complaint: Extremity Injury, Lower Stated complaint: laceration Time Seen by Provider: 12/24/24 10:02 Mode of Arrival: EMS Source of Information: Patient and EMS Description of Symptoms (Recalled from ER Triage Doc. by RN): Pt in by EMS for left lower extremity injury sustained from her rollator. Pt reports she hit her ragland on her rollator and has 2 large skin tear. Pt had bleeding controlled and wrapped prior to EMS arrival. History of Present Illness HPI narrative: Patient is a 89-year-old female with a past medical history of coronary artery disease on Plavix who presented to the emergency department with a lower extremity injury. Patient states that she hit her ragland on her rollator and fell when getting in the car. Patient reports pain on her ragland with some bleeding and skin tear. Patient denies any other injuries, patient did not hit her head did not lose consciousness. Related Data Home Medications ?Medication ?Instructions ?Recorded ?Confirmed metformin 500 mg tablet 500 mg PO DAILY Diabetes 12/07/20 12/10/24 duloxetine 60 mg capsule,delayed 60 mg PO BID Mood 02/19/22 12/10/24 release cholecalciferol (vitamin D3) 125 125 mcg PO DAILY 01/13/24 12/10/24 mcg (5,000 unit) tablet (Vitamin D3) vit C 250 mg-vit E 90 mg-zinc 40 1 tab PO BID 01/13/24 12/10/24 mg-copper 1 rl-ldxfwn-hdfoxo capsule (PreserVision AREDS-2) Previous Rx's ?Medication ?Instructions ?Recorded nitroglycerin 0.4 mg sublingual 0.4 mg sublingual Q5M PRN chest 03/28/23 tablet pain #25 tabs ammonium lactate 12 % topical cream 1 applic topical BID dry skin, 08/29/24 callus care 30 days #385 grams atorvastatin 80 mg tablet 80 mg PO HS #30 tabs 12/03/24 carvedilol 6.25 mg tablet 6.25 mg PO BID High Blood Pressure 12/03/24 #60 tabs clopidogrel 75 mg tablet 75 mg PO DAILY Blood Thinner #30 12/03/24 tabs lisinopril 10 mg tablet 10 mg PO DAILY High Blood Pressure 12/03/24 #30 tabs Allergies Allergy/AdvReac Type Severity Reaction Status Date / Time hydromorphone (From DILAUDID) Allergy Intermediate Agitated Verified 12/10/24 13:36 metronidazole (METRONIDAZOLE) Allergy Unknown NA-NAUSEA/V Verified 12/10/24 13:36 OMITING morphine (MORPHINE) Allergy Unknown Agitated Verified 12/10/24 13:36 pentazocine (PENTAZOCINE) Allergy Unknown Agitated Verified 12/10/24 13:36 [facility] Disclaimer: The information contained in this section may have been updated after the patient was seen, as this information can be updated by other users. Medical History (Updated 12/24/24 @ 12:07 by Michelle Gardner DO) Abnormal echocardiography Elevated serum creatinine Left ventricular hypertrophy SOB (shortness of breath) Ankle fracture, right Urinary tract infection Osteoarthritis Breast cancer Fatigue Hyperkalemia Unstable angina Rotator cuff tear, right Rotator cuff (capsule) sprain Peripheral arterial disease Renal artery stenosis Peripheral neuropathy Hyperlipidemia Neuropathy History of heart attack Diabetes mellitus, type 2 Coronary atherosclerosis of [place] coronary artery STEMI (ST elevation myocardial infarction) Shingles Hypertension Hypertension Surgical History H/O cervical discectomy H/O laminectomy H/O total mastectomy History of heart artery stent History of cardiac catheterization History of mastectomy Hx of cervical spine surgery History of knee replacement History of hysterectomy Family History Mother Dementia Father Family history of myocardial infarction Social History Smoking Status: Smoker, status unknown tobacco type: cigarettes packs per day: 1 years smoked: 40 second hand exposure: No alcohol intake: never substance use type: denies use current occupational status: retired Travel in the last 8 weeks?: None adopted: No caregiver/support person: Yes foster care: No household members: family housing: house marital status: education level: college current occupational exposures/hazards: No caffeine: Yes (coffee) tia/jewish: [employer] Have you lived/traveled outside US in past 30 days?: No Contact w/someone who lives/traveled outside US past 30 days?: No Exposure to someone with infectious disease in past 14 days?: No Do you have a fever (greater than 100.4 F or 38 C)?: No Have you tested positive for COVID-19?: No Exposed to someone with COVID-19 in past 14 days?: No Do you have a sore throat?: No Do you have a cough?: No Do you have any weakness?: No Do you have any diarrhea?: No Are you experiencing any unusual bleeding?: No Do you have any muscle aches/pain?: No Do you have any abdominal pain?: No Are you experiencing loss of taste or smell?: No Other Medical History Have you received the Flu Vaccine for this season: No Have you received the Pneumonia Vaccine: Yes ROS Obtained: Yes All systems reviewed & no additional complaints except as documented and Yes Systems reviewed as appropriate & no additional complaints except as documented Physical Exam General General appearance: alert and in no apparent distress Head Head exam: atraumatic, normocephalic and normal inspection Eye Eye exam: Present normal appearance, PERRL and EOMI; Absent scleral icterus ENT ENT exam: Present normal exam and normal external ear exam Neck Neck exam: Present normal inspection and full ROM Chest Chest inspection: Present normal inspection and symmetric chest wall rise Respiratory Respiratory exam: Present normal lung sounds bilaterally; Absent respiratory distress or wheezes Cardiovascular Cardiovascular exam: Present regular rate, normal rhythm and normal heart sounds Abdominal Exam Abdominal exam: Present soft and distention; Absent tenderness, guarding or rebound Extremities Exam Extremities exam: Present normal inspection, full ROM and other (Tenderness to the left ragland) Back Exam Back exam: Present normal inspection and full ROM Neurological Exam Neurological exam: Present alert and oriented X3 Psychiatric Psychiatric exam: Present normal affect and normal mood Skin Skin exam: Present warm, dry and other (2 skin tears of the left lower extremity on the ragland with some mild bleeding, superficial in nature) Medical Decision Making Medical Records Screening: Per USPSTF and CDC recommendations, given the prevalence of disease in our region, it is our hospital?s policy to screen for HIV and viral Hepatitis for all patients aged 18 and over and those with ongoing risk factors. Wiley Inquiry Pt receiving controlled substance: No Vital Signs: 12/24/24 09:59 12/24/24 10:01 12/24/24 10:32 Temperature 98.5 F Temperature Source Oral Pulse Rate 47 L 48 L Pulse Rate [Left] 52 L Respiratory Rate 16 Blood Pressure 153/72 H 172/71 H Blood Pressure [Right Arm] 154/48 H Blood Pressure Mean Blood Pressure Mean [Right Arm] 83 Blood Pressure Source Automatic Cuff Blood Pressure Source [Right Arm] Automatic Cuff Blood Pressure Position Sitting Blood Pressure Position [Right Arm] Sitting 02 Sat by Pulse Oximetry 97 95 96 Oxygen Delivery Method Room Air Room Air 12/24/24 11:00 12/24/24 11:31 12/24/24 12:24 Temperature 98.2 F Temperature Source Pulse Rate 49 L 78 Pulse Rate [Left] Respiratory Rate 16 Blood Pressure 152/130 H 158/70 H 135/92 H Blood Pressure [Right Arm] Blood Pressure Mean 136 99 Blood Pressure Mean [Right Arm] Blood Pressure Source Blood Pressure Source [Right Arm] Blood Pressure Position Sitting Blood Pressure Position [Right Arm] 02 Sat by Pulse Oximetry Oxygen Delivery Method Lab Data Lab results reviewed: Yes I reviewed the patient's lab results. Orders (Tests/Meds): ED MEDICATIONS Discontinued Medications Generic Name Dose Route Start Last Admin Trade Name Og PRN Reason Stop Dose Admin Lidocaine HCl 10 ml 12/24/24 11:31 12/24/24 12:09 Lidocaine 1% 10ml Mdv SUBCUT 12/24/24 11:32 10 ml ONCE ONE Administration ORDERS Category Date Time Status Knee XR left 3 views [XR knee LT 3V] Stat Exams 12/24/24 10:11 Completed Tibia/fibula XR left 2 views [XR tibia fibula LT 2V] Exams 12/24/24 10:11 Completed Stat Medical Decision Narrative: Patient is a 89-year-old female with a past medical history of coronary artery disease on Plavix who presented to the emergency department after an injury to her left lower extremity. Patient hit her left lower extremity on her rollator and fell down onto her ragland. Patient did not hit her head did not lose consciousness. Patient is reporting pain in the laceration to her left ragland. Differential includes but not limited to laceration, fracture, dislocation, sprain, strain, amongst others. Patient reports that her tetanus is up-to-date. X-ray of the left tibia-fibula was obtained which showed no acute fractures. Patient's superficial abrasions skin tears were repaired at bedside with sutures Steri-Strips and a dressing was placed. Wound care instructions were given and patient was discharged home in stable condition. Procedures Laceration Laceration 1: Site: lower extremity Side (If applicable): left Size (cm): 5 Description: irregular Depth: simple, single layer Local Anesthetic: lidocaine 1% Amount of anesthesia used (mL): 10 Pre-repair: wound explored and irrigated extensively Skin layer closed with: other (chromic gut) Size (cm): 4-0 Number of sutures: 7 Technique: simple, interrupted Critical Care Critical Care Time Critical Care Time: No
[2024-12-24] MEDS: LIDOCAINE 1% 10ML MDV 10 ML SUBCUT (12:09)
[2024-12-24 12:24] VITALS: BP 135/92; PULSE 78; RESP 16; TEMP 36.8; O2SAT 97
== END 2024-12-24 12:24 | disposition home or self-care (01) ==
PROVIDERS: Emergency Provider Student in an Organized Health Care Education/Training Program; PCP Internal Medicine Adolescent Medicine
DX: S81.802A Unspecified open wound, left lower leg, initial encounter (principal); W22.8XXA Striking against or struck by other objects, initial encounter; Z86.79 Personal history of other diseases of the circulatory system; Z79.01 Long term (current) use of anticoagulants
CPT/HCPCS: 12002; 73562; 73590; 99284

== ENCOUNTER 2025-04-01 14:18 | Outpatient (CLI) | payer MEDICARE, SELFPAY ==
--- OUTSIDE RECORDS SUMMARY | 2025-04-01 14:23 | XMS_ITS | Clinical Summary ---
Author Organization [facility] Address [address] [place] [address] Care Team Providers Care Food Assembler Name Role Phone Unavailable Primary Care Provider Unavailabl e Social History Tobacco Use Types Packs/Day Years Used Date Smoking Tobacco: Never Assessed Comments Unknown Sex and Gender Information Value Date Recorded Sex Assigned at Not on file Legal Sex Female 6:05 PM EST Gender Identity Not on file Sexual Orientation Not on file Plan of Treatment Not on file
--- OUTSIDE RECORDS SUMMARY | 2025-04-01 14:23 | XMS_ITS | Clinical Summary ---
Author Organization [facility] Address [facility] [place] [address] Care Team Providers Care Autism Tutor Name Role Phone Edilberto Montoya MD Primary Care Provider + [phone] Source Comments This information has been disclosed [...] therelease of HIV test results or diagnoses. [id number] Allergies No known active allergies Medications [...] Plan of Treatment Not on file Insurance [facility] Care Teams Autism Tutor Relationship Specialty Start Date End Date Edilberto Montoya MD PCP - General Internal Medicine 01/28/14
--- OUTSIDE RECORDS SUMMARY | 2025-04-01 14:23 | XMS_ITS | Clinical Summary ---
Author Organization [facility] Address [facility] [place] [address] Phone Care Team Providers Care Belt Notcher Name Role Phone Unavailable Primary Care Provider [...] 75+ series) 2012 COVID-19 Vaccine ( - 2024-2 6 season) 2025 Influenza Vaccine (#1) 2025 Hepatitis B Vaccine Aged Out No longe r eligible based on patient's age to complete this topic Meningococcal B Vaccine Aged Out No l onger eligible based on patient's age to complete this topic Medical Devices Implanted Type Area Oil Agent Device Identifier Shelf Expiration Date Model / Serial / Lot Bilateral Breast Markers/Clips Bilateral Intraocular Lenses Partial Left Knee Replacement Anthony Dbf 1cc - [id number] Implanted:Qty: 1 on 09/01/2017 by Anatoly Mcconnell MD at [facility] N/A: Spine Cervical [employer]:SOFAMO R DANEK 04/24/2019 [id number] / [id number] / Cage Peek 6mm X 16mm X 14mm - [id number] Implanted:Qty: 1 on 09/01/2017 by Anatoly Mcconnell MD at [facility] N/A: Spine Cervical [employer]:SOFAMO R DANEK 10/21/2024 [id number] / / [id number] Screw Axial Multi Vertex 3.5mm X 16mm - [id number] Implanted:Qty: 4 on 09/01/2017 by Anatoly Mcconnell MD at [facility] N/A: Spine Cervical [employer]:SOFAMO R DANEK [id number] / / Inocencio 3.5mm X 30mm - [id number] Implanted:Qty: 1 on 09/01/2017 by Anatoly Mcconnell MD at [facility] N/A: Spine Cervical [employer]:SOFAMO R DANEK [id number] / / Screw Set Vertex - [id number] Implanted:Qty: 4 on 09/01/2017 by Anatoly Mcconnell MD at [facility] N/A: Spine Cervical [employer]:SOFAMO R DANEK [id number] / / Inocencio 3.5mm X 25mm - [id number] Implanted:Qty: 1 on 09/01/2017 by Anatoly Mcconnell MD at [facility] N/A: Spine Cervical [employer] [id number] / / Insurance MEDICARE [place] PART A AND B SUPPLEMENTAL Advance Directives For more information, please contact: [phone] * Full Code (Latest Code Status on File) Date Activated Date Inactivated Comments 09/01/2017 2:28 PM 09/07/2017 8:13 PM
--- NOTE | 2025-04-01 14:25 | XR_ITS ---
FINAL REPORT CLINICAL HISTORY: fall, LT ARM PAIN COMPARISON: None FINDINGS: Two views of the left humerus show no evidence of an acute, displaced fracture or dislocation of the visualized bony architecture. There are degenerative changes of the left shoulder. IMPRESSION: Unremarkable exam. Reviewed, Interpreted and Dictated by Debra Alarcon MD Transcribed by Sharda Justice Authenticated and [facility]
--- NOTE | 2025-04-01 14:25 | XR_ITS ---
FINAL REPORT CLINICAL HISTORY: fall, c/o pain mid forearm and shoulder COMPARISON: None FINDINGS: 2 views of the left forearm were obtained. There is no acute fracture or dislocation. The joints are intact. Osteopenia is noted. There is chondrocalcinosis of the TFCC. IMPRESSION: No acute process. Reviewed, Interpreted and Dictated by Debra Alarcon MD Transcribed by Sharda Justice Authenticated and [facility]
== END 2025-04-01 23:59 | disposition home or self-care (01) ==
LOC: RAD 14:21
PROVIDERS: PCP Internal Medicine Adolescent Medicine; Visit Provider Internal Medicine Adolescent Medicine
DX: M79.602 Pain in left arm (principal)
CPT/HCPCS: 73060; 73090

== ENCOUNTER 2025-04-02 12:49 | Outpatient (CLI) | payer MEDICARE, SELFPAY ==
--- NOTE | 2025-04-02 12:55 | XR_ITS ---
FINAL REPORT CLINICAL HISTORY: PAIN, fall on 03/29, hurts to move, pain radiates down arm FINDINGS: Three views show no evidence of acute displaced fracture or dislocation of the visualized bony architecture. There is moderate AC joint arthropathy. There are moderate degenerative changes of the glenohumeral joint. Chondrocalcinosis is identified. IMPRESSION: Degenerative changes as above. Reviewed, Interpreted and Dictated by Debra Alarcon MD Transcribed by Luana Shepherd Authenticated and . [facility]
--- OUTSIDE RECORDS SUMMARY | 2025-04-02 13:40 | XMS_ITS | Clinical Summary ---
Author Organization [facility] Address [address] [place] [address] Care Team Providers Care Chemical Checker Name Role Phone Edilberto Montoya MD Primary Care Provider [phone] Allergies Active Allergy Reactions Criticality Noted Date [...] Diagnosed Date Pseudophakia of both eyes 07/07/2023 Ataxia 05/15/2023 05/15/2023 Biceps strain 05/15/2023 05/15/2023 Chronic right shoulder pain 05/15/2023 12/0 09/2022 Concussion without loss of consciousness 023 05/15/2023 Coronary atherosclerosis of [place] coronary malcom ry 05/15/2023 05/15/2023 Diabetes type 2, controlled 05/15/2023 12/0 09/2022 Dysuria 05/15/2023 05/15/2023 Frequent falls 05/15/2023 05/15/2023 Hyperlipidemia 05/15/2023 05/15/2023 Hypertension, essential 05/15/2023 05/15/20 Injury of right rotator cuff 05/15/202309/2022 Incurved toenail 05/15/2023 05/15/2023 Keratosis 05/15/2023 05/15/2023 Laceration 05/15/2023 05/15/2023 Nasal septum fracture 05/15/2023 05/15/2023 Osteoarthritis of right knee 05/15/202309/2022 Peripheral neuropathy 05/15/2023 05/15/2023 Peripheral arterial disease 05/15/2023 1209/2022 Renal artery stenosis 05/15/2023 05/15/2023 Right knee sprain 05/15/2023 05/15/2023 Rotator cuff tear arthropathy of right shoulder 05/15/2023 05/15/2023 S/P total knee arthroplasty 05/15/202309/2022 Shoulder pain 05/15/2023 05/15/2023 Skin tear 05/15/2023 05/15/2023 STEMI (ST elevation myocardial infarction) 05/1505/15/2023 Unstable angina 05/15/2023 05/15/2023 Exudative age-related macular degeneration 04/17 Neuropathic pain of chest 02/12/20142022 Acquired absence of breast and absent nipple 05/15/2023 Resolved Problems Problem Noted Date Diagnosed Date Resolved Date Accidental fall 05/15/2023 05/15/2023 03/02/2025 Chest pain 05/15/2023 05/15/2023 03/02/2025 Puncture wound 05/15/2023 05/15/2023 03/02/2025 UTI (urinary tract infection) 05/15/2023 05/15/2023 03/02/2025 Encounters Date Type Department Care Team Description 01/30/2025 1:00 PM EDT Procedure Visit [facility] [address] [place] [address] Kenton Goins MD Exudative age-related macular degeneration of both eyes with active choroidal neovascularization (CMS/HCC) (Primary Dx); Pseudophakia of both eyes 01/30/2025 7:40 AM EDT Ancillary Procedure [facility] [address] [place] [address] 01/30/2025 Travel from Last 3 Months Immunizations Immunization [...] Care Team (Late st Contact Info) Description 05/22/2025 2:15 PM EST Office Visit [facility] [address] [place] [address] Koko Robles, OD [address] [address] 05/28/2025 3:00 PM EST Office Visit [facility] [address] [place] [address] Kenton Goins MD [address] [address] Health Maintenance Due Date Last Done Comments [facility]-Bone Density Scan 1937 [facility]-Depression Screening 1937 [facility]-Diabetes: Hemoglobin A1C 1937 [facility]-Medicare Annual Wellness (AWV) 1937 [facility]-Infant/Child/Adol SDOH Screenings 1937 Diabetes: Dental Exam 1947 [facility]- SDOH Screenings 1955 [facility]-Adult SDOH Screenings 1955 [facility]-Zoster Vaccines (1 of 2) 1987 [facility]-BPPYN-44 Vaccine (6 - season) 2025 08/07/2023, 03/28/2022, 03/15/2021, Additional history exists [facility]-Influenza Vaccine (#1) 02/10/202503/20, [...] AGENT - OD - RIGHT EYE Routine 01/30/2025 2:53 PM EDT Exudative age-related macular degeneration of both eyes with active choroidal neovascularization (CMS/HCC) OCT, RETINA - OU - BOTH EYES Routine 01/30/2025 2:28 PM EDT Exudative age-related macular degeneration of both eyes with active choroidal neovascularization (CMS/HCC) from Last 3 Months Results * Intravitreal Injection, Pharmacologic Agent - OD - Right Eye (01/30/2025 2:53 PM EDT) Anatomical Region Laterality Modality Head Other Narrative 01/30/2025 2:53 PM EDT Time Out 01/30/2025. 2:53 PM. Confirmed correct patient, procedure, site, and patient consented. Anesthesia Topical anesthesia was used. Anesthetic medications included Proparacaine 0.5%. Procedure Preparation included 5% betadine to ocular surface. A 30 gauge needle was used. Injection: 8 mg Aflibercept 8 MG/0.07ML Route: Intravitreal, Site: Right Eye [facility]: 33694-250-78, Lot: [id number], Expiration date: 08/09/2025, Waste: 0 mL Post-op Post injection exam found visual acuity of at least counting fingers. The patient tolerated the procedure well. There were no complications. The patient received written and verbal post procedure care education. Post injection medications were not given. Kenton Goins MD OPHTH CLINIC PROCEDURES Final R esult * OCT, Retina - OU - Both Eyes (01/30/2025 2:28 PM EDT) Anatomical Region Laterality Modality Head Optical Coherenc e Tomography Narrative 01/30/2025 2:28 PM EDT Right Eye Quality was good. Scan [...] worsened today Kenton Goins MD OPHTH TOMOGRAPHY Final Result from Last 3 Months Insurance MEDICARE [employer] Care Teams Chemical Checker Relationship Specialty Start Date End Date Edilberto Montoya MD [address] [place] [id number] PCP - General 10/23/20
--- OUTSIDE RECORDS SUMMARY | 2025-04-02 13:40 | XMS_ITS | Clinical Summary ---
Author Organization [facility] Address [facility] [place] [address] Care Team Providers Care Pole Maker Name Role Phone Edilberto Montoya MD Primary Care Provider + [phone] Source Comments This information has been disclosed [...] therelease of HIV test results or diagnoses. [id number] Allergies No known active allergies Medications [...] Plan of Treatment Not on file Insurance [facility] Care Teams Pole Maker Relationship Specialty Start Date End Date Edilberto Montoya MD PCP - General Internal Medicine 01/28/14
--- OUTSIDE RECORDS SUMMARY | 2025-04-02 13:40 | XMS_ITS | Clinical Summary ---
Author Organization [facility] Address [address] [place] [address] Care Team Providers Care Sign Language Translator Name Role Phone Unavailable Primary Care Provider [...]
--- OUTSIDE RECORDS SUMMARY | 2025-04-02 13:40 | XMS_ITS | Clinical Summary ---
Author Organization [facility] Address [facility] [place] [address] Phone Care Team Providers Care Beamster Name Role Phone Unavailable Primary Care Provider [...] this topic Medical Devices Implanted Type Area Electrode Cleaner Device Identifier Shelf Expiration Date Model / Serial / Lot Bilateral Breast Markers/Clips Bilateral Intraocular Lenses Partial Left Knee Replacement Anthony Dbf 1cc - [id number] Implanted:Qty: 1 on 09/01/2017 by Anatoly Mcconnell MD at [facility] N/A: Spine Cervical [employer]:SOFAMO R DANEK 04/24/2019 [id number] / [id number] / Cage Peek 6mm X 16mm X 14mm - [id number] Implanted:Qty: 1 on 09/01/2017 by Anatoly Mcconnell MD at [facility] N/A: Spine Cervical [employer]:SOFAMO R DANEK 10/21/2024 [id number] / / [id number] Screw Axial Multi Vertex 3.5mm X 16mm - [id number] Implanted:Qty: 4 on 09/01/2017 by Anatoly Mcconnell MD at [facility] N/A: Spine Cervical [employer]:SOFAMO R DANEK [id number] / / Inocencio 3.5mm X 30mm - [id number] Implanted:Qty: 1 on 09/01/2017 by Anatoly Mcconnell MD at [facility] N/A: Spine Cervical [employer]:SOFAMO R DANEK [id number] / / Screw Set Vertex - [id number] Implanted:Qty: 4 on 09/01/2017 by Anatoly Mcconnell MD at [facility] N/A: Spine Cervical [employer]:SOFAMO R DANEK [id number] / / Inocencio 3.5mm X 25mm - [id number] Implanted:Qty: 1 on 09/01/2017 by Anatoly Mcconnell MD at [facility] N/A: Spine Cervical [employer] [id number] / / Insurance MEDICARE [place] PART A AND B SUPPLEMENTAL Advance Directives For more information, please contact: [phone] * Full Code (Latest Code Status on File) Date Activated Date Inactivated Comments 09/01/2017 2:28 PM 09/07/2017 8:13 PM
== END 2025-04-02 23:59 | disposition home or self-care (01) ==
LOC: RAD 12:50
PROVIDERS: PCP Internal Medicine Adolescent Medicine; Visit Provider Internal Medicine Adolescent Medicine
DX: M19.012 Primary osteoarthritis, left shoulder (principal); M11.212 Other chondrocalcinosis, left shoulder
CPT/HCPCS: 73030